=== PATIENT | female | born 1940 | race Caucasian/White ===

== ENCOUNTER 2016-12-15 09:53 | Inpatient (IN) ==
--- NOTE | 2016-12-15 11:06 | EKG Report ---
Test Performed on : 12/15/2016 11:02:55 AM Test Reason : AMS Blood Pressure : / mmHG Vent. Rate : 089 BPM Atrial Rate : 089 BPM P-R Int : 136 ms QRS Dur : 086 ms QT Int : 386 ms P-R-T Axes : 048 048 091 degrees QTc Int : 469 ms Sinus rhythm. with occasional premature ventricular complexes. Possible Left atrial enlargement Possible Inferior infarct (cited on or before 03-MAR-2016) Abnormal ECG When compared with ECG of 03-MAR-2016 09:25, premature ventricular complexes. are now present Unconfirmed Result
--- NOTE | 2016-12-15 11:08 | Diag Imaging Result Doc PS360 ---
EXAM: CT HEAD W/O CONTRAST TECHNIQUE: Dose reduction protocol was used. INDICATION: stroke symptoms. Speech difficulty, weakness, sudden onset COMPARISON: 03/03/2016 FINDINGS: There is no definite acute infarct given the limited sensitivity of CT versus MRI. There is no discrete intracranial mass, mass effect, or intracranial hemorrhage. The surrounding soft tissues and bony structures are essentially unremarkable. IMPRESSION: No evidence of acute intracranial pathology by CT. Electronically signed by Jose Daniel Modi 12/15/2016 11:06 AM
--- NOTE | 2016-12-15 11:18 | ED EKG INTERP ---
This chart was entered by Amarilis Nam Scribe, acting as scribe for Reymundo Rangel MD. EKG Interpretation - EKG Time of EKG reading by physician:: 11:02 EKG Read and Signed by:: Reymundo Rangel EKG Interpretation (*Must complete 3 of following elements*): Abnormal ( possible left atrial enlargement; possible inferior infarct, age undetermined) Rate: 89 Rhythm: sinus rhythm with occasional premature ventricular complexes Attestation - Physician/ MATTHEW Attestation Patient care was provided by Advanced Practice Provider:: Yes Advanced Practice Provider documentation review:: The Mid-level provider documentation, treatment plan and medical decision making was reviewed by the physician who agrees with all treatment and medical decision making by the MLP. The physician spent face to face time with patient:: Yes Advanced Practice Provider documentation review:: Supervising physician onsite and consulted in the evaluation and care of this patient. The physician did have a face to face encounter with the patient. This chart was documented by the indicated scribe, (Amarilis Nam Scribe) and accurately reflects the services I performed and decisions made by me, Reymundo Rangel MD, as attested by the provider's signature.
--- NOTE | 2016-12-15 11:25 | PROVIDER DOCUMENTATION ---
This chart was entered by Amarilis Nam Scribe, acting as scribe for Papa Gabriel PA. HPI-Neurological Disorder - General Chief Complaint: Stroke-Like Symptoms Stated Complaint: UNABLE TO GET WORDS OUT OF MOUTH Time Seen by Provider: 12/15/16 10:12 Source: patient Allergies/Adverse Reactions: Patient Allergies Allergy/AdvReac Type Severity Reaction Status Date / Time aspirin Allergy Unknown Unknown Verified 12/15/16 09:58 duloxetine HCl * Allergy Unknown Unknown Verified 12/15/16 09:58 [From Cymbalta] Iodinated Contrast- Oral and Allergy Unknown Unknown Verified 12/15/16 09:58 IV Dye levofloxacin [From Levaquin] Allergy Unknown Unknown Verified 12/15/16 09:58 NSAIDS (Non-Steroidal Allergy Unknown Unknown Verified 12/15/16 09:58 Anti-Inflamma tramadol HCl * [From Ultram] Allergy Unknown Unknown Verified 12/15/16 09:58 venlafaxine HCl * Allergy Unknown Unknown Verified 12/15/16 09:58 [From Effexor] ondansetron HCl * Allergy ITCHING Verified 12/15/16 09:58 [From Zofran] Penicillins Allergy ANAPHYLAXIS Verified 12/15/16 09:58 Home Medications: Home Medication List Medication Instructions Recorded Confirmed Last Taken Type Apixaban [Eliquis] 5 mg PO BID #60 tablet 07/17/15 03/03/16 03/03/16 Rx Diltiazem C.d. [Cardizem Cd] 120 mg PO DAILY #30 capsule 07/17/15 03/03/1603/03 Rx Furosemide 40 mg PO QAM 03/03/16 03/03/16 03/03/16 History Hydrocodone/Acetaminophen 1 each PO BID 03/03/16 03/03/16 03/03/16 History [Hydrocodon-Acetaminophn 10-325] Metoprolol Tartrate 50 mg PO BID 03/03/16 03/03/16 03/03/16 History Hydralazine [Apresoline] 25 mg PO Q8H #0 tablet 03/04/16 Unknown Rx PRAVAstatin [Pravachol] 20 mg PO QHS #0 tablet 03/04/16 Unknown Rx - History of Present Illness-Neuro Nature of Presenting Problem: Pt is 76 year old female presents to the ED with slurred speech and upper extremity weakness. Pt states symptoms started last night around 2330. Pt states was eating a sandwich and dropped it from her left hand. Pt denies hx of CVA. Pt states she is on a blood thinner. Headache Location: denies: frontal, temporal, occipital, parietal, global Severity: reports: moderate Onset/Duration: reports: last night Timing: reports: still present Context: reports: impaired speech (slurred), other (bilateral upper ext. weakness) Character of Altered Mental Status: reports: N/A Any recent trauma/injury?: reports: none Character of Deficits: reports: new weakness (bilateral upper extr.), impaired speech (slurred) New weakness or altered sensation location:: reports: REYNALDOEJORGE LUIS Cognitive Baseline: alert, oriented x3 Gait Baseline: walks without assistance Associated Symptoms: reports: slurred speech, weakness (upper extr.). denies: short of breath, headache, decreased ability to walk or stand, fainting, dizziness, confusion, chest pain, neck/back pain, fatigue, fever/chills, insomnia, loss of consciousness, muscle spasms, nausea, numbness in legs/feet, paresthesia, diaphoretic, ringing in ears, seizures, sleepy, tingling in legs/ feet, trouble walking, vomiting, vision changes Similar Symptoms Previously?: Yes (presents since last night ) Recently seen or treated by another doctor?: No Review of Systems - Adult - REVIEW OF SYSTEMS - ADULT Constitutional: denies: chills, fever Eyes: denies: decreased vision, blurred vision, double vision Ears, Nose, Mouth & Throat: denies: ear pain, nose pain, throat pain Cardiovascular: denies: chest pain, heart murmur, irregular heart rate Respiratory: denies: cough, shortness of breath, wheezing Gastrointestinal: denies: abdominal pain, diarrhea, nausea, vomiting Genitourinary: denies: dysuria, flank pain, hematuria Musculoskeletal: reports: muscle weakness (bilateral upper extr.). denies: bone pain, joint pain, neck pain Integumentary: denies: hives, itching, rash Neurological: reports: slurred speech, tremors (left upper extr.). denies: dizziness/vertigo, headache/migraines, numbness, seizure, syncope Psychiatric: denies: anxiety, depression, suicidal thoughts Endocrine: reports: no symptoms reported Hematologic/Lymphatic: reports: no symptoms reported Allergic/Immunologic: reports: no symptoms reported All Other Systems: Reviewed and Negative Past History - Adult - PAST MEDICAL HISTORY-ADULT Review of Records: reports: Nursing Assessment Review, Medications Reviewed, Social history reviewed & non-contributory. Major Childhood Illnesses: reports: denies history Cardiovascular: reports: HTN Respiratory: reports: COPD Gastrointestinal: reports: denies history Obstetrical/Gynecological: reports: denies history Genitourinary: reports: denies history Musculoskeletal: reports: denies history Neurological: reports: denies history Endocrine/Immune: reports: lupus, thyroid disorder Other Conditions: reports: denies history - PRIOR SURGERIES/PROCEDURES Surgical/Procedure History: reports: hysterectomy - PRIOR HOSPITALIZATIONS Prior Hospitalizations: reports: none - IMMUNIZATION STATUS Childhood Immunizations: See Nurse Assessment Flu Vaccine: See Nurse Assessment - FAMILY HISTORY Family History: reviewed, not pertinent - SOCIAL HISTORY Smoking: denies Substance Use: denies Living Situation: family Physical Exam- Neurological - Physical Exam-Neuro Initial Vital Signs Reviewed: Yes General Appearance: alert, mild distress. negative: lethargic, slow to respond Eye Exam: bilateral eye: normal inspection, PERRL, EOMI HENMT: normocephalic/atraumatic, moist mucous membranes, normal ENT inspection. negative: angioedema, hearing deficit Head Injury: no evidence of injury. negative: active bleeding, Majano's Sign, contusions, ecchymosis, flap Neck: non-tender, supple, carotid bruit (bilateral). negative: lymphadenopathy , tender lateral Respiratory: chest non-tender, lungs clear, normal breath sounds. negative: crackles, rales, rhonchi, stridor, wheezing Cardiovascular: normal peripheral pulses, regular rate, rhythm, systolic murmur . negative: tachycardia Abdominal Exam: normal bowel sounds, non tender, soft. negative: distended, guarding, hernia Lymphatic: no adenopathy. negative: enlargement, streaking Peripheral Pulses: radial (R): 2+, radial (L): 2+, dorsalis-pedis (R): 2+, dorsalis-pedis (L): 2+ Extremity: other (bilateral upper extr. weakness, jerking of the left arm. Able to raise the right leg off the bed but not the left). negative: normal inspection, deformity, erythema, swelling communications administrator Exam: normal hearing, abnormal speech (slurred), facial weakness (bilateral) . negative: normal speech, abnormal eye position, abnormal pupil position, facial asymmetry, facial droop, hearing deficit (R), hearing deficit (L) Motor/Sensory: no sensory deficit, no pronator drift, weak motor strength RUE, weak motor strength LUE. negative: pronator drift (R), pronator drift (L) Neurologic: communications administrator II-XII nml as tested, aphasia, motor weakness (bilateral upper ext). negative: facial droop Integumentary: normal color, normal turgor, warm/dry. negative: ecchymosis, erythema, swelling, tenderness Psych/Mental Status: oriented x 3. negative: anxious, paranoid, tearful - Glascow Coma Scale Best Eye Response: (4) open spontaneously Best Verbal Response: (5) oriented Best Motor Response: (6) obeys commands Progress - PLAN OF CARE/RESULTS Progress/Plan/Lab Results: Vital Signs - 8 hr 12/15/16 09:55 Temperature 97.9 F Pulse Rate 118 H Respiratory Rate 20 Blood Pressure 177/092 O2 Sat by Pulse Oximetry 97 Orders Category Date Time Status Cardiac Monitoring DIRECTED Care 12/15/16 10:19 Active Finger Stick Blood Sugar (ED) DIRECTED Care 12/15/16 10:19 Active Oxygen Therapy- ED Nursing DIRECTED Care 12/15/16 10:19 Active Saline Loc NOW Care 12/15/16 10:19 Active CHEST-1 VIEW [RAD] Stat Exams 12/15/16 10:[address] HEAD W/O CONTRAST [CT] Stat Exams 12/15/16 10:19 Completed CBC WITH ELECTRONIC DIFF [HEME] Stat Lab 12/15/16 10:19 Ordered CK PROFILE [SP CHEM] Stat Lab 12/15/16 10:19 Ordered COMPREHENSIVE METABOLIC PANEL [CHEM] Stat Lab 12/15/16 10:[address]IME WITH INR [address] [COAG] Stat Lab 12/15/16 10:[address] [COAG] Stat Lab 12/15/16 10:19 Ordered TROPONIN T Stat Lab 12/15/16 10:[address] W/POSS RFLX CULT [URINALYSIS] Stat Lab 12/15/16 10:19 Uncollected URINE DRUG SCREEN PL Stat Lab 12/15/16 10:19 Uncollected Pulse Oximetry Stat Oth 12/15/16 10:19 Active EKG [EKG] Stat Ther 12/15/16 10:19 Draft - REASSESSMENT Reassessment #1 Time Reassessed: 11:16 (Dr. Rangel assessed pt, noted carotid bruits bilateral, pt has known systolic murmur. Able to raise right leg, but not left. Pt has decreased strength, difficulty with speech. recommends admission for carotid US and further workup. ) - CT/MRI 1 CT Study: Head Impression: Normal CT Results: no evidence of acute intracranial pathology by CT (Modi) - CONSULTS/PCP/HOSPITALIST Notification #1 *Consult/PCP/Hospitalist*: Dr. Miller, Hospitalist Time Discussed: 11:20 (Waiting labs at this time, suspect pt had stroke. Symptoms started last night but woke up this morning with difficulty speaking. ) Consult Disposition: Admit Departure - Departure Date of Disposition Decision: 12/15/16 Time of Disposition Decision: 11:22 DIAGNOSIS: Difficulty with speech A-fib Qualifiers: Atrial fibrillation type: chronic Qualified Code(s): I48.2 - Chronic atrial fibrillation Stroke Qualifiers: CVA mechanism: unspecified Qualified Code(s): I63.9 - Cerebral infarction, unspecified Disposition: ADMITTED INPATIENT 09 Certified Medical Emergency: Emergent Condition: Stable Referrals and Follow-Ups: Shahab Riojas MD [Primary Care Provider] - - Critical Care Note This patient required my direct & personal management of CC.: No Attestation - Physician/ MATTHEW Attestation Patient care was provided by Advanced Practice Provider:: Yes Advanced Practice Provider:: Papa Gabriel Advanced Practice Provider documentation review:: The Mid-level provider documentation, treatment plan and medical decision making was reviewed by the physician who agrees with all treatment and medical decision making by the [facility]. The physician spent face to face time with patient:: Yes Advanced Practice Provider documentation review:: Supervising physician onsite and consulted in the evaluation and care of this patient. The physician did have a face to face encounter with the patient. - NIH Stroke Scale NIH Type: Initial Evaluation Level of Consciousness: 0-Alert LOC Questions (ask month and age): 0-Answers Both Correctly LOC Commands (ask to open & close eyes;make a fist, let go): 1-Obeys One Correctly Best Gaze (horizontal eye movement): 0-Normal Visual (use finger movement, counting or visual threat): 0-No Visual Loss Facial Palsy (show teeth or raise eyebrows & close eyes tght: 0-Symmetrical Movement Motor Function-left arm: 2-Some Effort Against [place] Motor Function-right arm: 0-Normal Motor Function-left le-No Movement Motor Function-right le-Normal Sensory(pin prick to face,arms,trunk,legs-compare side/side): 0-No Ataxia Best Language(name item/read sentence.Ex-Down to Earth): 1-Mild to Moderate Aphasia Dysarthria(Pt read words or say words Ex.Mama,Tip-Top,Thanks: 0-Normal Articulation Extinction and Inattention: 0-Normal This chart was documented by the indicated scribe, (Amarilis Nam, Tez) and accurately reflects the services I performed and decisions made by me, Paap Gabriel PA, as attested by the provider's signature.
[2016-12-15 11:27] LABS: MANUAL DIFF NEEDED? NO
[2016-12-15 11:32] LABS: BASO% 0.5 % (0.0-0.8); EOS# 0.06 X1000 (0.0-0.7); EOS% 0.7 % (0.0-10.0); HEMATOCRIT 38.1 % (37.0-47.0); HEMOGLOBIN 12.5 g/dL (12.0-16.0); IMM GRAN# 0.01 X1000 (0.0-0.04); IMM GRAN% 0.1 % (0.0-0.5); LYMPH# 1.36 X1000 (1.2-3.4); LYMPH% 15.7 % (20.5-51.1); MCH 30.4 PG (27-31); MCHC 32.8 g/dL (33-37); MCV 92.7 FL (81-99); MONO# 0.42 X1000 (0.11-0.59); MONO% 4.9 % (1.7-9.3); MPV 9.5 FL (7.4-10.4); NEUT% 78.1 % (42.2-75.2); PLT 215 X1000 (130-400); RBC 4.11 XMIL (4.2-5.4)
[2016-12-15 11:36] LABS: INR 1.28 (0.86-1.15)
[2016-12-15 11:37] LABS: PTT PL 36.7 Seconds (22.6-43.9)
[2016-12-15 11:41] LABS: ALBUMIN 4.6 g/dL (3.5-5.0); CALCIUM 9.4 mg/dL (8.8-10.2); POTASSIUM 3.3 mmol/L (3.5-5.1); TOTAL BILIRUBIN 0.4 mg/dL (0.20-1.00); TOTAL PROTEIN 7.9 g/dL (6.3-8.3)
[2016-12-15 12:02] LABS: CK INDEX 2.6 (0.0-2.5); CK-MB 8.51 ng/mL (0.0-5.0)
[2016-12-15 12:16] LABS: URINE CULTURE PL NEEDED? NO
[2016-12-15 12:25] LABS: UR AMPHETAMINES QUAL NONE DETECTED (NONE DETECT); UR BARBITUATES QUAL NONE DETECTED (NONE DETECT); UR BENZODIAZEPIN QUAL NONE DETECTED (NONE DETECT); UR CANNABINOIDS QUAL NONE DETECTED (NONE DETECT); UR COCAINE QUAL NONE DETECTED (NONE DETECT); UR MDMA QUAL NONE DETECTED (NONE DETECT); UR METHADONE QUAL NONE DETECTED (NONE DETECT); UR METHAMPHETAMINE QUAL NONE DETECTED (NONE DETECT); UR OPIATES QUAL NONE DETECTED (NONE DETECT); UR OXYCODONE QUAL NONE DETECTED (NONE DETECT); UR PCP QUAL NONE DETECTED (NONE DETECT); UR TCA QUAL NONE DETECTED (NONE DETECT)
[2016-12-15 12:27] LABS: BILIRUBIN URINE NEGATIVE (NEGATIVE); BLOOD URINE 1+ (NEGATIVE); CLARITY CLEAR (CLEAR); COLOR YELLOW; GLUCOSE URINE NEGATIVE (NEGATIVE); LEUKOCYTES URINE NEGATIVE (NEGATIVE); NITRITE URINE NEGATIVE (NEGATIVE); PROTEIN URINE NEGATIVE (NEGATIVE); SP GRAVITY URINE 1.005; UROBILINOGEN URINE NORMAL
[2016-12-15 12:40] LABS: URINE EPITHELIAL CELLS <10 /HPF (<10); URINE RBC <10 /HPF (<10); URINE SOURCE CLEAN CATCH; URINE WBC <10 /HPF (<10)
--- NOTE | 2016-12-15 13:18 | Diag Imaging Result Doc PS360 ---
EXAM: CHEST-1 VIEW INDICATION: speech difficulty, weakness, sudden onset TECHNIQUE: One view COMPARISON: 03/03/2016 FINDINGS: There is evidence of prior granulomatous disease with a few calcified upper mediastinal lymph nodes on the right, stable. There is a rounded nodule at the left lower lung zone not clearly identified previously. However, it does appear to be likely calcified suggesting a granuloma. It also may be something on the skin surface. Consider a follow-up chest radiograph. The lungs are grossly clear, otherwise. There is no discrete pleural fluid collection or pneumothorax. The cardiomediastinal silhouette and central vasculature are grossly unremarkable. IMPRESSION: Nodular density at the left lower lung zone not seen on the previous study. Nonetheless, it is still probably a calcified nodule. Please see above discussion. Electronically signed by Jose Daniel Modi 12/15/2016 1:15 PM
[2016-12-15] MEDS ORDERED: POTASSIUM CHLORIDE 20 MEQ/SWI 20 MEQ/100 ML IVPB IV ONE (14:33)
--- NOTE | 2016-12-15 14:56 | HISTORY AND PHYSICAL ---
PRIMARY CARE PHYSICIAN: Dr. Riojas. CHIEF COMPLAIN: Slurred speech and left-sided weakness that began last night around 11:30 p.m. HISTORY OF PRESENTING ILLNESS: This is a 76-year-old female who presents to [facility] ER with complaints of slurred speech and left- sided weakness that began around 11:30 p.m. last night. She is noted to have difficulty finding her words slow with some mild slurring of her words, no left-sided hand grasp and unable to lift left leg. CT of the head showed no evidence of an acute intracranial pathology by CT. Her potassium was mildly low at 3.3, creatine kinase of 325 with a CK-MB of 8.5 but a negative troponin of less than 0.010. Blood pressure on arrival was 177/92 with a heart rate of 118 so she is being admitted for further evaluation and treatment. PAST MEDICAL HISTORY: Of hypertension, coronary artery disease, lupus, atrial fibrillation, CHF, aortic stenosis, previous CVA and CHF. PAST SURGICAL HISTORY: PCI placement and hysterectomy. FAMILY HISTORY: Noncontributory. SOCIAL HISTORY: She currently resides at an assisted living facility at [facility] and denied any tobacco, alcohol or illicit drug use. ALLERGIES: Aspirin, Cymbalta, iodinated contrast, Levaquin, NSAIDs, tramadol , Effexor, Zofran and penicillin. HOME MEDICATIONS: Will be verified and we will restart those as appropriate. LABORATORY DATA: Showed a white blood cell count of 8.64, hemoglobin 12.5, hematocrit 38.1, platelets 215,000. PT and INR of 17.0 and 1.28. Sodium of 142, potassium 3.3 , chloride 103, CO2 25, BUN of 11, creatinine 1.2, glucose 106, creatine kinase 325, CK-MB 8.51 with a troponin of less than 0.010. Urinalysis was negative. Urine drug screen was negative. Chest x-ray showed nodular density at the left lung zone not seen on a previous study nonetheless it is still probably a calcified nodule. EKG sinus rhythm with occasional PVC at 89. REVIEW OF SYSTEMS: She denied any fever, chills, blurred vision, dizziness, chest pain, coughing, shortness of breath, she denied any constipation, diarrhea, burning or hurting with urination. She is positive for slurred speech and left-sided weakness. PHYSICAL: Vital signs: On arrival she had a temperature of 97.9 degrees, pulse 118, respirations 20, blood pressure 177/92, saturating 97% on room air. General: This is 76- year-old female who is lying in the bed, answers questions appropriately, has some mild slurring of her speech and slow to respond but does answer questions. HEENT: Normocephalic and atraumatic. Pupils appear equal, round, reactive to light. 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 Extraocular movements are intact. Oropharynx and nares are clear. Neck: Supple. Lungs: Clear to auscultation bilaterally. Equal lung expansion and chest wall movement. Heart : With regular rate and rhythm. No murmurs, rubs, or gallops. Abdomen: Soft, nontender, nondistended. Bowel sounds are present x4 quadrants. Extremities: No clubbing, cyanosis, or edema. Neurologic: Patient is noted to have left-sided weakness with no hand grasp on the left side and unable to lift and move left lower leg. ASSESSMENT: 1. Acute cerebrovascular accident. 2. Hypokalemia. 3. Hypertension. 4. Atrial fibrillation history of. PLAN: She has been admitted to the medical unit at [facility], placed on telemetry , we will check an MRI of the brain, check an echocardiogram and carotid ultrasound. Restart medications after they are verified as appropriate. Will hold NPO for bedside swallowing study, will consult physical therapy, speech therapy and will check another set of cardiac enzymes. Dictated by STACIE Álvarez for Cornel Miller MD Patient seen and examined. Discussed with GLOVE OPERATOR current care. Patient noted to have slurred speech but is understandable when she slows down and is not anxious. 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 CT negative cc: STACIE Álvarez MD Dr. Thomas MTDD
[2016-12-15 16:27] LABS: CK INDEX 2.3 (0.0-2.5); CK-MB 9.6 ng/mL (0.0-5.0)
[2016-12-15] MEDS: TORADOL IV PRN (18:16)
[2016-12-15] MEDS ORDERED: NS 500 ML IV SCH (18:25)
[2016-12-15] MEDS ORDERED: NS 500 ML IV ONE (18:31)
[2016-12-15] MEDS ORDERED: DILAUDID IV ONE (19:42)
[2016-12-15] MEDS: ELIQUIS PO SCH (20:17)
[2016-12-15] MEDS: DESYREL PO SCH (20:18)
[2016-12-15] MEDS: XANAX PO SCH (20:18)
[2016-12-15] MEDS: NORCO-10 PO SCH (20:18)
[2016-12-15] MEDS: LOPRESSOR PO SCH (20:18)
--- NOTE | 2016-12-15 21:29 | Extremity Venous Study ---
EXAM: Carotid Ultrasound INDICATION: cva TECHNIQUE: COMPARISON: None. FINDINGS: Right: There are a few small calcified atherosclerotic plaques in the right ICA. The peak systolic velocity measures 119, 78, 61, 92, 97, 72, and 92 cm/s at the right subclavian artery, CCA, bifurcation, proximal ICA, mid ICA, distal ICA, and ECA, respectively. There is antegrade flow in the vertebral artery. The carotid ratio is 1.24. Left: There is trace atherosclerotic plaque at the left carotid bulb. Peak systolic velocity measures 114, 86, 92, 24, 43, 45, and 107 cm/s at the left subclavian artery, CCA, bifurcation, proximal ICA, mid ICA, distal ICA, and ECA, respectively. There is antegrade flow in the vertebral artery. The carotid ratio is 0.86. IMPRESSION: Bilateral mild atherosclerotic plaques in the ICAs but no evidence of hemodynamically significant stenosis. Electronically signed by Jose Daniel Modi 12/15/2016 9:27 PM
[2016-12-15] MEDS ORDERED: SODIUM CHLORIDE 0.9% INJ PRN (23:00)
[2016-12-15] MEDS ORDERED: PHENERGAN IV PRN (23:00)
[2016-12-16 06:04] LABS: MANUAL DIFF NEEDED? NO
[2016-12-16 06:11] LABS: BASO% 0.4 % (0.0-0.8); EOS# 0.14 X1000 (0.0-0.7); EOS% 1.9 % (0.0-10.0); HEMATOCRIT 38.1 % (37.0-47.0); HEMOGLOBIN 12.1 g/dL (12.0-16.0); IMM GRAN# 0.01 X1000 (0.0-0.04); IMM GRAN% 0.1 % (0.0-0.5); LYMPH% 19.2 % (20.5-51.1); MCH 29.9 PG (27-31); MCHC 31.8 g/dL (33-37); MCV 94.1 FL (81-99); MONO# 0.54 X1000 (0.11-0.59); MONO% 7.4 % (1.7-9.3); MPV 9.7 FL (7.4-10.4); PLT 213 X1000 (130-400); RBC 4.05 XMIL (4.2-5.4)
[2016-12-16 06:35] LABS: CALCIUM 9.1 mg/dL (8.8-10.2)
[2016-12-16] MEDS: TORADOL IV PRN ×2 (10:25→16:40)
[2016-12-16] MEDS: NORCO-10 PO SCH ×2 (10:30→20:25)
[2016-12-16] MEDS: XANAX PO SCH ×2 (10:30→20:27)
[2016-12-16] MEDS: LOPRESSOR PO SCH ×2 (10:30→20:24)
[2016-12-16] MEDS: ELIQUIS PO SCH ×2 (10:31→20:24)
[2016-12-16] MEDS ORDERED: SODIUM CHLORIDE 0.9% INJ SCH (12:00)
--- NOTE | 2016-12-16 14:14 | PROGRESS NOTE ---
DATE: 12/16/2016 SUBJECTIVE: The patient without any new complaints. Notes her speech has really not improved. She is still having some slurred speech. Denies any current headaches. States that is better. OBJECTIVE: Vital Signs: Reviewed. Temperature 97 degrees, pulse 62, respiratory 16, BP 144/58, saturation 100% on 2 L. General: Patient is awake, alert. She is currently in no real respiratory distress. Neck: Supple. Cardiovascular: Regular rhythm and rate. Chest: Clear. Abdomen: Soft. 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 She has no purposeful movement of the left lower extremity. Neurologic: Speech has seemingly improved a little bit, does have lisped slurring. Can understand what she is attempting to say if she slows down and does not get anxious. DIAGNOSTIC DATA: CBC and CMP essentially normal. CPK 425, troponin is negative. ASSESSMENT: 1. Acute cerebrovascular accident with dysarthria and weakness on the left. 2. Dysphagia. The patient did not do well with her swallowing on the evaluation yesterday, although she is starting to swallow better today. We will repeat this in the a.m. 3. Hypokalemia, improved. 4. Hypertension, stable. 5. Atrial fibrillation, continue Eliquis. PLAN: We will continue physical therapy, speech evaluation. We will check an MRI of her brain. We will keep her n.p.o. today. Further orders as needed. cc: Cornel Miller MD
--- NOTE | 2016-12-16 15:58 | ECHO REPORT ---
ORDER DATE: 12/16/2016 INDICATION: Cerebrovascular accident. FINDINGS: 1. Right atrium appears normal in size. 2. Mild tricuspid regurgitation. RV systolic pressure 27. 3. Normal RV size and systolic function. 4. Mild pulmonic insufficiency. 5. Mild left atrial enlargement at 4.5 cm. 6. No mitral prolapse. Mild mitral regurgitation. 7. Normal LV size, end-diastolic dimension of 5.3. Normal wall thicknesses, with a posterior and interventricular septal wall thickness 1 cm each. Normal LV systolic function. Estimated EF 60%, with normal wall motion. 8. Aortic valve appears to have some restriction in motion. The valve is calcified. The peak gradient across valve is 30, with a mean of 20. Notably, the patient did not cooperate with full extents of the test. Aortic valve area was not assessed. I believe this is most likely consistent with mild aortic stenosis. Mild aortic insufficiency noted. 9. Aorta appears normal in visualized segments. 10. No pericardial effusion identified. 11. Apparently, roughly 1 year ago, the patient had an echocardiogram with a peak and mean gradient across the valve of 39 and 25, respectively, with a valve area by the continuity equation of 1 cm2. cc: MD Amy Swain CRNP
[2016-12-16] MEDS: NS 1,000 ML IV SCH ×3 (16:38→22:52)
[2016-12-16] MEDS: PROTONIX IV SCH (16:38)
[2016-12-16] MEDS: DESYREL PO SCH (20:23)
[2016-12-17] MEDS: TORADOL IV PRN ×3 (02:31→21:32)
[2016-12-17] MEDS: ELIQUIS PO SCH ×2 (09:37→21:32)
[2016-12-17] MEDS: LOPRESSOR PO SCH ×2 (09:37→21:31)
[2016-12-17] MEDS: NORCO-10 PO SCH ×2 (09:38→21:32)
[2016-12-17] MEDS: XANAX PO SCH ×2 (09:38→21:31)
--- NOTE | 2016-12-17 11:00 | Diag Imaging Result Doc PS360 ---
EXAM: MRI BRAIN W/O CONTRAST - 12/17/2016 HISTORY: cva TECHNIQUE: Without contrast per request the referring provider. COMPARISON: CT head of 12/15/2016 FINDINGS: There are scattered small white matter signal abnormalities which are compatible with chronic microvascular ischemic changes. The diffusion weighted images show no areas of restricted diffusion (no evidence of acute infarct). There is no evidence of hemorrhage, mass effect, midline shift, or hydrocephalus. There is slight mucosal thickening noted at the sphenoid sinus and posterior ethmoid air cells. IMPRESSION: Mild chronic microvascular ischemic changes. No visible acute intracranial abnormality. Electronically signed by Lei Allen 12/17/2016 10:58 AM
[2016-12-17] MEDS: NS 1,000 ML IV SCH ×2 (12:42→21:32)
--- NOTE | 2016-12-17 14:31 | PROGRESS NOTE ---
DATE: 12/17/2016 SUBJECTIVE: The complains of being hungry. She is awaiting a swallow study. Speech continues to be slurred. She has had no further headaches. OBJECTIVE: Vital Signs: Blood pressure is 130/52 with a heart rate of 75. Respirations are 18, temperature is 97.5 degrees oral, with O2 saturations of 98-100% on 2 L. General: She the patient is awake and alert. She is up walking with PT. Neck: Supple with trachea midline. Cardiovascular: Regular rate and rhythm. S1 and S2 appreciated. Pulmonary: Breath sounds are clear with no increased work of breathing noted. Gastrointestinal: Abdomen is soft, nontender, nondistended with bowel sounds in all 4 quadrants. Extremities: No clubbing, cyanosis, or edema. Pulses are palpable x4. Neurologic: She is awake and alert. She does follow commands. Speech is slurred. Pupils are equal, round, react to light. EOMs are intact. She has equal shoulder shrug with right upper and lower extremity 5/5 strength, with quahogger 5/5. Left hand she does have 3/5 movement of her gross movement of her arm with 1/5 of quahogger. She is walking with physical therapy. Speech continues to be slurred. She does get frustrated with her inability to find words. Once she slows down, speech is more clear. MRI of the brain revealed mild chronic microvascular ischemic changes with no visible acute intracranial abnormality. Echocardiogram revealed an ejection fraction of 60% with normal wall motion. ASSESSMENT: 1. Acute cerebrovascular accident with dysarthria and weakness on the left. 2. Dysphagia. They are inconsistencies on the bedside swallowing exam according to the chart; therefore, speech therapy has been consulted for swallowing evaluation once. We will continue with diet and p.o. intake according to their recommendations. 3. Hypokalemia, improved. 4. Hypertension, stable. 5. Atrial fibrillation. Continue Eliquis. Dictated by STACIE Acosta for Cornel Miller MD cc: STACIE Acosta MD
[2016-12-17] MEDS: PROTONIX IV SCH (16:09)
[2016-12-17] MEDS: DESYREL PO SCH (21:32)
[2016-12-18] MEDS: NS 1,000 ML IV SCH (00:36)
--- NOTE | 2016-12-18 03:53 | PROGRESS NOTE ---
DATE: 12/17/2016 ADDENDUM REPORT The patient is seen and examined. Discussed with nurse practitioner current plan. We will have a swallowing evaluation today as she did have some aspiration the other day on admission. She is actually having some use of her left lower extremity. She is able to move it today, whereas the other day it was completely flaccid. She has a little bit of a hand infection control preventionist on her left compared to no infection control preventionist on admission. Continue to encourage patient. We will get physical therapy. Certainly will need rehab on discharge. cc: Cornel Miller MD
[2016-12-18] MEDS: XANAX PO SCH (09:58)
[2016-12-18] MEDS: ELIQUIS PO SCH (09:58)
[2016-12-18] MEDS: LOPRESSOR PO SCH (09:58)
[2016-12-18] MEDS: NORCO-10 PO SCH (09:58)
[2016-12-18 15:39] VITALS: BP 128/70
[2016-12-18] MEDS: PROTONIX IV SCH (16:45)
--- NOTE | 2016-12-21 17:14 | DISCHARGE SUMMARY ---
ADMISSION DATE: 12/15/2016 DISCHARGE DATE: 12/18/2016 DIAGNOSES: 1. Acute cerebrovascular accident with dysarthria and weakness on the left. 2. Dysphagia. 3. Hypokalemia. Improved. 4. Hypertension. Stable. 5. Atrial fibrillation. DIAGNOSTICS: 1. 12/15/2016 CT of the head revealed no evidence of acute intracranial pathology, no definite acute infarct. There is no discrete intracranial mass, mass effect, or intracranial hemorrhage. 2. 12/15/2016 carotid Doppler revealed bilateral mild atherosclerotic plaques and ICAs but no evidence of hemodynamically significant stenosis. 3. 12/16/2016 echocardiogram revealed mild aortic stenosis, normal LV systolic function, estimated EF of 60% with normal wall motion. No pericardial effusion. No mitral prolapse. Mild mitral regurgitation. 4. 12/17/2016 MRI of the brain. Mild chronic microvascular ischemic changes. No visible acute intracranial abnormality. HOSPITAL COURSE: Ms. Espinoza presented to the emergency room with slurred speech and left-sided weakness. This did improve somewhat through the hospitalization. She continued with some dysarthria. She was evaluated by Speech Therapy, found to have no difficulty swallowing, recommended a regular diet. She was also was evaluated by Physical Therapy who actually recommended inpatient rehab with OT and speech, although the patient refused to go to rehab. She does have home health and she will agree to home health, home OT, and home physical therapy. Through the hospitalization she continued with 5/5 right upper and lower extremity strength, 1/5 to her left hand, and some gross movement to her left lower extremity. She did tolerate a regular diet with no difficulty. She did swallow pills and tolerate a regular diet with no difficulty. DISCHARGE PHYSICAL EXAMINATION: Cardiovascular: Regular rate and rhythm. S1 and S2 appreciated. Pulmonary: Breath sounds are clear. No increased work of breathing noted. Gastrointestinal: Abdomen is soft, nontender, nondistended. Bowel sounds in all 4 quadrants. Extremities: No clubbing, cyanosis, or edema. Pulses palpable x4. Her calves were nontender. Neurologic: She is awake, alert, oriented, with slurred speech and some difficulty saying words with which she became frustrated. DISCHARGE MEDICATIONS: Trazodone 50 mg at bedtime, alprazolam 0.5 p.o. b.i.d., [place] 10/325 b.i.d., Eliquis 5 b.i.d., metoprolol tartrate 50 b.i.d. DISCHARGE ACTIVITY: As tolerated. DISCHARGE DIET: Regular. FOLLOWUP: She is to follow up with her primary care physician, Dr. Shahab Riojas , in 1-2 weeks, sooner if needed. DISPOSITION: She will be discharged home. Continue with [facility], physical therapy, and OT, speech therapy. She is being discharged home in stable condition with family members. TIME SPENT: This is a greater than 30 minute discharge. Dictated by STACIE Acosta for Cornel Miller MD cc: STACIE Acosta MD MTDD
== END 2016-12-18 16:32 | disposition home health service (06) ==
LOC: P.ED 09:53 → P.MEDSURG 13:12
PROVIDERS: ATTEND Family Medicine

== ENCOUNTER 2018-05-04 13:46 | Inpatient (IN) ==
--- NOTE | 2018-05-04 14:26 | Diag Imaging Result Doc PS360 ---
EXAM: CHEST-PORTABLE 05/04/2018 HISTORY: stroke like symptoms TECHNIQUE: AP portable at 1416 COMMENT: There is some ill-defined opacity in the retrocardiac region of the left lower lobe which was not present on 02/18/2018. IMPRESSION: Minimal atelectasis versus pneumonia left lower lobe. Electronically signed by Alfredo Paris 05/04/2018 2:23 PM
--- NOTE | 2018-05-04 14:49 | Diag Imaging Result Doc PS360 ---
EXAM: CT HEAD W/O CONTRAST 05/04/2018 HISTORY: stroke like symptoms TECHNIQUE: This exam was performed using automated exposure control, adjustment of mA or kV according to patient size, and/or use of iterative reconstruction technique. COMMENT: The current examination is compared with the previous study of 02/18/2018. There are calcifications in the internal carotid arteries bilaterally. There is calcification the right middle cerebral artery. There is no evidence of mass effect, bleed, abnormal extra-axial fluid collection, or hydrocephalus. Compared to the previous study there has been no significant change. IMPRESSION: No evidence of acute intracranial disease. Electronically signed by Alfredo Paris 05/04/2018 2:46 PM
[2018-05-04 16:40] LABS: URINE SOURCE CATH
[2018-05-04 16:51] LABS: BILIRUBIN URINE NEGATIVE (NEGATIVE); BLOOD URINE NEGATIVE (NEGATIVE); COLOR STRAW; GLUCOSE URINE NEGATIVE (NEGATIVE); KETONE URINE NEGATIVE (NEGATIVE); LEUKOCYTES URINE NEGATIVE (NEGATIVE); NITRITE URINE NEGATIVE (NEGATIVE); PROTEIN URINE NEGATIVE (NEGATIVE); TURBIDITY URINE CLEAR (CLEAR); UROBILINOGEN URINE NORMAL (NORMAL)
[2018-05-04 16:52] LABS: UR EPITHELIAL CELLS <10 /HPF (<10); URINE BACTERIA NEGATIVE /HPF; URINE RBC <10 /HPF (<10); URINE WBC <10 /HPF (<10)
[2018-05-04 19:08] LABS: BASO# 0.03 X1000 (0.0-0.2); BASO% 0.4 % (0.0-0.8); EOS# 0.05 X1000 (0.0-0.7); EOS% 0.6 % (0.0-10.0); HEMATOCRIT 35.7 % (37.0-47.0); HEMOGLOBIN 11.1 g/dL (12.0-16.0); LYMPH# 1.05 X1000 (1.2-3.4); MCH 30.7 PG (27-31); MCHC 31.1 g/dL (33-37); MCV 98.6 FL (81-99); MONO# 0.36 X1000 (0.11-0.59); MONO% 4.5 % (1.7-9.3); MPV 10.1 FL (7.4-10.4); NEUT# 6.59 X1000 (1.4-6.5); NEUT% 81.5 % (42.2-75.2); PLT 169 X1000 (130-400); RBC 3.62 XMIL (4.2-5.4); RDW 12.6 % (11.5-14.5); WBC 8.08 X1000 (4.8-10.8)
[2018-05-04 19:11] LABS: INR 1.03; PROTIME 14.3 Seconds (11.0-16.0)
[2018-05-04 19:12] LABS: PTT 29.7 Seconds (22.3-41.8)
[2018-05-04 19:20] LABS: AGAP 12; ALB/GLOB RATIO 1.6; ALKALINE PHOSPHATASE 81 U/L (32-104); BUN 18 mg/dL (8-22); CALCIUM 8.7 mg/dL (8.8-10.2); CHLORIDE 103 mmol/L (98-107); COSMO 288; CREATININE 0.8 mg/dL (0.5-0.9); ESTIMATED GFR > 60; GLUCOSE 110 mg/dL (70-104); GOT 20 U/L (10-30); GPT 10 U/L (10-36); POTASSIUM 4.2 mmol/L (3.5-5.1); SODIUM 143 mmol/L (136-145); TCO2 28 mmol/L (25-35); TOTAL BILIRUBIN 0.43 mg/dL (0.20-1.00); TOTAL PROTEIN 6.5 g/dL (6.3-8.3)
--- NOTE | 2018-05-04 19:30 | ED EKG INTERP ---
This chart was entered by Iwona Gonsales Scribe, acting as scribe for Ramon Kapoor MD. EKG Interpretation - EKG Time of EKG reading by physician:: 14:57 EKG Read and Signed by:: Ramon Kapoor (addie) EKG Interpretation (*Must complete 3 of following elements*): Abnormal Rate: 76 Rhythm: sinus rhythm with short NJ with occ atrial-paced complexes NJ Interval: shortened ST Wave: non-specific ST changes Comments: possible left atrial enlargement, possible inferior infarct Attestation - Physician/ MATTHEW Attestation Patient care was provided by Advanced Practice Provider:: No The physician spent face to face time with patient:: Yes Advanced Practice Provider documentation review:: Supervising physician onsite and consulted in the evaluation and care of this patient. The physician did have a face to face encounter with the patient. This chart was documented by the indicated scribe, (Iwona Gonsales Scribe) and accurately reflects the services I performed and decisions made by me, Ramon Kapoor MD, as attested by the provider's signature.
--- NOTE | 2018-05-04 19:31 | PROVIDER DOCUMENTATION ---
This chart was entered by Esther Carson Scribe, acting as scribe for Ramon Kapoor MD. HPI-General Adult - General Chief Complaint: Stroke-Like Symptoms Stated Complaint: POSSIBLE CVA Time Seen by Provider: 05/04/18 17:28 Source: patient Allergies/Adverse Reactions: Patient Allergies Allergy/AdvReac Type Severity Reaction Status Date / Time aspirin Allergy Unknown RASH Verified 02/18/18 15:29 duloxetine HCl * Allergy Unknown Unknown Verified 02/18/18 15:29 [From Cymbalta] Iodinated Contrast- Oral and Allergy Unknown Unknown Verified 02/18/18 15:29 IV Dye levofloxacin [From Levaquin] Allergy Unknown Unknown Verified 02/18/18 15:29 NSAIDS (Non-Steroidal Allergy Unknown Unknown Verified 02/18/18 15:29 Anti-Inflamma tramadol HCl * [From Ultram] Allergy Unknown Unknown Verified 02/18/18 15:29 venlafaxine HCl * Allergy Unknown Unknown Verified 02/18/18 15:29 [From Effexor] ondansetron HCl * Allergy ITCHING Verified 02/18/18 15:29 [From Zofran] Penicillins Allergy ANAPHYLAXIS Verified 02/18/18 15:29 Home Medications: Home Medication List Medication Instructions Recorded Confirmed Last Taken Type Apixaban [Eliquis] 5 mg PO BID #60 tablet 07/17/15 02/18/18 04/28/17 08:00 Rx Nitroglycerin 0.4 mg SL PRN PRN 11/05/17 02/18/18 Unknown History Rosuvastatin Calcium 20 mg PO DAILY 11/05/17 02/18/18 Unknown History Albuterol Sulfate 2.5 mg IH Q6H PRN PRN 02/18/18 02/18/18 Unknown History Iron,Carbonyl/Vit C/Vit B12/FA 1 each PO DAILY 02/18/18 02/18/18 Unknown History [Iron 100 Plus Tablet] - History of Present Illness -Gen Adult Nature of Presenting Problems: Pt is 78/F presenting to ED via EMS. She is here because of altered mental status, unsure as to who made the call to EMS. Pt has HX of a stroke 3 yrs prior and has some lasting effects from that. Pt has disjointed slurred speech and is not able to give a lengthy hx. She also has some jerking w/ movement. Pt has recently gone from 5mg of norco per dose to 10mg. Location of Pain/Injury: reports: none. denies: head, abdomen Pain Radiation: reports: no radiation Quality of Pain: reports: none. denies: aching, burning Severity: reports: mild Onset/Duration: reports: unsure Timing: reports: still present Context/Activities at Onset: reports: none Modifying Factors: improves with: nothing Associated Symptoms: reports: denies symptoms. denies: anxiety, chest pain, diarrhea, nausea, vomiting Similar Symptoms Previously?: Yes (pt was evaluated around 1100 today) Recently seen or treated by another doctor?: Yes Review of Systems - Adult - REVIEW OF SYSTEMS - ADULT ROS:: limited per condition (pt has limite speech abilities) Constitutional: reports: no symptoms reported. denies: fever Eyes: reports: no symptoms reported Ears, Nose, Mouth & Throat: reports: no symptoms reported Cardiovascular: reports: no symptoms reported. denies: chest pain, edema Respiratory: reports: no symptoms reported. denies: cough Gastrointestinal: reports: no symptoms reported. denies: diarrhea, vomiting Genitourinary: reports: no symptoms reported Musculoskeletal: reports: no symptoms reported Integumentary: reports: no symptoms reported Neurological: reports: other (jerky hand movements and slurred speech). denies : dizziness/vertigo, headache/migraines Psychiatric: reports: no symptoms reported Endocrine: reports: no symptoms reported Hematologic/Lymphatic: reports: no symptoms reported Allergic/Immunologic: reports: no symptoms reported All Other Systems: Reviewed and Negative Past History - Adult - PAST MEDICAL HISTORY-ADULT Review of Records: reports: Old Records Reviewed, Nursing Assessment Review, Medications Reviewed, Social history reviewed & non-contributory. Major Childhood Illnesses: reports: denies history Cardiovascular: reports: CAD, CHF, HTN, hyperlipidemia Respiratory: reports: COPD Gastrointestinal: reports: denies history Obstetrical/Gynecological: reports: denies history Genitourinary: reports: denies history Musculoskeletal: reports: arthritis (osteo) Neurological: reports: CVA Endocrine/Immune: reports: lupus, thyroid disorder (hypo) Other Conditions: reports: denies history - PRIOR SURGERIES/PROCEDURES Surgical/Procedure History: reports: hysterectomy - PRIOR HOSPITALIZATIONS Prior Hospitalizations: reports: none - IMMUNIZATION STATUS Childhood Immunizations: See Nurse Assessment Flu Vaccine: See Nurse Assessment - FAMILY HISTORY Family History: reviewed, not pertinent - SOCIAL HISTORY Smoking: denies, non-smoker Substance Use: none/never Alcohol Use Frequency: never Living Situation: alone Physical Exam-General - PHYSICAL EXAM-ADULT Initial Vital Signs Reviewed: Yes - CONSTITUTIONAL General Appearance: appears well, alert, no apparent distress (pt has slurred speech and can only communicate w/ 1-3 word responses), slow to respond - EYES Eyes: PERRL/EOMI - HEAD, EARS, NOSE, MOUTH & THROAT HENMT: normocephalic/atraumatic, moist mucous membranes, normal ENT inspection, TMs normal, pharynx normal - NECK Neck: non-tender, full range of motion, supple, normal inspection - RESPIRATORY Respiratory: chest non-tender, lungs clear, normal breath sounds, no pleuratic chest pain, no respiratory distress, no accessory muscle use - CARDIOVASCULAR Cardiovascular: normal peripheral pulses, regular rate, rhythm, no edema, no gallop, no JVD, no murmur - GASTROINTESTINAL (ABDOMEN) Abdominal Exam: normal bowel sounds, non tender, soft, no organomegaly, no pulsatile mass - LYMPHATIC Lymphatic: no adenopathy - MUSCULOSKELETAL Back Exam: normal inspection, no CVA tenderness, no vertebral tenderness Extremity: normal range of motion, non-tender, normal gait - SKIN Integumentary: normal color, normal turgor, warm/dry - NEUROLOGIC Neurologic: pool servicer II-XII nml as tested, grossly normal. negative: no motor/ sensory deficits (pt has jerky hand movements upon exam) - PSYCHIATRIC Psych/Mental Status: normal mood/affect, normal thought content, normal thought process, oriented x 3 Progress - PLAN OF CARE/RESULTS Progress/Plan/Lab Results: Vital Signs - 8 hr 05/04/18 14:30 05/04/18 14:40 05/04/18 14:50 Temperature 98.6 F Pulse Rate 83 83 Respiratory Rate 18 29 H Blood Pressure 186/66 197/69 O2 Sat by Pulse Oximetry 98 99 05/04/18 15:13 05/04/18 15:32 05/04/18 16:02 Temperature Pulse Rate 72 87 82 Respiratory Rate 23 14 17 Blood Pressure 186/66 185/78 161/88 O2 Sat by Pulse Oximetry 99 98 98 05/04/18 16:32 05/04/18 17:02 05/04/18 17:33 Temperature Pulse Rate 82 81 85 Respiratory Rate 25 H 20 19 Blood Pressure 150/58 186/93 183/70 O2 Sat by Pulse Oximetry 99 96 98 05/04/18 18:02 Temperature Pulse Rate 88 Respiratory Rate 16 Blood Pressure 156/57 O2 Sat by Pulse Oximetry 96 Laboratory Results - last 24 hr 05/04/18 15:35 Urine Source CATH Urine Color STRAW Urine Turbidity CLEAR Urine pH 8.0 Ur Specific [place] 1.000 Urine Protein NEGATIVE Ur Glucose (Stick) NEGATIVE Ur Ketones (Stick) NEGATIVE Urine Blood NEGATIVE Urine Nitrite NEGATIVE Urine Bilirubin NEGATIVE Urobilinogen Dipstick NORMAL Urine Leukocytes NEGATIVE Urine WBC (Auto) <10 Urine RBC (Auto) <10 U Epithel Cells (Auto) <10 Urine Bacteria (Auto) NEGATIVE Orders Category Date Time Status Cardiac Monitoring DIRECTED Care 05/04/18 14:06 Active Finger Stick Blood Sugar (ED) DIRECTED Care 05/04/18 14:06 Active Misc. NRSG Communication Order DIRECTED Care 05/04/18 14:06 Active Oxygen Therapy- ED Nursing DIRECTED Care 05/04/18 14:06 Active Saline Loc NOW Care 05/04/18 14:06 Active CHEST-PORTABLE [RAD] Stat Exams 05/04/18 14:[address] HEAD W/O CONTRAST [CT] Stat Exams 05/04/18 14:06 Completed CBC WITH ELECTRONIC DIFF [HEME] Stat Lab 05/04/18 17:29 Ordered COMPREHENSIVE METABOLIC PANEL [CHEM] Stat Lab 05/04/18 17:29 Ordered PROTIME WITH INR [COAG] Stat Lab 05/04/18 17:29 Ordered PTT [COAG] Stat Lab 05/04/18 17:29 Ordered TROPONIN T Stat Lab 05/04/18 17:29 Ordered URINALYSIS W/POSS RFLX CULT [URINALYSIS] Stat Lab 05/04/18 15:35 Completed EKG [EKG] Stat Ther 05/04/18 14:06 Ordered Result Diagrams: 05/04/18 18:52 05/04/18 18:52 - XRAY 1 XRAY: Bilateral XRAY Study: Chest (COMMENT: There is some ill-defined opacity in the retrocardiac region of the left lower lobe which was not present on 02/18/2018. IMPRESSION: Minimal atelectasis versus pneumonia left lower lobe. Electronically signed by Alfredo Paris 05/04/2018 2:23 PM 05/04/18 1423) - CT/MRI 1 CT Study: Head (IMPRESSION: No evidence of acute intracranial disease. Electronically signed by Alfredo Paris 05/04/2018 2:46 PM 05/04/18 1446 Interpreting Physician: Alfredo Paris MD Dictated Date/Time: 1444) Impression: Normal Departure - Departure Date of Disposition Decision: 05/04/18 Time of Disposition Decision: 19:32 DIAGNOSIS: TIA (transient ischemic attack) Disposition: HOME 01 Certified Medical Emergency: Emergent Condition: Fair Additional Freetext Instructions: Decrease norco from 10 to 5 mg daily, follow up with Dr Riojas Referrals and Follow-Ups: Shahab Riojas MD [Primary Care Provider] - - Critical Care Note This patient required my direct & personal management of CC.: No Attestation - Physician/ MATTHEW Attestation Patient care was provided by Advanced Practice Provider:: No The physician spent face to face time with patient:: Yes Advanced Practice Provider documentation review:: Supervising physician onsite and consulted in the evaluation and care of this patient. The physician did have a face to face encounter with the patient. This chart was documented by the indicated scribe, (Esther Carson, Ciaraibalberto) and accurately reflects the services I performed and decisions made by me, Ramon Kapoor MD, as attested by the provider's signature.
[2018-05-04] MEDS ORDERED: NS 1,000 ML IV ONE (22:22)
[2018-05-05] MEDS ORDERED: ZOFRAN IV PRN (00:56)
[2018-05-05] MEDS ORDERED: TYLENOL PO PRN (00:56)
[2018-05-05] MEDS: LOVENOX SUBQ SCH (01:47)
[2018-05-05] MEDS: NS 1,000 ML IV SCH ×3 (02:57→18:46)
--- NOTE | 2018-05-05 05:29 | HISTORY AND PHYSICAL ---
PRIMARY CARE PHYSICIAN: Dr. Shahab Riojas REASON FOR ADMISSION: Confusion for the last 24 hours. The patient was brought in by the family because they noticed she was not very responsive and earlier today had slurred speech and some jerking movements. They had recently increased her pain medications from 5 mg hydrocodone to 10 mg a week ago. Unfortunately, there is no family at bedside and most of this history is obtained from the nursing staff. HISTORY OF PRESENT ILLNESS: The patient was evaluated by the ER physician and a CT scan of the head was done which was negative for any acute intracranial process. I reviewed her old records and she was admitted twice in the last 6 months with similar presentations which were due to overdose of benzodiazepines and opioids. On both occasions the patient was kept and observed and after 2 days the patient was A and O x3. I could not get any history from the patient because she was obtunded. She could not even follow any of my commands. REVIEW OF SYSTEMS: Could not be done for obvious reasons. ALLERGIES: She is allergic to aspirin, oral and IV dye, quinolones, NSAIDs, tramadol, Effexor, Zofran and penicillin. HOME MEDICATIONS: Not reconciled, unfortunately, but her old records show that she was on albuterol, iron, nitroglycerin, Crestor, apixaban. PAST MEDICAL HISTORY: Notable for coronary artery disease, systemic lupus erythematosus, paroxysmal atrial fibrillation, congestive heart failure type unknown and possible aortic stenosis. FAMILY HISTORY: Could not be obtained at this time, but old records suggest that there was no cardiac history. PAST SURGICAL HISTORY: Per her records, hysterectomy, cholecystectomy. LAB WORK: White count is 8000, hemoglobin and hematocrit 11 and 35, platelets 169,000, 81% neutrophils. BUN 18, creatinine 0.8. Troponin is negative. Glucose 110. PT/PTT is normal. Urinalysis is clean. Chest x-ray films show minimal atelectasis versus left lower lobe pneumonia. SOCIAL HISTORY: It is documented that the patient does not smoke, drink or use illicit drugs per old records. Per her old records she lives at [facility]. PHYSICAL EXAMINATION: VITAL SIGNS: Blood pressure 166/67, heart rate 88, respirations 16, temperature 98.1, 96% on room air. GENERAL: Elderly woman who very drowsy, lethargic with occasional hiccups. Mild clonic jerking. Affect appear to be somewhat flat. HEENT: Head is normocephalic. Pupils are dilated and slowly reactive. No nystagmus noted. She is anicteric and not pale. ENT and oropharynx exam could not be thoroughly examined due to the patient's level of sensorium. Patient was not able to follow commands. The lips appear to be dry. No central cyanosis. NECK: Short and thick. No JVD or carotid bruit. CHEST: Clear to auscultation. Appears to be decreased entry in the bases. CARDIOVASCULAR: First and second heart sounds are heard. No gallops heard. There is a loud ejection systolic murmur grade 3/6 in the left lateral sternal border. There is apparent radiation to the neck. Rhythm is regular. ABDOMEN: Slightly protuberant, soft. Patient is not grimacing to palpation. No masses or organomegaly appreciated. Bowel sounds are diminished. RECTAL: Exam deferred. EXTREMITIES: The patient's pulse volume is 2+ distally in all extremities, symmetrical. Rhythm is regular. No edema, clubbing or peripheral cyanosis. NEUROLOGICAL: Exam could not be fully assessed, but when a sternal rub was applied the patient did move all upper extremities and when noxious stimulus was applied to her feet she did withdraw her extremities. There were no gross focal motor deficits appreciated. SKIN: Intact with no breakdown, lesions, or erythema. Good skin turgor. MUSCULAR: Exam is grossly normal. ASSESSMENT: At this time: 1. Probable toxic encephalopathy from medications. 2. Mild dehydration. 3. Atrial fibrillation. 4. Hypertension. 5. Coronary artery disease. 6. Chronic diastolic heart failure. PLAN: Will just be essentially supportive care. Based on the patient's prior history of inordinate consumption of sedating medications, it is very probable that this may have recurred, especially since it was documented in her history that she had recently increased her opioid dose. Will support the patient with IV fluids to hopefully excrete excessive opioids and other medications in her system. Avoid any potentially neurotoxic medications. Will do neuro checks for the next 24 hours. Will also await the patient's official medication reconciliation list and for now will hold all medications. This patient under no circumstances should resume her prior medications since this is her third admission in 6 months for toxic encephalopathy from home medications. Alternative medications for her problems need to be administered. Her chest film also shows that she may have a left lower lobe pneumonia with atelectasis. Due to the fact that the patient has anaphylactic reactions to several antibiotics and there is no conclusive proof that she has a pneumonia, I will hold off on any prophylactic treatment of pneumonia. cc: MD Carl Edge MD
--- NOTE | 2018-05-05 07:11 | EKG Report ---
Test Performed on : 05/04/2018 2:53:51 PM Test Reason : Stroke like symptoms Blood Pressure : / mmHG Vent. Rate : 076 BPM Atrial Rate : 076 BPM P-R Int : 110 ms QRS Dur : 106 ms QT Int : 426 ms P-R-T Axes : 043 059 024 degrees QTc Int : 479 ms Sinus rhythm. with short GA with occasional atrial-paced complexes Possible Left atrial enlargement Possible Inferior infarct (cited on or before 03-MAR-2016) ST & T wave abnormality, consider lateral ischemia Abnormal ECG When compared with ECG of 20-FEB-2018 06:53, Electronic atrial pacemaker has replaced Sinus rhythm. T wave inversion now evident in Lateral leads Unconfirmed Result
[2018-05-05 07:27] LABS: BASO# 0.02 X1000 (0.0-0.2); BASO% 0.2 % (0.0-0.8); EOS# 0.02 X1000 (0.0-0.7); EOS% 0.2 % (0.0-10.0); HEMATOCRIT 37.1 % (37.0-47.0); HEMOGLOBIN 11.4 g/dL (12.0-16.0); LYMPH# 0.51 X1000 (1.2-3.4); LYMPH% 5.5 % (20.5-51.1); MCH 30.6 PG (27-31); MCHC 30.7 g/dL (33-37); MCV 99.5 FL (81-99); MONO# 0.44 X1000 (0.11-0.59); MONO% 4.8 % (1.7-9.3); MPV 10.1 FL (7.4-10.4); NEUT# 8.22 X1000 (1.4-6.5); NEUT% 89.3 % (42.2-75.2); PLT 148 X1000 (130-400); RBC 3.73 XMIL (4.2-5.4); RDW 12.7 % (11.5-14.5); WBC 9.21 X1000 (4.8-10.8)
[2018-05-05 07:40] LABS: AGAP 12; BUN 15 mg/dL (8-22); CALCIUM 8.7 mg/dL (8.8-10.2); CHLORIDE 106 mmol/L (98-107); COSMO 289; CREATININE 0.8 mg/dL (0.5-0.9); ESTIMATED GFR > 60; GLUCOSE 119 mg/dL (70-104); MAGNESIUM 1.9 mg/dL (1.5-2.7); SODIUM 144 mmol/L (136-145); TCO2 26 mmol/L (25-35)
[2018-05-05 07:46] LABS: BANDS 4 % (0-1); BASO 2 % (0-1); LYMPHS 4 % (21-51); MONO 6 % (1-9); SEGS 84 % (42-75)
[2018-05-05] MEDS ORDERED: NARCAN IV ONE (13:36)
--- NOTE | 2018-05-05 15:13 | Diag Imaging Result Doc PS360 ---
MRI BRAIN W/WO CONTRAST - 05/05/2018 INDICATION: stroke suspected COMPARISON: 05/04/2018 FINDINGS: There is some minimal periventricular white matter hyperintensity compatible with chronic microvascular disease. There is no area of restricted diffusion. The ventricles and sulci are normal in size and contour. No intracranial mass or hemorrhage. No area of abnormal contrast enhancement. Midline structures including the optic chiasm and pituitary are normal. IMPRESSION: Minimal microvascular disease. No acute disease. Electronically signed by Earl Buckley 05/05/2018 3:11 PM
[2018-05-06] MEDS: NS 1,000 ML IV SCH ×4 (01:54→22:28)
[2018-05-06] MEDS: LOVENOX SUBQ SCH (09:31)
--- NOTE | 2018-05-06 10:57 | PROGRESS NOTE ---
DATE: 05/06/2018 SUBJECTIVE: The patient is more awake today. She does not remember what exactly happened. As per previous records, we have noticed that this patient is a third time during a 12 month period that she came to the hospital. Admitted for confusion. It finally was found to be secondary to drugs; in this case, benzodiazepines and opiates. OBJECTIVE: Vital Signs: Temperature 98.9 degrees, heart rate 86, respiratory rate 17, blood pressure 134/52, O2 saturation 100% on 2 L nasal cannula. General Examination: This is a chronically ill-looking, 78-year-old, female lying in bed, in no acute distress. HEENT: Head is normocephalic and atraumatic. Mucous membranes are dry. Neck: No JVD noted. No carotid bruits. No lymphadenopathy. No thyromegaly. Cardiovascular Examination: S1 and S2 heard. No murmurs, gallops, or rubs. Regular rate and rhythm. Respiratory Examination: Clear bilaterally to auscultation. No work of breathing or using accessory muscles. Abdomen: Soft, nontender to palpation. Bowel sounds present. No organomegaly. Extremities: No clubbing, cyanosis, or edema. Peripheral pulses present in both legs. Neurological Examination: The patient is awake and oriented to person. Moves 4 extremities spontaneously. Laboratory Data: Labs from today have not been ordered. From yesterday, labs were unremarkable. An MRI of the brain did not show any stroke. ASSESSMENT AND PLAN: 1. Toxic encephalopathy secondary to benzodiazepines and opiates. Unfortunately, this is the third time that this patient is coming to the hospital for the same problem. At this point, I think we need to replace those opiates for different category of pain medication. We will need to monitor closely the consumption of benzodiazepines because considering her advanced dementia and taking this medication, she is at high risk of an accidental overdose considering that this happened again for the third time. At this point, we will continue with the same management. 2. Atrial fibrillation, rate controlled. We will continue with the same medication. Sinus rhythm is present. 3. Coronary artery disease, stable. We will continue to monitor this patient closely. 4. Chronic diastolic heart failure. Patient is not in any exacerbation. 5. Disposition. I think, at this point, we will send this patient to a regular floor. Consult physical therapy and if the patient continues to improve, I am going to discharge her tomorrow morning. cc: Nathan Patel MD
[2018-05-06] MEDS ORDERED: BLISTEX MEDICATED BERRY LIP BALM TOP PRN (21:13)
[2018-05-07] MEDS: NS 1,000 ML IV SCH (05:17)
[2018-05-07 06:04] LABS: BASO# 0.01 X1000 (0.0-0.2); BASO% 0.2 % (0.0-0.8); EOS# 0.04 X1000 (0.0-0.7); EOS% 0.6 % (0.0-10.0); HEMATOCRIT 29.2 % (37.0-47.0); HEMOGLOBIN 8.8 g/dL (12.0-16.0); LYMPH% 13.5 % (20.5-51.1); MCH 30.1 PG (27-31); MCHC 30.1 g/dL (33-37); MONO# 0.38 X1000 (0.11-0.59); MONO% 5.7 % (1.7-9.3); MPV 10.6 FL (7.4-10.4); NEUT# 5.33 X1000 (1.4-6.5); PLT 118 X1000 (130-400); RBC 2.92 XMIL (4.2-5.4); RDW 12.7 % (11.5-14.5); WBC 6.66 X1000 (4.8-10.8)
[2018-05-07] MEDS ORDERED: NITROGLYCERIN SL PRN (06:59)
[2018-05-07] MEDS ORDERED: CYANOCOBALAMIN IM SCH (07:00)
[2018-05-07 07:10] LABS: AGAP 11; BUN 10 mg/dL (8-22); CALCIUM 8.2 mg/dL (8.8-10.2); CHLORIDE 112 mmol/L (98-107); COSMO 289; CREATININE 0.6 mg/dL (0.5-0.9); ESTIMATED GFR > 60; GLUCOSE 92 mg/dL (70-104); POTASSIUM 3.2 mmol/L (3.5-5.1); SODIUM 146 mmol/L (136-145); TCO2 23 mmol/L (25-35)
--- NOTE | 2018-05-07 07:47 | DISCHARGE SUMMARY ---
ADMISSION DATE: 05/05/2018 DISCHARGE DATE: 05/07/2018 DISCHARGE DIAGNOSES: 1. Toxic encephalopathy secondary to benzodiazepine and opiates. 2. Atrial fibrillation, rate controlled. 3. Hypertension. 4. Stroke, ruled out. 5. Coronary artery disease. 6. Chronic diastolic heart failure. PROCEDURES: 1. Chest x-ray done on admission showed minimal atelectases versus pneumonia in the left lower lobe. 2. Head CT showed no evidence of acute intracranial disease. 3. MRI of the brain showed minimal microvascular disease, but no acute disease. HOSPITAL COURSE: This is a 78-year-old female, who was recently admitted to our hospital in January, and she is being admitted to the hospital for confusion over that last 24 hours. She was brought by her family because they noticed that she was not very responsive, and she had somewhat slurred speech. Recently, she has been increased the doses of [place] from 5 to 10. So I think it is toxic encephalopathy because of medications and possible stroke. We went ahead and order an MRI of the brain with and without contrast, which did rule out an stroke. After 24 hours, she started waking up. At the time of my examination, on the date of discharge, she is completely awake and alert. She reports not knowing what exactly happened. I explained to her that because this is the second time that she is in the hospital for the same reasons for an accidental drug overdose, I recommend to her to stop using benzodiazepines and also [place] 10, will switch to a different medications. It is not safe for this patient to let her take her home medications for anxiety and pain. She needs more supervision. At the time of discharge, she is stable with coherent speech, and she is going to be discharged in stable condition. DISCHARGE PHYSICAL EXAMINATION: Vitals: Temperature 99.0, heart rate 89, respiratory rate 16, blood pressure 146/50, O2 saturation 99% 2 L nasal cannula. General: This is a 78-year-old female lying in bed, in no acute distress. HEENT: Head is normocephalic, atraumatic. Mucous membranes dry. Neck: No JVD noted. No carotid bruits. No lymphadenopathy. No thyromegaly. Cardiovascular: S1, S2 heard, with loud ejection murmur at 3/6 in the aortic area radiating to the neck. Abdomen: Soft, nontender to palpation. Bowel sounds present. No organomegaly. Extremities: No clubbing, cyanosis, or edema. Peripheral pulses present in both legs. Neurological: Patient is alert and oriented x3, moves 4 extremities. DISCHARGE DISPOSITION: 1. Home to self-care. 2. Follow up with his primary care physician, Dr. Shahab Riojas, in a week. LIST OF MEDICATIONS: 1. Buspirone 7.5 mg one tablet p.o. b.i.d. 2. Tylenol 650 mg p.o. every 6 hours as needed. 3. Demerol 50 mg p.o. every 6 hours as needed. 4. Eliquis 5 mg 1 tablet p.o. b.i.d. 5. Crestor 20 mg p.o. at bedtime. 6. Nitroglycerin 0.4 mg sublingual as needed. 7. Iron 100+ tablet 1 tablet p.o. daily. 8. Albuterol 2.5 mg p.o. every 6 hours as needed. 9. Amlodipine 5 mg 1 tablet p.o. daily. 10. Cyanocobalamin 1000 mg intramuscular as directed. TIME DISCHARGING THIS PATIENT: 25 minutes. cc: Nathan Patel MD MTDD
[2018-05-07] MEDS ORDERED: KLOR-CON PO ONE (07:57)
[2018-05-07] MEDS ORDERED: NORVASC PO SCH (09:00)
[2018-05-07] MEDS ORDERED: BUSPAR PO SCH (09:00)
[2018-05-07] MEDS ORDERED: ICAR-C PLUS PO SCH (09:00)
[2018-05-07] MEDS: LOVENOX SUBQ SCH ×2 (09:35→12:28)
[2018-05-07 10:07] LABS: HEMATOCRIT 31.6 % (37.0-47.0); HEMOGLOBIN 9.7 g/dL (12.0-16.0)
[2018-05-07 16:14] VITALS: BP 165/48
[2018-05-07] MEDS ORDERED: CRESTOR PO SCH (21:00)
== END 2018-05-07 19:30 | disposition home health service (06) | DRG 917 ==
LOC: SUPCPDRO → ED 13:46 → SUATTDRO 05-05 01:26 → EDIPHOLD 05-05 01:26 → 3S 05-05 19:55
PROVIDERS: ATTEND Internal Medicine
CPT/HCPCS: 51702; 70450; 70553; 71010; 71045; 80048; 80053; 81001; 82948; 83735; 84484; 85014; 85018; 85025; 85610; 85730; 93005; 96361; 96372; 96374; 99285; A9270; A9579; J1650; J2310; J7030; XXXXX

== ENCOUNTER 2018-09-08 15:11 | Inpatient (IN) ==
--- NOTE | 2018-09-08 15:43 | Diag Imaging Result Doc PS360 ---
EXAM: CHEST-2 VIEWS HISTORY: edema TECHNIQUE: Chest two views COMPARISON: 05/04/2018 FINDINGS: Increased AP diameter to the chest. There is a moderate-sized right-sided pleural effusion and a small left pleural effusion. There are bilateral infiltrates and basilar atelectasis. Prominent atherosclerosis. IMPRESSION: Emphysema with bilateral pneumonia and basilar atelectasis Electronically signed by Benji Levin 09/08/2018 3:41 PM
[2018-09-08] MEDS ORDERED: ROCEPHIN 1 GM in NS 50 ML IV ONE (16:12)
[2018-09-08] MEDS ORDERED: ZITHROMAX 500 MG/NS 500 MG/250 ML IVPB IV ONE (16:12)
[2018-09-08 16:56] LABS: BASO# 0.07 X1000 (0.0-0.2); BASO% 0.8 % (0.0-0.8); EOS# 0.21 X1000 (0.0-0.7); EOS% 2.3 % (0.0-10.0); HEMATOCRIT 36.7 % (37.0-47.0); HEMOGLOBIN 11.5 g/dL (12.0-16.0); LYMPH# 1.23 X1000 (1.2-3.4); LYMPH% 13.6 % (20.5-51.1); MCH 28.8 PG (27-31); MCHC 31.3 g/dL (33-37); MONO# 0.58 X1000 (0.11-0.59); MONO% 6.4 % (1.7-9.3); MPV 11.5 FL (7.4-10.4); NEUT# 6.97 X1000 (1.4-6.5); NEUT% 76.9 % (42.2-75.2); PLT 240 X1000 (130-400); RBC 3.99 XMIL (4.2-5.4); RDW 14.3 % (11.5-14.5); WBC 9.06 X1000 (4.8-10.8)
[2018-09-08 17:03] LABS: INR 1.59; PROTIME 20.2 Seconds (11.0-16.0)
[2018-09-08 17:04] LABS: PTT 26.2 Seconds (22.3-41.8)
[2018-09-08 17:14] LABS: ALB/GLOB RATIO 1.4; CALCIUM 8.9 mg/dL (8.8-10.2); CREATININE 1.1 mg/dL (0.5-0.9); POTASSIUM 4.1 mmol/L (3.5-5.1); TOTAL BILIRUBIN 0.41 mg/dL (0.20-1.00); TOTAL PROTEIN 6.8 g/dL (6.3-8.3)
[2018-09-08] MEDS ORDERED: LASIX IV ONE (17:37)
--- NOTE | 2018-09-08 17:39 | PROVIDER DOCUMENTATION ---
This chart was entered by Dominga Mccarty Scribe, acting as scribe for Kathrine Rios MD. HPI-General Adult - General Chief Complaint: Edema Stated Complaint: fluid in both legs Time Seen by Provider: 09/08/18 15:31 Source: patient Allergies/Adverse Reactions: Patient Allergies Allergy/AdvReac Type Severity Reaction Status Date / Time aspirin Allergy Unknown RASH Verified 02/18/18 15:29 duloxetine HCl * Allergy Unknown Unknown Verified 02/18/18 15:29 [From Cymbalta] Iodinated Contrast- Oral and Allergy Unknown Unknown Verified 02/18/18 15:29 IV Dye levofloxacin [From Levaquin] Allergy Unknown Unknown Verified 02/18/18 15:29 NSAIDS (Non-Steroidal Allergy Unknown Unknown Verified 02/18/18 15:29 Anti-Inflamma tramadol HCl * [From Ultram] Allergy Unknown Unknown Verified 02/18/18 15:29 venlafaxine HCl * Allergy Unknown Unknown Verified 02/18/18 15:29 [From Effexor] ondansetron HCl * Allergy ITCHING Verified 02/18/18 15:29 [From Zofran] Penicillins Allergy ANAPHYLAXIS Verified 02/18/18 15:29 Home Medications: Home Medication List Medication Instructions Recorded Confirmed Last Taken Type Apixaban [Eliquis] 5 mg PO BID #60 tablet 07/17/15 05/06/18 04/28/17 08:00 Rx Nitroglycerin 0.4 mg SL PRN PRN 11/05/17 05/06/18 Unknown History Rosuvastatin Calcium 20 mg PO QHS 11/05/17 05/07/18 Unknown History Albuterol Sulfate 2.5 mg IH Q6H PRN PRN 02/18/18 05/06/18 Unknown History Iron,Carbonyl/Vit C/Vit B12/FA 1 each PO DAILY 02/18/18 05/06/18 Unknown History [Iron 100 Plus Tablet] Amlodipine [Norvasc] 5 mg PO DAILY 05/06/18 05/06/18 Unknown History Cyanocobalamin (Vitamin B-12) 1,000 mcg IM DIRECTED 05/06/18 05/06/18 04/23/18 History [Cyanocobalamin Injection] Acetaminophen [Tylenol] 650 mg PO Q6H PRN PRN tablet 05/07/18 Unknown Rx Buspirone [Buspar] 7.5 mg PO BID #60 tab 05/07/18 Unknown Rx Meperidine [Demerol] 50 mg PO Q6H PRN PRN #30 tab 05/07/18 Unknown Rx - History of Present Illness -Gen Adult Nature of Presenting Problems: 78 y/o female presents to ED with bilateral lower extremity edema, orthopnea, PND, SOB, and dyspnea on exertion onset 1 week ago. Pt reports hx [place], CVA, and stents. Pt is alert and oriented. Location of Pain/Injury: reports: lower extremity Pain Radiation: reports: no radiation Quality of Pain: reports: fullness Severity: reports: moderate Onset/Duration: reports: 1 week ago Timing: reports: still present Context/Activities at Onset: reports: none Modifying Factors: improves with: nothing Associated Symptoms: reports: shortness of breath, other (bilateral lower extremity edema; orthopnea; PND; dyspnea on exertion) Similar Symptoms Previously?: No Recently seen or treated by another doctor?: No Review of Systems - Adult - REVIEW OF SYSTEMS - ADULT Constitutional: denies: chills, fever Eyes: reports: no symptoms reported Ears, Nose, Mouth & Throat: reports: no symptoms reported Cardiovascular: reports: orthopnea. denies: chest pain, palpitations Respiratory: reports: dyspnea on exertion, shortness of breath, other (PND). denies: cough Gastrointestinal: denies: abdominal pain, diarrhea, nausea, vomiting Genitourinary: reports: no symptoms reported Musculoskeletal: reports: other (bilateral lower extremity edema). denies: back pain, joint pain Integumentary: reports: no symptoms reported Neurological: denies: dizziness/vertigo, seizure Psychiatric: reports: no symptoms reported Endocrine: reports: no symptoms reported Hematologic/Lymphatic: reports: no symptoms reported Allergic/Immunologic: reports: no symptoms reported All Other Systems: Reviewed and Negative Past History - Adult - PAST MEDICAL HISTORY-ADULT Review of Records: reports: Old Records Reviewed, Nursing Assessment Review, Medications Reviewed Major Childhood Illnesses: reports: denies history Cardiovascular: reports: CAD, CHF, HTN, hyperlipidemia, FL Respiratory: reports: COPD Gastrointestinal: reports: denies history Obstetrical/Gynecological: reports: denies history Genitourinary: reports: denies history Musculoskeletal: reports: arthritis (osteo) Neurological: reports: CVA, dementia Endocrine/Immune: reports: lupus, thyroid disorder (hypo) Other Conditions: reports: denies history - PRIOR SURGERIES/PROCEDURES Surgical/Procedure History: reports: hysterectomy - PRIOR HOSPITALIZATIONS Prior Hospitalizations: reports: none - IMMUNIZATION STATUS Childhood Immunizations: See Nurse Assessment Flu Vaccine: See Nurse Assessment - FAMILY HISTORY Family History: reviewed, not pertinent - SOCIAL HISTORY Smoking: greater than 1 pack/day Provider spent 3-5 mins advising pt. on dangers of tobacco.: Discussed manners to quit use, and f/u contacts for add'l counseling. Substance Use: none/never Alcohol Use Frequency: never Living Situation: family Physical Exam-General - PHYSICAL EXAM-ADULT Initial Vital Signs Reviewed: Yes - CONSTITUTIONAL General Appearance: appears well, alert, mild distress - EYES Eyes: PERRL/EOMI, pink conjunctivae - HEAD, EARS, NOSE, MOUTH & THROAT HENMT: normocephalic/atraumatic, moist mucous membranes, normal ENT inspection - NECK Neck: non-tender, full range of motion - RESPIRATORY Respiratory: chest non-tender, respiratory distress (mild), crackles - CARDIOVASCULAR Cardiovascular: tachycardia, systolic murmur, irregularly irregular - GASTROINTESTINAL (ABDOMEN) Abdominal Exam: normal bowel sounds, non tender, soft - MUSCULOSKELETAL Back Exam: normal inspection, no CVA tenderness Extremity: normal range of motion, non-tender, normal gait, swelling (4+ pitting edema of bilateral lower extremities), other (blueish discoloration to medial aspect of R calf) - SKIN Integumentary: normal color, warm/dry, other (blueish discoloration to medial aspect of R calf) - NEUROLOGIC Neurologic: grossly normal - PSYCHIATRIC Psych/Mental Status: normal mood/affect, normal thought content, normal thought process Progress - PLAN OF CARE/RESULTS Progress/Plan/Lab Results: Vital Signs - 8 hr 09/08/18 15:19 Temperature 97.5 F L Pulse Rate 113 H Respiratory Rate 16 Blood Pressure 108/66 O2 Sat by Pulse Oximetry 95 Orders Category Date Time Status Cardiac Monitoring DIRECTED Care 09/08/18 15:23 Active Oxygen Therapy- ED Nursing DIRECTED Care 09/08/18 15:23 Active Saline Loc NOW Care 09/08/18 15:23 Active CHEST-2 VIEWS [RAD] Stat Exams 09/08/18 15:23 Completed CBC WITH ELECTRONIC DIFF [HEME] Stat Lab 09/08/18 15:23 Uncollected CK PROFILE [SP CHEM] Stat Lab 09/08/18 15:23 Uncollected COMPREHENSIVE METABOLIC PANEL [CHEM] Stat Lab 09/08/18 15:23 Uncollected PRO B-NATRIURETIC PEPTIDE Stat Lab 09/08/18 15:23 Uncollected PROTIME WITH INR [COAG] Stat Lab 09/08/18 15:23 Uncollected PTT [COAG] Stat Lab 09/08/18 15:23 Uncollected TROPONIN T Stat Lab 09/08/18 15:23 Uncollected CP/SOB/Palp >45 yrs of Age Stat Oth 09/08/18 15:23 Ordered EKG [EKG] Stat Ther 09/08/18 15:23 Ordered Result Diagrams: 09/08/18 16:20 09/08/18 16:20 - XRAY 1 XRAY Study: Chest Impression: Abnormal (FINDINGS: Increased AP diameter to the chest. There is a moderate-sized right-sided pleural effusion and a small left pleural effusion. There are bilateral infiltrates and basilar atelectasis. Prominent atherosclerosis. IMPRESSION: Emphysema with bilateral pneumonia and basilar atelectasis Electronically signed by Benji Levin 09/08/2018 3:41 PM) - CONSULTS/PCP/HOSPITALIST Notification #1 *Consult/PCP/Hospitalist*: CARTER Ko admitting for Dr. Dan Time Discussed: 17:36 Consult Disposition: Admit (Hx, PE and patient care discussed, admitted.) Departure - Departure Date of Disposition Decision: 09/08/18 Time of Disposition Decision: 17:37 DIAGNOSIS: CHF exacerbation Qualifiers: Heart failure type: unspecified Qualified Code(s): I50.9 - Heart failure, unspe cified Pneumonia Qualifiers: Laterality: bilateral Lung location: unspecified part of lung Disposition: ADMITTED INPATIENT 09 Certified Medical Emergency: Emergent Condition: Stable Referrals and Follow-Ups: None,PCP [NON-STAFF PROVIDER] - Discharge Education: Steps to Quit Smoking, [id number] - Critical Care Note This patient required my direct & personal management of CC.: No Attestation - Physician/ MATTHEW Attestation Patient care was provided by Advanced Practice Provider:: No The physician spent face to face time with patient:: Yes Advanced Practice Provider documentation review:: Supervising physician onsite and consulted in the evaluation and care of this patient. The physician did have a face to face encounter with the patient. This chart was documented by the indicated scribe, (Dominga Mccarty, Tez) and accurately reflects the services I performed and decisions made by me, Kathrine Hayes MD, as attested by the provider's signature.
[2018-09-08] MEDS ORDERED: ZOFRAN ONE (18:04)
[2018-09-08] MEDS ORDERED: XOPENEX NEB INH PRN (18:31)
[2018-09-08] MEDS ORDERED: ZYVOX 600 MG/D5W 600 MG/300 ML IVPB IV SCH ×2 (18:45→20:00)
[2018-09-08 18:47] LABS: ACETONE SERUM NEGATIVE (NEGATIVE)
[2018-09-08 18:54] LABS: ACETAMINOPHEN 7.2 ug/mL (10-30)
[2018-09-08 19:05] LABS: ALLEN TEST YES; BE -2.3 mmoll (-3.0-3.0); BLOOD TYPE ARTERIAL; HCO3-(ACT) 22.9 mmoll (20.0-26.0); METHB 0.7 % (0.0-1.5); O2(CT) 13.3 mL/dL (15.0-23.0); PCO2(98.6) 38 mmHg (35-45); PO2(98.6) 56 mmHg (60-100); SAMPLE BLOOD; SAO2 89.9 % (95.0-100.0); THB 10.8 g/dL (11.5-17.4); pH(98.6) 7.38 (7.35-7.45)
[2018-09-08 19:06] LABS: MODALITY ROOM AIR; O2HB 87.7 % (95.0-99.0)
[2018-09-08] MEDS: XOPENEX NEB INH SCH ×2 (19:29→23:30)
--- NOTE | 2018-09-08 19:45 | Diag Imaging Result Doc PS360 ---
EXAM: CT THORAX/ABD/PELVIS W/O CON HISTORY: new effusion, n/v, abd pain TECHNIQUE: 1. CT chest without contrast 2. CT abdomen and pelvis without contrast COMPARISON: Abdomen pelvis compared to 11/05/2017 FINDINGS: Chest: There are small bilateral pleural effusions. The one on the right measures 2.5 cm posteriorly and inferiorly in the midline where is the one on the left measures 1.8 cm. The heart is mildly enlarged. Severe atherosclerosis. Calcified mediastinal nodes with scattered granuloma. Dense left upper lobe infiltrates with air bronchograms. There are smaller infiltrates in the mid and lower lungs with lower lobe atelectasis. Abdomen and pelvis: The gallbladder has been removed. No focal hepatic normality identified on this noncontrasted exam. Spleen is not enlarged. Normal pancreas and adrenal glands. Severe atherosclerosis. No aortic aneurysm. No renal stones. There is a small left renal cyst. No hydronephrosis. No bowel obstruction. The urinary bladder is only mildly distended. There are multiple pelvic phleboliths. The uterus has been removed. No pelvic mass. IMPRESSION: Chest: Bilateral pneumonia with atelectasis and small pleural effusions Abdomen and pelvis: Severe atherosclerosis This exam was performed using automated exposure control, adjustment of mA or kV according to patient size, and/or use of iterative reconstruction technique. Electronically signed by Benji Levin 09/08/2018 7:42 PM
[2018-09-08] MEDS: MAXIPIME 1 GM in NS 50 ML IV SCH (20:10)
[2018-09-08] MEDS: PROTONIX IV SCH (20:11)
[2018-09-08] MEDS: SOLU-MEDROL IV SCH (20:11)
[2018-09-08 20:14] LABS: URINE SOURCE CLEAN CATCH
[2018-09-08 20:26] LABS: BILIRUBIN URINE NEGATIVE (NEGATIVE); BLOOD URINE NEGATIVE (NEGATIVE); COLOR YELLOW; GLUCOSE URINE NEGATIVE (NEGATIVE); KETONE URINE NEGATIVE (NEGATIVE); LEUKOCYTES URINE MODERATE (NEGATIVE); NITRITE URINE NEGATIVE (NEGATIVE); PH URINE 5.5; PROTEIN URINE TRACE mg/dL (NEGATIVE); TURBIDITY URINE CLEAR (CLEAR); UROBILINOGEN URINE NORMAL (NORMAL)
[2018-09-08 20:31] LABS: UR EPITHELIAL CELLS <10 /HPF (<10); URINE BACTERIA NEGATIVE /HPF; URINE RBC <10 /HPF (<10)
[2018-09-08 20:49] LABS: UR AMPHETAMINES QUAL NONE DETECTED (NONE DETECT); UR BARBITUATES QUAL NONE DETECTED (NONE DETECT); UR BENZODIAZEPIN QUAL PRESUMPTIVE POSITIVE (NONE DETECT); UR CANNABINOIDS QUAL NONE DETECTED (NONE DETECT); UR COCAINE QUAL NONE DETECTED (NONE DETECT); UR METHADONE QUAL NONE DETECTED (NONE DETECT); UR OPIATES QUAL NONE DETECTED (NONE DETECT); UR OXYCODONE QUAL NONE DETECTED (NONE DETECT); UR PCP QUAL NONE DETECTED (NONE DETECT)
[2018-09-08] MEDS ORDERED: CYANOCOBALAMIN IM SCH (21:21)
[2018-09-08] MEDS ORDERED: CARDIZEM IV ONE (21:21)
[2018-09-08] MEDS: FLAGYL 500 MG/NS 500 MG/100 ML IVPB IV SCH (21:58)
[2018-09-08] MEDS: TYLENOL PO PRN (21:59)
[2018-09-08] MEDS: ELIQUIS PO SCH (21:59)
[2018-09-09] MEDS: SOLU-MEDROL IV SCH ×3 (02:26→17:45)
[2018-09-09] MEDS: XOPENEX NEB INH SCH ×6 (03:40→23:30)
--- NOTE | 2018-09-09 04:54 | HISTORY AND PHYSICAL ---
PRIMARY CARE PHYSICIAN: Dr. Shahab Riojas. CHIEF COMPLAINT: Lower extremity edema. HISTORY OF PRESENT ILLNESS: Mrs. Espinoza is a 80-year-old female with a history of paroxysmal atrial fibrillation, on anticoagulation, diastolic heart failure, aortic stenosis, COPD, CAD, who presents from Dr. Shahab Riojas' office with lower extremity edema, pain, and redness for the past week. The patient is a poor historian and cannot give much information in the way of history. Family at the bedside states she resides at a local assisted living facility and has had increasing lower extremity edema, shortness of breath, and orthopnea. Family decided to go to Dr. Riojas' office today for evaluation. Per family's report, Dr. Riojas noted that her legs were edematous and red and that the patient was somewhat dyspneic and decided to send the patient to the ER for evaluation. There has not been any fever but the daughter reports that there has been some nausea, vomiting, diarrhea, and slight increase in lethargy. The patient herself is nauseous currently, actively trying to throw up at bedside. She also has visible chills. In the ER, she has been hypoxic and slightly hypotensive and tachycardic. Her chest xray shows bilateral infiltrates and moderate right sided pleural effusion. Labs show mild acidosis with minimal BRITTNEY, but no leukocytosis. Given her overall picture of probable PNA, sepsis and borderline hemodynamic instability, we will admit her to the ICU. PAST MEDICAL HISTORY: 1. Paroxysmal atrial fibrillation on Eliquis. 2. Diastolic heart failure. Last EF 55% on 02/18/2018. 3. Mild pulmonary hypertension. 4. History of CAD, status post stents. 5. COPD. 6. Hyperlipidemia. 7. Chronic pain. 8. History of lupus. 9. History of CVA in the past. PAST SURGICAL HISTORY: 1. Coronary stent. 2. Hysterectomy. 3. Closed reduction of the left wrist. SOCIAL HISTORY: She quit smoking some time ago. No alcohol or drug use. Her daughter and son-in- law are at the bedside. She lives in a local assisted living. FAMILY HISTORY: Noncontributory. ALLERGIES: Aspirin, duloxetine, IV and oral dye, Levaquin, NSAIDs, tramadol, Effexor, Zofran, penicillin. HOME MEDICATIONS: Have not yet been compiled by the nursing staff. Will restart necessary medications once compiled by the nursing staff. PHYSICAL EXAMINATION: VITAL SIGNS: Blood pressure is 108/66, heart rate is 113, O2 saturation mid 80s on room air. Temperature is 97.5. GENERAL: Chronically ill, disheveled appearing, 78-year-old female lying in the hospital bed in mild to moderate distress. NEUROLOGICAL: She is awake, somewhat lethargic. Answers orientation questions partially correct, unable to state the President's name. She does follow commands without focal deficits. HEENT: Head is atraumatic and normocephalic. Pupils are equal and sluggish to light response bilaterally. Her conjunctivae are somewhat pale. Oral mucosa is slightly moist. NECK: Trachea is midline. CHEST: Decreased significantly over the right lung base. CARDIOVASCULAR: Tachycardic and irregular. S1, S2 noted. 2 to 3/6 systolic ejection murmur noted heard over the left sternal border. GASTROINTESTINAL: Diffusely tender with hypoactive bowel sounds. EXTREMITIES: 3+ edema with area of ecchymosis noted over the left calf. Pulses are diminished at 1+ bilaterally. DIAGNOSTIC DATA: Chest x-ray shows moderate sized right-sided pleural effusion and small left- sided pleural effusion; basilar infiltrate; basilar atelectasis; and increased AP diameter to the chest. EKG is pending. WBC 9.06, hemoglobin 11.5, hematocrit 36.7, platelet count 240. INR 1.59. Sodium 145, potassium 4.1, chloride 108, CO2 is 20, anion gap 17, BUN 15, creatinine 1.1, glucose 97. LFTs normal. Troponin negative x1 set. proBNP 12,062. Albumin 4. Lactic acid 1.8. ASSESSMENT AND PLAN: 1. Hypoxemic respiratory failure: Presumably multifactorial to include moderate sized right-sided pleural effusion, pneumonia, congestive heart failure. Will get a STAT arterial blood gas. Add oxygen. Order a sputum culture and pulmonary consult. We have also ordered a thorax CT. 2. Early sepsis: She does not have a white count or lactate elevation, but she is tachy with borderline hypotension. We have given her a little bit of lasix to assist with volume excess and diastolic failure however, will need to be cautious given the pna picture. Will observe her closely and make adjustments as necessary. 3. Pneumonia with possible parapneumonic effusion: A review of her history shows she has been admitted for altered mentation in the past due to toxic encephalopathy secondary to sedative medications. Family also reports she coughs quite a bit when she eats, so aspiration PNA is highly probable for her. Blood cultures and abx have been ordered, she is allergic to PCN so we added cefepime and flagyl for anerobic coverage. Pulmonary has been consulted. CT thorax, breathing treatments, and cultures have been ordered as well. 4. Atrial fibrillation with rapid ventricular response: Her heart rate is in the 120s and irregular. EKG has not yet been completed, but ordered. Will give her a small dose of Cardizem and monitor response, being cautious with her blood pressure. Perry-Synephrine has been ordered if necessary. We will consult Cardiology if needed. 5. Aortic stenosis with diastolic heart failure: proBNP 12,000. Lasix has been ordered as has an echocardiogram for the morning. Will trend cardiac enzymes and go from there. She is allergic to aspirin. 6. The patient is on deep venous thrombosis prophylaxis with home Eliquis. Further recommendations to follow. Critical care time spent with the patient is one hour. Dictated by STACIE Monique for Teodoro Vazquez MD cc: MD Wilfred Edge CRNP Clement Okinedo, MD [facility]
[2018-09-09] MEDS: FLAGYL 500 MG/NS 500 MG/100 ML IVPB IV SCH ×4 (05:53→22:29)
[2018-09-09] MEDS: MAXIPIME 1 GM in NS 50 ML IV SCH ×2 (05:53→17:44)
[2018-09-09] MEDS: LASIX IV SCH ×2 (05:53→17:44)
--- NOTE | 2018-09-09 07:18 | EKG Report ---
Test Performed on : 09/08/2018 6:32:34 PM Test Reason : edema/afib Blood Pressure : / mmHG Vent. Rate : 125 BPM Atrial Rate : 441 BPM P-R Int : 000 ms QRS Dur : 092 ms QT Int : 414 ms P-R-T Axes : 000 097 025 degrees QTc Int : 597 ms Atrial fibrillation. with rapid ventricular response. with premature ventricular or aberrantly conduc yary complexes. Rightward axis Nonspecific ST and T wave abnormality Abnormal ECG When compared with ECG of 04-MAY-2018 14:53, Atrial fibrillation. has replaced Electronic atrial pacemaker Vent. rate has increased BY 49 BPM Borderline criteria for Inferior infarct are no longer present Nonspecific T wave abnormality has replaced inverted T waves in Lateral leads Unconfirmed Result
--- NOTE | 2018-09-09 07:53 | HISTORY AND PHYSICAL ---
HISTORY OF PRESENT ILLNESS: Ms. Nayana Espinoza is a 78-year-old female who has a history of multiple medical conditions including coronary artery disease, CHF, hypertension, hyperlipidemia, COPD, dementia, previous history of CVA, thyroid disease and lupus who presents to the hospital because of bilateral lower extremity swelling associated with PND, orthopnea. The patient was seen and evaluated in the ER. PHYSICAL EXAMINATION: Temperature 97.5 degrees, pulse 113, respiratory rate 16, blood pressure 108/66, and oxygen saturation 95%. Physical exam is notable for bilateral lower extremity edema. LABORATORY DATA: Shows a proBNP level of 12,062. X-ray of her chest shows evidence of emphysema with bilateral pneumonia and also basilar atelectasis. EKG shows atrial fibrillation with rapid ventricular rate. ASSESSMENT: 1. Acute congestive heart failure. 2. Atrial fibrillation with rapid ventricular rate. 3. Community-acquired pneumonia. 4. Chronic obstructive pulmonary disease exacerbation. PLAN: The patient will be admitted to the intensive care unit. For her congestive heart failure, she will be maintained on diuretics, and we will need to monitor input and output as well as her daily weights and obtain 2D echo of the heart. With regard to her pneumonia, we will obtain sputum cultures, blood cultures and start her on empiric antibiotics. For her COPD, we will maintain her on nebulized bronchodilators as well as steroids. With regard to her atrial fibrillation, we will maintain her on rate-controlling agent. Consider obtaining pulmonology and Cardiology consults cc: Teodoro Vazquez MD MTDD
[2018-09-09 08:06] LABS: HEMATOCRIT 31.3 % (37.0-47.0); HEMOGLOBIN 9.5 g/dL (12.0-16.0); LYMPH# 0.37 X1000 (1.2-3.4); LYMPH% 9.3 % (20.5-51.1); MCH 28.3 PG (27-31); MCHC 30.4 g/dL (33-37); MCV 93.2 FL (81-99); MONO# 0.04 X1000 (0.11-0.59); NEUT# 3.56 X1000 (1.4-6.5); NEUT% 89.7 % (42.2-75.2); PLT 187 X1000 (130-400); RBC 3.36 XMIL (4.2-5.4); RDW 14.2 % (11.5-14.5); WBC 3.97 X1000 (4.8-10.8)
[2018-09-09 08:09] LABS: ALB/GLOB RATIO 1.2; ALBUMIN 3.1 g/dL (3.5-5.0); CALCIUM 8.4 mg/dL (8.8-10.2); CREATININE 1.1 mg/dL (0.5-0.9); LYMPHS 14 % (21-51); MAGNESIUM 1.9 mg/dL (1.5-2.7); POTASSIUM 3.9 mmol/L (3.5-5.1); SEGS 86 % (42-75); TOTAL BILIRUBIN 0.28 mg/dL (0.20-1.00); TOTAL PROTEIN 5.6 g/dL (6.3-8.3)
[2018-09-09] MEDS: ELIQUIS PO SCH ×2 (08:59→20:00)
[2018-09-09] MEDS: ICAR-C PLUS PO SCH (08:59)
[2018-09-09] MEDS ORDERED: ULTRACET 37.5MG/325MG PO PRN (09:35)
[2018-09-09] MEDS: TYLENOL PO PRN ×2 (13:41→19:30)
[2018-09-09] MEDS ORDERED: CORDARONE PO ONE (15:02)
[2018-09-09] MEDS: XANAX PO PRN (15:19)
--- NOTE | 2018-09-09 15:28 | PROGRESS NOTE ---
DATE: 09/09/2018 SUBJECTIVE: This morning, Ms. Espinoza refers to be feeling a lot better. Her breathing has significantly improved. She says for the past couple weeks, she has realized that her breathing has progressively gotten shorter, difficulty breathing with exertion which has gotten so bad that she had to come in yesterday. OBJECTIVE: Vital Signs: This morning, her blood pressure is 106/42, pulse is 114, respirations are 22, temperature is 99.1. General Examination: Ms. Espinoza is a 78-year-old, female. She is in bed. She does not seem to be in distress. HEENT: Mucosa is pink and moist. Anicteric. Acyanotic. Neck: Supple. There is positive JVD. Chest: Air entry is bilaterally reduced. There are diffuse bilateral crepitations. Cardiovascular: Irregularly irregular. There is a 3/6 murmur radiating to the neck. There is also about a 3/6 TR murmur. Abdomen: Soft. Distended but nontender. There is positive hepatojugular reflux. Extremities: About 3+ pedal edema. MONUMENT LETTERER: Patient is awake, alert, and oriented. Laboratory Data: WBC is 3.97, hemoglobin is 9.5, platelet count of 187,000. There are 86% of segmented neutrophils and 14% of lymphocytes. Chemistry is also reviewed and is completely unremarkable. Creatinine is 1.1. So far, blood cultures are still pending. Urine culture is negative. The patient is on ceftriaxone with metronidazole. Imaging Studies: Shows a CTA of the chest, abdomen, and pelvis that showed bilateral pneumonia with atelectasis and small pleural effusions. There is severe atherosclerosis in the abdomen. I have reviewed her previous echocardiogram from 2018 which did show moderate aortic stenosis. There was also some mild tricuspid regurgitation with PA pressure of 40 to 45. Ejection fraction was about 55. No regional wall abnormality. ASSESSMENT: 1. Acute hypoxemic respiratory failure. We think this is a combination of multifocal pneumonia as well as pulmonary edema. The patient is getting intravenous antibiotics and getting diuretic therapy as well. This morning, she refers to be doing a whole lot better. 2. Multifocal pneumonia, etiology is unclear. We are still awaiting blood cultures. Sputum cultures have also been ordered. The patient does not have fever and her white cell count on presentation was fairly normal. I am unsure if this is of bacterial origin or it is atelectasis with pleural effusions (noninfectious). We will do a procalcitonin level. The patient will continue on antibiotics until we have the culture report. The connective tissue cascade profile has been sent. We will wait on that. There are some elevated inflammatory markers on the blood studies. 3. Anasarca, likely due to congestive heart failure. We will continue with the diuretic therapy and address the underlying pathologies. 4. Atrial fibrillation. The patient is not 100% controlled. We are going to start her back on her amiodarone. We will also start her back on a lower dose of her metoprolol and go from there. PLAN: In general, I think Ms. Espinoza seems to be doing a lot better. She got admitted primarily because of shortness of breath and congestive symptoms. Her imaging studies seem to suggest pneumonia despite the normal white cell count and no fever. She is still on IV antibiotics. She seems to be getting better. We will continue with the diuretic therapy. We will start her back on her home medications. Observe her here in the ICU. We are pending pulmonary consult today and go from there. cc: Fer Joy MD MTDD
--- NOTE | 2018-09-09 15:36 | ECHO REPORT ---
ORDER DATE: 09/09/2018 INDICATION FOR STUDY: Shortness of breath, coronary disease. History of stents. FINDINGS: 1. Right atrium appears normal in size. 2. Moderate tricuspid regurgitation. RV systolic pressure of 71 suggesting pulmonary hypertension. 3. Normal RV size and systolic function. 4. Mild pulmonic insufficiency. 5. Suggestion of severe left atrial enlargement with a dimension of 5.6 cm. 6. No mitral valve prolapse. Mild mitral regurgitation. 7. Normal LV size, end-diastolic dimension of 4.6. Mild to moderate left ventricular hypertrophy with a posterior and interventricular septal wall thickness 1.4 cm each. Likely normal LV systolic function. The estimated EF is approximately 55% with normal wall motion. 8. Aortic valve is calcified with restriction in motion consistent with moderate aortic stenosis. Peak gradient across the valve is 45, with a mean of 28. Mild aortic insufficiency. 9. Aorta appears normal in visualized segments. 10. There is a suggestion of a pleural effusion as well as a small predominantly posterior pericardial effusion with no evidence of tamponade-type physiology. 11. Injection of agitated saline contrast did not reveal any evidence of [id number] shunting. cc: MD Wilfred Swain CRNP
[2018-09-09] MEDS: SODIUM CHLORIDE 0.9% INJ SCH (17:44)
[2018-09-09] MEDS: PROTONIX IV SCH (17:44)
[2018-09-09] MEDS: DESYREL PO SCH (20:00)
[2018-09-10 00:17] LABS: ALLEN TEST YES; BE -2.1 mmoll (-3.0-3.0); BLOOD TYPE ARTERIAL; HCO3-(ACT) 23.2 mmoll (20.0-26.0); METHB 1.3 % (0.0-1.5); O2(CT) 11.7 mL/dL (15.0-23.0); PCO2(98.6) 35 mmHg (35-45); PO2(98.6) 57 mmHg (60-100); SAMPLE BLOOD; SAO2 91.6 % (95.0-100.0); THB 9.3 g/dL (11.5-17.4); pH(98.6) 7.41 (7.35-7.45)
[2018-09-10 00:20] LABS: MODALITY HIGH FLOW NASAL CAN
--- NOTE | 2018-09-10 00:59 | PULMONOLOGY CONSULTATION ---
DATE: 09/09/2018 REQUESTING PHYSICIAN: Dr. Smart. REASON FOR CONSULTATION: Respiratory failure, pneumonia, pleural effusion. HISTORY OF PRESENT ILLNESS: Ms Espinoza is a 78-year-old white female, never smoker, who is a very poor historian. The patient denies history of lung disease, but does report she has been on oxygen for a few years. This has not been verified. The patient has a history of lupus, which can be found back in the chart for the last 5 to 6 years, but how this diagnosis was secured and what were the affects of lupus cannot be located in the chart and patient cannot further elaborate on this process. The patient has had several admissions to the hospital with altered mental status and stroke or stroke-like symptoms. She has a history of paroxysmal atrial fibrillation, diastolic heart failure, aortic stenosis, who has had increasing lower extremity edema and shortness of breath over the last 7 days. The patient's primary care physician referred the patient to the hospital for evaluation and management. No fevers, chills, or signs of acute infectious process can be identified. The patient is inconsistent on answering questions, but did have nausea with retching at the time of admission. A CT scan of the chest, thorax and abdomen was performed, which revealed bilateral pulmonary infiltrates, small effusions, right slightly greater than left, and bilateral infiltrates which were not present in April of this year. PAST MEDICAL HISTORY: 1. Moderate aortic stenosis. 2. Mild mitral regurgitation. 3. Moderate pulmonary hypertension. 4. History of lupus with unknown consequences, as outlined above. 5. History of stroke with left-sided weakness. 6. History of possible ischemic event to the eye. 7. Coronary artery disease status post stent placement. 8. Chronic pain syndrome. 9. Status post hysterectomy. 10. Status post fall with left arm fracture requiring closed reduction. SOCIAL HISTORY: Unknown tobacco history. Some intake sheets indicate she has been a never smoker. One intake sheet says she is a continued smoker. One indicates she smokes half pack a day for several years, but stopped smoking greater than 15 years ago. REVIEW OF SYSTEMS: Limited as noted in HPI. PHYSICAL EXAMINATION: General: Reveals an elderly white female who is awake, alert, and conversant. She is in no distress. Vital Signs: BP 106/42, heart rate 115, respiratory rate 22, oxygen saturation 90% on nasal cannula. HEENT: Pupils are equal and reactive. Oropharynx is clear. Neck: Supple. Chest: Reveals coarse rhonchi bilaterally. Cardiac: S1, S2. Abdomen: Soft. Extremities: Reveal +1 edema. LABORATORIES: Sodium 139, potassium 3.9, chloride 107, bicarbonate 20, BUN 18, creatinine 1.1. White blood count 3.97, hemoglobin 9.5, platelet count 187,000. IMPRESSION: Complicated 78-year-old white female with history of tobacco use, history of lupus, as outlined in the HPI, who presents with small pleural effusions, atrial fibrillation with rapid ventricular response, bilateral pneumonia, acute hypoxemic respiratory failure. The patient had nausea with retching on admission. With her history, this most likely represents an aspiration pneumonia with component of heart failure associated with uncontrolled atrial fibrillation with rapid ventricular response. Other possibilities include underlying lupus, as mentioned above, given her relative nontoxic state. RECOMMENDATIONS: 1. Continue antibiotics for aspiration pneumonia. 2. Continue rate control of atrial fibrillation with rapid ventricular response. 3. Consider attempts at diuresis when cardiac rate has been controlled. 4. Agree with speech therapy evaluation. 5. Send connective tissue cascade along with a C-reactive protein. 6. Agree with current steroid dosing. 7. Additional recommendations pending hospital course. cc: Ronald Osuna MD
[2018-09-10] MEDS: TYLENOL PO PRN ×2 (01:35→11:17)
[2018-09-10] MEDS: SOLU-MEDROL IV SCH ×3 (02:52→18:28)
[2018-09-10] MEDS: XOPENEX NEB INH SCH ×6 (03:28→23:34)
[2018-09-10] MEDS: FLAGYL 500 MG/NS 500 MG/100 ML IVPB IV SCH ×4 (03:52→22:39)
[2018-09-10 04:19] LABS: BLOOD TYPE ARTERIAL; SAMPLE BLOOD
[2018-09-10 04:20] LABS: ALLEN TEST YES; BE -2.6 mmoll (-3.0-3.0); HCO3-(ACT) 22.9 mmoll (20.0-26.0); METHB 0.2 % (0.0-1.5); O2(CT) 13.5 mL/dL (15.0-23.0); PCO2(98.6) 34 mmHg (35-45); PO2(98.6) 67 mmHg (60-100); SAO2 97.6 % (95.0-100.0); THB 10.1 g/dL (11.5-17.4); pH(98.6) 7.41 (7.35-7.45)
[2018-09-10 04:39] LABS: MODALITY BI PAP
[2018-09-10 04:56] LABS: HEMATOCRIT 29.6 % (37.0-47.0); HEMOGLOBIN 9.1 g/dL (12.0-16.0); LYMPH# 0.25 X1000 (1.2-3.4); LYMPH% 2.5 % (20.5-51.1); MCH 28.3 PG (27-31); MCHC 30.7 g/dL (33-37); MCV 92.2 FL (81-99); MONO# 0.22 X1000 (0.11-0.59); MONO% 2.2 % (1.7-9.3); MPV 11.4 FL (7.4-10.4); NEUT# 9.53 X1000 (1.4-6.5); NEUT% 95.3 % (42.2-75.2); PLT 210 X1000 (130-400); RBC 3.21 XMIL (4.2-5.4); RDW 14.6 % (11.5-14.5)
[2018-09-10 05:41] LABS: ALB/GLOB RATIO 1.3; ALBUMIN 3.2 g/dL (3.5-5.0); CALCIUM 8.6 mg/dL (8.8-10.2); CREATININE 1.7 mg/dL (0.5-0.9); MAGNESIUM 1.9 mg/dL (1.5-2.7); POTASSIUM 3.6 mmol/L (3.5-5.1); TOTAL BILIRUBIN 0.2 mg/dL (0.20-1.00); TOTAL PROTEIN 5.7 g/dL (6.3-8.3)
[2018-09-10] MEDS: LASIX IV SCH (06:01)
[2018-09-10 06:16] LABS: SEGS 98 % (42-75)
[2018-09-10] MEDS: MAXIPIME 1 GM in NS 50 ML IV SCH ×2 (07:08→18:28)
[2018-09-10] MEDS: SYNTHROID PO SCH (07:11)
[2018-09-10] MEDS: CARDIZEM PO SCH ×3 (07:11→18:29)
[2018-09-10] MEDS: CRESTOR PO SCH (08:11)
[2018-09-10] MEDS: LOPRESSOR PO SCH (08:12)
[2018-09-10] MEDS: ICAR-C PLUS PO SCH (08:13)
[2018-09-10] MEDS: ELIQUIS PO SCH ×2 (08:14→20:34)
--- NOTE | 2018-09-10 08:19 | Diag Imaging Result Doc PS360 ---
EXAM: CHEST-PORTABLE 09/10/2018 HISTORY: respiratory failure TECHNIQUE: AP portable at 0502 COMMENT: There is alveolar opacity in both perihilar regions particularly in the left upper lobe. There is atelectasis versus pneumonia in both lung bases and bilateral pleural effusions are present. The parahilar opacity has worsened particularly on the right side compared to 09/08/2018. IMPRESSION: Pulmonary edema which has worsened since 09/08/2018. There may be superimposed pneumonia in the left upper lobe and pneumonia versus atelectasis in both lower lobes. Bilateral pleural effusions. Electronically signed by Alfredo Paris 09/10/2018 8:17 AM
[2018-09-10] MEDS ORDERED: CORDARONE PO SCH (09:00)
--- NOTE | 2018-09-10 11:58 | CARDIOLOGY CONSULTATION ---
DATE: 09/10/2018 CHIEF COMPLAINT ON PRESENTATION: Apparently, shortness of breath. HISTORY OF PRESENT ILLNESS: Ms. Espinoza is a 78-year-old, white female who is a very poor historian. She is on home oxygen at home but is really unaware who provided this. It does not sound like she has had pulmonary evaluations in the past. She has a history of atrial fibrillation but has never [facility] by [facility] and she is not aware who her nailer machine is. She is a very difficult historian. Thinks that her symptoms began a week ago and she presented to the hospital a week ago. However, she was only admitted to the hospital on the . It sounds like she had some smothering type episodes with issues with cough but denies any overt fevers. She lives in an assisted living facility. PAST MEDICAL HISTORY: Significant for: 1. Moderate aortic stenosis with most recent echocardiogram yesterday showing a mean gradient of 28. Ejection fraction on that study was 55%. 2. Pulmonary hypertension with an RV systolic pressure of 71 on the echocardiogram from yesterday. 3. Mitral stenosis. 4. History of lupus. 5. History of CVA. 6. History of coronary artery disease. I do not have a detailed history of this. It does not, again, appear that she has been seen by cardiology as an outpatient. SOCIAL HISTORY: She currently denies any tobacco use. She currently lives in an assisted living facility. FAMILY HISTORY: Really does not seem reliable, given the patient's issues providing history. REVIEW OF SYSTEMS: Really does not seem reliable, given the patient's issues providing history. PHYSICAL EXAMINATION: She is afebrile. Her heart rate is 94 and appears to be in atrial fibrillation per telemetry. Blood pressure is 104/59 and seems to be running systolics mainly in the 90s to low 100s, occasionally with systolics in the 80s. General: She is in no acute distress. HEENT: Oropharynx is moist. Poor dentition. Eye examination shows pink conjunctivae and white sclerae. Neck: Examination shows no obvious thyromegaly or thyroid tenderness. Cardiovascular: She sounds to be in an irregularly irregular rhythm. She has a 2/6 systolic murmur, best heard at the right upper sternal border, that is crescendo-decrescendo. She has no carotid bruits. She has 1+ bilateral lower extremity edema, and warm and well-perfused extremities. Her chest exam seems to have mild reduction in breath sounds in the bases with poor inspiratory effort. Abdomen: Soft, nontender, nondistended. She has no obvious organomegaly. Skin Examination: Warm and dry throughout. Is notable for a large ecchymosis in her right lower calf area that she said is secondary to a car door inadvertently closing on her lower leg within the last week or so. Neurological: She seems to be moving all extremities and following commands but is a limited historian. Psychiatric: She attempts to answer questions but gives a very halting history with frequent gaps, it seems. PERTINENT DATA: She had a CTA of her chest, abdomen, and pelvis demonstrating severe atherosclerosis identified in the abdominal vasculature. Bilateral pneumonia noted with atelectasis, small pleural effusions. Her EKG demonstrated atrial fibrillation on presentation with a rate of 125 beats per minute. Her white count on presentation was 9, subsequently dropped to 3.9, and currently is 10, with a hematocrit of 29, a platelet count of 210,000. Her hematocrit dropped from 36.7 on presentation to 29. She has a sedimentation rate of 13. She was on BiPAP with 100% support with an AA gradient of 604. PH 7.41, pCO2 of 34, PO2 of 67. Her sodium is 144, potassium is 3.6, her BUN is 29, with a creatinine of 1.7 that jumped from 1.1 on presentation. Her proBNP on presentation was 12,000. Albumin is 3.2. Her CRP is 40. Her cardiac enzymes were negative times multiple sets. Her TSH was 0.95. ASSESSMENT: Ms. Espinoza is a 78-year-old female who has moderate aortic stenosis, probable moderate mitral stenosis, chronic atrial fibrillation, maintained on Eliquis and amiodarone as an outpatient, it seems. She presents with pneumonia. PLAN: I would be hesitant to continue her diuretics considering her jump in creatinine. In addition, she is somewhat hypotensive and has a history of pulmonary hypertension, and may be drying out to some extent. We will stop those medications. I will continue her on the amiodarone for the time-being. She appears to have been in sinus rhythm the last time she came in to the hospital. May need to consider nondenominational of sinus rhythm in the future. She is on correct dosing of apixaban given her age, weight, and renal function. We will continue on the current dose of apixaban for the time-being. cc: Russ Sanders MD
--- NOTE | 2018-09-10 12:32 | PROGRESS NOTE ---
DATE: 09/10/2018 SUBJECTIVE: This morning, Ms. Espinoza refers to be hurting everywhere. She said her breathing, however, is getting better. She is on a high-flow. OBJECTIVE: Current Vital Signs: Blood pressure is 104/59, pulse 94, respirations are 19, temperature is 98.3 degrees. Patient was 93% on high-flow oxygen. General Examination: Ms. Espinoza is a 78-year-old, female. She is in bed. No distress. HEENT: Mucosa is pink and moist. Anicteric. Acyanotic. Neck: Supple. There is positive JVD. Chest: Air entry is bilaterally reduced. There are still some crackles in the posterior lung bean bilaterally. Cardiovascular: Irregularly irregular. There is a 3/6 murmur radiating to the carotids. There is also a 3/6 TR murmur. Abdomen: Soft. Bowel sounds present. There is positive hepatojugular reflux. Extremities: About 2+ pedal edema bilaterally. 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 Laboratory Data: WBC is 100.0, hemoglobin is 9.1, platelet count of 210,000. Chemistry is also reviewed. Creatinine has gone up to 1.7. TSH is normal. Current Medications: Have all been also reviewed. Diagnostic Studies: Echocardiogram did show ejection fraction of 55% with normal wall motion. However, there is mild left ventricular hypertrophy. There is also calcified moderate aortic stenosis and moderate tricuspid regurgitation with right ventricular systolic pressure of 71, suggestive of pulmonary hypertension. ASSESSMENT: 1. Acute hypoxemic respiratory failure. Patient continues to be needing high-flow oxygen. Pulmonary medicine is on board. 2. Multifocal pneumonia. The patient is currently on intravenous antibiotics. There is also a concern that this could be noninfectious pneumonitis probably from lupus or it could just be from fluid overload as a result of congestive heart failure. 3. Anasarca secondary to congestive heart failure with preserved ejection fraction. The patient is currently on diuretic therapy. 4. History of atrial fibrillation. The patient continues to be in atrial fibrillation but the rate is a lot better now. Cardiology has been consulted. 5. Moderate tricuspid regurgitation with aortic stenosis. Cardiology has been consulted. 6. History of lupus. Sedimentation rate is normal. However, the CRP is slightly elevated. It does not appear that this is a lupus flare. However, we have sent an MYESHA to have serological evidence of this rheumatological disease which has been reflected multiple times in the patient's chart. 7. Generalized pain due to chronic pain syndrome, noted. 8. Hypotension. The patient is borderline hypotensive. Unsure if it is because of poor cardiac output or it is something else. The patient is currently on intravenous antibiotics. Urine culture is negative. We are still waiting on the blood culture. We will use phenylephrine as a pressor if needed. 9. Acute renal failure. We are going to put in a Knapp catheter to have better strict intakes and outputs, and follow up with the renal function. If there is an upward trend, we will involve nephrology and also do the renal studies. cc: Fer Joy MD
[2018-09-10 14:27] LABS: URINE SOURCE CATH
[2018-09-10 14:33] LABS: BILIRUBIN URINE NEGATIVE (NEGATIVE); BLOOD URINE MODERATE (NEGATIVE); COLOR YELLOW; GLUCOSE URINE NEGATIVE (NEGATIVE); KETONE URINE TRACE mg/dL (NEGATIVE); LEUKOCYTES URINE SMALL (NEGATIVE); NITRITE URINE NEGATIVE (NEGATIVE); PH URINE 5.5; PROTEIN URINE 100 mg/dL (NEGATIVE); SP GRAVITY URINE 1.018; TURBIDITY URINE HAZY (CLEAR); UROBILINOGEN URINE NORMAL (NORMAL)
[2018-09-10 14:45] LABS: UR EPITHELIAL CELLS >10 /HPF (<10); URINE BACTERIA NEGATIVE /HPF; URINE RBC 20-40 /HPF (<10); URINE WBC <10 /HPF (<10)
[2018-09-10 14:50] LABS: URINE CASTS NONE SEEN; URINE CRYSTALS NONE SEEN; URINE YEAST NONE SEEN
[2018-09-10 14:51] LABS: URINE SMALL ROUND CELLS RENAL PRESENT
[2018-09-10] MEDS: PROTONIX IV SCH (18:28)
[2018-09-10] MEDS: DESYREL PO SCH (20:34)
[2018-09-10] MEDS: ATIVAN IV PRN (20:34)
--- NOTE | 2018-09-11 01:43 | PULMONOLOGY PROGRESS NOTE ---
DATE: 09/10/2018 SUBJECTIVE: The patient is awake, alert, and conversant. She is not oriented. She is without specific complaints. OBJECTIVE: Vital Signs: The patient has been afebrile for the last 24 hours. Blood pressure 96/53, heart rate 100, respiratory rate 25, oxygen saturation 91% on non-rebreather. HEENT: Pupils are equal and reactive. Oropharynx appears clear. Neck: Supple. Chest: Reveals coarse rhonchi bilaterally with decreased breath sounds in both lung bases. Cardiac: S1, S2 with a regular rhythm. Abdomen: Soft. Extremities: Reveal trace edema. LABORATORIES: White blood count 10.0, hemoglobin 9.1, platelet count 210,000. Arterial blood gas reveals a pH 7.41, pCO2 of 34, PO2 of 67. Chemistry: Sodium 144, potassium 3.6, chloride 109, bicarbonate 20, BUN 29, creatinine 1.7. Chest x-ray reveals bilateral infiltrates, bilateral effusions with increased infiltrate on the right. IMPRESSION: A 78-year-old with 1. Lupus, systemic lupus erythematosus. 2. Bilateral pleural effusions. 3. Atrial fibrillation. 4. Bilateral pneumonia. 5. Atrial fibrillation with rapid ventricular response. 6. Acute hypoxemic respiratory failure. RECOMMENDATIONS: 1. Continue antibiotics for aspiration pneumonia. 2. Rate control as outlined per Cardiology. 3. Hold attempts at diuresis given worsening kidney function. 4. Continue oxygen for hypoxemic respiratory failure. 5. Await connective tissue cascade results. 6. Continue steroids. 7. Continue ICU monitoring. She remains critically ill and remains at risk for intubation. cc: Ronald Osuna MD
[2018-09-11] MEDS: CARDIZEM PO SCH ×4 (01:44→17:16)
[2018-09-11] MEDS: SOLU-MEDROL IV SCH ×3 (01:44→17:45)
[2018-09-11] MEDS: XOPENEX NEB INH SCH ×6 (03:14→23:59)
[2018-09-11] MEDS: FLAGYL 500 MG/NS 500 MG/100 ML IVPB IV SCH (03:49)
[2018-09-11 04:36] LABS: ALLEN TEST YES; BE -4.7 mmoll (-3.0-3.0); BLOOD TYPE ARTERIAL; HCO3-(ACT) 21.2 mmoll (20.0-26.0); METHB 0.9 % (0.0-1.5); MODALITY BI PAP; O2(CT) 14.8 mL/dL (15.0-23.0); PCO2(98.6) 37 mmHg (35-45); PO2(98.6) 83 mmHg (60-100); SAMPLE BLOOD; SAO2 98.9 % (95.0-100.0); THB 10.9 g/dL (11.5-17.4); pH(98.6) 7.35 (7.35-7.45)
[2018-09-11 04:39] LABS: HEMATOCRIT 32.2 % (37.0-47.0); HEMOGLOBIN 9.9 g/dL (12.0-16.0); IMM GRAN# 0.02 X1000 (0.0-0.04); IMM GRAN% 0.2 % (0.0-0.5); LYMPH# 0.28 X1000 (1.2-3.4); LYMPH% 2.6 % (20.5-51.1); MCH 28.3 PG (27-31); MCHC 30.7 g/dL (33-37); MONO% 1.9 % (1.7-9.3); MPV 11.2 FL (7.4-10.4); NEUT# 10.25 X1000 (1.4-6.5); NEUT% 95.3 % (42.2-75.2); PLT 208 X1000 (130-400); RDW 14.7 % (11.5-14.5); WBC 10.75 X1000 (4.8-10.8)
[2018-09-11 04:52] LABS: ALB/GLOB RATIO 1.2; ALBUMIN 3.1 g/dL (3.5-5.0); CALCIUM 8.1 mg/dL (8.8-10.2); CREATININE 1.9 mg/dL (0.5-0.9); MAGNESIUM 2.1 mg/dL (1.5-2.7); POTASSIUM 3.7 mmol/L (3.5-5.1); TOTAL BILIRUBIN 0.18 mg/dL (0.20-1.00); TOTAL PROTEIN 5.7 g/dL (6.3-8.3)
[2018-09-11] MEDS: MAXIPIME 1 GM in NS 50 ML IV SCH (05:51)
[2018-09-11] MEDS: SYNTHROID PO SCH (06:10)
--- NOTE | 2018-09-11 07:30 | Diag Imaging Result Doc PS360 ---
EXAM: CHEST-PORTABLE INDICATION: respiratory failure TECHNIQUE: One view COMPARISON: 09/10/2018 FINDINGS: Given slight differences in positioning, the bilateral infiltrates are approximately stable. Bilateral pleural effusions are stable. No new consolidation is identified. Cardiac silhouette is stable. IMPRESSION: Essentially stable chest. Electronically signed by Jose Daniel Modi 09/11/2018 7:28 AM
[2018-09-11 07:36] LABS: UR CREAT RANDOM 132.9 mg/dL (11-20)
[2018-09-11] MEDS: ICAR-C PLUS PO SCH (08:27)
[2018-09-11] MEDS: LOPRESSOR PO SCH (08:28)
[2018-09-11] MEDS: ELIQUIS PO SCH ×2 (08:28→20:47)
[2018-09-11] MEDS: CRESTOR PO SCH (08:28)
[2018-09-11] MEDS: CORDARONE PO SCH (08:28)
[2018-09-11] MEDS: ZYVOX PO SCH ×2 (08:48→20:47)
[2018-09-11] MEDS ORDERED: LEVAQUIN PO SCH (09:30)
[2018-09-11] MEDS: ALBUMIN 25% IV SCH (10:21)
[2018-09-11] MEDS: ZITHROMAX PO SCH (10:21)
--- NOTE | 2018-09-11 10:28 | PROGRESS NOTE ---
DATE: 09/11/2018 SUBJECTIVE: This morning Ms. Espinoza refers to be feeling a little bit better. She had to go back on the BiPAP last night. This morning she is seen with a Venturi mask. She was requesting to see when she will be able to be discharged. OBJECTIVE: Vital signs: Blood pressure is 120/59, pulses 82, respirations 23, and temperature is 97.5 degrees. General: Ms. Espinoza is a 78-year-old elderly female. She is in bed. She does not look in distress. Mucosa is pink and moist. Anicteric. Acyanotic. Neck: Supple. Respiratory: Air entry is bilaterally reduced. There are still crackles in the posterior lung bean. Cardiovascular: Irregularly irregular but rate controlled. There is a 3/6 murmur radiating to the carotid. There is also a 3/6 TR murmur. Abdomen: Soft and distended, but nontender. Bowel sounds present. Extremities: About 1+ pedal edema. LITIGATION PARTNER: Patient is awake, and follows basic commands. LABORATORY DATA: WBC is 10.75, hemoglobin is 9.9, and platelet count of 208,000. ABG is reviewed and is unremarkable on the BiPAP. The chemistry is also significant for bicarb of 19. Creatinine has gone up to 1.9. Albumin is down to 3.1. On urinalysis, she did not see any eosinophils. The urine sodium is 20. The calculation of FENA shows at 0.20, and the fraction excretion of nitrogen is 24.4. Both parameters are consistent with intravascular depletion. A chest x-ray this morning shows stable bilateral infiltrates, and also bilateral pleural effusions. CURRENT MEDICATIONS: Reviewed. Antimicrobials was cefepime. Zyvox has been added to it today and azithromycin has been added by Infectious Disease. ASSESSMENT: 1. Acute hypoxemic respiratory failure. Patient continues to cycle between Venturi mask and BiPAP. Pulmonary Medicine and Respiratory Therapy on board. 2. Multifocal pneumonia. There is a suspicion of aspiration. Procalcitonin is 0.41, which represents a high likelihood of infectious etiology. We have added Zyvox to the antimicrobial package, and we have consulted Infectious Disease. 3. Anasarca secondary to congestive heart failure with preserved ejection fraction. The patient has been evaluated by Cardiology. We will continue to address the possible etiologies including an atrial fibrillation, and also valvulopathy. 4. History of atrial fibrillation. Currently, the rate is controlled. Patient is on amiodarone, beta nelson and calcium channel nelson. 5. Moderate tricuspid regurgitation with aortic stenosis. Cardiology is on board. 6. History of lupus. According to the patient, this diagnosis was made a couple of years ago, but then the disease just went away without any treatment. 7. Acute renal injury. The patient's urine sodium is 20. The fractional excretion of sodium is 0.2 The fraction excretion of nitrogen is 24.4%. Both parameters are consistent with intravascular depletion. The diuretics have been withheld. We will give albumin to help pull fluid into the intravascular space, and to help to perfuse the kidneys. The patient could also potentially have a cardiorenal syndrome. Nephrology has been consulted today. Will be waiting on them for evaluation. Renal ultrasound has also been ordered. 8. Hypotension improved. The patient did not need any pressor. In general, Ms. Espinoza is stable and continues to be remarkably sick. She continues cycling between Venturi mask and BiPAP meet her oxygen demands. She is still hypoxemic. The chest x-ray this morning did not show any major changes. Antibiotics have been optimized, and ID has been consulted. Nephrology has also been consulted because of worsening renal function. The patient is currently being seen by Pulmonary Medicine as well, and we do appreciate the input of the subspecialties. cc: Fer Joy MD MTDBecky
--- NOTE | 2018-09-11 13:03 | CARDIOLOGY PROGRESS NOTE ---
DATE: 09/11/2018 SUBJECTIVE: Ms. Espinoza reports she feels little bit better. OBJECTIVE: Vital signs: She is afebrile. Heart rate is 82, blood pressure 120/59. Generally: She is in no acute distress. Cardiovascular: She is in an irregularly irregular rate and rhythm. She has no obvious murmurs. Extremities: She has trace left lower extremity edema. 1+ right lower extremity edema. The asymmetric is likely due to the significant bruise she has on her posterior right calf. She has warm and well-perfused lower extremities. Chest: Sounds relatively clear. She has a poor inspiratory effort. Abdomen: Soft, nontender. PERTINENT DATA: White count 10.7, hematocrit is 32, platelet count is 208,000. Her sodium is 142, potassium 3.7, BUN 41, creatinine is 1.9 which is up from 29 and 1.7 yesterday. Her albumin today is 3.1. ASSESSMENT: Ms. Espinoza is a 78-year-old female who presented with what appears to be a pneumonia. She has a history of paroxysmal atrial fibrillation. PLAN: We held her diuretics yesterday considering her bump in her creatinine. She has had a slight increase in her BUN and creatinine since yesterday. We will likely just encouraged oral fluids. I will continue her on the amiodarone and apixaban for the time being. I would be hesitant to try to restore sinus rhythm given her ongoing pulmonary infectious process. cc: Russ Sanders MD
--- NOTE | 2018-09-11 14:21 | INFECTIOUS DISEASE CONSULT REP ---
DATE: 09/11/2018 CONCLUSION: The patient is admitted to the hospital with pneumonia. It has been worsening on chest x-ray. The patient, on her right leg, appears to have a bad bruise or hematoma. RECOMMENDATIONS: I have discontinued Flagyl and I have added to the cefepime and Zosyn she already is receiving, azithromycin. Also, I have ordered immunoglobulin levels, urinary antigens for Legionella and pneumococcus. DISCUSSION: The patient was unable provide a history. According to the data in the computer, she was admitted to the hospital. PRESENT ILLNESS: The patient is unable provide a history. No family member is present. According to the data in the computer, the patient initially was seen with lower extremity edema, pain, and erythema. She also had nausea, vomiting, and diarrhea. She also was lethargic. In the emergency room, she was found to be hypoxic and hypotensive, and to have a tachycardia. X-ray showed bilateral infiltrates with pleural effusions. Most recent studies show a CBC with a white count of 10,750, hemoglobin 9.9, platelet count 208,000. Blood gases show a pH of 7.35, a PO2 of 83, and a pCO2 of 37. Creatinine is 1.9. GFR is 26. Urinalysis showed no white cells or bacteria. Blood and urine cultures are negative. The most recent chest x-ray shows stable bilateral pulmonary infiltrates and effusions. CT scan of the chest, abdomen, and pelvis showed bilateral pulmonary infiltrates/atelectasis/pleural effusions and extensive atherosclerosis as seen in the CT scan of the abdomen. REVIEW OF SYSTEMS: Unable to be obtained. PAST MEDICAL HISTORY: 1. Atrial fibrillation. 2. Diastolic heart failure. 3. Pulmonary hypertension. 4. Coronary artery disease. 5. COPD. 6. Hyperlipidemia. 7. Chronic pain. 8. Systemic lupus. 9. Stroke. 10. Hypothyroidism. PAST SURGICAL HISTORY: Positive for: 1. Placement of a coronary artery stent. 2. Hysterectomy. 3. Surgery on the left wrist. SOCIAL HISTORY: The patient stopped smoking but I am uncertain as to how long she has quit smoking. She does not have a history of alcohol intake or drug abuse. The patient lives in a local assisted living place. FAMILY HISTORY: Said to be noncontributory. ALLERGIES: To aspirin, duloxetine, oral and IV contrast, Levaquin, nonsteroidal anti-inflammatory drugs, tramadol, Effexor, Zofran, and penicillin. HOME MEDICATIONS: The home medications include the following: Albuterol inhaler, Xanax, amiodarone, Norvasc, Eliquis, vitamin B12, Lasix, Synthroid, lisinopril metoprolol, rosuvastatin, and Desyrel. PHYSICAL EXAMINATION: Vital Signs: Temperature is 98 degrees, pulse 82, respirations 23, blood pressure 120/59, patient weighs 148 pounds. General: This is an ill-appearing, elderly female. She currently is in no acute distress. She does have restraints on both arms. Head, Eyes, Ears, Nose, and Throat: She can hear my spoken words and see near objects. She does not have any white coating of the tongue. Neck: There is no meningismus. Lungs: I heard rales in the left lung and the right lung was clear. Cardiovascular: Heart rate is irregular. Abdomen: Soft and nontender. Extremities: The right leg posteriorly had a bruised area and there may be an element of hematoma as well. The area was tender. Neurologic: The patient was awake. She did follow requests to move her extremities. She was unable to answer my questions about her medical history. Thank you for the consult. cc: Mahendra Coffman MD
--- NOTE | 2018-09-11 14:26 | NEPHROLOGY CONSULTATION ---
DATE: 09/11/2018 REASON FOR ADMISSION: Increased work of breathing. REASON FOR CONSULTATION: Acute kidney injury. CONSULTING PHYSICIAN: Dr. Joy. HISTORY OF PRESENT ILLNESS: Ms. Espinoza is a 78-year-old white female, who is currently in the ICU. She is slightly confused. She is on 100% BiPAP. She is unaware of her current surroundings. She is unable to verbalize any response to questions asked. The patient has a history on the chart of atrial fibrillation. She is currently on amiodarone and Cardizem with Eliquis. She had a chest x-ray completed on her admission yesterday that shows pulmonary edema, which is worsening between 09/08/2018 and 09/11/2018 with superimposed questionable aspiration pneumonia to the left upper lobe, pneumonia versus atelectasis in both lower lobes, and bilateral pleural effusions followed by Dr. Osuna. Cardiology is seeing her while she is here indicating that with her worsening creatinine of 1.9 from her baseline of 0.6, they had stopped her diuretic therapy. She has had urine electrolytes obtained indicating a fractionated urea score of 24.48%, indicating patient is prerenal and dry. Agree with holding her Lasix. The patient is unable to give any verbal response in regards with her condition. She does appear to have bilateral wrist restraints in place. Nurses report confusion during the night. PAST MEDICAL HISTORY: She has aortic stenosis. A previous echocardiogram performed on 09/09/2018 indicates an ejection fraction of 55% with pulmonary hypertension, mitral stenosis. The patient has a history of lupus, history of CVA, history of coronary artery disease, history of COPD, previous stroke with left-sided weakness, possible ischemic event to the left eye which is smaller, non focusing, and chronic pain syndrome. She has hyperlipidemia and a history of diastolic heart failure. The patient is hypothyroid. PAST SURGICAL HISTORY: Coronary artery stents, hysterectomy, closed reduction of her left wrist. SOCIAL HISTORY: She has family who are attentive to her care. Previous tobacco use. She lives in an assisted living. No current alcohol or illicit drug use is listed. FAMILY HISTORY: Noncontributory. Patient is unable to give review. ALLERGIES: On the chart are listed as aspirin, duloxetine, IV and oral dye, Levaquin, nonsteroidals, tramadol, Effexor, Zofran and penicillins. HOME MEDICATIONS: Eliquis, Icar C, albuterol sulfate, amlodipine, vitamin B 12, Tylenol, amiodarone, Lasix lisinopril, rosuvastatin, calcium, Desyrel, metoprolol tartrate, Xanax, and Synthroid. REVIEW OF SYSTEMS: Unable to obtain per patient. Most information obtained per chart with pertinent positives listed above in the HPI. OBJECTIVE: Most recent vital signs: Temperature 97.5 degrees, blood pressure 118/62, heart rate 97, respirations 24, she is on 100% BiPAP. She has had 860 mL; she has had 220 mL out with decrease in her urine output in the last 24 hours. LABORATORY DATA: Sodium 142, potassium 3.7, chloride 111, CO2 19. BUN 41, creatinine 1.9, glucose 137. Her anion gap is 12, her calcium 8.1, albumin is 3.1. White count 10.75, hemoglobin 9.9, hematocrit is 32.2, platelet count 208. She does have a sedimentation rate of 13. TSH is 0.95. ABGs: A pH 7.35, CO2 37, PO2 83, bicarbonate 21.2; this is on 100% BiPAP. DIAGNOSTIC DATA: Chest x-ray this a.m. indicates essentially stable chest. Continues with bilateral pleural effusions. No consolidation identified. Bilateral infiltrates are stable. PHYSICAL EXAMINATION: General: This is a 78-year-old elderly female, who appears older than her stated age. She is currently on BiPAP with bilateral wrist restraints. HEENT: Normocephalic, atraumatic. Conjunctiva is pale pink. Unable to see orally secondary to her BiPAP in place. Neck: Supple. Trachea midline. Unable to determine JVD secondary to BiPAP mask in place. Cardiovascular: She is irregularly irregular. She has a soft systolic murmur. Lungs: Diminished breath sounds with poor inspiratory effort. Clear to auscultation anterior only. Remains on 100% BiPAP. Abdomen: Soft, nontender. Positive bowel sounds. Genitourinary: Not inspected. Knapp catheter is in place. Extremities: Has 1+ lower extremity edema. No clubbing or cyanosis. Integumentary: Skin is warm and dry. She has a large ecchymosis to her right lower calf area secondary to possible car door as mentioned in one of her H and Ps. Neurological: Patient is moving all extremities. Bilateral wrist restraints to the upper extremities. Unable to answer appropriately. Remains on 100% BiPAP. ASSESSMENT AND PLAN: 1. Acute kidney injury. The patient has had a CT of the abdomen performed on the indicating no hydronephrosis bilateral. Renal ultrasound again is currently pending at this time. Normal baseline creatinine is 0.6. Fractionated urea score from urine electrolytes indicate the patient is volume depleted. Her Lasix has been appropriately held. If patient does not have an improvement in her urinary output in the next 24 hours, may possibly consider a small intravenous fluid bolus secondary to patient's history of pulmonary edema and atrial fibrillation. 2. Electrolytes and acid-base balance. These are acceptable. 3. Anemia. This is low, but stable. 4. Respiratory failure. The patient is currently on 100% BiPAP followed by Dr. Osuna. 5. Bilateral pneumonia. The patient is on antibiotics. We will dose her cefepime renally dosed. She remains on Zyvox and Levaquin. Followed by Dr. Coffman. I would like to thank you for allowing us to follow with this patient. Dictated by STACIE Daley for Rolf Jewell MD cc: STACIE Daley MD
--- NOTE | 2018-09-11 17:38 | Diag Imaging Result Doc PS360 ---
EXAM: US RENAL 2 (RETROPER) COMPLETE HISTORY: nena/arf TECHNIQUE: Renal ultrasound COMPARISON: None. FINDINGS: The right kidney measures 10.7 x 3.5 x 3.9 cm. Normal renal echotexture and cortical thickness. No renal stone or hydronephrosis. No renal mass. The left kidney measures 10.2 x 5.5 x 5.0 cm. Normal renal echotexture and cortical thickness. There is a 2.5 cm cyst in the upper pole. No stone or hydronephrosis. The urinary bladder is poorly distended. IMPRESSION: Left renal cyst. Electronically signed by Benji Levin 09/11/2018 5:36 PM
[2018-09-11] MEDS: SODIUM CHLORIDE 0.9% INJ SCH (17:44)
[2018-09-11] MEDS: PROTONIX IV SCH (17:45)
[2018-09-11] MEDS: DESYREL PO SCH (20:47)
[2018-09-11] MEDS: ATIVAN IV PRN (21:11)
--- NOTE | 2018-09-11 22:21 | PULMONOLOGY PROGRESS NOTE ---
DATE: 09/11/2018 SUBJECTIVE: The patient does not appear to be completely oriented. She reports she is going home [place], but does not know what today is. OBJECTIVE: Vital Signs: The patient has been afebrile for the last 24 hours. Blood pressure 108/69, heart rate 66, respiratory rate 23, oxygen saturation 93%. HEENT: Pupils are equal and reactive. Oropharynx appears clear. Neck: Supple. Chest: Reveals diminished breath sounds both lung bases. Cardiac exam: S1, S2. Abdomen: Soft. Extremities: Without edema. LABORATORIES: White blood count 10.75, hemoglobin 9.9, platelet count 208,000. Arterial blood gas on BiPAP: pH 7.35, pCO2 of 37, pO2 of 83. Chemistries: Sodium 142, potassium 3.7, chloride 111, bicarbonate 19, BUN 41, creatinine 1.9. Chest x-ray reveals bilateral infiltrates and effusions without change. Immunoglobulin levels are slightly reduced at 614 for an IgG. IgA is slightly reduced at 64. IgM is slightly reduced at 32. Connective tissue screen has a weakly positive antinuclear antibody at 1.3. The cyclic citrullinated peptide is negative. IMPRESSION: A 78-year-old with: 1. History of systemic lupus erythematosus. 2. Bilateral effusions. 3. Bilateral pneumonia. 4. Atrial fibrillation with rapid ventricular response. 5. Acute hypoxemic respiratory failure. DISCUSSION: A 78-year-old with problems outlined above. Etiology for her pulmonary infiltrates and effusions is not completely clear. She does have a slightly elevated C-reactive protein. RECOMMENDATIONS: 1. Continue antibiotics for pneumonia, which is likely an aspiration pneumonia. 2. Check CRP level tomorrow. 3. Hold diuretics pending improvement in kidney function. 4. Continue oxygen. 5. Continue steroids. 6. Consider a small fluid bolus. cc: Ronald Osuna MD
[2018-09-12] MEDS: CARDIZEM PO SCH ×4 (00:27→17:35)
[2018-09-12] MEDS: SOLU-MEDROL IV SCH ×3 (01:48→17:39)
[2018-09-12] MEDS: ATIVAN IV PRN (03:07)
[2018-09-12] MEDS: XOPENEX NEB INH SCH ×6 (03:25→23:50)
[2018-09-12 04:42] LABS: ALLEN TEST YES; BE -5.6 mmoll (-3.0-3.0); BLOOD TYPE ARTERIAL; HCO3-(ACT) 20.6 mmoll (20.0-26.0); O2(CT) 13.4 mL/dL (15.0-23.0); O2HB 97.3 % (95.0-99.0); PCO2(98.6) 39 mmHg (35-45); PO2(98.6) 120 mmHg (60-100); SAMPLE BLOOD; SAO2 99.5 % (95.0-100.0); THB 9.6 g/dL (11.5-17.4); pH(98.6) 7.32 (7.35-7.45)
[2018-09-12 04:43] LABS: MODALITY BI PAP
[2018-09-12 04:49] LABS: ALBUMIN 3.4 g/dL (3.5-5.0); CALCIUM 8.4 mg/dL (8.8-10.2); CREATININE 2.2 mg/dL (0.5-0.9); PHOSPHORUS 5.3 mg/dL (2.7-4.5)
[2018-09-12] MEDS: SYNTHROID PO SCH (06:03)
--- NOTE | 2018-09-12 07:21 | Diag Imaging Result Doc PS360 ---
EXAM: CHEST-PORTABLE INDICATION: respiratory failure TECHNIQUE: One view COMPARISON: 09/11/2018 FINDINGS: Bilateral infiltrates and bilateral pleural effusions are approximately stable likely representing pulmonary edema +/- pneumonia. No new consolidation is identified. Cardiac silhouette is stable. IMPRESSION: Stable chest. Electronically signed by Jose Daniel Modi 09/12/2018 7:19 AM
[2018-09-12] MEDS: ALBUMIN 25% IV SCH (08:28)
[2018-09-12] MEDS: MAXIPIME 0.5 GM in NS 50 ML IV SCH ×2 (08:30→13:02)
[2018-09-12] MEDS ORDERED: GEODON IM PRN (09:00)
[2018-09-12] MEDS ORDERED: STERILE WATER INJ. INJ PRN (09:00)
[2018-09-12] MEDS ORDERED: MAXIPIME IV ONE (09:03)
[2018-09-12] MEDS ORDERED: NS IV ONE (09:03)
[2018-09-12] MEDS ORDERED: NS 50 ML ONE (09:51)
[2018-09-12] MEDS: XANAX PO PRN (09:53)
[2018-09-12] MEDS: ZYVOX PO SCH ×2 (09:53→20:23)
[2018-09-12] MEDS: ELIQUIS PO SCH ×2 (09:53→20:23)
[2018-09-12] MEDS: CRESTOR PO SCH (09:53)
[2018-09-12] MEDS: LOPRESSOR PO SCH (09:53)
[2018-09-12] MEDS: ICAR-C PLUS PO SCH (09:53)
[2018-09-12] MEDS: CORDARONE PO SCH (09:54)
[2018-09-12] MEDS: NS 1,000 ML IV SCH (10:03)
[2018-09-12] MEDS: ZITHROMAX PO SCH (10:03)
--- NOTE | 2018-09-12 10:27 | PROGRESS NOTE ---
DATE: 09/12/2018 SUBJECTIVE: This morning. Ms. bowman refers to be feeling fairly okay. She was slightly drowsy from the nurses from the nursing reporting. Ms. bowman was extremely boisterous and agitated overnight and had to be given 1 time dose of Ativan last night. OBJECTIVE: Vital signs: Blood pressure is 86/62, pulse of 92, respiration is 16, temperature 97.7 degrees. Patient is saturating 93% on non-rebreather, she is currently on high-flow. General: Ms. Bowman is a 78-year-old female. She is in bed. She is slightly drowsy. HEENT: Mucosa is pink, is slightly dry. Anicteric. Acyanotic. Neck: Supple. Chest: Air entry is bilaterally reduced. There are still some crackles in the posterior lung bean. Cardiovascular: Irregularly irregular but there and there is both aortic stenosis murmur and a TR murmur noted. Abdomen: Soft, slightly distended in the lower abdomen. Extremities: About 1+ pedal edema. Central nervous system: Patient is slightly lethargic but will open eyes and an answer some few questions. LABORATORY DATA: Chemistry is reviewed. Creatinine is up to 2.5. DIAGNOSTIC STUDIES: A chest x-ray this morning continues to show bilateral infiltrates and bilateral pleural effusions. ASSESSMENT: 1. Acute hypoxemic respiratory failure. Patient is currently on high-flow oxygen. Pulmonary Medicine and Respiratory therapy on board. 2. Multifocal pneumonia suspicious of aspiration pneumonia. The patient is on IV triple antibiotics including azithromycin, cefepime and Zyvox, and ID is on board. 3. Mild fluid overload secondary to congestive heart failure with preserved ejection fraction. 4. Atrial fibrillation, currently rate controlled. 5. Moderate tricuspid regurgitation with moderate aortic stenosis noted. 6. Acute kidney injury with low fractional excretion of sodium and the low fractional excretion of nitrogen. We think the patient is intravascularly depleted despite the fact that she still has fluid overload. She has being getting albumin, but this morning we are going to start her on a very slow gentle 50 mL of normal saline for 1 day and re-evaluate her hydration status as well as her chemistries in the morning. 7. Hypotension, improved. The patient did not need any pressor. 8. Episode of delirium likely associated with critical care illness and ICU stay. We will use very low antipsychotic if needed and avoid benzodiazepines. 9. History of lupus in the past. We have done the patient's MYESHA and it is completely negative. Her collagen screening is also unremarkable. According to the patient, the lupus went away. I am actually not sure if that was a confirmed diagnosis. PLAN: In general, Ms. Bowman continues to be remarkably sick and critical. Creatinine has been going up. Medications have all been renally dosed. We think she is intravascularly depleted despite fluid overload. Her fractional excretion of sodium as well as fractional excretion of nitrogen are all consistent with prerenal etiologies, so we will start the patient on a very low does normal saline at 50 mL/hour for 1 day and re-evaluate her in the morning. We will also be pending further evaluations from the other subspecialties involved with her care. cc: Fer Joy MD
--- NOTE | 2018-09-12 15:46 | INFECTIOUS DISEASE PROGRESS NO ---
DATE: 09/12/2018 HISTORY OF PRESENT ILLNESS: The patient has a bilateral pneumonia. Also, on the posterior part of her lower right leg, there is a fluctuant area that may be a hematoma, but also I think it could be an abscess. MEDICATIONS: The patient is receiving azithromycin, Zyvox and cefepime, and all these antibiotics are day 1. The patient also is on steroids. PHYSICAL EXAMINATION: Vital Signs: Temperature is 97.7 degrees, pulse 92, respirations 16, blood pressure 86/62. General: This is an ill-appearing elderly female. She seems to be delirious. Head, Eyes, Ears, Nose and Throat: There is no drainage from the nose or ears. There is no drainage from the nose or ears. I was unable to get a good look of her oral cavity. Neck: No meningismus. Lungs: Clear to auscultation. Cardiovascular: Heart rate is irregular. Abdomen: Soft and nontender. Extremities: The right leg has a fluctuant area posteriorly on the lower part of the leg. I cleaned the leg at this area with alcohol swabs and then with an 18-gauge mean needle. I very lightly put the needle in. Sanguinous fluid came out which is being sent to the microbiology lab for culture and susceptibility testing. Neurologic: The patient is delirious. She did not follow request to move her extremities. There is no tremor. LABS AND X-RAY: The CBC today shows a white count of 10,750, hemoglobin 9.9, and platelet count 208,000. Blood gases show a pH of 7.32, a PO2 of 120, and a pCO2 of 39. Creatinine is 2.2. GFR is 22. Procalcitonin is 0.45. Chest x-ray shows stable bilateral infiltrates and effusions. ASSESSMENT AND PLAN: The patient has a bilateral pneumonia. She also has a fluctuant area in the right leg which is probably a hematoma. My plan is to continue the current antibiotics, namely azithromycin, cefepime and Zyvox, and as mentioned above, I have obtained a specimen from the patient's right leg and this is being sent to the microbiology lab for culture. COMORBIDITIES: She has chronic obstructive pulmonary disease, systemic lupus, and congestive heart failure. cc: Mahendra Coffman MD
[2018-09-12] MEDS: PROTONIX IV SCH (18:00)
--- NOTE | 2018-09-12 20:02 | CARDIOLOGY PROGRESS NOTE ---
DATE: 09/12/2018 SUBJECTIVE: Ms. Espinoza is less responsive today. She is moaning largely unintelligible noises. OBJECTIVE: She is afebrile. Heart rates are in the predominantly 80s to 90s. Appears to be in atrial fibrillation based on her telemetry. Her blood pressure is 127/64. Generally she is in no acute distress. Cardiovascularly, she sounds to be in an irregularly irregular rhythm. She has a 2/6 systolic murmur at the right upper sternal border. She has mild bilateral lower extremity edema. Her chest exam shows bilateral infiltrates and bilateral pleural effusions that are relatively stable. Abdomen is soft, nontender. DIAGNOSTIC DATA: Chest x-ray as detailed above. LABORATORY DATA: Sodium is 141, potassium 4, BUN 50, creatinine is 2.2. Her albumin is 3.4. ASSESSMENT: Ms. Espinoza is a 78-year-old female with who presents with pneumonia. PLAN: She has a slow fluid drip going along with albumin, based on her rising BUN and creatinine. She continues to be in atrial fibrillation, which is reasonably controlled at this time. Her ejection fraction was normal based on the study on 09/08 with moderate aortic stenosis. I do not have any acute recommendations. cc: Russ Sanders MD
[2018-09-12] MEDS: MELATONIN PO SCH (20:23)
[2018-09-12] MEDS: DESYREL PO SCH (20:23)
--- NOTE | 2018-09-12 21:19 | PULMONOLOGY PROGRESS NOTE ---
DATE: 09/12/2018 SUBJECTIVE: The patient is arousable. She reports she wants to go home. She reports she is feeling bad "all over." OBJECTIVE: Blood pressure 124/64, heart rate 64, respiratory rate 18, oxygen saturation 96% on high-flow O2. She has been afebrile for the last 24 hours. HEENT: Pupils are equal and reactive. Oropharynx is clear. Neck is supple. Chest reveals bilateral rhonchi with decreased breath sounds in both lung bases. Cardiac exam: S1, S2. Abdomen is soft and without hepatosplenomegaly. Extremities reveal 1+ peripheral edema. LABORATORY DATA: Sodium 141, potassium 4.0, chloride 108, bicarbonate 19, BUN 50, creatinine 2.2. Arterial blood gas pH 7.32, pCO2 is 39, pO2 of 120. C-reactive protein has decreased to 14.13. IMPRESSION: A 78-year-old with: 1. History of lupus. 2. Elevated C-reactive protein, with improvement following steroids. 3. Bilateral pneumonia. 4. Bilateral effusions. 5. Atrial fibrillation with rapid ventricular response. 6. Acute hypoxemic respiratory failure. DISCUSSION: A 78-year-old with problems outlined above. 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 RECOMMENDATIONS: 1. Continue current antibiotics. 2. Continue current steroid therapy. 3. Continue to hold diuretics pending improvement in renal function. 4. Continue oxygen/high-flow/BiPAP as needed. cc: Ronald Osuna MD
[2018-09-13] MEDS: SOLU-MEDROL IV SCH ×3 (00:21→17:31)
[2018-09-13] MEDS: CARDIZEM PO SCH ×4 (00:24→17:30)
[2018-09-13] MEDS: XOPENEX NEB INH SCH ×6 (03:50→23:55)
[2018-09-13 04:43] LABS: ALLEN TEST YES; BE -4.8 mmoll (-3.0-3.0); BLOOD TYPE ARTERIAL; HCO3-(ACT) 21.1 mmoll (20.0-26.0); METHB 0.1 % (0.0-1.5); O2(CT) 12.3 mL/dL (15.0-23.0); O2HB 92.2 % (95.0-99.0); PCO2(98.6) 30 mmHg (35-45); PO2(98.6) 55 mmHg (60-100); SAMPLE BLOOD; THB 9.5 g/dL (11.5-17.4); pH(98.6) 7.41 (7.35-7.45)
[2018-09-13 04:44] LABS: MODALITY HIGH FLOW NASAL CAN
[2018-09-13] MEDS: TYLENOL PO PRN ×2 (04:45→17:30)
[2018-09-13] MEDS: XANAX PO PRN (04:48)
[2018-09-13 05:10] LABS: HEMOGLOBIN 9.6 g/dL (12.0-16.0); IMM GRAN# 0.02 X1000 (0.0-0.04); IMM GRAN% 0.2 % (0.0-0.5); LYMPH# 0.33 X1000 (1.2-3.4); LYMPH% 3.6 % (20.5-51.1); MCH 28.2 PG (27-31); MCV 91.2 FL (81-99); MONO% 2.2 % (1.7-9.3); MPV 11.9 FL (7.4-10.4); NEUT# 8.73 X1000 (1.4-6.5); PLT 224 X1000 (130-400); RDW 14.9 % (11.5-14.5); WBC 9.28 X1000 (4.8-10.8)
[2018-09-13] MEDS: NS 1,000 ML IV SCH (05:32)
[2018-09-13] MEDS: SYNTHROID PO SCH (06:01)
--- NOTE | 2018-09-13 07:07 | Diag Imaging Result Doc PS360 ---
EXAM: CHEST-PORTABLE 09/13/2018 HISTORY: respiratory failure TECHNIQUE: AP portable at 0543 COMMENT: There are bilateral pleural effusions. There is diffuse pulmonary edema plus minus pneumonia. The heart size is enlarged. Compared to 09/12/2018 there has been no appreciable change. IMPRESSION: Pulmonary edema and pleural effusions with cardiomegaly. Electronically signed by Alfredo Paris 09/13/2018 7:04 AM
[2018-09-13] MEDS: ALBUMIN 25% IV SCH (08:07)
[2018-09-13] MEDS: ELIQUIS PO SCH ×2 (08:07→20:22)
[2018-09-13] MEDS: CORDARONE PO SCH (08:07)
[2018-09-13] MEDS: CRESTOR PO SCH (08:07)
[2018-09-13] MEDS: LOPRESSOR PO SCH (08:07)
[2018-09-13] MEDS: ZYVOX PO SCH ×2 (08:07→20:22)
[2018-09-13] MEDS: ICAR-C PLUS PO SCH (08:07)
[2018-09-13] MEDS: MAXIPIME 2 GM in NS 100 ML IV SCH (08:23)
[2018-09-13] MEDS: ZITHROMAX PO SCH (08:23)
[2018-09-13 09:01] LABS: ALBUMIN 3.8 g/dL (3.5-5.0); CALCIUM 8.7 mg/dL (8.8-10.2); CREATININE 2.3 mg/dL (0.5-0.9); PHOSPHORUS 4.4 mg/dL (2.7-4.5); POTASSIUM 3.9 mmol/L (3.5-5.1)
[2018-09-13] MEDS ORDERED: ATIVAN IV ONE (11:21)
[2018-09-13 12:08] LABS: ALLEN TEST YES; BE -7.6 mmoll (-3.0-3.0); BLOOD TYPE ARTERIAL; HCO3-(ACT) 18.9 mmoll (20.0-26.0); METHB 0.4 % (0.0-1.5); O2HB 91.5 % (95.0-99.0); PCO2(98.6) 31 mmHg (35-45); PO2(98.6) 59 mmHg (60-100); SAMPLE BLOOD; SRATE 14 BPM; THB 9.3 g/dL (11.5-17.4); pH(98.6) 7.35 (7.35-7.45)
[2018-09-13 12:10] LABS: MODALITY BI PAP
--- NOTE | 2018-09-13 12:21 | Diag Imaging Result Doc PS360 ---
EXAM: CHEST-PORTABLE 09/13/2018 HISTORY: eval TECHNIQUE: AP portable semiupright at 1206 COMMENT: There are bilateral pleural effusions. There is alveolar and interstitial opacity bilaterally which has diminished considerably since the previous study of 09/13/2018 at 0543. IMPRESSION: Improved pulmonary edema. Bilateral pleural effusions. Cardiomegaly. Electronically signed by Alfredo Paris 09/13/2018 12:19 PM
--- NOTE | 2018-09-13 12:22 | Diag Imaging Result Doc PS360 ---
EXAM: KUB ABDOMEN 09/13/2018 HISTORY: distention and tenderness TECHNIQUE: KUB COMMENT: There are surgical clips in the right upper quadrant. The bowel gas pattern is unremarkable. There is no evidence for organomegaly or mass. There are phleboliths in the pelvis. IMPRESSION: No evidence of bowel obstruction. Electronically signed by Alfredo Paris 09/13/2018 12:19 PM
--- NOTE | 2018-09-13 16:32 | PROGRESS NOTE ---
DATE: 09/13/2018 SUBJECTIVE: Today Ms. Bowman refers to be doing fairly the same. She was asking if she could be discharged. She repeated multiple times that she wants to go home. However, when I asked who is home with her, she does not seem to be able to answer. She thought she was at a friend's house. OBJECTIVE: Vital signs: This morning, blood pressure is 109/73, pulse of 106, respirations 17, temperature 98.4 degrees. Patient is saturating 92% on high-flow. General: Ms. Bowman is a 78-year-old, very frail elderly lady. She is in bed. She is still on the high-flow. HEENT: mucosa is pink, it is still slightly dry. Anicteric. Acyanotic. Neck: Supple. Chest: Air entry is bilaterally reduced. There are still crackles in the posterior lung bean. Cardiovascular: Regular rate and rhythm. There is occasional extrasystolic beat. There is a 3/6 aortic systolic murmur and also a 3/6 TR murmur. Gastrointestinal: Abdomen is soft, distended. Bowel sounds present. Extremities: 1+ pedal edema. Central nervous system: Patient was sleeping but easily arousable. Seems to be slightly confused, disoriented to place and to time. LABORATORY DATA: WBC is 9.28, hemoglobin is 9.6, platelet count of 224,000. Chemistry is still pending. The patient's intake and output, urine output picked up slightly, is 245. The patient is currently positive balance of 3545. IMAGING: A chest x-ray this morning continues to show pulmonary edema and pleural effusions with cardiomegaly. CURRENT MEDICATIONS: Have all been reviewed. She is still on cefepime, azithromycin and Zyvox. ASSESSMENT: 1. Acute hypoxemic respiratory failure. Patient continues to be on high-flow. Pulmonary Medicine and Respiratory Therapy on board. 2. Multifocal pneumonia suspicious of aspiration pneumonia. Patient is on triple antimicrobial. Speech and swallow evaluation will be done when she is more stable. 3. Congestive heart failure with preserved ejection fraction, predominantly right heart failure. 4. Atrial fibrillation, currently rate controlled. 5. Valvulopathy (moderate tricuspid regurgitation and aortic stenosis noted on echo). Cardiology is on board. 6. Acute kidney injury. Patient is on very gentle IV fluids. We are still pending on the renal function this morning. At least patient's urine output seems to be picking up some. 7. Hypotension, improved. 8. Delirium, likely associated to critical care illness and ICU stay. PLAN: In general, I think Ms. bowman continues to be remarkably sick but stable. We will continue with the current management plan. We are pending the renal blood test this morning to see what is the trend of her creatinine. The patient is being seen by Pulmonary Medicine, Cardiology, ID and Nephrology, and we appreciate their valuable input. cc: Fer Joy MD
[2018-09-13] MEDS: SODIUM CHLORIDE 0.9% INJ SCH (17:31)
[2018-09-13] MEDS ORDERED: ATIVAN IV PRN (17:34)
[2018-09-13] MEDS: PROTONIX IV SCH (17:51)
[2018-09-13] MEDS: MELATONIN PO SCH (20:22)
[2018-09-13] MEDS: DESYREL PO SCH (20:22)
[2018-09-14] MEDS: SOLU-MEDROL IV SCH ×4 (00:06→17:59)
[2018-09-14] MEDS: CARDIZEM PO SCH ×5 (00:08→23:42)
[2018-09-14] MEDS: XOPENEX NEB INH SCH ×6 (03:35→23:50)
[2018-09-14 04:45] LABS: ALLEN TEST YES; BE -6.5 mmoll (-3.0-3.0); BLOOD TYPE ARTERIAL; HCO3-(ACT) 19.9 mmoll (20.0-26.0); METHB 1.2 % (0.0-1.5); O2(CT) 14.5 mL/dL (15.0-23.0); PCO2(98.6) 31 mmHg (35-45); PO2(98.6) 113 mmHg (60-100); SAMPLE BLOOD; SAO2 99.4 % (95.0-100.0); THB 10.5 g/dL (11.5-17.4); pH(98.6) 7.37 (7.35-7.45)
[2018-09-14 04:50] LABS: MODALITY BI PAP
[2018-09-14] MEDS: SYNTHROID PO SCH (06:02)
[2018-09-14 06:09] LABS: POTASSIUM 4.2 mmol/L (3.5-5.1)
[2018-09-14 06:10] LABS: ALBUMIN 3.9 g/dL (3.5-5.0); CALCIUM 9.2 mg/dL (8.8-10.2); CREATININE 2.5 mg/dL (0.5-0.9); PHOSPHORUS 4.1 mg/dL (2.7-4.5)
--- NOTE | 2018-09-14 07:04 | Diag Imaging Result Doc PS360 ---
EXAM: CHEST-PORTABLE 09/14/2018 HISTORY: respiratory failure TECHNIQUE: AP portable at 0553 COMMENT: There are bilateral pleural effusions. There is diffuse pulmonary opacity consistent with pulmonary edema and/or ARDS. This appears worse on the right side. There are likely bilateral pleural effusions particularly on the right. The heart size is enlarged. IMPRESSION: Worsened pulmonary edema and/or ARDS. Electronically signed by Alfredo Paris 09/14/2018 7:02 AM
--- NOTE | 2018-09-14 07:49 | NEPHROLOGY PROGRESS NOTE ---
DATE: 09/13/2018 SUBJECTIVE: The patient is resting in bed. She continues with a CPAP on. Really does not give any information. OBJECTIVE: Vital Signs: Temperature 98.4 degrees, pulse 106, respiratory rate 17, blood pressure 109/73. Intake 1.5 L, output 245 mL. General: This is an elderly female, resting in bed. Currently has a CPAP in place. Neck: Supple with trace JVD. Cardiovascular: Irregularly irregular rhythm with a murmur. Pulmonary: She has decreased breath sounds. Remains on CPAP. Abdomen: Soft with positive bowel sounds. Slightly distended. : Knapp catheter. Scant urine. Extremities: There is 1+ to 2+ lower extremity edema. Integumentary: Skin is pale, warm, and dry. LABORATORY DATA: WBC of 9.2, hemoglobin 9.6. Sodium 141, potassium 4.0, CO2 of 19, BUN 50 (41), creatinine 2.2 (1.9). IMAGING: Pulmonary edema on her x-ray. ASSESSMENT AND PLAN: 1. Acute kidney injury. The patient's renal function really has not improved. She has had mild decline. She does not have an absolute indication for intervention at this time in the form of dialysis. Again, if the patient's respiratory status can tolerate some gentle hydration, we would be advocate for that. However, she does have pulmonary edema on x-ray. We will continue with her albumin to assist with fluid mobility. 2. Pneumonia. Continue current therapy. Dictated by STACIE Ross for Rolf Jewell MD cc: Rolf Jewell MD
--- NOTE | 2018-09-14 08:31 | PULMONOLOGY PROGRESS NOTE ---
DATE: 09/13/2018 SUBJECTIVE: The patient reports some mild abdominal tenderness today. She does have periods of anxiety, requiring anxiolytics. OBJECTIVE: Vital Signs: The patient has been afebrile for the last 24 hours. Blood pressure 109/64, heart rate 87, respiratory rate 16, oxygen saturation 94% after being placed on BiPAP. HEENT: Pupils are equal and reactive. Oropharynx is clear. Neck is supple. Chest reveals mild increased tympany without focal tenderness. Cardiac Examination: S1, S2 with a 2/6 systolic ejection murmur at the right upper sternal border. Extremities: Reveal trace to 1+ edema. Laboratories: KUB reveals nonspecific bowel gas pattern. Two chest x-rays have been performed. The first chest x-ray at 6 o'clock this morning revealed pulmonary edema with pleural effusions and cardiomegaly. The second chest x-ray while on BiPAP reveals decreasing pulmonary edema. Arterial blood gas number one, pH of 7.41, pCO2 of 30, PO2 of 55. Arterial blood gas number two, pH of 7.35, pCO2 of 31, PO2 of 59. IMPRESSION: A 78-year-old with: 1. Bilateral pneumonia. 2. Bilateral effusions. 3. Elevated C-reactive protein, which improved on steroids. 4. History of lupus. 5. Atrial fibrillation. 6. Acute hypoxemic respiratory failure. 7. Anxiety. 8. 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 DISCUSSION: A 78-year-old with problems outlined above. She has not improved and, if anything, she looks worse today than she did yesterday. If she does not improve, she may require intubation and mechanical ventilation. Family is not at the bedside to discuss end of life wishes. RECOMMENDATIONS: 1. Continue BiPAP as tolerated. 2. Continue current antibiotic and steroid dosing. 3. Continue to hold any attempts at diuresis given acute renal failure. 4. Prognosis is guarded and she is at high risk for intubation. cc: Ronald Osuna MD
[2018-09-14] MEDS: MAXIPIME 2 GM in NS 100 ML IV SCH (09:01)
[2018-09-14] MEDS ORDERED: DIPRIVAN 1% 1,000 MG/100 ML BOTTLE ONE (09:52)
[2018-09-14 10:22] LABS: UR CREAT RANDOM 125.7 mg/dL (11-20)
[2018-09-14] MEDS: CORDARONE PO SCH (10:43)
[2018-09-14] MEDS: ELIQUIS PO SCH ×2 (10:44→20:45)
[2018-09-14] MEDS: ICAR-C PLUS PO SCH (10:44)
[2018-09-14] MEDS: CRESTOR PO SCH (10:44)
[2018-09-14] MEDS: LOPRESSOR PO SCH (10:45)
[2018-09-14] MEDS: ZITHROMAX PO SCH (10:46)
[2018-09-14] MEDS: ZYVOX PO SCH ×2 (10:46→22:38)
--- NOTE | 2018-09-14 10:48 | Diag Imaging Result Doc PS360 ---
EXAM: CHEST-PORTABLE 09/14/2018 HISTORY: ett placement TECHNIQUE: AP portable at 1032 COMMENT: There is an NG tube with its tip in the distal stomach. There is interstitial and alveolar opacity in the lungs which has not changed appreciably since 552. IMPRESSION: NG tube in the stomach. Pulmonary edema and/or pneumonia. Electronically signed by Alfredo Paris 09/14/2018 10:46 AM
[2018-09-14] MEDS: DIPRIVAN 1% 1,000 MG/100 ML BOTTLE IV SCH ×4 (11:36→22:38)
[2018-09-14 11:46] LABS: ALLEN TEST NO; BE -7.1 mmoll (-3.0-3.0); BLOOD TYPE ARTERIAL; HCO3-(ACT) 19.3 mmoll (20.0-26.0); METHB 1.5 % (0.0-1.5); O2(CT) 12.4 mL/dL (15.0-23.0); O2HB 91.8 % (95.0-99.0); PCO2(98.6) 32 mmHg (35-45); PO2(98.6) 61 mmHg (60-100); SAMPLE BLOOD; SAO2 94.4 % (95.0-100.0); SRATE 14 BPM; THB 9.6 g/dL (11.5-17.4); TVOL 600 mL; pH(98.6) 7.35 (7.35-7.45)
[2018-09-14 11:47] LABS: MODALITY VENTILATOR
--- NOTE | 2018-09-14 12:36 | PROGRESS NOTE ---
DATE: 09/14/2018 SUBJECTIVE: This morning, Ms. Espinoza is intubated. The patient was evaluated early on by pulmonary medicine. She continues having low O2 saturation on the BiPAP and x- ray looks worsening, pulmonary edema with ARDS picture. A decision was made to intubate her. OBJECTIVE: Current Vital Signs: Blood pressure is 120/73, pulse of 77, respirations are 17, temperature is 97.4 degrees. General Examination: Ms. Espinoza is a 78-year-old, female. She is in bed, currently intubated and sedated on propofol. Mucosa is pink and moist. Anicteric. Acyanotic. Neck: Supple. Chest: Air entry is bilaterally reduced. There are still some crackles in the posterior lung bean. Cardiovascular: Regular rate and rhythm. There is a 3/6 murmur and a 3/6 TR murmur heard. GI: Abdomen is soft. Distended but bowel sounds are present. Extremities: About 2+ pedal edema in the lower extremities as well as upper extremities. DIRECTOR PRINT: The patient is currently intubated and sedated but she would withdrawal her feet to painful stimulation. Is and Os: Urine output was just 262. The patient is currently positive balance of 4643. Laboratory Data: Has also been reviewed. PH is 7.37, pCO2 is 31. Chemistry is reviewed. Creatinine is up to 2.5 with bicarb of 18. Diagnostic Studies: A chest x-ray this morning continues to show worsening pulmonary edema and/or ARDS. ASSESSMENT: 1. Acute hypoxemic respiratory failure with worsening findings on the x-rays consistent with acute respiratory distress syndrome. The patient is currently intubated. Pulmonary medicine is on board. 2. Multifocal pneumonia, suspicious of aspiration pneumonia. Patient is on triple antimicrobial therapy. Infectious disease is on board. 3. Fluid overload secondary to congestive heart failure with preserved ejection fraction. The patient is seen by cardiology as well. 4. Atrial fibrillation, currently rate controlled. 5. Valvulopathy (moderate tricuspid regurgitation and moderate aortic stenosis noted on echocardiogram). 6. Acute kidney injury. The patient initially presented with fluid overload, was given Lasix, and the kidney function seems to have gotten slightly worse. Urine studies were consistent with prerenal etiology. Intravenous fluid was given at some time. However, the patient continues to be remarkably oliguric and kidney function is getting worse. She is being seen currently by nephrology. I think at some point, renal replacement therapy would be needed. 7. Hypotension on presentation (shock on presentation), presumably a combination of sepsis and cardiogenic. 8. Altered mental status during the hospital course secondary to delirium. 9. Non-gap metabolic acidosis, likely due to the degree of the renal failure. PLAN: In general, I think Ms. Espinoza continues to be remarkably sick. Respiratory status has gotten worse as well as her renal status. She is currently intubated and we will continue follow up with further recommendations from the subspecialties involved in the care. We really appreciate their valuable input. cc: Fer Joy MD MTDBecky
[2018-09-14] MEDS ORDERED: GAMUNEX-C 10% IV ONE (15:00)
--- NOTE | 2018-09-14 15:31 | PULMONOLOGY PROGRESS NOTE ---
DATE: 09/14/2018 SUBJECTIVE: The patient continues to do poorly. Her oxygenation is marginal. She cannot be liberated from the BiPAP. She cannot have an NG tube placed for feeding. She continues to moan but has no focal complaints that can be identified. OBJECTIVE: Vital Signs: The patient has been afebrile for the last 24 hours. Blood pressure 115/64, heart rate 79, respiratory rate 16, oxygen saturation 94% on BiPAP and drops if the BiPAP is temporarily removed. HEENT: Pupils are equal. Oropharynx is dry. Neck: Supple. Chest: Reveals coarse crackles bilaterally. Cardiac Examination: S1-S2. Abdomen: Mildly distended with positive bowel sounds. Extremities: Grossly edematous. Laboratories: White blood count 9.28, hemoglobin 9.6, platelet count 224,000. Chemistries: Sodium 142, potassium 4.2, chloride 109, bicarbonate 18, anion gap 15, BUN 63, creatinine 2.5, glucose 127. Arterial blood gas reveals a pH of 7.37, pCO2 of 31, PO2 of 113 on 100% BiPAP. Chest x-ray reveals increasing infiltrates and effusions bilaterally, right greater than left, with generous cardiac silhouette. IMPRESSION: A 78-year-old with: 1. Bilateral pneumonia/acute respiratory distress syndrome. 2. Bilateral pleural effusions. 3. Atrial fibrillation, on amiodarone therapy. 4. History of lupus which has been poorly defined. 5. Acute hypoxemic respiratory failure. 6. Mitral valve disease with a normal ejection fraction. DISCUSSION: A 78-year-old with problems outlined above. Despite current treatment regimen, she is not improving. At this juncture, she will require intubation and initiation of mechanical ventilation to prevent respiratory arrest. 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 Her amiodarone will be discontinued. RECOMMENDATIONS: 1. Intubation and initiation of mechanical ventilation (this was performed by respiratory therapy while I was at the bedside). 2. Augment steroids. 3. Discontinue amiodarone. 4. NG tube placement (this task was performed by this practitioner and verified on x-ray as good placement). 5. Initiate tube feeds. 6. Overall prognosis is guarded. Family is aware of plans on proceeding with intubation and mechanical ventilation. Time Spent Critical Care: 45 minutes cc: Ronald Osuna MD [facility]
--- NOTE | 2018-09-14 16:17 | CARDIOLOGY PROGRESS NOTE ---
DATE: 09/14/2018 SUBJECTIVE: Ms. Espinoza has been intubated overnight. PHYSICAL EXAMINATION: Vital signs: She is afebrile, heart rate 83, blood pressure 114/59. General: She is sedated. Cardiovascular: She is in an irregularly irregular rhythm consistent with a rate-controlled atrial fibrillation per her telemetry. She has no lower extremity edema. Chest exam: Has coarse breath sounds somewhat diffusely. PERTINENT DATA: Sodium is 142, potassium 4.2, BUN 63, creatinine 2.5. Her chest x-ray today shows pulmonary edema and/or pneumonia identified. This was identified on her chest x-ray earlier at 5:53. ASSESSMENT: Nayana Espinoza is a 78-year-old female with a history of atrial fibrillation and presents with pneumonia. PLAN: She continues to have an elevated BUN and creatinine. She is in rate-controlled atrial fibrillation. I have no further recommendations at this time. cc: Russ Sanders MD
--- NOTE | 2018-09-14 17:02 | NEPHROLOGY PROGRESS NOTE ---
DATE: 09/14/2018 SUBJECTIVE: The patient's respiratory status has worsened overnight. She has been transitioned to BiPAP and now the decision has been made to intubate her. OBJECTIVE: Vital Signs: Temperature 97.4 degrees, pulse 76, respiratory rate 17, blood pressure 120/73. Intake 1.3 L. Output 262 mL. General: Acutely ill-appearing, elderly female, resting in bed. She is currently with a BiPAP on. HEENT: Normocephalic, atraumatic. Oral mucosa is dry. Neck: Supple. Unable to determine JVD. Cardiovascular: Regular rate and rhythm with a systolic murmur. Pulmonary: Coarse. She has rhonchi and crackles bilaterally. Extremely diminished breath sounds. Abdomen: Soft, with positive bowel sounds. : Not inspected. She has a Knapp catheter with small amount urine. Extremities: There is 2+ edema. Integument: Pale, warm, and dry. LAB DATA: Sodium 142, potassium 4.2, CO2 18, BUN 63, creatinine 2.5. Her chest x-ray with worsening pulmonary edema and ARDS. ASSESSMENT AND PLAN: 1. Acute kidney injury, likely now with acute tubular necrosis secondary to acute respiratory distress syndrome and decreased perfusion. The patient does not have an absolute indication from a chemistry standpoint that she would need emergent dialysis. However, her fluid volumes and respiratory status have worsened. The decision has been made to go ahead and intubate her prior to becoming an emergency situation. We will evaluate her in the morning, but we will likely have to plan for dialysis and likely SLED for fluid volume management. Check labs in the morning. Further decisions to follow. 2. Hypoxic respiratory failure with multifocal pneumonia and fluid overload. See above. Dictated by STACIE Ross for Rolf Jewell MD cc: Rolf Jewell MD
--- NOTE | 2018-09-14 17:32 | INFECTIOUS DISEASE PROGRESS NO ---
DATE: 09/14/2018 PRESENT ILLNESS: The patient has bilateral pulmonary infiltrates that could be due to pneumonia and/or pulmonary venous congestion. She deteriorated and now has been intubated. The patient also has a fluctuant area on her right leg. The aspirate from the leg showed no growth. Therefore, I think it was just a hematoma and not an infection. Also the fluid that I did get was basically just blood. MEDICATIONS: The patient has been on cefepime, azithromycin and Zyvox now for 3 days. The patient also received steroids. PHYSICAL EXAMINATION: Vital Signs: Temperature is 98 degrees, pulse 71, respirations 19, blood pressure 108/51. The patient is intubated and sedated. Head, eyes, ears, nose, and throat: The patient has an orotracheal tube in place. No drainage noted from the nose or ears. Neck: No stiffness. Lungs: Clear to auscultation. Cardiovascular: Heart rate is irregular. Abdomen: Soft and nontender. Extremities: The patient's right leg is not as fluctuant as it was earlier. It still has a bruised appearance. Neurologic: The patient is sedated. She did not respond to verbal requests. LABORATORY AND X-RAY: Patient's immunoglobulin level showed an IgG of 614 and an IgA of 64. Patient's Legionella and pneumococcal urinary antigens were negative. Blood and urine cultures and the patient's right leg culture are negative. Sputum culture is pending. Chest x-ray shows bilateral pulmonary edema and/or pneumonia. ASSESSMENT AND PLAN: I plan to continue the patient's current antibiotics. There could be pneumonia and/or pulmonary venous congestion. I am going to go ahead and order a procalcitonin level. The patient's immunoglobulin levels were decreased and I am going to go ahead and give the patient 1 dose of immunoglobulin. COMORBIDITIES: Include chronic obstructive pulmonary disease, systemic lupus, and congestive heart failure. cc: Mahendra Coffman MD
[2018-09-14] MEDS: PROTONIX IV SCH (17:57)
[2018-09-14] MEDS: SODIUM CHLORIDE 0.9% INJ SCH (17:58)
[2018-09-14] MEDS: DESYREL PO SCH (20:45)
[2018-09-14] MEDS: MELATONIN PO SCH (20:45)
[2018-09-15] MEDS: DIPRIVAN 1% 1,000 MG/100 ML BOTTLE IV SCH ×6 (02:05→22:25)
[2018-09-15] MEDS: SOLU-MEDROL IV SCH ×3 (03:30→18:00)
[2018-09-15] MEDS: XOPENEX NEB INH SCH ×6 (03:40→23:55)
[2018-09-15 04:28] LABS: ALLEN TEST YES; BE -6.5 mmoll (-3.0-3.0); BLOOD TYPE ARTERIAL; HCO3-(ACT) 19.9 mmoll (20.0-26.0); METHB 0.8 % (0.0-1.5); O2(CT) 13.6 mL/dL (15.0-23.0); O2HB 97.4 % (95.0-99.0); PCO2(98.6) 27 mmHg (35-45); PO2(98.6) 101 mmHg (60-100); SAMPLE BLOOD; SAO2 99.6 % (95.0-100.0); SRATE 14 BPM; THB 9.8 g/dL (11.5-17.4); TVOL 600 mL; pH(98.6) 7.41 (7.35-7.45)
[2018-09-15 04:30] LABS: MODALITY VENTILATOR
[2018-09-15] MEDS: CARDIZEM PO SCH ×4 (05:59→23:56)
[2018-09-15] MEDS: SYNTHROID IV SCH (05:59)
[2018-09-15] MEDS ORDERED: LASIX IV ONE (06:30)
[2018-09-15 06:38] LABS: ALB/GLOB RATIO 1.5; ALBUMIN 3.7 g/dL (3.5-5.0); CALCIUM 8.9 mg/dL (8.8-10.2); CREATININE 2.5 mg/dL (0.5-0.9); MAGNESIUM 2.5 mg/dL (1.5-2.7); PHOSPHORUS 3.9 mg/dL (2.7-4.5); POTASSIUM 3.5 mmol/L (3.5-5.1); TOTAL BILIRUBIN 0.2 mg/dL (0.20-1.00); TOTAL PROTEIN 6.2 g/dL (6.3-8.3)
--- NOTE | 2018-09-15 06:53 | Diag Imaging Result Doc PS360 ---
EXAM: CHEST-PORTABLE HISTORY: respiratory failure TECHNIQUE: Portable chest single view COMPARISON: 09/14/2018 FINDINGS: Endotracheal and nasogastric tubes in good position. There are bilateral infiltrates. Heart is mildly enlarged. There are small pleural effusions with basilar atelectasis. IMPRESSION: Slight interval improvement. Electronically signed by Benji Levin 09/15/2018 6:50 AM
[2018-09-15] MEDS ORDERED: LASIX 200 MG in NS 25 ML IV ONE (07:00)
[2018-09-15] MEDS: MAXIPIME 2 GM in NS 100 ML IV SCH (08:29)
[2018-09-15] MEDS: ELIQUIS PO SCH ×3 (08:29→20:55)
[2018-09-15] MEDS: ZYVOX PO SCH ×2 (08:29→20:55)
[2018-09-15] MEDS: ZITHROMAX PO SCH (08:29)
[2018-09-15] MEDS: LOPRESSOR PO SCH (08:31)
--- NOTE | 2018-09-15 09:51 | PROGRESS NOTE ---
DATE: 09/15/2018 SUBJECTIVE: This morning, Ms. Espinoza is seen still in the ICU. She is still intubated and on the mechanical ventilation. Per the nursing staff, there were no acute changes overnight. There was no family member at the bedside at the time of this encounter. OBJECTIVE: Vital signs: Blood pressure is 100/52, pulse is 94, respirations 14, temperature is 97.1 degrees. The patient was saturating 100% on mechanical ventilator. General: Ms. Espinoza is a 78-year-old elderly female. She is currently in bed, intubated. Seems to be synchronizing well with the ventilator. HEENT: Mucosa is pink and moist. Anicteric. Acyanotic. Neck: Supple. Chest: Air entry is bilaterally reduced. There are still crackles in both lung bean. Cardiovascular: Regular rate and rhythm. There is a 3/6 murmur radiating to the neck and there is a 3/6 TR murmur. GI: Abdomen is soft, distended, but there are good bowel sounds. Extremities: About 2+ pedal edema. There is also edema in both upper extremities and the lateral aspect of the abdominal preciado. 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 Pupils are equal and reactive. LABORATORY DATA: Chemistry is reviewed today. The patient creatinine is still 2.5; however, BUN is still going up. Bicarb is 17. DIAGNOSTIC STUDIES: Chest x-ray this morning shows bilateral infiltrates. Heart is mildly enlarged. There are small pleural effusions with bibasilar atelectasis. Impression was a slight interval improvement. CURRENT MEDICATIONS: 1. Eliquis 2.5 b.i.d. 2. Azithromycin 500 daily. 3. Cefepime 2 g daily. 4. Diltiazem. 5. Zyvox 600 p.o. daily. 6. Methylprednisolone 60 mg IV q.6. 7. Metoprolol. 8. Cyanocobalamin. ABGs have been reviewed. The patient is currently on spontaneous rate of 14, FiO2 is 500, tidal volume of 600 and PEEP of 8. MICROBIOLOGY DATA: All cultures have been negative, including the sputum culture from yesterday. INPUT AND OUTPUT: Urine output is 280. The patient is still positive balance of 5871. ASSESSMENT: 1. Acute hypoxemic respiratory failure with x-ray features consistent with ARDS. The patient is currently intubated. Pulmonary Medicine is on board. 2. Multifocal pneumonia suspicious of aspiration pneumonia. Patient is on triple antimicrobial therapy. Infectious Disease is on board. Chest x-ray this morning seems to suggest some improvement. 3. Fluid overload presumably due to congestive heart failure with preserved ejection fraction and renal failure. The patient has been given 200 mg of IV Lasix today. We are going to follow up on the kidney response. 4. Atrial fibrillation currently rate controlled. The patient was on amiodarone. This has been discontinued because of concern of possible amiodarone lung injury. She is currently on Cardizem and metoprolol. 5. Valvulopathy (moderate tricuspid regurgitation and moderate aortic stenosis noted on echocardiogram). Cardiology is on board. 6. Acute kidney injury associated with fluid overload. The patient is being given a higher dose of Lasix today. We will continue to monitor her urine output as well as her renal functions. Nephrology is on board. 7. Hypotension on presentation (presumably combination of sepsis and cardiogenic). Blood pressure has normalized. 8. Altered mental status during hospital course secondary to global encephalopathy. 9. Non-gap metabolic acidosis secondary to the degree of renal failure. 10. Nutritional support. Patient is currently on Nepro at 30 mL/hour via NG tube. I understand she had a residual of 160 overnight. We will put the patient on metoclopramide to help enhance gastric motility. So in general, Ms. Espinoza has been in the hospital for the past 7 days. Initially presented on the 09/08, mainly because of lower extremity edema. She was initially thought to have congestive heart failure and pneumonia. She was started on IV antibiotics and also Lasix; however, 2 days into admission, her creatinine started getting worse. Urine studies initially did suggest intravascular pathology, so she was given IV fluids. She did not respond. Nephrology was consulted. She had to intubated due to respiratory failure and this morning a decision has been made to give her a big dose of Lasix and monitor. The patient is currently being seen by Pulmonary Medicine, Infectious Disease, Cardiology and Nephrology. We do appreciate the input of all these subspecialties. DISPOSITION: Disposition is going to depend on the rest of the hospital course. Please of note, Ms. Espinoza was initially on high-flow and BiPAP. Unfortunately, yesterday she continues to be remarkably hypoxemic, so she got intubated and she has been under the ventilator. Today is day 2. cc: MD OTILIA Bolivar
--- NOTE | 2018-09-15 11:49 | INFECTIOUS DISEASE PROGRESS NO ---
DATE: 09/15/2018 SUBJECTIVE: Patient has bilateral pulmonary infiltrates. I think it is possible that she has pneumonia. There may be in addition pulmonary venous congestion. MEDICATIONS: This is the 4th day of treatment with a combination of Cefepime, azithromycin and Zyvox. OBJECTIVE: Vital Signs: Temperature is 97.1 degrees, pulse 94, respirations 14, blood pressure 100/52. Generally: In general, this patient is an elderly female who looks chronically ill. Head, eyes, ears, nose, and throat: The patient has an orotracheal tube down as well as a nasogastric tube down. There is no drainage from the nose or ears. Neck: No meningismus. Lungs: Clear to auscultation. Cardiovascular: Heart rate is regular. Abdomen: Soft and nontender. Extremities: The patient's right leg where she has a hematoma is not fluctuant now and there is no drainage coming from it. It may well have been a bruise. Neurologic: The patient is intubated and sedated. There is no tremor. LABORATORY AND X-RAY: Blood gases show a pH of 7.41, a PO2 of 101, and a PCO2 of 27. There is no CBC for today. The creatinine is 2.5. GFR is 19. Liver function studies are normal. IgG is 614. Legionella and pneumococcal antigens are negative. Sputum culture is negative. The aspirate from the patient's right leg is negative. It shows no growth. Sputum culture shows no growth. Blood and urine cultures are negative. Chest x-ray shows improvement of the bilateral infiltrates. Procalcitonin level has been drawn, but is pending. ASSESSMENT AND PLAN: 1. The patient I think has bilateral pneumonia. There may also be a component of pulmonary venous congestion. I am going to continue with her current antibiotics, namely azithromycin, cefepime and Zyvox. The patient already received 20 g of IVIG because of her low IgG level. 2. Comorbidities: Chronic obstructive pulmonary disease, systemic lupus, and congestive heart failure. cc: Mahendra Coffman MD
--- NOTE | 2018-09-15 16:28 | CARDIOLOGY PROGRESS NOTE ---
DATE: 09/15/2018 SUBJECTIVE: Ms. Espinoza is sedated and intubated. PHYSICAL EXAMINATION: Vital signs: She is afebrile. Her heart rate is 91, blood pressure 102/51. General: She is in no acute distress. Cardiovascular: She sounds to be in an irregularly irregular rhythm consistent with a rate controlled atrial fibrillation per her telemetry. She has trace bilateral lower extremity edema. Chest: Sounds clear with mechanical breath sounds throughout. She has no increased work of breathing. Abdomen: Soft, nontender. PERTINENT DATA: Her ABG shows a pH 7.4, pCO2 of 27, PO2 of 101. Her AA gradient is 222 which is improved. She is on an FiO2 of 50% which has dropped from 100% on the 18th. Her BUN and creatinine are 73 and 2.5 which is roughly stable from yesterday. ASSESSMENT: Ms. Espinoza is a 78-year-old female with pneumonia, acute renal failure, and atrial fibrillation. PLAN: She has had an escalated dose of diuretic administered today. She was given a 1 time dose of furosemide at 200 mg. They are tentative plans for possible SLED. Her atrial fibrillation seems to be reasonably rate controlled. cc: Russ Sanders MD
--- NOTE | 2018-09-15 17:05 | NEPHROLOGY PROGRESS NOTE ---
DATE: 09/15/2018 SUBJECTIVE: She is sedated on the ventilator, unresponsive. OBJECTIVE: Vital Signs: Blood pressure 92/48, heart rate 88, respirations 14, intake 800 mL. Output 400 mL. General: On physical exam, no acute distress. Skin: Warm and dry. Eyes: Conjunctivae are pink. Neck: Neck veins are distended with hepatojugular reflux. Heart: Regular with a murmur. Lungs: Have equal breath sounds. No crackles. Abdomen: Soft, nontender. Bowel sounds present. Extremities: With 2+ edema. No clubbing or cyanosis. IMPRESSION: Acute kidney injury. Her labs have been roughly stable over the last 48 hours, though her BUN has risen. Urine output is acceptable. She does not have any acute indications for dialysis. I will try a 200 mg IV challenge with furosemide. Otherwise, continue care as ordered. I discussed the case with her daughter. cc: Rolf Jewell MD
[2018-09-15] MEDS: SODIUM CHLORIDE 0.9% INJ SCH (18:00)
[2018-09-15] MEDS: PROTONIX IV SCH (18:00)
[2018-09-15] MEDS: DESYREL PO SCH (20:09)
[2018-09-15] MEDS: MELATONIN PO SCH (20:10)
--- NOTE | 2018-09-15 20:36 | PULMONOLOGY PROGRESS NOTE ---
DATE: 09/15/2018 SUBJECTIVE: The patient is sedated. Her blood pressure is marginal, but does not require vasopressors. She has been afebrile for the last 24 hours. Oxygen saturation 100% on mechanical ventilation.HEENT: Pupils are equal and reactive. Oropharynx appears clear. Neck: Supple. Chest: Reveals coarse rhonchi bilaterally. Cardiac exam: S1, S2. Abdomen: Soft with positive bowel sounds. Extremities: Reveal 2+ peripheral edema. LABORATORIES: Chest x-ray reveals marginal decrease in bilateral infiltrates. Sodium 138, potassium 3.5, chloride 105, bicarbonate 17, BUN 73, creatinine 2.5. Sputum culture reveals no growth. IMPRESSION: A 78-year-old with 1. Bilateral pneumonia with acute respiratory distress syndrome. 2. Bilateral effusions. 3. Atrial fibrillation. The patient was on amiodarone and this has been discontinued. 4. History of lupus with marginal serology. 5. Acute hypoxemic respiratory failure. 6. Mitral valve disease. PLAN: 1. Continue intubation and mechanical ventilation. We will wean as tolerated. 2. Continue steroids. 3. Continue tube feeds. 4. Overall prognosis is guarded. TIME SPENT: On critical care management 30+ minutes. cc: Ronald Osuna MD
[2018-09-16] MEDS: SOLU-MEDROL IV SCH ×4 (01:48→18:04)
[2018-09-16] MEDS: DIPRIVAN 1% 1,000 MG/100 ML BOTTLE IV SCH ×6 (01:48→20:48)
[2018-09-16] MEDS: XOPENEX NEB INH SCH ×6 (03:40→23:55)
[2018-09-16 04:51] LABS: ALLEN TEST YES; BE -8.6 mmoll (-3.0-3.0); BLOOD TYPE ARTERIAL; HCO3-(ACT) 18.2 mmoll (20.0-26.0); METHB 1.2 % (0.0-1.5); O2(CT) 13.5 mL/dL (15.0-23.0); O2HB 97.5 % (95.0-99.0); PCO2(98.6) 30 mmHg (35-45); PO2(98.6) 141 mmHg (60-100); SAMPLE BLOOD; SAO2 100.4 % (95.0-100.0); SRATE 14 BPM; THB 9.6 g/dL (11.5-17.4); TVOL 600 mL; pH(98.6) 7.34 (7.35-7.45)
[2018-09-16 04:52] LABS: MODALITY VENTILATOR
[2018-09-16] MEDS: CARDIZEM PO SCH ×4 (06:01→23:23)
[2018-09-16] MEDS: SYNTHROID IV SCH (06:01)
[2018-09-16 06:17] LABS: HEMATOCRIT 28.7 % (37.0-47.0); HEMOGLOBIN 9.1 g/dL (12.0-16.0); IMM GRAN# 0.03 X1000 (0.0-0.04); IMM GRAN% 0.3 % (0.0-0.5); LYMPH% 2.6 % (20.5-51.1); MCHC 31.7 g/dL (33-37); MCV 88.3 FL (81-99); MONO# 0.32 X1000 (0.11-0.59); MONO% 2.8 % (1.7-9.3); MPV 11.6 FL (7.4-10.4); NEUT% 94.3 % (42.2-75.2); PLT 191 X1000 (130-400); RBC 3.25 XMIL (4.2-5.4); RDW 14.5 % (11.5-14.5); WBC 11.55 X1000 (4.8-10.8)
[2018-09-16 06:56] LABS: ALB/GLOB RATIO 1.4; ALBUMIN 3.3 g/dL (3.5-5.0); CALCIUM 8.2 mg/dL (8.8-10.2); CREATININE 2.6 mg/dL (0.5-0.9); POTASSIUM 2.9 mmol/L (3.5-5.1); TOTAL BILIRUBIN 0.19 mg/dL (0.20-1.00); TOTAL PROTEIN 5.7 g/dL (6.3-8.3)
--- NOTE | 2018-09-16 06:56 | Diag Imaging Result Doc PS360 ---
CHEST-PORTABLE - 09/16/2018 INDICATION: respiratory failure COMPARISON: 09/15/2018 FINDINGS: Stable endotracheal tube and nasogastric tube in good position. Stable moderate right and small left pleural effusions. There is continued improvement in the bilateral infiltrates. Heart size remains top normal. IMPRESSION: Improvement in the bilateral infiltrates. Small to moderate pleural effusions. Electronically signed by Earl Buckley 09/16/2018 6:53 AM
[2018-09-16] MEDS: ZYVOX PO SCH ×2 (08:07→20:48)
[2018-09-16] MEDS: ZITHROMAX PO SCH (08:07)
[2018-09-16] MEDS: MAXIPIME 2 GM in NS 100 ML IV SCH (08:07)
[2018-09-16] MEDS: ELIQUIS PO SCH ×2 (08:07→20:47)
[2018-09-16] MEDS ORDERED: POTASSIUM CHLORIDE 20% LIQUID NG ONE (08:26)
[2018-09-16] MEDS: LOPRESSOR PO SCH (08:35)
--- NOTE | 2018-09-16 09:36 | PROGRESS NOTE ---
DATE: 09/16/2018 SUBJECTIVE: The patient was admitted on 09/08/2018 and presented with lower leg extremity edema followed by Dr. Shahab Riojas primary care. A 80-year-old with history of paroxysmal atrial fibrillation on anticoagulation, diastolic heart failure, aortic stenosis, COPD, and coronary artery disease, who presents to Dr. Shahab Riojas's office with lower extremity edema, pain, and redness in the legs for the past week. Family states that she lives at assisted living, and they have noticed increased pedal edema and shortness of breath. She went to Dr. Shahab Riojas's office and noticed that her legs were edematous and red. She had pronounced dyspnea. Apparently, no history of fever. She has had nausea, vomiting and diarrhea though for the last week. She also had some visible chills and slightly hypotensive and tachycardiac. PAST MEDICAL HISTORY: 1. Paroxysmal atrial fibrillation on Eliquis. 2. Diastolic heart failure with ejection fraction 55% as measured on 02/18/2018. 3. Mild pulmonary hypertension. 4. History of coronary artery disease status post stents. 5. Chronic obstructive pulmonary disease. 6. Hyperlipidemia. 7. Chronic pain. 8. History of lupus. 9. History of CVA in the past. PAST SURGICAL HISTORY: 1. Coronary stents. 2. Hysterectomy. 3. Closed reduction left wrist in the past. COURSE: She was admitted with hypoxemic respiratory failure, presumably multifactorial. She had a moderate right-sided pleural effusion pneumonia, congestive heart failure and suspected possibly sepsis or early sepsis treating for pneumonia, possible parapneumonic effusion. History of atrial fibrillation which is chronic. Her ventricular response is rapid on presentation. Aortic stenosis with diastolic heart failure. ProBNP was 49205. OBJECTIVE: On exam today, she appears to be breathing comfortably. She is sedated. She remains afebrile. Pulse 80, respirations 14, and blood pressure 96/52. Blood pressures have ranged from 92 to 106/52 to 59. Pupils are equal and round. Lungs are clear in all lung bean. Cardiovascular exam with regular rhythm and rate without murmur or S3. Abdomen is soft. Skin is warm and dry. LABORATORY: Urine output is 2200 mL. ASSESSMENT AND PLAN: 1. Acute kidney injury. The patient has had a CT of the abdomen performed on the indicating no hydronephrosis. Renal ultrasound again currently I think is pending. She has had a normal baseline creatinine at 0.6. Lasix has been held, and does have improvement in urinary output. 2. Electrolyte and acid-base balance acceptable. 3. Anemia. 4. Respiratory failure. The patient has a history of systemic lupus erythematosus, bilateral pleural effusions, atrial fibrillation, bilateral pneumonia, atrial fibrillation with rapid ventricular response, and acute hypoxemic respiratory failure. The rate seems to be controlled. Continue present antibiotics. 5. Review of Orders: On melatonin 3 mg at bedtime, Desyrel 50 mg at bedtime, linezolid 600 mg p.o. q.12 hours, Eliquis 2.5 mg b.i.d., Zithromax 500 mg daily, cefepime 2 g IV daily, methylprednisone 60 mg IV q.8 hours, Lopressor 25 mg daily, Protonix 40 mg IV q.24 hours. She was on a Lasix drip which has been stopped. cc: Bib Zimmer MD
[2018-09-16] MEDS: LASIX IV SCH ×2 (09:59→17:04)
--- NOTE | 2018-09-16 13:55 | INFECTIOUS DISEASE PROGRESS NO ---
DATE: 09/16/2018 PRESENT ILLNESS: The patient has bilateral pulmonary infiltrates which I think are due to pneumonia. There may be a component of pulmonary venous congestion, as well. The patient also has a decrease in her IgG level. MEDICATIONS: This is the 5th day of treatment with the combination of cefepime, azithromycin, and Zyvox. PHYSICAL EXAMINATION: Vital Signs: Temperature is 98, pulse of 82, respirations 14, blood pressure 111/60. General: This is an elderly patient who looks chronically ill. She is intubated and sedated. Head, Eyes, Ears, Nose, and Throat: She has an orotracheal and nasogastric tube in place. Neck: No meningismus. Lungs: Clear to auscultation. Cardiovascular: Heart rate is regular. Abdomen: Soft and nontender. Extremities: The right leg does have posteriorly and distally hematoma and some bruising as well. Neurologic: The patient is sedated. She did not make any movements while I was examining her. LAB AND RADIOLOGY: CBC-WBC 11.55, hgb 9.1, platelets 191K. Blood gases-pH 7.34, pO2 141, pCO2 30. Creatinine-2.6. GFR-18. Chest [id number] infiltrates clearing. ASSESSMENT AND PLAN: The patient has bilateral pneumonia with possible pulmonary venous congestion. I plan on continuing her current antibiotics. The patient had a decrease in her IgG level, and for this she already has received 20 g of IVIG. PATIENT'S COMORBIDITIES: 1. Chronic obstructive pulmonary disease. 2. Systemic lupus. 3. Congestive heart failure. cc: Mahendra Coffman MD MTDD
--- NOTE | 2018-09-16 14:38 | NEPHROLOGY PROGRESS NOTE ---
DATE: 09/16/2018 SUBJECTIVE: Remains obtunded or sedated on the ventilator. OBJECTIVE: Vital Signs: Blood pressure 96/52, heart rate 80, respirations 14, afebrile. General: No acute distress. Skin: Warm and dry. Eyes: Conjunctivae are pink. Neck: Neck veins are distended. Heart: Regular. Lungs: Equal with a few scattered crackles. Abdomen: Soft, nontender. Bowel sounds present. Extremities: With 1+ to 2+ edema. No clubbing or cyanosis. IMPRESSION: Acute kidney injury. BUN continues to rise. Creatinine 2.6 today. Very little change in the last 48 hours. She is volume overloaded. Still in positive fluid balance. Chest x- ray from this morning relates some improvement. I will continue furosemide during the day today. She may require hemodialysis in the near future. Continue to observe. cc: Rolf Jewell MD
[2018-09-16] MEDS: CALMOSEPTINE OINTMENT TOP PRN (15:30)
[2018-09-16] MEDS: PREVACID SOLUTAB FT SCH (17:04)
[2018-09-16] MEDS: DESYREL PO SCH (20:51)
[2018-09-16] MEDS: MELATONIN PO SCH (20:52)
--- NOTE | 2018-09-17 01:33 | PULMONOLOGY PROGRESS NOTE ---
DATE: 09/16/2018 SUBJECTIVE: The patient is sedated on mechanical ventilation. OBJECTIVE: Vital signs: She has been afebrile for the last 24 hours. Blood pressure 109/61, heart rate 96, respiratory rate 14, oxygen saturation 100%. HEENT: Pupils are equal and reactive. Oropharynx appears dry. Neck: Supple. Chest: Reveals decreased breath sounds both lung bases. Cardiac: S1, S2. Abdomen: Soft with positive bowel sounds. Extremities: Revealed decreasing edema. LABORATORIES: Sodium 137, potassium 2.9, chloride 103, bicarbonate 15, BUN 89, creatinine 2.6. White blood count 11.55, hemoglobin 9.1, platelet count 191,000. Arterial blood gas reveals a pH of 7.34, pCO2 of 30, PO2 of 141. Chest x-ray reveals bilateral effusions with decreasing infiltrates. IMPRESSION: A 78-year-old with 1. Bilateral pneumonia and adult respiratory distress syndrome. 2. Bilateral effusions. 3. Atrial fibrillation. Amiodarone has been discontinued due to possible amiodarone-induced lung injury. 4. History of lupus of unknown consequences. 5. Acute hypoxemic respiratory failure. 6. Mitral valve disease. DISCUSSION: This is a 78-year-old with problems outlined above. She does appear to be mobilizing fluid and has decreasing peripheral edema. Chest x-ray is marginally improved. She appears to be getting adequate nutrition with Nepro and Diprivan. RECOMMENDATIONS: 1. Continue mechanical ventilation and wean as tolerated. 2. Continue steroids. 3. Continue tube feeds. 4. Fluid management per Nephrology but radiographically, she appears to be improving. Time Spent Critical Care: 30+ minutes cc: MD OTILIA Veliz
[2018-09-17] MEDS: DIPRIVAN 1% 1,000 MG/100 ML BOTTLE IV SCH ×4 (02:01→19:05)
[2018-09-17] MEDS: LASIX IV SCH ×3 (02:40→17:02)
[2018-09-17] MEDS: SOLU-MEDROL IV SCH ×3 (02:50→18:08)
[2018-09-17] MEDS: XOPENEX NEB INH SCH ×6 (03:35→23:25)
[2018-09-17 04:57] LABS: ALLEN TEST YES; BE -10.6 mmoll (-3.0-3.0); BLOOD TYPE ARTERIAL; HCO3-(ACT) 16.7 mmoll (20.0-26.0); O2(CT) 11.5 mL/dL (15.0-23.0); O2HB 95.6 % (95.0-99.0); PCO2(98.6) 30 mmHg (35-45); PO2(98.6) 92 mmHg (60-100); SAMPLE BLOOD; SAO2 98.8 % (95.0-100.0); SRATE 14 BPM; THB 8.4 g/dL (11.5-17.4); TVOL 600 mL
[2018-09-17 04:58] LABS: MODALITY VENTILATOR
[2018-09-17 05:25] LABS: HEMATOCRIT 29.3 % (37.0-47.0); HEMOGLOBIN 9.3 g/dL (12.0-16.0); MCH 27.9 PG (27-31); MCHC 31.7 g/dL (33-37); MPV 11.4 FL (7.4-10.4); RBC 3.33 XMIL (4.2-5.4); RDW 14.5 % (11.5-14.5); WBC 12.89 X1000 (4.8-10.8)
[2018-09-17 05:51] LABS: ALB/GLOB RATIO 1.4; ALBUMIN 3.1 g/dL (3.5-5.0); CREATININE 3.3 mg/dL (0.5-0.9); POTASSIUM 3.1 mmol/L (3.5-5.1); TOTAL BILIRUBIN 0.15 mg/dL (0.20-1.00); TOTAL PROTEIN 5.3 g/dL (6.3-8.3)
[2018-09-17] MEDS: CARDIZEM PO SCH ×4 (06:27→23:09)
[2018-09-17] MEDS: SYNTHROID IV SCH (06:36)
--- NOTE | 2018-09-17 07:27 | Diag Imaging Result Doc PS360 ---
EXAM: CHEST-PORTABLE INDICATION: respiratory failure TECHNIQUE: One view COMPARISON: 09/16/2018 FINDINGS: Support tubes and lines are in stable positions. Both the right and left pleural effusions have improved with the left effusion grossly resolving. No new consolidation is identified. Cardiac silhouette is stable. IMPRESSION: Interval improvement of effusions. Electronically signed by Jose Daniel Modi 09/17/2018 7:24 AM
[2018-09-17] MEDS: LOPRESSOR PO SCH (08:06)
[2018-09-17] MEDS: ZYVOX PO SCH ×2 (08:19→21:28)
[2018-09-17] MEDS: ZITHROMAX PO SCH (08:19)
[2018-09-17] MEDS: ELIQUIS PO SCH ×2 (08:19→21:28)
[2018-09-17] MEDS: MAXIPIME 2 GM in NS 100 ML IV SCH (09:17)
--- NOTE | 2018-09-17 09:18 | PROGRESS NOTE ---
DATE: 09/17/2018 SUBJECTIVE: Ms. Espinoza is on the ventilator, sedated, appears comfortable. OBJECTIVE: She has remained afebrile, temperature 98.3 degrees, pulse 101, respirations 35, blood pressure 95/54. Blood pressures have ranged between 90-105/47-55. Pupils are equal and round. Lungs are clear in all lung bean. Cardiovascular Examination: Regular rhythm and rate without murmur or S3. Abdomen is soft. Skin is warm and dry. Urine output 2700 mL. Chest x-ray, interval improvement of effusions. She has continuous IV access so we are going to try to get a PICC line on her. ASSESSMENT AND PLAN: 1. Bilateral pneumonia, adult respiratory distress syndrome, bilateral effusions. Continue present antibiotics, ventilator management, wean as able. Pulmonary is following. 2. Atrial fibrillation. Amiodarone discontinued due to possible amiodarone-induced lung injury. 3. History of lupus, unknown consequences. 4. Acute hypoxemic respiratory failure, on the ventilator. 5. Mitral valve disease. 6. It appears she is mobilizing fluid. It may be decreasing her peripheral edema. X-ray marginally improved and so continue to wean as tolerated. Could continue to treat multifocal pneumonia suspicious for aspiration pneumonia, combination of some fluid overload and also acute adult respiratory distress syndrome. With the atrial fibrillation, the rate is controlled. As far as valvulopathy, has moderate tricuspid regurgitation and moderate aortic stenosis noted on echocardiogram. Acute kidney injury seems to be improving. Hypotension is improved. She had a non-anion gap acidosis, suspect mainly from renal dysfunction. Creatinine is 3.3 so that has gone up a little bit. Actually when she presented, creatinine was 1.7, so it has gone up quite a bit so Dr. Jewell is following. She is volume overloaded, still in positive fluid balance. Continue her furosemide. cc: Bib Zimmer MD
[2018-09-17 09:47] LABS: INR 1.2; PROTIME 16.1 Seconds (11.0-16.0)
[2018-09-17] MEDS ORDERED: NS 250 ML ONE (10:10)
--- NOTE | 2018-09-17 12:15 | NEPHROLOGY PROGRESS NOTE ---
DATE: 09/17/2018 SUBJECTIVE: Remains sedated on the ventilator. OBJECTIVE: Vital Signs: Blood pressure 95/54, heart rate 101, respirations 35, afebrile. Intake 2 L, output 1.6 L. General: Sedated. No distress. Skin: Warm and dry. Conjunctivae are pink. Neck: Neck veins are not distended. Heart: Irregular. Rate controlled. Lungs: Equal, coarse. Abdomen: Soft, nontender. Bowel sounds present. Extremities: There is 2+ edema. No clubbing or cyanosis. IMPRESSION: Acute kidney injury. BUN now over 100. Moderate metabolic acidosis. She is reaching criteria, but has no urgent need today. Will discuss with the family, and plan for tomorrow if her labs are not improving. Urine output is certainly improved in the last 48 hours with diuretics. cc: Rolf Jewell MD
--- NOTE | 2018-09-17 12:23 | Diag Imaging Result Doc PS360 ---
EXAM: CHEST-PORTABLE INDICATION: PICC placement TECHNIQUE: One view COMPARISON: 09/17/2018 FINDINGS: There is a newly placed right PICC line. The tip projects over the lower SVC near the level of the atriocaval junction in the expected position. Otherwise, the chest is stable as compared to the recent prior study. IMPRESSION: Interval placement of right PICC line in the expected position as described. Electronically signed by Jose Daniel Modi 09/17/2018 12:21 PM
--- NOTE | 2018-09-17 12:28 | INFECTIOUS DISEASE PROGRESS NO ---
DATE: 09/17/2018 PRESENT ILLNESS: The patient has bilateral pneumonia with pleural effusions. She also has a decrease in her IgG level. MEDICATIONS: This is the sixth day of treatment with the combination of cefepime, azithromycin, and Zyvox. PHYSICAL EXAMINATION: Vital Signs: Temperature is 98.3 degrees, pulse 89, respirations 14, blood pressure 90/47. General: This is an elderly female who looks chronically ill. She is intubated and sedated. HEENT: The patient has an orotracheal and nasogastric tube in place. There is no drainage from her nose or ears. Neck: No meningismus. Lungs: Clear to auscultation. Cardiovascular: Heart rate is regular. Abdomen: Soft and not tender. Neurologic: The patient does not respond to verbal stimuli. There is no tremor. Integument: No rash noted. IMAGING AND LABORATORY DATA: Chest x-ray shows that the bilateral pleural effusions are getting better. The sputum grew out normal della. The CBC shows a white count of 12,890, hemoglobin 9.3, and platelet count 209,000. Creatinine is 3.3. GFR is 14. Blood gases show a pH of 7.3, a PO2 of 92, and a pCO2 of 30. Procalcitonin was 0.25. ASSESSMENT AND PLAN: The patient has bilateral pneumonia with small effusions. The patient appears to be improving. She does have a decrease in her IgG level to approximately 614. Whether this is clinically important and also a chronic condition is difficult to say at this time. I will plan on, in 6 weeks or so, to get another IgG level, and if it is lower, then possibly the patient may be a candidate for monthly administrations of intravenous immunoglobulin. COMORBIDITIES: 1. Chronic obstructive pulmonary disease. 2. Systemic lupus. 3. Congestive heart failure. cc: Mahendra Coffman MD
[2018-09-17] MEDS: PREVACID SOLUTAB FT SCH (17:08)
[2018-09-17] MEDS: DESYREL PO SCH (21:28)
[2018-09-17] MEDS: MELATONIN PO SCH (21:28)
[2018-09-17] MEDS ORDERED: NS 1,000 ML IV SCH (22:30)
[2018-09-18 01:26] LABS: CALCIUM 7.6 mg/dL (8.8-10.2); CREATININE 3.7 mg/dL (0.5-0.9); MAGNESIUM 2.4 mg/dL (1.5-2.7); POTASSIUM 2.8 mmol/L (3.5-5.1)
[2018-09-18] MEDS ORDERED: POTASSIUM CHLORIDE 20% LIQUID PO ONE (01:58)
[2018-09-18] MEDS ORDERED: POTASSIUM CHLORIDE 40 MEQ/SWI 40 MEQ/100 ML IVPB IV ONE (01:58)
[2018-09-18] MEDS: LASIX IV SCH ×3 (02:02→17:51)
[2018-09-18] MEDS: DIPRIVAN 1% 1,000 MG/100 ML BOTTLE IV SCH ×3 (02:05→19:29)
--- NOTE | 2018-09-18 02:13 | PULMONOLOGY PROGRESS NOTE ---
DATE: 09/17/2018 SUBJECTIVE: The patient remains sedated. She appears to be comfortable. She is requiring no vasopressors. OBJECTIVE: Vital Signs: Blood pressure 90/51, heart rate 108, respiratory rate 19, oxygen saturation 100%. HEENT: Pupils are equal and reactive. Oropharynx appears clear, but evaluation is limited. Neck: Supple. Chest: Reveals decreased breath sounds right base with improved breath sounds on the left. Cardiac: S1, S2. Abdomen: Soft. Extremities: Reveal slight decrease in edema. LABORATORIES: Chest x-ray reveals decreasing effusions with near-complete resolution of the left effusion with decreasing infiltrates. White blood count 12.89, hemoglobin 9.3, platelet count 209,000. IMPRESSION: A 78-year-old with 1. Bilateral pneumonia with adult respiratory distress syndrome. 2. Bilateral effusions. 3. Pulmonary infiltrates with history of lupus and amiodarone use. 4. Acute hypoxemic respiratory failure. 5. Mitral valve disease. 6. Acute renal failure. RECOMMENDATIONS: 1. Continue mechanical ventilation and wean as tolerated. 2. Fluid bolus today, although her in's and out's suggest she is positive, she has had multiple liquid bowel movements. 3. Continue tube feeds. 4. Continue steroids. 5. Possible dialysis, as outlined by Nephrology. Critical Care Time Spent: 30+ minutes cc: Ronald Osuna MD MTDBecky
[2018-09-18] MEDS: SOLU-MEDROL IV SCH ×3 (03:06→18:01)
[2018-09-18] MEDS: XOPENEX NEB INH SCH ×6 (03:35→23:40)
[2018-09-18 05:01] LABS: ALLEN TEST YES; BE -13.1 mmoll (-3.0-3.0); BLOOD TYPE ARTERIAL; HCO3-(ACT) 14.7 mmoll (20.0-26.0); METHB 1.2 % (0.0-1.5); O2(CT) 14.8 mL/dL (15.0-23.0); PCO2(98.6) 26 mmHg (35-45); PO2(98.6) 124 mmHg (60-100); SAMPLE BLOOD; SAO2 99.4 % (95.0-100.0); SRATE 14 BPM; THB 10.7 g/dL (11.5-17.4); TVOL 600 mL; pH(98.6) 7.28 (7.35-7.45)
[2018-09-18 05:02] LABS: MODALITY VENTILATOR
[2018-09-18] MEDS: CARDIZEM PO SCH ×4 (06:01→23:51)
[2018-09-18] MEDS: SYNTHROID IV SCH (06:11)
[2018-09-18 06:12] LABS: HEMATOCRIT 26.1 % (37.0-47.0); HEMOGLOBIN 8.4 g/dL (12.0-16.0); MCH 28.3 PG (27-31); MCHC 32.2 g/dL (33-37); MCV 87.9 FL (81-99); MPV 10.9 FL (7.4-10.4); RBC 2.97 XMIL (4.2-5.4); RDW 14.4 % (11.5-14.5); WBC 17.48 X1000 (4.8-10.8)
[2018-09-18] MEDS: SODIUM CHLORIDE 0.9% INJ PRN (06:12)
--- NOTE | 2018-09-18 06:47 | Diag Imaging Result Doc PS360 ---
CHEST-PORTABLE - 09/18/2018 INDICATION: respiratory failure COMPARISON: 09/17/2018 FINDINGS: Support lines and tubes are stable. Stable extensive opacification of the right lung base that is most likely a pleural effusion. Stable left lower lobe collapse and/or effusion. Heart size remains normal. No new infiltrates. IMPRESSION: No change from prior. Electronically signed by Earl Buckley 09/18/2018 6:45 AM
[2018-09-18] MEDS ORDERED: CYANOCOBALAMIN IM SCH (09:15)
--- NOTE | 2018-09-18 09:56 | PROGRESS NOTE ---
DATE: 09/18/2018 SUBJECTIVE: She appears about the same. She is not responding. We are trying to reduce her sedation. Did talk to family. Feels like the acidosis is a little worse. OBJECTIVE: Vital Signs: Temperature 97.8 degrees, pulse 115, respirations 13, blood pressure 136/73. Neck: No distended neck veins. Lungs: Her lungs are clear anterolateral. Cardiovascular exam: Regular rhythm and rate without murmur or S3. Abdomen: Soft. Skin: Warm and dry. Neurologic: She has generalized edema. She is on the ventilator. : Urine output was 1400 mL. X-RAY: Chest x-ray: No change. Support lines and tubes are stable. Stable extensive opacification of the right lung base, most likely a pleural effusion. Stable left lower lobe collapse or effusion. Heart size normal. No new infiltrates. ASSESSMENT AND PLAN: 1. Bilateral pneumonia, adult respiratory distress syndrome, bilateral effusions. 2. Pulmonary infiltrates. History of lupus and amiodarone use. We will stop the amiodarone. 3. Acute hypoxemic respiratory failure. 4. Mitral valve disease. 5. Acute renal failure. Continue to try to wean from the vent. Have discussed possibility of dialysis. Continue her steroids. MEDICATIONS AT HOME: She at the present time is on Desyrel 50 mg at bedtime, Zyvox 600 mg q. 12 hours, Eliquis 2.5 mg b.i.d., azithromycin 500 mg a day, Cardizem 30 mg q. 6 hours, Lasix 100 mg IV q. 8 hours, cefepime 2 g IV daily. She gets Ativan 0.5 mg IV q. 6 hours for sedation, metoprolol 25 mg p.o. daily. She is on a propofol drip. We are holding that at the present time to see how we do with diminished sedation supplemented, like her potassium. LABORATORY DATA: This morning, white count 17,480, hematocrit is 26, platelet count 213,000. Sodium was 138, potassium 2.8, chloride 102. BUN 128 and creatinine 3.7, which has gone up. She has been given some supplement of potassium this morning. cc: Bib Zimmer MD
[2018-09-18] MEDS: ZYVOX PO SCH ×2 (09:58→20:28)
[2018-09-18] MEDS: ELIQUIS PO SCH ×2 (09:58→20:28)
[2018-09-18] MEDS: ZITHROMAX PO SCH (09:58)
[2018-09-18] MEDS: LOPRESSOR PO SCH (09:59)
[2018-09-18] MEDS: MAXIPIME 2 GM in NS 100 ML IV SCH (09:59)
[2018-09-18 10:24] LABS: ALB/GLOB RATIO 1.3; CALCIUM 7.8 mg/dL (8.8-10.2); CREATININE 3.9 mg/dL (0.5-0.9); TOTAL BILIRUBIN 0.19 mg/dL (0.20-1.00); TOTAL PROTEIN 5.3 g/dL (6.3-8.3)
[2018-09-18] MEDS ORDERED: NS 2,000 ML MISC PRN (13:55)
[2018-09-18] MEDS ORDERED: TIGHT: 0.2 ML/HR FOR DIALYSIS MISC PRN (13:55)
[2018-09-18] MEDS ORDERED: HEPARIN IV PRN (13:55)
[2018-09-18 16:51] LABS: CALCIUM 7.8 mg/dL (8.8-10.2); CREATININE 3.9 mg/dL (0.5-0.9); POTASSIUM 3.8 mmol/L (3.5-5.1)
--- NOTE | 2018-09-18 17:49 | INFECTIOUS DISEASE PROGRESS NO ---
DATE: 09/18/2018 PRESENT ILLNESS: The patient has a bilateral pneumonia with pleural effusions. She does have a decrease in her IgG level to 614. However, I do not think this clinically is an adverse lab value. I do not think it is low enough to cause an immune deficiency, and I do not think it requires giving the patient IVIG. MEDICATIONS: The patient has been on a combination of cefepime, azithromycin and Zyvox for 7 days. Patient also is on high dose of steroids. PHYSICAL EXAMINATION: Vital Signs: Temperature earlier was 100, now it is 98, pulse 112, respirations 19, blood pressure 122/65. General: This is a chronically ill-appearing, elderly female. She is intubated and sedated. HEENT: The patient has an orotracheal and nasogastric tube in place. Neck: There was no stiffness. Lungs: Clear to auscultation. Cardiovascular: Heart rate is regular. Abdomen: Soft and nontender. Neurologic: The patient is sedated. She does not have a tremor. Extremities: The patient has leg edema but no erythema. LAB AND RADIOLOGY: Chest x-ray shows extensive right basilar opacification and left lower lobe collapse with effusion. Clostridium difficile toxin was negative. The Clostridium difficile antigen has not been collected. The liver function studies are normal. CBC shows a white count of 17,480, hemoglobin 8.4, and platelet count 213,000. Blood gases show a pH of 7.28, a PO2 of 124 and a pCO2 of 26, creatinine is 3.7, GFR is 12. ASSESSMENT AND PLAN: The patient has bilateral pneumonia with effusions. She does have an elevated white count, but I think this could be due to the steroid she is on. The patient has an IgG level of 614, but I do not think it is low enough to merit IVIG replacement therapy. I am going to continue with the current antibiotics and also I have ordered a Clostridium difficile antigen. The Clostridium difficile toxin already has been ordered and it was negative. COMORBIDITIES: Include chronic obstructive pulmonary disease, systemic lupus, congestive heart failure. cc: Mahendar Coffman MD
[2018-09-18] MEDS: PREVACID SOLUTAB FT SCH (17:51)
--- NOTE | 2018-09-18 20:57 | NEPHROLOGY PROGRESS NOTE ---
DATE: 09/18/2018 SUBJECTIVE: Remains obtunded, somnolent. On sedation. OBJECTIVE: Vital Signs: Blood pressure 138/72, heart rate 114, respirations 14. Afebrile. Intake 3 L. Output 2.4 L. General: On physical exam in no acute distress. Skin: Warm and dry. Neck: Neck veins are not appreciated. Heart: Irregular, but rate controlled. Lungs: Equal, few scattered crackles. Abdomen: Soft, nontender. Normal bowel sounds. Extremities: Have 1+ edema. No clubbing or cyanosis. IMPRESSION: Nonoliguric acute kidney injury. BUN now 147. I discussed the case with Dr. Osuna and with the patient's daughter. We will ask surgery to place an access and we will begin hemodialysis today for 3.5 hours using a 3 K bath. Goal of 1 to 2 L ultrafiltration. SLED tomorrow. cc: Rolf Jewell MD
--- NOTE | 2018-09-18 21:41 | OPERATIVE NOTE ---
PROCEDURE DATE: 09/18/2018 PREOPERATIVE DIAGNOSIS: Need for venous access for hemodialysis. POSTOPERATIVE DIAGNOSIS: Need for venous access for hemodialysis. PROCEDURE: Ultrasound-guided right common femoral Vas-Cath placement. SURGEON: Dennis Murphy MD. BARK PRESS OPERATOR: None. COMPLICATIONS: None at time of this dictation. ANESTHESIA: Local administered by the surgeon. FINDINGS: Ultrasound showed good caliber right common femoral vein. BRIEF HISTORY: A 78-year-old female who has been admitted for bilateral pneumonia, pulmonary infiltrates, acute hypoxic respiratory failure, mitral valve disease, and acute renal failure. She ended up needing access for therapy. The risks, benefits, and alternatives for the placement of the catheter were discussed the family. All questions answered. DESCRIPTION OF PROCEDURE: After informed consent was obtained, the patient remained in her ICU bed on the ventilator and the right groin was prepped and draped in a sterile fashion. A formal time-out was then performed, confirming patient, date, and procedure. All were in agreement. At that time, attention was turned to the right groin. We used ultrasound to identify the common femoral vein. Under local anesthetic, I was able to cannulate the right common femoral vein with ultrasound guidance and passed a wire into this vein. We then serially dilated up the tract in the typical Seldinger technique to place the catheter in the common femoral vein. All ports aspirated and flushed easily. We placed a sterile dressing after securing it in place. The patient tolerated the procedure well. Remained critical in the ICU. cc: Dennis Murphy MD
[2018-09-18] MEDS: DESYREL PO SCH (23:51)
[2018-09-18] MEDS: MELATONIN PO SCH (23:52)
[2018-09-19 01:01] LABS: CALCIUM 7.5 mg/dL (8.8-10.2); CREATININE 2.7 mg/dL (0.5-0.9)
[2018-09-19] MEDS ORDERED: POTASSIUM CHLORIDE 20% LIQUID NG ONE (01:20)
[2018-09-19] MEDS: LASIX IV SCH ×3 (01:43→17:50)
[2018-09-19] MEDS: XOPENEX NEB INH SCH ×6 (03:45→23:39)
[2018-09-19] MEDS: SOLU-MEDROL IV SCH ×3 (04:14→18:00)
[2018-09-19] MEDS: DIPRIVAN 1% 1,000 MG/100 ML BOTTLE IV SCH (04:39)
[2018-09-19 04:52] LABS: BE -7.8 mmoll (-3.0-3.0); BLOOD TYPE ARTERIAL; HCO3-(ACT) 18.9 mmoll (20.0-26.0); PCO2(98.6) 26 mmHg (35-45); PO2(98.6) 118 mmHg (60-100); SAMPLE BLOOD
[2018-09-19 04:53] LABS: ALLEN TEST YES; METHB 1.1 % (0.0-1.5); MODALITY VENTILATOR; O2(CT) 10.1 mL/dL (15.0-23.0); O2HB 97.2 % (95.0-99.0); SAO2 99.8 % (95.0-100.0); SRATE 14 BPM; THB 7.2 g/dL (11.5-17.4); TVOL 600 mL
--- NOTE | 2018-09-19 05:04 | PULMONOLOGY PROGRESS NOTE ---
DATE: 09/18/2018 SUBJECTIVE: The patient is poorly responsive, even while on sedation vacation. OBJECTIVE: Vital Signs: Maximum temperature in the last 24 hours 99.8 degrees. Blood pressure 136/73, heart rate 113, respiratory rate 13, oxygen saturation 100%. HEENT: Pupils are equal and reactive. Oropharynx is clear. Neck: Supple. Chest: Reveals diminished breath sounds throughout the right base with atelectasis at the left lung base. Cardiac: S1, S2. Abdomen: Soft with positive bowel sounds. Extremities: Reveal 1+ peripheral edema. LABORATORIES: White blood count 17.5, hemoglobin 8.4, platelet count 213,000. Sodium 140, potassium 3.8, chloride 106, bicarbonate 13, anion gap 21, BUN 152, creatinine 3.9. IMPRESSION: A 78-year-old with 1. Bilateral pneumonia with improvement on the left. 2. Bilateral effusions with improvement on the left. 3. Amiodarone use and history of lupus, possibly contributing to the pulmonary infiltrates. 4. Acute hypoxemic respiratory failure. 5. Mitral valve disease. 6. Altered mental status. 7. Acute renal failure. DISCUSSION: A 78-year-old with problems outlined above. The patient failed breathing trial, but she has improved and, hopefully, can be extubated with improvement in her mental status. RECOMMENDATIONS: 1. Agree with initiation of dialysis, as per discussion with Dr. Jewell earlier today. 2. Continue mechanical ventilation with weaning trials to begin tomorrow. 3. Continue tube feeds. 4. Continue steroids. TIME SPENT: Critical care management 30+ minutes. cc: Ronald Osuna MD
[2018-09-19] MEDS: CARDIZEM PO SCH ×3 (05:18→17:50)
[2018-09-19 05:41] LABS: HEMATOCRIT 21.3 % (37.0-47.0); HEMOGLOBIN 6.8 g/dL (12.0-16.0); MCH 27.6 PG (27-31); MCHC 31.9 g/dL (33-37); MCV 86.6 FL (81-99); MPV 11.3 FL (7.4-10.4); RBC 2.46 XMIL (4.2-5.4); RDW 14.5 % (11.5-14.5); WBC 17.57 X1000 (4.8-10.8)
[2018-09-19] MEDS: SYNTHROID IV SCH (06:02)
[2018-09-19] MEDS: SODIUM CHLORIDE 0.9% INJ PRN (06:02)
[2018-09-19] MEDS ORDERED: NS 2,000 ML MISC PRN (06:08)
[2018-09-19 06:36] LABS: ALB/GLOB RATIO 1.5; ALBUMIN 2.9 g/dL (3.5-5.0); CALCIUM 8.1 mg/dL (8.8-10.2); CREATININE 2.9 mg/dL (0.5-0.9); POTASSIUM 3.6 mmol/L (3.5-5.1); TOTAL BILIRUBIN 0.16 mg/dL (0.20-1.00); TOTAL PROTEIN 4.8 g/dL (6.3-8.3)
--- NOTE | 2018-09-19 06:47 | Diag Imaging Result Doc PS360 ---
CHEST-PORTABLE - 09/19/2018 INDICATION: respiratory failure COMPARISON: 09/18/2018 FINDINGS: Support lines and tubes are stable. There has been some improvement in the layering opacity on the right side most consistent with a pleural effusion. Stable opacification or collapse of the left lower lobe. Heart size remains top normal. No new infiltrates. IMPRESSION: Improvement in the right sided airspace opacities/pleural effusion. Electronically signed by Earl Buckley 09/19/2018 6:45 AM
[2018-09-19] MEDS: NEO-SYNEPHRINE 50 MG in NS 250 ML IV SCH (09:06)
[2018-09-19] MEDS ORDERED: NEXIUM IV SCH (09:15)
[2018-09-19] MEDS ORDERED: SODIUM CHLORIDE 0.9% INJ SCH (09:15)
--- NOTE | 2018-09-19 09:33 | PROGRESS NOTE ---
DATE: 09/19/2018 SUBJECTIVE: Ms. Ardon stools are darker. Blood pressure is still tenuous. She is getting dialysis. We have been able to dialyze off some of the fluid. Remains afebrile. OBJECTIVE: Vital Signs: Temperature 97.7 degrees, pulse 100, respirations 19, blood pressure 117/56. Eyes: Pupils are equal and round. Lungs: Lungs are clear in all lung bean. Cardiovascular exam: Regular rhythm and rate without murmur or S3. : Urine output 4.6 L; that was with dialysis yesterday. DATA: Chest x-ray from this morning improved in the right-sided airspace opacities, pleural effusion. ASSESSMENT AND PLAN: 1. Bilateral pneumonia, pleural effusions. She does have a decrease in her IgG level at to 614. I do not think this is low enough to cause an immune deficiency. She is on cefepime, azithromycin and Zyvox. This will be the eighth day. 2. Bilateral pleural effusions, improving on the left. 3. 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 4. Acute hypoxemic respiratory failure. Still on the ventilator. Slow to wean. 5. Mitral valve disease. 6. Altered mental status. 7. Acute renal failure. Suspect acute tubular necrosis. 8. Dark stools. We will check Hemoccult. Ask Gastroenterology to follow. Blood pressure is still tenuous. Possibility of gastrointestinal bleeding. I am going at the present time to need to have her on a proton pump inhibitor. cc: Bib Zimmer MD
[2018-09-19] MEDS: ZYVOX PO SCH ×2 (09:49→20:18)
[2018-09-19] MEDS: LOPRESSOR PO SCH (09:49)
[2018-09-19] MEDS: ZITHROMAX PO SCH (09:49)
[2018-09-19] MEDS: CALMOSEPTINE OINTMENT TOP PRN (09:50)
[2018-09-19] MEDS: SODIUM CHLORIDE 0.9% INJ SCH (10:12)
[2018-09-19] MEDS: PROTONIX IV SCH ×2 (10:12→22:26)
--- NOTE | 2018-09-19 12:52 | INFECTIOUS DISEASE PROGRESS NO ---
DATE: 09/19/2018 PRESENT ILLNESS: The patient has bilateral pneumonia and effusions. The patient also has a decrease in her IgG to 614, but I do not think this is clinically important, and I do not think it merits giving the patient IVIG. MEDICATIONS: The patient is on a combination of cefepime, azithromycin and Zyvox now for 8 days. The patient also is receiving steroids. PHYSICAL EXAMINATION: Vital Signs: Temperature is 98 degrees, pulse 105, respirations 19, blood pressure 117/56. General: This is a chronically ill-appearing elderly female. She is intubated and sedated. Head/eyes/ears/nose/throat: The patient has an orotracheal and nasogastric tube in place. Neck: She does not have any stiffness to when I tried to move her neck. Lungs: Clear to auscultation. Cardiovascular: The heart rate is regular. Abdomen: Soft and nontender. In the right groin there is a Vas-Catheter for dialysis. Extremities: In the right arm there is a PICC. The PICC site is not erythematous or purulent. The patient on her right leg still has a bruise and hematoma in the distal part of the leg. Neurologic: The patient does not respond to verbal stimuli. There is no tremor. LABORATORIES AND X-RAY: The patient's chest x-ray shows improvement in the right chest opacity and stable in the left chest opacity. Creatinine is 2.7. GFR is 17. Liver function studies are normal. CBC shows a white count of 17,570, hemoglobin 6.8, and platelet count is 159,000. Blood gases have a pH of 7.4, PO2 of 118, a pCO2 of 26. Clostridium difficile toxin and antigen are negative. ASSESSMENT AND PLAN: The patient has bilateral pneumonia with effusions. For now I am going to continue with her antibiotics. The patient does have leukocytosis, which I think could be at least partially due to the steroid she is on. The plan now is to continue with the current antibiotics. As mentioned earlier the patient's low IgG level of 614 does not merit treatment with intravenous immunoglobulin. COMORBIDITIES: Chronic obstructive pulmonary disease, systemic lupus, and congestive heart failure. cc: Mahendra Coffman MD
[2018-09-19 13:38] LABS: HEPATITIS PROFILE ACUTE SEE COMMENTS
--- NOTE | 2018-09-19 16:43 | NEPHROLOGY PROGRESS NOTE ---
DATE: 09/19/2018 SUBJECTIVE: Patient remains sedated and mechanically ventilated. OBJECTIVE: Vital Signs: Temperature 98.3 degrees, pulse 130, respiratory rate 20, blood pressure 110/79. Intake 1.7 L, output 3.7 L. General: Acutely ill-appearing elderly female, currently on mechanical ventilation. SLED has been initiated. HEENT: Normocephalic, atraumatic. Orally intubated. Neck: Supple. No JVD. Cardiovascular: Irregularly irregular rhythm. Rate marginal. Pulmonary: Crackles bilaterally. Abdomen: Hypoactive bowel sounds. Genitourinary: Knapp catheter. Extremities: 1+ to 2+ edema. Integumentary: Skin pale, warm and dry. LABORATORY DATA: WBC of 17.5, hemoglobin 6.8 (8.4), platelets 159,000. Sodium 140, potassium 3.6, CO2 16, creatinine 2.9, calcium 8.1, albumin 2.9. ASSESSMENT AND PLAN: 1. Nonoliguric acute kidney injury. We initiated SLED yesterday. We will plan to dialyze her again today as well as tomorrow. She is on a 3 K bath, normal bicarb bath. 2. Anemia. She has had a rapid drop in her hemoglobin. She has had dark stools. They are checking Hemoccult. She has a Gastroenterology consult already ordered by the primary. I will transfuse 1 unit of packed red blood cells during her SLED today as her heart rate has increased somewhat. This may just be secondary to the anemia. Dictated by STACIE Ross for Rolf Jewell MD Face to face encounter, data reviewed, discussed with Piedad Delgado on 09/19/18. I agree with the above assessment and plan of care. cc: Rolf Jewell MD [facility]
--- NOTE | 2018-09-19 17:11 | Diag Imaging Result Doc PS360 ---
EXAM: KUB ABDOMEN HISTORY: R/O obstruction TECHNIQUE: Abdomen single view COMPARISON: 09/13/2018 FINDINGS: A nasogastric tube overlies the mid abdomen. The gallbladder has been removed. The bowel loops are not dilated. No organomegaly. Mild scoliosis. Severe atherosclerosis. There is a catheter overlying the right inguinal region. Orthopedic screws are found in the left femoral neck. IMPRESSION: No bowel obstruction. Electronically signed by Benji Levin 09/19/2018 5:09 PM
[2018-09-19] MEDS: MAXIPIME 2 GM in NS 100 ML IV SCH (20:17)
[2018-09-19] MEDS: DESYREL PO SCH (20:18)
[2018-09-19] MEDS: MELATONIN PO SCH (20:20)
--- NOTE | 2018-09-19 22:16 | GASTROENTEROLOGY CONSULTATION ---
DATE: 09/19/2018 REASON FOR CONSULTATION: Anemia, black stools, concern for GI bleed. HISTORY OF PRESENT ILLNESS: Nayana Espinoza is a 78-year-old woman with past medical history of atrial fibrillation, on Eliquis; diastolic heart failure; pulmonary hypertension; CAD, status post stent; COPD; chronic pain; lupus; prior stroke in the past. She presented on 09/08 with diagnosis of hypoxic respiratory failure, thought to be related to CHF and pneumonia, as well as atrial fibrillation with RVR. She has been treated with antibiotics and diuretics. Her course has been complicated by worsening renal failure and shock, requiring intubation and initiation of pressors. She is currently on stress-dose steroids and Levophed. Her hemoglobin and hematocrit have been downtrending during this hospitalization. Her last hemoglobin was 6.8, from 8.4. She has been having some liquid black stools with greenish tinge, without any solid components, and NG tube light brownish fluid suctioned from her stomach. No overt bright red blood per rectum or hematemesis. Her abdomen has been soft and nondistended. At the time of interview with the nurse, the patient was preparing to be started on renal replacement therapy. PAST MEDICAL HISTORY: As per HPI. Limited given the patient is intubated and sedated. PAST SURGICAL HISTORY: Hysterectomy; closed reduction of the left wrist. SOCIAL HISTORY: Prior smoker. No drug use or alcohol. FAMILY HISTORY: Unable to obtain. ALLERGIES: Aspirin, duloxetine, IV and oral dye, Levaquin, NSAIDs, tramadol, Effexor, Zofran, penicillin. MEDICATIONS: Home medications include Eliquis, iron, albuterol inhalers, amlodipine, vitamin B12, Tylenol, amiodarone, Lasix, lisinopril, Crestor, trazodone, metoprolol, Xanax and levothyroxine. REVIEW OF SYSTEMS: Unable to be obtained, given intubation and sedation. PHYSICAL EXAMINATION: Temperature 97.9 degrees, heart rate of 109, blood pressure 198/76, respiratory rate 19, O2 saturation 100% on 35% FIO2. Generally the patient is sedated, intubated. HEENT: Sclerae are anicteric. ET tube in place. NG tube in place. Neck is supple. No JVD.Lungs: Coarse breath sounds, stunted. No wheezing. Heart: No murmurs. Tachycardic. Abdomen is soft, nondistended. Bowel sounds present. Nontender to palpation. Extremities: Pedal edema 1+. LABORATORY DATA: White count of 17.57, hemoglobin 6.8, platelets of 159,000. ABG: PH is 7.4, pCO2 of 26, PO2 is 118. Sodium 142, potassium 3.0, chloride 104, bicarbonate 17, anion gap 21, BUN of 100, creatinine of 2.7, glucose 138. LFTs are unremarkable. Albumin of 2.9. DIAGNOSTIC DATA: CT of the chest, abdomen and pelvis on admission showed bilateral pneumonia with atelectasis and small effusions; severe atherosclerosis in the heart. Chest x-ray from this morning shows improvement of the right-sided air-space opacities and pleural effusion. ASSESSMENT AND PLAN: Ms. Nayana Espinoza is a 78-year-old woman with past medical history of atrial fibrillation, on Eliquis; congestive heart failure; chronic obstructive pulmonary disease; coronary artery disease, status post stents. She was admitted for bilateral suspected aspiration pneumonia and hypoxic respiratory failure, complicated by acute kidney injury and shock. The etiology of her hypotension is concerning for possible septic shock and/or hypovolemic shock in the setting of possible gastrointestinal bleeding. She is currently on pressors and on broad- spectrum antibiotics per Infectious Disease as well as intravenous Protonix 40 mg once a day, stress-dose steroids. We are holding her anticoagulation at this time, trending her hemoglobin and hematocrit. She has been transfused 1 unit packed red blood cells today. Recommend rechecking posttransfusion hemoglobin and hematocrit. Goal hemoglobin between 7 and 8. We will keep her NPO for now. Resuscitation per primary team. We will consider diagnostic esophagogastroduodenoscopy once the patient stabilizes. Differential includes stress ulcer, esophagitis, duodenitis. Most likely varices, unlikely lower gastrointestinal bleed. Thank you for this consult. We will follow with you. Please call with any questions or concerns.
[2018-09-20] MEDS: ATIVAN IV PRN ×2 (00:07→16:15)
[2018-09-20] MEDS: CARDIZEM PO SCH ×5 (00:07→23:44)
[2018-09-20] MEDS: LASIX IV SCH ×2 (00:45→10:16)
[2018-09-20] MEDS: SOLU-MEDROL IV SCH ×3 (03:15→18:04)
[2018-09-20] MEDS: XOPENEX NEB INH SCH ×6 (03:44→23:30)
[2018-09-20 05:35] LABS: ALLEN TEST YES; BE -2.2 mmoll (-3.0-3.0); BLOOD TYPE ARTERIAL; HCO3-(ACT) 23.2 mmoll (20.0-26.0); METHB 1.7 % (0.0-1.5); O2(CT) 9.8 mL/dL (15.0-23.0); O2HB 96.4 % (95.0-99.0); PCO2(98.6) 24 mmHg (35-45); PO2(98.6) 162 mmHg (60-100); SAMPLE BLOOD; SRATE 14 BPM; THB 6.9 g/dL (11.5-17.4); TVOL 600 mL; pH(98.6) 7.53 (7.35-7.45)
[2018-09-20 05:37] LABS: MODALITY VENTILATOR
[2018-09-20 06:05] LABS: HEMATOCRIT 20.9 % (37.0-47.0); HEMOGLOBIN 6.8 g/dL (12.0-16.0); MCH 27.2 PG (27-31); MCHC 32.5 g/dL (33-37); MCV 83.6 FL (81-99); MPV 11.6 FL (7.4-10.4); RBC 2.5 XMIL (4.2-5.4); WBC 15.84 X1000 (4.8-10.8)
[2018-09-20] MEDS: SYNTHROID IV SCH (06:19)
--- NOTE | 2018-09-20 07:05 | Diag Imaging Result Doc PS360 ---
EXAM: CHEST-PORTABLE HISTORY: respiratory failure TECHNIQUE: Portable chest single view COMPARISON: 09/19/2018 FINDINGS: No change in the endotracheal tube, nasogastric tube, and right-sided PICC line. There are basilar infiltrates and atelectasis with small pleural effusions. The overall appearance of the chest is similar to the prior exam. IMPRESSION: Stable chest. Electronically signed by Benji Levin 09/20/2018 7:02 AM
[2018-09-20] MEDS ORDERED: NS 2,000 ML MISC PRN (07:26)
[2018-09-20 08:05] LABS: ALB/GLOB RATIO 1.9; CALCIUM 8.1 mg/dL (8.8-10.2); POTASSIUM 3.5 mmol/L (3.5-5.1); TOTAL BILIRUBIN 0.34 mg/dL (0.20-1.00); TOTAL PROTEIN 4.6 g/dL (6.3-8.3)
--- NOTE | 2018-09-20 08:26 | PROGRESS NOTE ---
DATE: 09/20/2018 SUBJECTIVE: Ms. Espinoza is still sedated. She is still on the ventilator. Remains afebrile. OBJECTIVE: Vital signs: Temperature 97.5 degrees, pulse 97, respirations 14, blood pressure 98/57. HEENT: Pupils are equal and round. Lungs: Clear in all lung bean. Cardiovascular: Regular rhythm and rate without murmur or S3. Genitourinary: Output was 4 L. That was with dialysis. LABORATORY DATA: Today white count 25925, hematocrit is 20, hemoglobin 6.8, platelet count 66,000 which has dropped. Chemistries: Sodium 140, potassium 3.6, chloride 103, BUN 109, creatinine 2. IMAGING: Chest x-ray. Stable chest. No change in endotracheal tube, nasogastric tube, right- sided PICC line. There are basilar infiltrates and atelectasis with small pleural effusion. Overall appearance of the chest seems to be the same. ASSESSMENT AND PLAN: 1. Hemoglobin and hematocrit dropping. Stool positive for blood. We currently have her on proton pump inhibitor. Holding her anticoagulation. Was given 1 unit of packed red blood cells yesterday and will follow. Goal is to keep hemoglobin between 7 and 8 and consider diagnostic and esophageal and colonoscopies once patient stabilizes. Differential diagnosis stress ulcer, esophagitis, duodenitis, most likely some varices. Unlikely to have lower GI bleed. Appreciate Dr. Salas's help. 2. Nonoliguric acute kidney injury. Continue SLED therapy, try to get some volume off. 3. Bilateral pneumonia, pleural effusions. IgG level was 614. So continue cefepime, azithromycin, and Zyvox. Note platelet counts have dropped. 4. Bilateral pleural effusion and volume overload. Continue SLED therapy. 5. Amiodarone was given. She has a history of lupus, so amiodarone was stopped. There is a question whether she has some pulmonary infiltrates or amiodarone-induced fibrosis. 6. Mitral valve disease. Aware. 7. Acute hypoxemic respiratory failure on the ventilator. Still attempts to wean. We did send off stool for Clostridium difficile and the antigen was negative, toxin was negative as well. REVIEW OF ORDERS: Continue present measures. The patient on melatonin 3 mg at bedtime, Desyrel 50 mg at bedtime, Zyvox 600 mg q.12 hours, Zithromax 500 mg a day, cefepime 2 g IV q.24 hours. She gets Cardizem 30 mg p.o. q.6 hours, Lasix 100 mg IV q.8, Protonix 40 mg IV q.12. I am going to stop her melatonin. cc: Bib Zimmer MD
[2018-09-20] MEDS: LOPRESSOR PO SCH (08:57)
[2018-09-20] MEDS: ZYVOX PO SCH ×2 (08:57→20:39)
[2018-09-20] MEDS: SODIUM CHLORIDE 0.9% INJ SCH (09:00)
[2018-09-20] MEDS: PROTONIX IV SCH ×2 (09:00→22:04)
[2018-09-20] MEDS: ZITHROMAX PO SCH (09:00)
[2018-09-20] MEDS: NEO-SYNEPHRINE 50 MG in NS 250 ML IV SCH (11:57)
[2018-09-20] MEDS: DESYREL PO SCH (20:39)
[2018-09-20] MEDS: MAXIPIME 2 GM in NS 100 ML IV SCH (20:39)
--- NOTE | 2018-09-20 22:30 | NEPHROLOGY PROGRESS NOTE ---
DATE: 09/20/2018 SUBJECTIVE: The patient undergoing SLED. Sedated, mechanically ventilated. OBJECTIVE: Vital Signs: Temperature 97.5 degrees, pulse 97, respiratory rate 14, blood pressure 98/58. Intake 980 mL. Output 3.5 L on dialysis. General: Chronically acutely ill-appearing female resting in bed. Sedated, mechanically ventilated. HEENT: Normocephalic, atraumatic. Orally intubated. Neck: Supple. Cardiovascular: Regular rate and rhythm. Tachycardic at times. Pulmonary: Coarse rhonchi. Mechanically ventilated. Abdomen: Soft. Hypoactive bowel sounds. Genitourinary: Knapp catheter. Scant urine. Extremities: 1+ edema. Integumentary: Skin is pale, warm, and dry. LAB DATA: WBC of 15.8, hemoglobin 6.8. Sodium 139, potassium 3.5, CO2 of 20, creatinine 2. Calcium 8.1, albumin 3. ASSESSMENT/PLAN: 1. Nonoliguric acute kidney injury. Her urine output has actually dropped tremendously and she is close to oliguria at this time. We now have her on sustained low-efficiency dialysis (SLED) and we removed 3 L of fluid yesterday. We will attempt another 3 L today, if her blood pressure tolerates. 2. Anemia. The patient had a noted rapid drop in hemoglobin yesterday with concurrent tachycardia. We gave a unit of blood while she was on dialysis yesterday. She did undergo a Gastroenterology consult, who feels that she needs an esophagogastroduodenoscopy, if she stabilizes. This morning, her hemoglobin remains at 6.8. We will give her 2 units of blood today on dialysis. Dictated by STACIE Ross for Rolf Jewell MD cc: Rolf Jewell MD
[2018-09-21] MEDS: SOLU-MEDROL IV SCH ×3 (03:17→16:59)
[2018-09-21] MEDS: ATIVAN IV PRN ×3 (03:18→22:33)
[2018-09-21] MEDS: XOPENEX NEB INH SCH ×6 (03:18→23:40)
[2018-09-21 04:40] LABS: ALLEN TEST YES; BE -5.5 mmoll (-3.0-3.0); BLOOD TYPE ARTERIAL; HCO3-(ACT) 20.6 mmoll (20.0-26.0); METHB 1.6 % (0.0-1.5); O2(CT) 12.6 mL/dL (15.0-23.0); O2HB 96.4 % (95.0-99.0); PCO2(98.6) 26 mmHg (35-45); PO2(98.6) 125 mmHg (60-100); SAMPLE BLOOD; SAO2 99.5 % (95.0-100.0); SRATE 14 BPM; THB 9.1 g/dL (11.5-17.4); TVOL 600 mL; pH(98.6) 7.44 (7.35-7.45)
[2018-09-21 04:41] LABS: MODALITY VENTILATOR
[2018-09-21] MEDS: CARDIZEM PO SCH ×4 (05:53→23:35)
[2018-09-21] MEDS: SYNTHROID IV SCH (05:59)
[2018-09-21 06:04] LABS: ALB/GLOB RATIO 1.6; ALBUMIN 3.1 g/dL (3.5-5.0); CALCIUM 8.5 mg/dL (8.8-10.2); CREATININE 1.5 mg/dL (0.5-0.9); POTASSIUM 3.5 mmol/L (3.5-5.1); TOTAL BILIRUBIN 0.87 mg/dL (0.20-1.00)
[2018-09-21 06:05] LABS: HEMATOCRIT 25.7 % (37.0-47.0); HEMOGLOBIN 8.8 g/dL (12.0-16.0); MCH 28.6 PG (27-31); MCHC 34.2 g/dL (33-37); MCV 83.4 FL (81-99); MPV 11.5 FL (7.4-10.4); RBC 3.08 XMIL (4.2-5.4); RDW 14.7 % (11.5-14.5); WBC 18.66 X1000 (4.8-10.8)
--- NOTE | 2018-09-21 07:17 | Diag Imaging Result Doc PS360 ---
EXAM: CHEST-PORTABLE HISTORY: respiratory failure TECHNIQUE: Portable chest single view COMPARISON: 09/20/2018 FINDINGS: No change in the right-sided PICC line, the endotracheal tube, or in the nasogastric tube. There are small pleural effusions with basilar atelectasis. There may be an underlying infiltrate in the left base. Findings are less prominent in the right base than they were on the prior study. Mild cardiomegaly. IMPRESSION: Mild interval improvement. Electronically signed by Benji Levin 09/21/2018 7:15 AM
[2018-09-21] MEDS: ZYVOX PO SCH (08:14)
[2018-09-21] MEDS: ZITHROMAX PO SCH (08:14)
[2018-09-21] MEDS: LOPRESSOR PO SCH (08:14)
--- NOTE | 2018-09-21 08:30 | PROGRESS NOTE ---
DATE: 09/21/2018 SUBJECTIVE: Ms. Espinoza is about the same on the ventilator, sedated, not waking up. She has diminished fluid in her arms and legs so making progress on volume status. OBJECTIVE: Vital Signs: Temperature 97.6 degrees, pulse is 77, respirations 14, blood pressure 102/55. Urine output from dialysis yesterday a little over 3 L. HEENT: Pupils are equal and round. Lungs: Clear in all lung bean. Cardiovascular: Regular rhythm and rate without murmurs or S3. IMAGING STUDIES: Chest x-ray with mild interval improvement. No change in right-sided PICC line, endotracheal tube or nasogastric tube. Small pleural effusions and bibasilar atelectasis, may be an underlying infiltrate in the left base, less prominent right base than prior study. ASSESSMENT AND PLAN: 1. Hemoglobin and hematocrit continue to follow. Concerned that she is probably having a gastrointestinal bleed. Hematocrit 25, hemoglobin 8.8. We had given her some blood yesterday. 2. Nonoliguric acute kidney injury. Continues therapy per Dr. Jewell. Volume status is improved. Continue to follow electrolytes. 3. Bilateral pneumonia, pleural effusion. IgG level was 614. Continue present antibiotics of cefepime and azithromycin and Zyvox. 4. Bilateral pleural effusions, which seems to be improving with dialysis. 5. Amiodarone was given. She has a history of lupus. There was concern whether she could have had amiodarone induced fibrosis. 6. Mitral valve disease. 7. Acute hypoxemic respiratory failure on the ventilator. I do not see any change in current orders. The patient is getting Desyrel 50 mg at bedtime, Zyvox 600 mg q.12 h., Zithromax 500 mg daily, Maxipime 2 g IV q.24 h., Cardizem 30 mg p.o. q.6 h., Synthroid 25 mcg IV daily, methylprednisone 60 mg IV q.6 h., Lopressor 25 mg a day, phenylephrine drip, Protonix 40 mg IV q.12 h. Given her current sedation, I am going to stop her Desyrel and see how we do. cc: Bib Zimmer MD
[2018-09-21] MEDS: PROTONIX IV SCH ×3 (10:49→22:53)
[2018-09-21 12:31] LABS: ALLEN TEST YES; BLOOD TYPE ARTERIAL; HCO3-(ACT) 20.2 mmoll (20.0-26.0); METHB 1.6 % (0.0-1.5); O2(CT) 12.1 mL/dL (15.0-23.0); O2HB 94.7 % (95.0-99.0); PCO2(98.6) 27 mmHg (35-45); PO2(98.6) 72 mmHg (60-100); SAMPLE BLOOD; SAO2 97.9 % (95.0-100.0); pH(98.6) 7.42 (7.35-7.45)
[2018-09-21 12:32] LABS: MODALITY VENTILATOR
--- NOTE | 2018-09-21 15:21 | NEPHROLOGY PROGRESS NOTE ---
DATE: 09/21/2018 SUBJECTIVE: Patient with no change. Remains mechanically ventilated. OBJECTIVE: Vital Signs: Temperature 97.6, pulse 88, respiratory rate 14, blood pressure 107/59. Intake 1.1 L. Output 3.1 L. 35 mL was urine output. The remainder was UF removal on dialysis. PHYSICAL EXAMINATION: General: This is an elderly female mechanically ventilated, sedated. HEENT: Normocephalic, atraumatic. Orally intubated. Neck: Supple. There is no JVD noted. Cardiovascular: Regular rate and rhythm. Pulmonary: She continues with some rhonchi bilaterally. Remains mechanically ventilated. There was no wheeze noted. Abdomen: Hypoactive bowel sounds. Genitourinary: Knapp catheter with just a few drops of urine. Extremities: She has 1+ edema upper and lower extremities. It is noted that her extremities are somewhat wrinkled today and her lower extremity edema is very soft. Integumentary: She has got ecchymoses noted bilateral upper and lower extremities. Skin is quite pale. LABORATORY DATA: WBC of 18.6, hemoglobin 8.8, sodium 139, potassium 3.5, CO2 17, BUN 45, creatinine 1.5 she had a positive occult blood and her chest x-ray indicated interval improvement today. ASSESSMENT AND PLAN: 1. Acute kidney injury. We have dialyzed her on SLED over the last several days. We are giving her a rest from dialysis today. We will plan to restart dialysis tomorrow and anticipate that we will continue with SLED. 2. Anemia. She did have a positive occult blood. She is being followed by GI. We will continue to transfuse blood during dialysis as warranted. Hemoglobin today again 8.8. Dictated by STACIE Ross for Rolf Jewell MD cc: Rolf Jewell MD
--- NOTE | 2018-09-21 17:28 | INFECTIOUS DISEASE PROGRESS NO ---
DATE: 09/21/2018 PRESENT ILLNESS: The patient has bilateral pneumonia and effusions. She does have an IgG level of 614, but I do not think this clinically is significant and does not require IVIG. MEDICATIONS: The patient is in her 10th day of treatment with cefepime, azithromycin and Zyvox. PHYSICAL EXAMINATION: Vital Signs: Temperature is 98 degrees, pulse 87, respirations 22, blood pressure 100/62. General: This is a chronically ill-appearing elderly female. She is intubated and sedated. Head, Eyes, Ears, Nose and Throat: She has an orotracheal tube and a nasogastric tube in place. She does not have any drainage coming from her nose or ears. Neck: The patient did not have any stiffness when I moved her neck. Lungs: Clear to auscultation. Cardiovascular: Patient's heart rate is irregular. Abdomen: Soft and not tender. Extremities: The patient has a PICC in the right arm and a Trialysis in the right upper groin area. Both sites are not erythematous or purulent. LABORATORY AND X-RAY: The patient's CBC today shows a white count of 18,660, hemoglobin 8.8, and platelet count 52,000. The blood gases show a pH of 7.42, a PO2 of 72, and a pCO2 of 27. Creatinine is 1.5. GFR is 34. Hepatitis panel is nonreactive. Sputum is growing a gram-negative stefano. Blood culture is pending. Chest x-ray shows bibasilar infiltrates with small effusions. ASSESSMENT AND PLAN: Patient has bibasilar pneumonia with effusions. Her platelet count is falling and her sputum is growing a gram-negative stefano. Because of those findings, I am going to discontinue Zyvox and azithromycin, but continue with cefepime as a single agent. COMORBIDITIES: Chronic obstructive pulmonary disease, systemic lupus and congestive heart failure. As mentioned earlier, the patient's IgG level is only marginally low and does not require IVIG. cc: Mahendra Coffman MD MTDBecky
[2018-09-21] MEDS: MAXIPIME 2 GM in NS 100 ML IV SCH (19:44)
[2018-09-22] MEDS: SOLU-MEDROL IV SCH ×3 (03:01→17:03)
[2018-09-22] MEDS: XOPENEX NEB INH SCH ×6 (03:41→22:42)
[2018-09-22 04:47] LABS: ALLEN TEST YES; BE -7.2 mmoll (-3.0-3.0); BLOOD TYPE ARTERIAL; HCO3-(ACT) 19.3 mmoll (20.0-26.0); METHB 1.2 % (0.0-1.5); O2(CT) 13.3 mL/dL (15.0-23.0); O2HB 96.9 % (95.0-99.0); PCO2(98.6) 23 mmHg (35-45); PO2(98.6) 107 mmHg (60-100); SAMPLE BLOOD; SAO2 99.2 % (95.0-100.0); SRATE 14 BPM; THB 9.6 g/dL (11.5-17.4); TVOL 600 mL; pH(98.6) 7.44 (7.35-7.45)
[2018-09-22 04:48] LABS: MODALITY VENTILATOR
[2018-09-22 05:14] LABS: HEMATOCRIT 22.6 % (37.0-47.0); HEMOGLOBIN 7.7 g/dL (12.0-16.0); MCH 29.2 PG (27-31); MCHC 34.1 g/dL (33-37); MCV 85.6 FL (81-99); MPV 11.1 FL (7.4-10.4); RBC 2.64 XMIL (4.2-5.4); RDW 14.9 % (11.5-14.5); WBC 17.21 X1000 (4.8-10.8)
[2018-09-22 05:47] LABS: ALB/GLOB RATIO 1.5; CALCIUM 8.6 mg/dL (8.8-10.2); CREATININE 2.5 mg/dL (0.5-0.9); POTASSIUM 3.7 mmol/L (3.5-5.1); TOTAL BILIRUBIN 0.6 mg/dL (0.20-1.00)
[2018-09-22] MEDS: SYNTHROID IV SCH (06:22)
[2018-09-22] MEDS: CARDIZEM PO SCH ×4 (06:22→23:48)
[2018-09-22] MEDS ORDERED: NS 2,000 ML MISC PRN (07:33)
[2018-09-22] MEDS: ATIVAN IV PRN ×3 (07:45→23:48)
--- NOTE | 2018-09-22 07:51 | Diag Imaging Result Doc PS360 ---
EXAM: CHEST-PORTABLE HISTORY: respiratory failure TECHNIQUE: Portable chest single view COMPARISON: 09/21/2018 FINDINGS: No change in the endotracheal tube, nasogastric tube, or right-sided PICC line. There are infiltrates in the left lung base with a small left pleural effusion. The overall appearance of the chest is similar to the prior exam. Mildly prominent heart. IMPRESSION: Stable chest. Electronically signed by Benji Levin 09/22/2018 7:49 AM
[2018-09-22] MEDS: NEO-SYNEPHRINE 50 MG in NS 250 ML IV SCH (08:38)
--- NOTE | 2018-09-22 09:16 | PROGRESS NOTE ---
DATE: 09/22/2018 SUBJECTIVE: Ms. Espinoza is getting SLED therapy at present. She is sedated, unresponsive. The nurse reports that she has moved her arm spontaneously but I have not seen her open her eyes or seem to be awake. OBJECTIVE: Temperature is 97.4 degrees, pulse 100, respirations 14, blood pressure 120/67. Pupils are equal and round. Lungs are clear in all lung bean. Cardiovascular Examination: Regular rhythm and rate without murmur or S3. Abdomen is soft. Skin is warm and dry. Urine output is about 500 mL. Chest x-ray, stable chest. No change in endotracheal tube, nasogastric tube, right-sided PICC line. There are infiltrates in the left lung base and small left pleural effusion. Overall appearance about the same. ASSESSMENT AND PLAN: 1. Bilateral pneumonia and effusions. IgG level was 614. Dr. Coffman does not think this is clinically significant or will require IVIG, so we will continue the cefepime, azithromycin, and Zyvox. 2. Acute kidney injury. Continue sustained low-efficiency dialysis therapy. We have removed volume. From that standpoint, doing better. 3. Anemia. Continue to follow her blood count, hematocrit and hemoglobin. Hematocrit is 22, hemoglobin is 7.7. We have given some blood. I think we gave blood 2 days ago. We will continue to follow. 4. Review of orders. I do not see any change. cc: Bib Zimmer MD
--- NOTE | 2018-09-22 15:19 | NEPHROLOGY PROGRESS NOTE ---
DATE: 09/22/2018 SUBJECTIVE: Patient remains unresponsive, mechanically ventilated. OBJECTIVE: Vital Signs: Temperature 97, pulse 105, respiratory rate 15, blood pressure 96/64. Intake 880 mL. Output 335. General: Elderly female, acutely, critically ill-appearing, resting. Currently on the vent. HEENT: Normocephalic, atraumatic. SHERWIN. Sluggish. Reactivity. Orally intubated. Neck: Supple. Cardiovascular: Tachycardic. Pulmonary: Rhonchi bilaterally. Mechanically ventilated. Abdomen: Hypoactive. Does have tube feeding. Genitourinary: Knapp catheter. Extremities: 1+ edema. Integumentary: Skin is thin, pale with ecchymosis. LAB DATA: WBC of 17.2, hemoglobin 7.7. Sodium 138, potassium 3.7, CO2 18, creatinine 2.5. ASSESSMENT AND PLAN: 1. Acute kidney injury. We will dialyze her on SLED today. We will attempt 2 to 3 L fluid removal. Unclear if her blood pressure will tolerate this today. 2. Anemia. Hemoglobin is trending down. GIB. Her platelets are significantly low at 28. She has oozing around the vas cath. Transfuse as warranted. 3. Bilateral pneumonia and effusion. Followed by Dr. Coffman, on appropriately dosed antibiotics. No changes. Dictated by STACIE Ross for Rolf Jewell MD Face to face encounter, data reviewed, discussed with Piedad Delgado on 09/22/18. I agree with the above assessment and plan of care. cc: Rolf Jewell MD [facility]
[2018-09-22] MEDS: PROTONIX IV SCH ×2 (15:50→22:31)
[2018-09-22] MEDS: LOPRESSOR PO SCH (16:06)
[2018-09-22] MEDS: AZACTAM 1 GM in NS 50 ML IV SCH (17:30)
--- NOTE | 2018-09-22 17:32 | INFECTIOUS DISEASE PROGRESS NO ---
DATE: 09/22/2018 PRESENT ILLNESS: The patient has a left lower lobe pneumonia with pleural effusion. MEDICATIONS: This is the 11th day of treatment with cefepime. Yesterday, I stopped azithromycin and Zyvox. PHYSICAL EXAMINATION: Vital Signs: Temperature is 98 degrees, pulse 112, respirations 17, blood pressure 106/64. General: This is a chronically ill-appearing, elderly female. She is intubated and sedated. Head/eyes/ears/nose/throat: She has an orotracheal and nasogastric tube in place. There is no drainage from her nose or ears. Neck: No meningismus. Lungs: Clear to auscultation. Cardiovascular: Heart rate is irregular. Abdomen: Soft and nontender. Extremities: The patient has a PICC in her right arm and in the right groin she has a Trialysis catheter. Both sites are not erythematous or purulent. Neurologic: Patient is sedated. There is no tremor. LAB AND X-RAY: CBC today shows a white count of 17,210, hemoglobin 7.7, platelet count 28,000. Blood gas show a pH of 7.44, PO2 of 107, pCO2 of 23. Creatinine is 2.5. GFR is 19. Sputum is growing a gram-negative stefano, which as of yet has not been identified. Chest x-ray shows a stable left lower lobe infiltrate with a pleural effusion. ASSESSMENT AND PLAN: The patient has left lower lobe pneumonia with an effusion. Since the patient's platelet count has dropped so much and she is also anemic, I am going to discontinue cefepime and start the patient on aztreonam 1 g IV every 12 hours. As regarding the patient's leukocytosis, the patient is receiving steroids and I think the majority of the patient's leukocytosis is due to steroids. COMORBIDITIES: The patient has chronic obstructive pulmonary disease, systemic lupus, congestive heart failure. The patient does have a decrease in IgG but I do not think it merits treatment with IVIG. cc: Mahendra Coffman MD
[2018-09-22] MEDS: MORPHINE IV PRN (20:12)
[2018-09-22] MEDS: SODIUM CHLORIDE 0.9% INJ SCH (22:31)
[2018-09-23] MEDS: NEO-SYNEPHRINE 50 MG in NS 250 ML IV SCH ×2 (02:12→19:58)
[2018-09-23] MEDS: MORPHINE IV PRN ×3 (02:49→19:57)
[2018-09-23] MEDS: SOLU-MEDROL IV SCH ×3 (02:49→17:12)
[2018-09-23] MEDS: XOPENEX NEB INH SCH ×6 (03:44→23:04)
[2018-09-23 04:46] LABS: ALLEN TEST YES; BE -4.1 mmoll (-3.0-3.0); BLOOD TYPE ARTERIAL; HCO3-(ACT) 21.8 mmoll (20.0-26.0); METHB 1.4 % (0.0-1.5); O2(CT) 12.4 mL/dL (15.0-23.0); O2HB 97.1 % (95.0-99.0); PCO2(98.6) 24 mmHg (35-45); PO2(98.6) 118 mmHg (60-100); SAMPLE BLOOD; SAO2 99.9 % (95.0-100.0); SRATE 14 BPM; THB 8.9 g/dL (11.5-17.4); TVOL 600 mL; pH(98.6) 7.49 (7.35-7.45)
[2018-09-23 04:49] LABS: MODALITY VENTILATOR
[2018-09-23 05:15] LABS: HEMOGLOBIN 7.2 g/dL (12.0-16.0); MCHC 32.7 g/dL (33-37); MCV 85.6 FL (81-99); MPV 10.6 FL (7.4-10.4); RBC 2.57 XMIL (4.2-5.4); RDW 14.9 % (11.5-14.5); WBC 27.85 X1000 (4.8-10.8)
[2018-09-23 05:21] LABS: INR 1.19
[2018-09-23 05:22] LABS: PTT 24.3 Seconds (22.3-41.8)
[2018-09-23 05:44] LABS: ALB/GLOB RATIO 1.6; ALBUMIN 3.2 g/dL (3.5-5.0); CREATININE 1.3 mg/dL (0.5-0.9); POTASSIUM 4.1 mmol/L (3.5-5.1); TOTAL BILIRUBIN 0.73 mg/dL (0.20-1.00); TOTAL PROTEIN 5.2 g/dL (6.3-8.3)
[2018-09-23] MEDS: AZACTAM 1 GM in NS 50 ML IV SCH ×2 (05:54→17:12)
[2018-09-23] MEDS: ATIVAN IV PRN (05:54)
[2018-09-23] MEDS: SYNTHROID IV SCH (06:00)
[2018-09-23] MEDS: CARDIZEM PO SCH ×3 (06:00→17:12)
[2018-09-23] MEDS: SODIUM CHLORIDE 0.9% INJ PRN (06:01)
--- NOTE | 2018-09-23 07:21 | Diag Imaging Result Doc PS360 ---
EXAM: CHEST-PORTABLE 09/23/2018 HISTORY: respiratory failure TECHNIQUE: AP portable at 0538 COMMENT: There is an endotracheal tube with its tip at the thoracic inlet. There is an NG tube with its tip below the diaphragm. There is a PICC line on the right with its tip just above the right atrium. There is opacification and volume loss in the left lower lobe. Hazy opacity is seen in the perihilar portion of the left upper lobe. The inspiration is generally less optimal than on 09/22/2018. IMPRESSION: Left lower lobe atelectasis. Left-sided pneumonia. Pleural effusion. Electronically signed by Alfredo Paris 09/23/2018 7:19 AM
[2018-09-23] MEDS: LOPRESSOR PO SCH (08:35)
[2018-09-23] MEDS: PROTONIX IV SCH ×2 (08:59→23:14)
[2018-09-23] MEDS: SODIUM CHLORIDE 0.9% INJ SCH (09:00)
--- NOTE | 2018-09-23 09:40 | INFECTIOUS DISEASE PROGRESS NO ---
DATE: 09/23/2018 PRESENT ILLNESS: The patient has left lower lung atelectasis and left-sided pneumonia as seen on the patient's x-ray for today. The patient does have leukocytosis, but I think all or most of it could be due to the fact that the patient gets high doses of steroids. MEDICATIONS: The patient was on cefepime, and yesterday I stopped it because the patient's platelets were falling, and I substituted the cefepime with Aztreonam. PHYSICAL EXAMINATION: Vital Signs: Temperature is 98 degrees, pulse 87, respirations 16, blood pressure 108/61. General: This is a chronically ill-appearing, elderly female. She is intubated and sedated. HEENT: She has an orotracheal and nasogastric tube in place. There is no drainage from the nose or ears. Neck: There was no stiffness in the neck when I moved her head. Lungs: Clear to auscultation. Cardiovascular: Heart rate is irregular. Abdomen: Soft and nontender. Extremities: The patient has a PICC in her right arm. The site is not erythematous or swollen. In the patient's right leg, she has a hematoma. In her right groin, she has a Trialysis catheter. That site is not erythematous or purulent either. Neurologic: The patient is sedated. There is no tremor. IMAGING AND LABORATORY DATA: X-ray shows left lower lobe atelectasis and left- sided pneumonia. The patient's blood gases show a pH of 7.49, a PO2 of 118, and a pCO2 of 24. The creatinine is 1.3. GFR is 40. CBC shows a white count of 27,850, hemoglobin 7.2, and platelet count is up to 79,000. Liver function studies are normal, except for an ALT of 41. Sputum is growing a gram- negative stefano, which has not yet been identified. ASSESSMENT AND PLAN: The patient has left lower lobe pneumonia. My plan is to continue with aztreonam, pending the identification and susceptibility testing of the gram- negative stefano in the patient's sputum. As mentioned above, I think the leukocytosis is due to the fact that the patient is receiving high doses of steroids. COMORBIDITIES: Chronic obstructive pulmonary disease, systemic lupus, congestive heart failure. The patient's IgG is only marginally decreased and it does not merit having treatment with intravenous immunoglobulin. cc: Mahendra Coffman MD MTDD
--- NOTE | 2018-09-23 09:41 | NEPHROLOGY PROGRESS NOTE ---
DATE: 09/23/2018 TIME SEEN: 0635. SUBJECTIVE: Ms. Espinoza is resting quietly in bed. She remains on ventilatory support. OBJECTIVE: Her most recent vital signs show temperature 99.1 degrees, blood pressure 111/61, heart rate 93, respirations 16. The patient is currently on 35% FiO2. Her last recorded saturation is 100%. She has had 253 in and she has had 1685 out with 1.6 L on dialysis. LABS: Sodium 138, potassium 4.1, chloride 104, CO2 17, BUN 27, creatinine 1.3, glucose is 113. Her anion gap is 17, calcium 8, albumin 3.2. White count 27.85, hemoglobin 7.2, hematocrit 22, platelet count 79,000. ABGs with pH 7.49, CO2 24, O2 is 118, with a bicarb 21.8, lactate of 1 on 35% FiO2. The patient does exhibit gram-negative rods in her sputum. PHYSICAL EXAMINATION: General: This is a 78-year-old white female resting quietly in bed. She appears in no acute distress. She remains ventilator dependent and unresponsive. HEENT: Normocephalic, atraumatic. Conjunctiva is pale. She has SHERWIN, though pupils are sluggish. She remains orally intubated. Neck: Supple. Trachea midline. No evidence of JVD. Cardiovascular: Irregularly irregular rate and rhythm. Tachycardic on the monitor. She has a murmur present. Lungs: Remains on ventilatory support. Diminished breath sounds bilateral. : Vas-Cath remains to the right groin. Knapp catheter has minimal urine out. Extremities: Continues with 1+ lower extremity edema. Neurological: As above. ASSESSMENT AND PLAN: 1. Acute kidney injury. The patient had dialysis yesterday. She had approximately 1.6 L removed. No indications for intervention today. 2. Electrolytes and acid-base balance. Patient remains acidotic with plan for correction on dialysis in the a.m. 3. Anemia. Patient's hemoglobin is 7.2. We will defer transfusion to the primary care. Otherwise, we will order transfusion on dialysis in the a.m. 4. Bilateral pneumonia and pleural effusions. This is followed by Dr. Coffman and the primary care team. Patient remains on renal dosed antibiotics. I would like to thank you for allowing us to follow with this patient. Dictated by STACIE Daley for Rolf Jewell MD Face to face encounter, data reviewed, discussed with John Jones on 09/23/18. I agree with the above assessment and plan of care. cc: STACIE Daley MD [facility]
--- NOTE | 2018-09-23 09:55 | PROGRESS NOTE ---
DATE: 09/23/2018 SUBJECTIVE: Ms. Espinoza is intubated. Still about the same. We have not been able to extubate. She has been getting SLED therapy and we have been able to make some progress drawing fluid off. OBJECTIVE: Her chest x-ray from this morning, left lower lobe atelectasis, left-sided pneumonia, pleural effusion. ASSESSMENT AND PLAN: 1. Left lower lobe pneumonia with pleural effusion. Continue treatment with cefepime. Dr. Coffman has stopped the azithromycin, stopped the Zyvox. 2. Acute kidney injury. Continue to use low-efficiency dialysis therapy to dialyze, attempting to get 2 to 3 L of fluid off a day. The blood pressures have been borderline but has tolerated this so far. 3. Hemoglobin trending down. Suspect gastrointestinal bleed. We will transfuse as needed. 4. Bilateral pneumonia and effusions. Continue present treatment. 5. The creatinine is down to 1.3. Electrolytes: Sodium 138, potassium 4.1, chloride 104, BUN 27, creatinine 1.3. Have made improvement in renal function. cc: Bib Zimmer MD
--- NOTE | 2018-09-23 17:12 | PROVIDER PROGRESS NOTE ---
Progress Note SUBJECTIVE: No acute overnight events. She remains on pressors. Rectal tube shows black liquid stool. She remains NPO. OBJECTIVE: Last Vital Signs Temp 99.2 F 09/23/18 16:00 Pulse 90 09/23/18 16:33 Resp 14 09/23/18 16:33 BP 116/57 09/23/18 16:33 Pulse Ox 100 09/23/18 16:33 Height 5 ft 5 in Weight 132 lb GEN: intubated, sedated HEENT: anicteric, ET tube in place, NGT tube in place NECK: supple, no LAD CV: RRR, no murmurs PULM: vented breath sounds ABD: soft ND, BS present EXT: no cc NEURO: sedated LABS: 09/23/18 09/23/18 09/23/18 04:10 04:10 04:38 WBC 27.85 H Hgb 7.2 L Plt Count 79 L D pH 7.49 H pCO2 24 L pO2 118 H Sodium 138 Potassium 4.1 Chloride 104 Carbon Dioxide 17 L BUN 27 H D Creatinine 1.3 H Glucose 113 H A/P: Ms. Nayana Espinoza is a 78-year-old woman with h/o atrial fibrillation, on Eliquis; CHF, COPD, CAD s/p stents admitted with hypoxic respiratory failure 2/2 aspiration pneumonia. Course complicated acute kidney injury requiring HD and shock on pressors. She also has notable worsening thrombocytopenia and leukocytosis. She remains NPO on PPI IV BID #Anemia: suspected; melena on exam; holding blood thinners, continue PPI BID: plan for diagnostic EGD tomorrow #Shock: septic +/- hypovolemic shock: on pressors per primary; trending H/H, transfuse as needed to maintain hgb 7-8 #BRITTNEY: on HD per renal #Pneumonia: on abx per ID #Hypoxic respiratory failure: from PNA; pulmonary following #COPD: noted #Thrombocytopenia: trending platelets; transfuse as needed to maintain platelets >50K in setting of active bleeding Will follow with you. Please call with questions.
[2018-09-23] MEDS: LOPRESSOR IV PRN (17:55)
--- NOTE | 2018-09-23 18:31 | HEMO/ONC CONSULTATION ---
DATE: 09/15/2018 REQUESTING PHYSICIAN: Catarino Boyd MD. REASON FOR CONSULTATION: Thrombocytopenia. HISTORY OF PRESENT ILLNESS: Ms. Espinoza is a 78-year-old female who actually initially presented to Dr. Shahab Riojas' office with lower extremity edema, pain and redness. The patient resides in a local assisted living facility. Dr. Riojas saw the patient's leg site and advised her to go to the ER for further evaluation. In the ER, the patient was found to be hypoxic and slightly hypotensive as well as well as tachycardic. She appeared to have probable pneumonia with sepsis and was borderline started hemodynamically unstable at the time. She was subsequently admitted to the hospital and placed in the ICU. On admission, the patient had a normal platelet count of 240, and on 09/19/2018 she still had a normal platelet count of 159. Starting over the weekend, her platelet count started to fall and actually fall all the way down to 28. We have been consulted due to the decline in her platelet count. A DIC panel has been completed and does show her to have a low fibrinogen of 158. Looks like she got platelets yesterday, so her platelet count is up to 79 today. The patient is intubated, and there is no one at bedside. The remainder of the H and P is taken from her chart. PAST MEDICAL HISTORY: 1. Paroxysmal atrial fibrillation. On Eliquis. 2. Diastolic heart failure. 3. Pulmonary hypertension. 4. History of CAD status post stent placements. 5. Hyperlipidemia. 6. Chronic pain. 7. History of lupus. 8. History of CVA. PAST SURGICAL HISTORY: 1. Coronary stent placements. 2. Hysterectomy. 3. Closed reduction of the left wrist. SOCIAL HISTORY: Patient was a previous smoker but quit some time ago. She denies any alcohol or illicit drug use. She lives in a local assisted living facility. FAMILY HISTORY: Negative for any blood disorders. REVIEW OF SYSTEMS: Cannot be completed, as the patient is intubated and unable to communicate. There is no one at bedside. PHYSICAL EXAMINATION: Vital Signs: Temperature 97.6 degrees, heart rate 84, respirations 22, blood pressure 103/52, O2 saturation 100% on mechanical vent. General: This is a female who is intubated, lying in the hospital bed in the ICU. She is peaceful. Does not seem to be in any distress. HEENT: Head: Normocephalic, atraumatic. Eyes: The patient does not open her eyes to voice. Ears, nose, throat, neck, and mouth: The patient is intubated. Cardiovascular: S1, S2 heard at this time. Respiratory: Mechanical vent sounds noted. Gastrointestinal: Abdomen appears to be soft, nondistended. Musculoskeletal: No obvious bony abnormalities noted. Extremities: The patient does have significant bruising of her right lower extremity but no other abnormalities noted at this time. She does have edema x4. Neurologic: The patient is intubated and unable to communicate. LABS AND STUDIES: White blood cells today are 27.85, hemoglobin 7.2, platelet count is 79. Fibrinogen is 158. PT/INR 16 and 1.19 respectively, PTT 24.3. Sodium 138, potassium 4.1, chloride 104. CO2 is 17, BUN 27, creatinine 1.3, glucose 113. ASSESSMENT/PLAN: 1. Pneumonia. She will continue with IV antibiotics per Dr. Coffman, Infectious Disease. She will continue on mechanical vent, managed by pulmonology. She will continue with close monitoring in ICU. 2. Thrombocytopenia. Again, she has a low fibrinogen. Will proceed with 1 pack of cyroprecipitate today. She will need to be monitored closely for bleeding. Would recommend transfusing for a platelet count less than 15,000 or if she has active bleeding or if she has high fever. 3. Anemia, worsening today. Patient's hemoglobin is 7.2. We are also going to go ahead and order a unit of packed red blood cells. Continue to transfuse as needed. The patient has a suspected GI bleed, and gastroenterology is on board. 4. Acute kidney injury. Seems to be improved. She is on low-efficiency dialysis therapy per Dr. Jewell. Continue per their recommendations. We want to thank you for consulting us on Ms. Espinoza. Will continue to follow along and adjust our treatment plan per her hospital course. Dictated by PRIYANKA Carey for Jami Rinaldi MD cc: Jami Rinaldi MD I have seen and examined the patient and the above note reflects my history, physical examination and assessment and plan. Jami Rinaldi MD [facility]
[2018-09-23] MEDS ORDERED: NS 250 ML ONE (19:42)
--- NOTE | 2018-09-23 21:37 | PULMONOLOGY PROGRESS NOTE ---
DATE: 09/23/2018 SUBJECTIVE: The patient responds to painful stimuli. She received 2 mg of Ativan earlier this morning. OBJECTIVE: Vital Signs: The patient has been afebrile over the last 24 hours. Blood pressure 109/60, heart rate 98, respiratory rate 20, oxygen saturation 98%. HEENT: Pupils are equal and reactive. Oropharynx appears clear. Neck: Supple. Chest: Reveals occasional rhonchi bilaterally. Cardiac exam: S1, S2. Abdomen: Soft. Extremities: Reveal decreased edema compared with prior evaluation by this practitioner. LABORATORIES: Chest x-ray reveals significant improvement on the right over the last several days with continued infiltrate at the left base. Arterial blood gas reveals a pH of 7.49, pCO2 of 24, pO2 of 118. White blood count has significantly increased over the last 24 hours at 27.8, hemoglobin 7.2, platelet count 79,000. Sodium 138, potassium 4.1, chloride 104, bicarbonate 17, anion gap 17, BUN 27, creatinine 1.3. Sputum culture 09/21/2018 reveals a gram- negative stefano. IMPRESSION: A 78-year-old with: 1. Bilateral pneumonia. She has had some clearing on the right with some new progressive infiltrate on the left. 2. History of amiodarone use and lupus. 3. Acute hypoxemic respiratory failure. 4. Mitral valve disease. 5. Altered mental status. 6. Acute renal failure. DISCUSSION: A 78-year-old with problems outlined above. She has had some radiographic improvement over the last 4 to 5 days and will be initiated on a breathing trial. She appears to be weak. RECOMMENDATIONS: 1. Spontaneous breathing trial today to evaluate possible extubation. 2. Decrease sedation. 3. Antibiotic changes per Dr. Coffman for gram-negative pneumonia and thrombocytopenia. 4. Hemodialysis per Dr. Jewell. 5. Nutrition. The patient is currently not being fed. NG tubes or TPN should be initiated pending recommendations from the GI service. Time Spent Critical Care: 30+ minutes cc: Ronald Osuna MD [facility]
[2018-09-24] MEDS: LOPRESSOR IV PRN ×4 (00:19→18:25)
[2018-09-24] MEDS: MORPHINE IV PRN ×4 (00:19→22:02)
[2018-09-24] MEDS: CARDIZEM PO SCH ×4 (01:11→17:38)
[2018-09-24] MEDS: XOPENEX NEB INH SCH ×6 (03:10→23:38)
[2018-09-24] MEDS: SOLU-MEDROL IV SCH ×3 (04:23→17:38)
[2018-09-24] MEDS: ATIVAN IV PRN ×3 (04:24→16:02)
[2018-09-24 04:41] LABS: ALLEN TEST YES; BE -6.3 mmoll (-3.0-3.0); BLOOD TYPE ARTERIAL; HCO3-(ACT) 20.1 mmoll (20.0-26.0); METHB 0.8 % (0.0-1.5); O2(CT) 9.7 mL/dL (15.0-23.0); O2HB 97.6 % (95.0-99.0); PCO2(98.6) 26 mmHg (35-45); PO2(98.6) 118 mmHg (60-100); SAMPLE BLOOD; SAO2 99.6 % (95.0-100.0); SRATE 6 BPM; THB 6.9 g/dL (11.5-17.4); TVOL 600 mL; pH(98.6) 7.43 (7.35-7.45)
[2018-09-24 04:43] LABS: MODALITY VENTILATOR
[2018-09-24 06:01] LABS: ALB/GLOB RATIO 1.8; ALBUMIN 3.5 g/dL (3.5-5.0); CALCIUM 8.5 mg/dL (8.8-10.2); CREATININE 2.4 mg/dL (0.5-0.9); TOTAL BILIRUBIN 0.62 mg/dL (0.20-1.00); TOTAL PROTEIN 5.4 g/dL (6.3-8.3)
[2018-09-24] MEDS: SYNTHROID IV SCH (06:11)
[2018-09-24] MEDS: SODIUM CHLORIDE 0.9% INJ SCH ×2 (06:11→22:04)
[2018-09-24] MEDS: AZACTAM 1 GM in NS 50 ML IV SCH (06:17)
[2018-09-24 06:25] LABS: HEMATOCRIT 26.3 % (37.0-47.0); HEMOGLOBIN 8.6 g/dL (12.0-16.0); MCH 29.1 PG (27-31); MCHC 32.7 g/dL (33-37); MCV 88.9 FL (81-99); MPV 10.8 FL (7.4-10.4); RBC 2.96 XMIL (4.2-5.4); RDW 15.1 % (11.5-14.5); WBC 31.93 X1000 (4.8-10.8)
[2018-09-24] MEDS ORDERED: NS 2,000 ML MISC PRN (06:25)
--- NOTE | 2018-09-24 06:49 | Diag Imaging Result Doc PS360 ---
EXAM: CHEST-PORTABLE HISTORY: respiratory failure TECHNIQUE: Portable chest single view COMPARISON: 09/22/2018 FINDINGS: No change in the endotracheal tube, nasogastric tube, right-sided PICC line. Heart is mildly prominent. There is a small right pleural effusion. Mild vascular distention. There is lower lung atelectasis. Infiltrates in the left lung are less pronounced. IMPRESSION: Mild interval improvement. Electronically signed by Benji Levin 09/24/2018 6:47 AM
[2018-09-24] MEDS: NEO-SYNEPHRINE 50 MG in NS 250 ML IV SCH (09:10)
[2018-09-24] MEDS: LOPRESSOR PO SCH (09:10)
--- NOTE | 2018-09-24 09:28 | PROGRESS NOTE ---
DATE: 09/24/2018 SUBJECTIVE: Ms. Espinoza is still intubated, unresponsive. She was moving her arm some spontaneously and seemed to respond to touch. OBJECTIVE: Temperature 97.4 degrees, pulse 97, respirations 25, blood pressure 119/77. Pupils are equal and round. Lungs are clear in all lung bean. Cardiovascular Examination: Regular rhythm and rate without murmur or S3. Abdomen is soft. Skin is warm and dry. Urine output is 1400 mL. Chest x-ray, mild interval improvement. No change in endotracheal tube, nasogastric tube, right-sided PICC line. Heart mildly prominent, small right pleural effusion, mild vascular distention. There is lower lung atelectasis. Infiltrate in the left lung is less pronounced. ASSESSMENT AND PLAN: 1. Left lower lobe pneumonia, pleural effusion. Continue antibiotics. Hoping to wean off the ventilator. 2. Acute kidney injury and volume, increased extracellular fluid. Continue sustained low- efficiency dialysis therapy per Dr. Jewell. Seems like we are making progress. 3. Watch hemoglobin and hematocrit. Suspect gastrointestinal bleed. We would like to do an esophagogastroduodenoscopy. Dr. Salas on board. 4. Planning on decreased sedation and continued ventilator management per Dr. Osuna. Does have a history of amiodarone use and history of lupus, so there is a question on whether there is any amiodarone-induced pneumonitis. cc: Bib Zimmer MD
--- NOTE | 2018-09-24 10:19 | NEPHROLOGY PROGRESS NOTE ---
DATE: 09/24/2018 TIME SEEN: 0645 hours. SUBJECTIVE: Ms. Espinoza is resting quietly in bed. She remains mildly responsive to tactile stimuli. Otherwise, she remains ventilator dependent. No acute distress. OBJECTIVE: Vital Signs: Temperature 98.5 degrees, blood pressure 123/77, heart rate 86, respirations 16. She is on 35% FiO2. Her last recorded saturation 96%. She has had 848 in; she has had 120 mL out to Knapp catheter. LABORATORY DATA: Sodium 137, potassium 5, chloride 103, CO2 16. BUN 48, creatinine 2.4, glucose 137. Her anion gap is 18, calcium 8.5, albumin 3.5. Previous hemoglobin 7.2. The patient had 2 units of packed red blood cells infused yesterday with a hemoglobin this morning of an 8.6. Her PTT is 22.5. ABGs: A pH 7.43, CO2 of 26, PO2 118, bicarbonate 20.1. The patient has a lactate of 1.1 on 35%. PHYSICAL EXAM: General: This is a 78-year-old white female, who is resting quietly in bed. She appears in no acute distress. Skin: Warm and dry. HEENT: Normocephalic, atraumatic. Conjunctiva is pale pink. She has SHERWIN, though sluggish. Mucous membranes are dry. Orally intubated. Neck: Supple. Trachea midline. Trace evidence of JVD. Cardiovascular: She is irregularly irregular rate and rhythm. She is rate controlled in the 80s. Abdomen: Soft, nontender. Positive bowel sounds. NG tube continues with tube feedings. Lungs: Clear to auscultation bilaterally. Equal excursion with O2 support per ventilator. Genitourinary: Not inspected. Minimal urine out with dialysis assist. Extremities: Have 2+ lower extremity edema. No clubbing or cyanosis. Neurological: As above. ASSESSMENT AND PLAN: 1. Acute kidney injury. Patient is to have dialysis today. We will place her on slow, low efficiency dialysis. She is to be on a 3 potassium 8 hours 27 bicarbonate. We will attempt to pull 3 to 4 liters of ultrafiltration. 2. Electrolytes and acid-base balance with correction on dialysis. 3. Anemia. Patient was transfused yesterday evening with now hemoglobin of 8.6. 4. Bilateral pneumonia with pleural effusions. This is followed by Dr. Coffman' primary care team. She is on renal-dosed antibiotics. I would like to thank you for allowing us to follow with this patient. Dictated by STACIE Daley for Rolf Jewell MD Face to face encounter, data reviewed, discussed with John Jones on 09/24/18. I agree with the above assessment and plan of care. cc: STACIE Daley MD [facility]
[2018-09-24] MEDS: PROTONIX IV SCH ×2 (10:31→22:17)
[2018-09-24 11:34] LABS: INR 1.15; PROTIME 15.6 Seconds (11.0-16.0)
[2018-09-24] MEDS: LEVAQUIN 250 MG/D5W 250 MG/50 ML IVPB IV SCH (16:02)
--- NOTE | 2018-09-24 18:43 | INFECTIOUS DISEASE PROGRESS NO ---
DATE: 09/24/2018 PRESENT ILLNESS: The patient has a left lower lobe atelectasis and left-sided pneumonia. The patient also has leukocytosis. The patient had a sputum culture which yesterday was growing gram- negative rods, and today the culture is growing Pseudomonas fluorescens. MEDICATIONS: The patient is receiving aztreonam. PHYSICAL EXAMINATION: Vital Signs: Temperature is 98.8 degrees, pulse 106, respirations 17, blood pressure 102/65. General: This is a chronically ill-appearing, elderly female. She is intubated and sedated. Head/Eyes/Ears/Nose/Throat: She has orotracheal and nasogastric tubes in place. There is no drainage from the nose or ears. Neck: No stiffness when I manually moved her head. Lungs: Clear to auscultation. Cardiovascular: Heart rate is irregular. Abdomen: Soft and nontender. Extremities: The patient has a PICC in her right arm. The site is not erythematous or purulent. The patient has a right groin Trialysis catheter in place. That site is not erythematous or purulent either. Neurologic: The patient is sedated. She does not respond to verbal stimuli. LAB AND X-RAY: There is a chest x-ray from today which shows improvement of the infiltrate in the left lung. ASSESSMENT AND PLAN: I have switched the patient from Aztreonam to Levaquin to cover the Pseudomonas fluorescens that just grew from the sputum culture. Also, I have discontinued Geodon because it can interact with Levaquin. I also put a nurse communication saying that there should be no Geodon given while the patient is on Levaquin. The patient's leukocytosis could be due to the steroids and/or the infection and/or both. COMORBIDITIES: Include chronic obstructive pulmonary disease, systemic lupus, congestive heart failure. The patient's IgG level is only marginally decreased and does not deserve having an IVIG infusion. cc: Mahendra Coffman MD
--- NOTE | 2018-09-24 22:20 | PULMONOLOGY PROGRESS NOTE ---
DATE: 09/24/2018 SUBJECTIVE: The patient is more arousable today. She will not follow commands. OBJECTIVE: Vital Signs: The patient has been afebrile for the last 24 hours. Blood pressure 110/68, heart rate 107, respiratory rate 15, oxygen saturation 96%. HEENT: Pupils are equal. Oropharynx appears dry. Neck: Supple. Chest: Reveals crackles bilaterally. Cardiac: Irregular rhythm. Abdomen: Soft with positive bowel sounds. Extremities: Reveal decreasing peripheral edema. LABORATORIES: Sputum cultures reveal Pseudomonas fluorescens. White blood count 31.9 thousand, hemoglobin 8.6, platelet count 49,000. Sodium 137, potassium 5, chloride 103, bicarbonate 16, BUN 48, creatinine 2.4. Arterial blood gas reveals a pH 7.43, pCO2 of 26, PO2 of 118 on mechanical ventilation. Chest x-ray reveals decreased infiltrates in the left lung, mildly prominent heart size with right- sided pleural effusion. IMPRESSION: A 78-year-old with: 1. Bilateral effusion with slow improvement. 2. History of lupus and amiodarone use. 3. Acute hypoxemic respiratory failure. 4. Gastrointestinal bleeding with melenic stools. 5. Mitral valve disease. 6. Altered mental status. 7. Acute renal failure. 8. Protein-calorie malnutrition. RECOMMENDATIONS: 1. Continue attempts at weaning every day. She is improving but does decompensate during the trial. 2. Reinitiate tube feeds for nutrition support. If she needs an EGD, this can be held after midnight. 3. Continue antibiotics for Pseudomonas fluorescens as outlined per Dr. Coffman. 4. Continue hemodialysis per Dr. Jewell. 5. Overall prognosis is guarded. Time spent in critical care management: 30+ minutes cc: Ronald Osuna MD [facility]
--- NOTE | 2018-09-24 23:51 | PROVIDER PROGRESS NOTE ---
Progress Note SUBJECTIVE: No acute overnight events. Unable to perform EGD today as patient required CVVHD. She continues to have melenic stools in rectal tube. No hematemesis. Remains on pressors OBJECTIVE: Last Vital Signs Temp 98.2 F 09/24/18 16:00 Pulse 111 H 09/24/18 18:03 Resp 21 09/24/18 18:03 BP 114/68 09/24/18 18:03 Pulse Ox 97 09/24/18 18:03 Height 5 ft 5 in Weight 134 lb 8 oz GEN: intubated, sedated HEENT: anicteric, ET tube in place, NGT tube in place NECK: supple, no LAD CV: RRR, no murmurs PULM: vented breath sounds ABD: soft ND, BS present EXT: no cc NEURO: sedated LABS: 09/24/18 09/24/18 09/24/18 04:55 06:07 07:05 WBC 31.93 H Hgb 8.6 L D Plt Count 49 L D INR 1.15 Sodium 137 Potassium 5.0 D Chloride 103 Carbon Dioxide 16 L BUN 48 H D Creatinine 2.4 H A/P: Ms. Nayana Espinoza is a 78-year-old woman with h/o atrial fibrillation, on Eliquis; CHF, COPD, CAD s/p stents admitted with hypoxic respiratory failure 2/2 aspiration pneumonia. Course complicated acute kidney injury requiring HD and shock on pressors. She also has notable worsening thrombocytopenia and leukocytosis. #Anemia: suspected; melena on exam; holding blood thinners, plan for diagnostic EGD tomorrow #Shock: septic +/- hypovolemic shock: on pressors per primary; trending H/H, transfuse as needed to maintain hgb 7-8 #BRITTNEY: on HD per renal #Pneumonia: on abx per ID #Hypoxic respiratory failure: from PNA; pulmonary following #COPD: noted #Thrombocytopenia: trending platelets; transfuse as needed to maintain platelets >50K in setting of active bleeding Will follow with you. Please call with questions.
[2018-09-25] MEDS: CARDIZEM PO SCH ×5 (00:20→23:02)
[2018-09-25] MEDS: ATIVAN IV PRN ×3 (00:20→18:58)
[2018-09-25] MEDS: XOPENEX NEB INH SCH ×6 (03:37→23:45)
[2018-09-25] MEDS: MORPHINE IV PRN ×3 (04:40→21:00)
[2018-09-25] MEDS: SOLU-MEDROL IV SCH ×3 (04:40→17:55)
[2018-09-25 05:03] LABS: ALLEN TEST YES; BE 0.7 mmoll (-3.0-3.0); BLOOD TYPE ARTERIAL; HCO3-(ACT) 25.5 mmoll (20.0-26.0); O2(CT) 20.1 mL/dL (15.0-23.0); O2HB 97.1 % (95.0-99.0); PCO2(98.6) 35 mmHg (35-45); PO2(98.6) 132 mmHg (60-100); SAMPLE BLOOD; SAO2 99.8 % (95.0-100.0); SRATE 6 BPM; THB 14.6 g/dL (11.5-17.4); pH(98.6) 7.45 (7.35-7.45)
[2018-09-25 05:05] LABS: MODALITY VENTILATOR
[2018-09-25 05:44] LABS: INR 1.23; PROTIME 16.5 Seconds (11.0-16.0); PTT 20.9 Seconds (22.3-41.8)
[2018-09-25 05:52] LABS: HEMATOCRIT 22.9 % (37.0-47.0); HEMOGLOBIN 7.5 g/dL (12.0-16.0); MCH 29.9 PG (27-31); MCHC 32.8 g/dL (33-37); MCV 91.2 FL (81-99); RBC 2.51 XMIL (4.2-5.4); RDW 14.8 % (11.5-14.5); WBC 30.34 X1000 (4.8-10.8)
[2018-09-25 06:18] LABS: ALBUMIN 3.4 g/dL (3.5-5.0); CALCIUM 8.1 mg/dL (8.8-10.2); CREATININE 1.1 mg/dL (0.5-0.9); POTASSIUM 3.7 mmol/L (3.5-5.1); TOTAL BILIRUBIN 0.54 mg/dL (0.20-1.00); TOTAL PROTEIN 5.1 g/dL (6.3-8.3)
[2018-09-25] MEDS: LOPRESSOR IV PRN ×4 (06:18→23:19)
[2018-09-25] MEDS: SODIUM CHLORIDE 0.9% INJ PRN (06:18)
[2018-09-25] MEDS: SYNTHROID IV SCH (06:18)
--- NOTE | 2018-09-25 07:45 | Diag Imaging Result Doc PS360 ---
CHEST-PORTABLE - 09/25/2018 INDICATION: respiratory failure COMPARISON: 09/24/2018 FINDINGS: Support lines and tubes are stable and in good position. There is worsening airspace opacification at the right lower lobe with loss of the right hemidiaphragm. This is consistent with any mixture of infiltrate, atelectasis, or pleural effusion. Stable cardiomegaly and pulmonary vascular congestion. Stable smaller left basilar infiltrate. IMPRESSION: Significant worsening aeration of the right lower lobe. Persistent cardiomegaly and pulmonary vascular congestion. Electronically signed by Earl Buckley 09/25/2018 7:43 AM
[2018-09-25] MEDS: NEO-SYNEPHRINE 50 MG in NS 250 ML IV SCH (07:55)
[2018-09-25] MEDS: LOPRESSOR PO SCH (08:00)
--- NOTE | 2018-09-25 08:33 | PROGRESS NOTE ---
DATE: 09/25/2018 SUBJECTIVE: This patient is still on mechanical ventilation and sedated. She seems to be a little bit arousable today, but she is not following commands. She moves all 4 extremities. She has a rectal tube with melenic stools. The plan is to do an EGD today. Hemoglobin dropped to 7.5 from 8.6. For now, we will monitor. This patient is still on pressors. OBJECTIVE: Vital Signs: Temperature 99.1 degrees, pulse 118, respiratory rate 14, blood pressure 94/64, oxygen saturation 98 on mechanical ventilation. HEENT: Head normocephalic. No trauma. PERRLA. Neck: Supple. No JVD. Central trachea. Chest: Coarse breath sounds at the bases mostly. Cardiovascular: Irregularly irregular rate and rhythm. Systolic murmur. Abdomen: Soft, nondistended. Positive bowel sounds. Extremities: Trace lower extremity edema. No clubbing. No cyanosis. She does have a hematoma on the left hand, dorsal area. Neurological: This patient is on mechanical ventilation and sedated, but she is able to open her eyes a little bit with pain stimulation, and move a little bit her extremities, but she is not following commands. LABORATORY DATA: WBC 30.3, hemoglobin 7.5, hematocrit 22.9, platelets 64,000. Sodium 137, potassium 3.7, chloride 101, bicarbonate 25, BUN 21, creatinine 1.1, glucose 147, calcium 8.1. AST 36, ALT 69, alkaline phosphatase 74, albumin 3.4. ASSESSMENT AND PLAN: 1. Acute hypoxemic respiratory failure, likely secondary to left-sided pneumonia, bilateral effusion, possible pneumonitis. This patient is still on mechanical ventilation, sedated. Will continue with antibiotics. Microbiology showed Pseudomonas fluorescens. Infectious Disease Department on board. Pulmonary Department on board as well. 2. Left-sided pneumonia, as above. Continue with antibiotics. 3. Gastrointestinal bleed. She does have some melenic stools. She has a rectal tube. The plan is to go ahead and do an esophagogastroduodenoscopy today. We will continue with proton pump inhibitors twice a day as well. 4. Septic shock, likely secondary to pneumonia. She is still on pressors. We will continue with the same management for now. Continue with antibiotics as well. 5. Acute kidney injury requiring hemodialysis. Her last dialysis was yesterday. We will follow Nephrology Department recommendations. 6. Mitral valve disease. Aware. 7. History of lupus and amiodarone use. Aware. Questionable pneumonitis. 8. Protein calorie malnutrition, moderate. Aware. Will continue with nutrition after esophagogastroduodenoscopy. She has been nothing by mouth since midnight. 9. Anemia. We will monitor this patient closely. We will transfuse as needed. 10. Paroxysmal atrial fibrillation. This patient has been on Eliquis, which has been on hold due to her gastrointestinal bleed. 11. History of cerebrovascular accident. I do not have any family members at the bedside to corroborate this diagnosis. We will monitor for now. 12. Thrombocytopenia. Will monitor. She had low fibrinogen a few days ago. She received cryoprecipitate. So far, she received also 2 units of platelets as well. CRITICAL CARE TIME: 40 minutes. cc: Vinod Flor MD
[2018-09-25] MEDS ORDERED: NS 500 ML ONE (09:32)
[2018-09-25] MEDS ORDERED: VERSED ONE ×2 (09:33→09:34)
[2018-09-25] MEDS ORDERED: SODIUM CHLORIDE 0.9% 10 ML ONE (09:34)
[2018-09-25] MEDS ORDERED: NORCURON ONE (09:34)
[2018-09-25] MEDS ORDERED: EPINEPHRINE SYRINGE ONE (09:46)
[2018-09-25] MEDS ORDERED: NS 500 ML IV SCH (10:30)
--- NOTE | 2018-09-25 10:52 | Diag Imaging Result Doc PS360 ---
CHEST-PORTABLE - 09/25/2018 10:44 AM INDICATION: NG tube placement COMPARISON: 5:19 AM FINDINGS: There is a nasogastric tube in good position in the distal stomach. IMPRESSION: Nasogastric tube in the stomach. Electronically signed by Earl Buckley 09/25/2018 10:50 AM
[2018-09-25] MEDS: PROTONIX IV SCH ×2 (10:59→23:01)
--- NOTE | 2018-09-25 13:13 | NEPHROLOGY PROGRESS NOTE ---
DATE: 09/25/2018 DATE AND TIME OF EXAM: 09/25/2018 at 0610 hours. SUBJECTIVE: Ms. Espinoza is resting quietly in bed. She is more awake, opens her eyes to verbal stimuli. Remains ventilator dependent. OBJECTIVE: Vital Signs: Temperature 99, blood pressure 94/64, heart rate 148, respirations 18. Highest temperature was 100 degrees last night. She has had 978 in, 2335 mL out. The patient is in a -300 mL fluid balance at this time. General: On physical examination, this is a 78-year-old white female resting quietly in bed. She is not sedated. She is ventilator dependent. HEENT: Normocephalic, atraumatic. Conjunctiva is pale pink. She has SHERWIN. Mucous membranes are dry. Neck: Supple. Trachea midline. No evidence of JVD. Cardiovascular: She has irregularly irregular rate and rhythm. She is tachycardic this a.m. up into the 140s to 150 range. Noted that she has been greater than 100 during the night. Lungs: Have coarse rhonchi. She remains ventilatory support. Abdomen: Soft, nontender. Positive bowel sounds. Hypoactive. Genitourinary: Not inspected. Knapp catheter is in place. Minimal urine out with dialysis assist. Extremities: Remain with 1+ to 2+ lower extremity edema. No clubbing or cyanosis. I Integumentary: No rashes or lesions. Skin is warm and dry. LABORATORY DATA: Sodium 137, potassium 3.7, chloride 101, CO2 25. BUN 21, creatinine 1.1, glucose 147. Her anion gap is 11. Calcium 8.1, albumin 3.4. Previous hemoglobin 7.5. ABGs reveal pH 7.45, CO2 35 PO2 132, bicarbonate 25.5 on 30% FiO2. Last recorded saturation is 96%. ASSESSMENT AND PLAN: 1. Acute kidney injury. The patient continues to require hemodialysis. She tolerated dialysis well yesterday. No indications for intervention today. 2. Electrolytes and acid-base balance with correction on dialysis. 3. Anemia. The patient was transfused several days ago. She continues to have dropped her hemoglobin 7.5 today. 4. Bilateral pneumonia with pleural effusions. This is followed by ID, Pulmonology. The patient is on renal-dosed antibiotics. I would like to thank you for allowing us to follow with this patient. Dictated by STACIE Daley for Rolf Jewell MD Face to face encounter, data reviewed, discussed with John Jones on 09/25/18. I agree with the above assessment and plan of care. cc: STACIE Daley MD [facility]
--- NOTE | 2018-09-25 13:51 | OPERATIVE NOTE ---
PROCEDURE DATE: 09/24/2018 PROCEDURE PERFORMED: Esophagogastroduodenoscopy. PREOPERATIVE DIAGNOSIS: Melena and anemia. The patient has received 4 units of blood transient during hospital course. The last transfusion was 2 units yesterday. POSTOPERATIVE DIAGNOSES: 1. Z-line was at 44 cm. 2. Hemorrhagic gastritis in the body and antrum likely because of stress gastritis. 3. Normal fundus, cardia, and incisura. 4. Evidence of NG tube which was removed during the procedure. 5. Normal duodenal bulb and second portion. 6. A few areas of oozing were noted in the stomach secondary to hemorrhagic gastritis. ESTIMATED BLOOD LOSS: Minimal. COMPLICATIONS: None. ANESTHESIA: Monitored anesthesia care per the anesthesiologist. The patient was already intubated in the ICU. She was given paralytics and benzodiazepines per the anesthesiology team. SPECIMENS: None. DESCRIPTION OF PROCEDURE: After informed consent, the patient was prepared for EGD. The patient was kept supine. We put a bite block in the mouth. After adequate anesthesia, the EGD scope was introduced through the oral orifice and traversed all the way to the second portion of the duodenum. The esophagus normal in its entire length. The Z-line was visualized at 44 cm. NG tube in place. We removed the NG tube which improved our visualization. The stomach showed evidence of severe inflammation in the body and antrum in the form of erythema, friability, erosions, and scattered oozing. This was consistent with hemorrhagic gastritis. Retroflexion revealed normal fundus, cardia, and incisura. There was evidence of gastritis in the fundus and cardia as well. There was no evidence of any ulceration noted. There was evidence of some oozing spots in the stomach likely secondary to hemorrhagic gastritis. The scope was able to traverse into the duodenum which showed evidence of normal duodenal bulb and normal 2nd portion of the duodenum. The air was suctioned and the scope was withdrawn. The patient was monitored in the ICU in stable condition. RECOMMENDATIONS: 1. The patient will continue Protonix twice daily. We will start on Carafate through NG tube q.6 hours. We will reinsert the NG tube and confirm position. She will continue on tube feeds. 2. We will continue to watch hemoglobin and hematocrit and transfuse as needed. 3. Need to avoid anticoagulation for now. 4. Further recommendations are pending the hospital course. I discussed plan of care with the patient's family by phone. I spoke to the patient's daughter Shayy Ledesma, and all questions answered. Please call us with any further questions. I also spoke to the patient's nursing staff at bedside. All questions were answered. Please call us with any questions. cc: MD Shahab De Leon MD Dr. Sosa MTDD
[2018-09-25] MEDS: CARAFATE LIQUID NG SCH ×2 (13:57→20:03)
--- NOTE | 2018-09-25 14:23 | INFECTIOUS DISEASE PROGRESS NO ---
DATE: 09/25/2018 PRESENT ILLNESS: The patient has a Pseudomonas fluorescence pneumonia. MEDICATIONS: The patient yesterday was started on Levaquin. This will be day 1 of treatment. PHYSICAL EXAMINATION: Vital Signs: Temperature earlier was 100.4, now it is 98.8, pulse 109, respirations 18, blood pressure 102/64. General: This is a chronically ill-appearing, elderly female. She is intubated and sedated. She has just had a gastroscopy performed. HEENT: There is no drainage from the nose or ears. The patient has an orotracheal tube in place. She did not respond to verbal stimuli. Neck: No meningismus. Lungs: Clear to auscultation. Cardiovascular: Heart rate is irregular. Abdomen: Soft and nontender. Neurologic: The patient is sedated. She did not respond to verbal stimuli. Integument: No rash. The patient has a PICC in the right arm. The site is not erythema or purulent. The patient also has an IV catheter in the right groin area. That site too is not erythematous or purulent. IMAGING AND LABORATORY DATA: The patient today, had a white count of 30,340, hemoglobin 7.5, and platelet count 64,000. Blood gases show a pH of 7.45, a PO2 of 132, and a pCO2 of 35. Creatinine is 1.1. GFR is 48,000. ALT is 69. Chest x-ray shows worsening in the right lower lobe opacifications. There is stable pulmonary vascular congestion bilaterally. COMORBIDITIES: Chronic obstructive pulmonary disease, systemic lupus, congestive heart failure. The patient's IgG was only marginally decreased, and does not require treatment with IVIG. cc: Mahendra Coffman MD
[2018-09-25] MEDS: LEVAQUIN 250 MG/D5W 250 MG/50 ML IVPB IV SCH (15:35)
[2018-09-25] MEDS: SODIUM CHLORIDE 0.9% INJ SCH (23:02)
[2018-09-26] MEDS: CARAFATE LIQUID NG SCH ×4 (01:21→19:56)
[2018-09-26] MEDS: SOLU-MEDROL IV SCH ×3 (01:21→17:07)
[2018-09-26] MEDS: MORPHINE IV PRN ×3 (01:21→23:00)
--- NOTE | 2018-09-26 01:49 | PULMONOLOGY PROGRESS NOTE ---
DATE: 09/25/2018 SUBJECTIVE: The patient is arousable to alert. She will attempt to follow commands. Her current tube feeds are on hold for anticipated EGD later today. OBJECTIVE: Vital Signs: Maximum temperature in the last 24 hours of 100.0 degrees. Blood pressure 102/79, heart rate 110, respiratory rate 18, oxygen saturation 99%. HEENT: Pupils are equal. Oropharynx appears clear. Neck: Supple. Chest: Reveals scattered rhonchi bilaterally. Cardiac: S1, S2. Abdomen: Soft. Extremities: Reveal 1+ peripheral edema. LABORATORIES: Chest x-ray reveals increased atelectasis at the right base with vascular congestion. White blood count 30,000, hemoglobin 7.5, platelet count 64,000 and increasing. Heparin-induced platelet antibody is negative. Arterial blood gas reveals a pH of 7.45, pCO2 of 35, PO2 of 132. IMPRESSION: A 78-year-old with 1. Pseudomonal fluorescens pneumonia. 2. Bilateral effusions. 3. History of lupus and amiodarone use. Amiodarone has been discontinued due to hypoxemic respiratory failure. 4. Acute hypoxemic respiratory failure. 5. Gastrointestinal bleeding with melanotic stools, esophagogastroduodenoscopy pending. 6. Mitral valve disease. 7. Altered mental status. 8. Acute renal failure. 9. Protein calorie malnutrition. RECOMMENDATION: 1. Restart tube feeds as soon as EGD is complete. 2. Hold weaning and extubation today pending completion of EGD and dialysis. 3. Continue antibiotics for Pseudomonas fluorescens. 4. Recheck sputum for C and S. 5. Hemodialysis as tolerated. 6. Overall prognosis is guarded. TIME SPENT: Critical care 30 plus minutes. cc: Ronald Osuna MD
[2018-09-26] MEDS: XOPENEX NEB INH SCH ×6 (03:28→23:23)
[2018-09-26] MEDS: ATIVAN IV PRN ×2 (04:27→18:45)
[2018-09-26 05:25] LABS: ALLEN TEST YES; BE -2.9 mmoll (-3.0-3.0); BLOOD TYPE ARTERIAL; HCO3-(ACT) 22.6 mmoll (20.0-26.0); METHB 0.8 % (0.0-1.5); MODALITY VENTILATOR; O2(CT) 10.6 mL/dL (15.0-23.0); O2HB 93.9 % (95.0-99.0); PCO2(98.6) 37 mmHg (35-45); PO2(98.6) 65 mmHg (60-100); SAMPLE BLOOD; SAO2 96.2 % (95.0-100.0); SRATE 6 BPM; TVOL 600 mL; pH(98.6) 7.38 (7.35-7.45)
[2018-09-26 05:47] LABS: HEMATOCRIT 22.9 % (37.0-47.0); HEMOGLOBIN 7.6 g/dL (12.0-16.0); MCH 30.2 PG (27-31); MCHC 33.2 g/dL (33-37); MCV 90.9 FL (81-99); MPV 12.5 FL (7.4-10.4); RBC 2.52 XMIL (4.2-5.4); RDW 14.8 % (11.5-14.5); WBC 26.37 X1000 (4.8-10.8)
[2018-09-26 06:12] LABS: ALB/GLOB RATIO 2.1; ALBUMIN 3.5 g/dL (3.5-5.0); CALCIUM 8.4 mg/dL (8.8-10.2); CREATININE 1.9 mg/dL (0.5-0.9); POTASSIUM 3.5 mmol/L (3.5-5.1); TOTAL BILIRUBIN 0.43 mg/dL (0.20-1.00); TOTAL PROTEIN 5.2 g/dL (6.3-8.3)
[2018-09-26] MEDS: CARDIZEM PO SCH ×4 (06:19→23:01)
[2018-09-26] MEDS: SYNTHROID IV SCH (06:19)
[2018-09-26] MEDS: SODIUM CHLORIDE 0.9% INJ PRN (06:20)
[2018-09-26] MEDS ORDERED: NS 2,000 ML MISC PRN (07:02)
--- NOTE | 2018-09-26 07:13 | Diag Imaging Result Doc PS360 ---
EXAM: CHEST-PORTABLE 09/26/2018 HISTORY: respiratory failure TECHNIQUE: AP portable at 0526 COMMENT: There is pleural fluid on the right and hazy interstitial opacity bilaterally. There is an endotracheal tube with its tip at the thoracic inlet and an NG tube which passes below the diaphragm. There is a right-sided PICC line with its tip in the right atrium. Compared to 09/25/2018 there has been no appreciable change. The pleural fluid collection on the right is worse than on 09/24/2018. IMPRESSION: Pulmonary edema and right pleural effusion. Electronically signed by Alfredo Paris 09/26/2018 7:11 AM
[2018-09-26] MEDS: LOPRESSOR PO SCH (08:00)
[2018-09-26] MEDS: PROTONIX IV SCH ×2 (09:04→22:59)
--- NOTE | 2018-09-26 10:37 | PROGRESS NOTE ---
DATE: 09/26/2018 SUBJECTIVE: This patient is still on mechanical ventilation. She move mostly the left side of the body with pain stimulation, a little bit the right lower extremity and I do not see any movement on the right upper extremity. I do believe she has a history of CVA. I am not quite sure if she has right-sided hemiparesis. She had an EGD done yesterday that showed signs of hemorrhagic gastritis. OBJECTIVE: Vital Signs: Temperature 97.2 degrees, pulse 103, respiratory rate 11, blood pressure 91/50, oxygen saturation 98 on mechanical ventilation. HEENT: Head normocephalic, no trauma PERRLA. Neck: Supple. No JVD. No masses. Central trachea. Chest: Coarse breath sounds bilaterally mostly at the bases. Cardiovascular: Irregular rate. Systolic murmur. Abdomen: Soft, nondistended. Positive bowel sounds. Extremities: Trace to 1+ lower extremity edema. No clubbing. No cyanosis. She does have a hematoma at the level of the left hand, dorsal area, looks better compared with yesterday. Neurological: This patient is on mechanical ventilation and sedated. She is grimacing with pain stimulation. She move a little bit her left side of the body but not too much the right side with pain stimulation as well. LABORATORY: WBC 26.3, hemoglobin 7.6, hematocrit 22.9, platelets 44,000. Sodium 134, potassium 3.5, chloride 97, bicarbonate 21, BUN 45, creatinine 1.9, glucose 167, calcium 8.4, AST 24, ALT 58, alkaline phosphatase 76, albumin 3.5. ASSESSMENT AND PLAN: 1. Acute hypoxemic respiratory failure, likely secondary to left-sided pneumonia, bilateral effusion, possible pneumonitis. This patient is still on mechanical ventilation, we will continue with antibiotics. Microbiology showed Pseudomonas fluorescens. Infectious Disease Department on board as well as Pulmonary Department. 2. Left-sided pneumonia, as above. Continue with antibiotics. 3. Gastrointestinal bleed. Esophagogastroduodenoscopy showed evidence of hemorrhagic gastritis. We will continue with pantoprazole and Carafate, continue with feeding tube. 4. Septic shock, likely secondary to pneumonia. She is still on pressors. Continue with the same management for now. Continue with antibiotics as well. 5. Acute kidney injury requiring hemodialysis. She is due for dialysis today. 6. Pleural effusion. Hopefully with dialysis this will get better. 7. History of lupus and amiodarone use, aware. Questionable pneumonitis. She has been placed on steroids by Pulmonary Department. I will wait for more recommendations. 8. Protein calorie malnutrition, moderate, aware. Continue with nutrition through the NG tube. 9. Anemia. We will monitor this closely. We will transfuse as needed. 10. Thrombocytopenia. We will monitor this as well. She had a low fibrinogen a few days ago and she receive cryoprecipitate. so far also, she received 2 units of platelets as well. 11. History of cerebrovascular accident , I am not sure if this patient has a residual weakness due to the cerebrovascular accident. I do not have any family members at the bedside to corroborate this history. We will monitor for now. 12. Her prognosis is guarded. We will continue with the same management. CRITICAL CARE TIME: 40 minutes. cc: Vinod Flor MD
--- NOTE | 2018-09-26 10:42 | PROVIDER PROGRESS NOTE ---
Progress Note SUBJECTIVE: No acute overnight events. Afebrile. Plan for CVVHD per renal team today. Pulmonary doing weaning trial. Tubes feeds are being held. OBJECTIVE: Last Vital Signs Temp 97.8 F 09/26/18 08:00 Pulse 101 H 09/26/18 10:30 Resp 17 09/26/18 10:30 BP 100/69 09/26/18 10:30 Pulse Ox 98 09/26/18 10:30 Height 5 ft 5 in Weight 131 lb 3.2 oz GEN: intubated, sedated HEENT: anicteric, ET tube in place, NGT tube in place NECK: supple, no LAD CV: RRR, no murmurs PULM: vented breath sounds ABD: soft ND, BS present EXT: no c/c NEURO: sedated RECTAL: rectal tube with black/greenish liquid stool LABS: 09/26/18 09/26/18 04:40 04:40 WBC 26.37 H Hgb 7.6 L Plt Count 44 L D Sodium 134 L Potassium 3.5 Chloride 97 L Carbon Dioxide 21 L BUN 45 H D Creatinine 1.9 H Glucose 167 H Total Bilirubin 0.43 AST 24 ALT 58 H Alkaline Phosphatase 76 Total Protein 5.2 L Albumin 3.5 EGD 09/25/2018 POSTOPERATIVE DIAGNOSES: 1. Z-line was at 44 cm. 2. Hemorrhagic gastritis in the body and antrum likely because of stress gastritis. 3. Normal fundus, cardia, and incisura. 4. Evidence of NG tube which was removed during the procedure. 5. Normal duodenal bulb and second portion. 6. A few areas of oozing were noted in the stomach secondary to hemorrhagic gastritis. A/P: Ms. Nayana Espinoza is a 78-year-old woman with h/o atrial fibrillation, on Eliquis; CHF, COPD, CAD s/p stents admitted with hypoxic respiratory failure and septic shock 2/2 aspiration pneumonia on pressors. Course complicated acute kidney injury requiring CVVHD. She also has notable worsening thrombocytopenia and leukocytosis. EGD yesterday showed hemorrhagic gastritis with oozing. No treatable lesions found. #UGIB: 2/2 to hemorrhagic gastritis; continue IV PPI BID, minimize suctioning from NGT, maintain MAPS >60 #Anemia: holding blood thinners, trending H/H, transfuse as needed for hgb <7 to maintain hgb 7-8 #Septic shock: on pressors and abx as per primary team and ID #BRITTNEY: on CVVD per renal #Pneumonia: on abx per ID #Hypoxic respiratory failure: pulmonary following #COPD: noted #Thrombocytopenia: trending platelets; transfuse as needed to maintain platelets >50K in setting of active bleeding #FEN: resume tube feeds when able Will follow with you. Please call with questions.
[2018-09-26 11:58] LABS: ALLEN TEST YES; BE -2.4 mmoll (-3.0-3.0); BLOOD TYPE ARTERIAL; HCO3-(ACT) 23.1 mmoll (20.0-26.0); METHB 0.9 % (0.0-1.5); O2(CT) 11.7 mL/dL (15.0-23.0); O2HB 97.8 % (95.0-99.0); PCO2(98.6) 25 mmHg (35-45); PO2(98.6) 128 mmHg (60-100); SAMPLE BLOOD; SAO2 100.2 % (95.0-100.0); THB 8.3 g/dL (11.5-17.4); pH(98.6) 7.51 (7.35-7.45)
[2018-09-26 11:59] LABS: MODALITY VENTILATOR
[2018-09-26] MEDS: LOPRESSOR IV PRN ×2 (12:03→16:19)
[2018-09-26] MEDS: LEVAQUIN 250 MG/D5W 250 MG/50 ML IVPB IV SCH (15:03)
--- NOTE | 2018-09-26 17:15 | NEPHROLOGY PROGRESS NOTE ---
DATE: 09/26/2018 SUBJECTIVE: Unresponsive on the ventilator. OBJECTIVE: Vital Signs: Blood pressure 100/69, heart rate 101, respirations 17, afebrile. Intake 1.9 L. Output 800 mL but only 35 mL of urine output. Skin: Warm and dry. HEENT: Conjunctivae are pink. Neck: Neck veins are distended. Heart: Irregular and tachycardic. Lungs: Coarse, a few scattered crackles. Abdomen: Soft. Decreased bowel sounds. Extremities: 2+ edema. No clubbing or cyanosis. IMPRESSION: Acute kidney injury. SLED today. Goal of just 1 to 2 L ultrafiltration, 4K bath, 27 bicarbonate. cc: Rolf Jewell MD
--- NOTE | 2018-09-26 18:19 | PULMONOLOGY PROGRESS NOTE ---
DATE: 09/26/2018 SUBJECTIVE: The patient does respond to voice. She does follow a simple command. She does not appear to be in any distress. She has been initiated on hemodialysis. She was on tube feeds overnight. OBJECTIVE: Vital Signs: Maximum temperature in the last 24 hours 98.8, BP 100/69, heart rate 101, respiratory rate 17, oxygen saturation 98%. HEENT: Pupils equal and reactive. Oropharynx appears clear. Neck: Supple. Chest: Reveals rhonchi bilaterally. Cardiac exam: S1, S2. Irregular rhythm. Abdomen: Soft. Extremities: Are warm to the touch. LABORATORIES: White blood count 26,000, hemoglobin 7.6, platelet count 44,000. Sodium 134, potassium 3.5, chloride 97, bicarbonate 21, BUN 45, creatinine 1.9. Arterial blood gas, pH 7.38, pCO2 of 37, pO2 of 65 on 50% FiO2. Chest x-ray reveals stable infiltrates with pleural effusion at the right base. IMPRESSION: A 78-year-old with: 1. Pseudomonal fluorescens pneumonia. 2. Bilateral effusions. 3. History of lupus and amiodarone use. 4. Acute hypoxemic respiratory failure. 5. Gastrointestinal bleeding with gastritis/esophagitis. 6. Altered mental status. 7. Acute renal failure. 8. Mitral valve disease. 9. Protein calorie malnutrition. PLAN: 1. Continue hemodialysis with fluid removal as tolerated. 2. Initiate spontaneous breathing trial today to evaluate for extubation. 3. Await sputum culture results. 4. Tube feeds if not extubated. 5. Prognosis remains guarded. Time spent in critical care management: 30+ minutes cc: Ronald Osuna MD [facility]OSPITALBecky
[2018-09-27] MEDS: ATIVAN IV PRN (01:10)
[2018-09-27] MEDS: SOLU-MEDROL IV SCH ×3 (01:10→18:01)
[2018-09-27] MEDS: CARAFATE LIQUID NG SCH ×4 (01:11→20:01)
[2018-09-27] MEDS: NEO-SYNEPHRINE 50 MG in NS 250 ML IV SCH (01:48)
[2018-09-27] MEDS: XOPENEX NEB INH SCH ×6 (03:17→23:10)
[2018-09-27 04:34] LABS: BLOOD TYPE ARTERIAL; SAMPLE BLOOD
[2018-09-27 04:35] LABS: ALLEN TEST YES; BE -2.8 mmoll (-3.0-3.0); HCO3-(ACT) 22.8 mmoll (20.0-26.0); MODALITY VENTILATOR; O2(CT) 10.8 mL/dL (15.0-23.0); O2HB 97.5 % (95.0-99.0); PCO2(98.6) 28 mmHg (35-45); PO2(98.6) 123 mmHg (60-100); SRATE 6 BPM; THB 7.7 g/dL (11.5-17.4); TVOL 600 mL; pH(98.6) 7.47 (7.35-7.45)
[2018-09-27] MEDS: MORPHINE IV PRN (06:13)
[2018-09-27] MEDS: SYNTHROID IV SCH (06:14)
[2018-09-27] MEDS: CARDIZEM PO SCH ×4 (06:15→23:10)
[2018-09-27] MEDS: SODIUM CHLORIDE 0.9% INJ PRN (06:15)
[2018-09-27 06:32] LABS: HEMATOCRIT 22.2 % (37.0-47.0); HEMOGLOBIN 7.2 g/dL (12.0-16.0); MCH 29.3 PG (27-31); MCHC 32.4 g/dL (33-37); MCV 90.2 FL (81-99); MPV 11.7 FL (7.4-10.4); RBC 2.46 XMIL (4.2-5.4); RDW 15.2 % (11.5-14.5); WBC 28.89 X1000 (4.8-10.8)
[2018-09-27 06:49] LABS: ALB/GLOB RATIO 1.7; ALBUMIN 3.3 g/dL (3.5-5.0); CALCIUM 8.3 mg/dL (8.8-10.2); CREATININE 1.1 mg/dL (0.5-0.9); POTASSIUM 3.8 mmol/L (3.5-5.1); TOTAL BILIRUBIN 0.5 mg/dL (0.20-1.00); TOTAL PROTEIN 5.2 g/dL (6.3-8.3)
[2018-09-27] MEDS: LOPRESSOR PO SCH (08:26)
--- NOTE | 2018-09-27 08:45 | Diag Imaging Result Doc PS360 ---
CHEST-PORTABLE - 09/27/2018 INDICATION: respiratory failure COMPARISON: 09/26/2018 FINDINGS: Support lines and tubes are stable and in good position. Stable cardiomegaly and pulmonary vascular congestion. Stable bilateral pleural effusions right greater than left. There has been significant improvement in the central interstitial pulmonary edema. IMPRESSION: Improved pulmonary edema. No new abnormalities. Electronically signed by Earl Buckley 09/27/2018 8:42 AM
[2018-09-27] MEDS: PROTONIX IV SCH ×2 (09:40→23:10)
[2018-09-27] MEDS: SODIUM CHLORIDE 0.9% INJ SCH (09:40)
[2018-09-27] MEDS: LOPRESSOR IV PRN ×4 (09:41→20:01)
--- NOTE | 2018-09-27 10:22 | PROGRESS NOTE ---
DATE: 09/27/2018 SUBJECTIVE: This patient is still on mechanical ventilation, she is grimacing with pain stimulation but she is not moving too much. I believe it is because she recently had a dose of morphine, we will continue with same management. Hemoglobin and hematocrit dropping so I will give her a unit of blood. OBJECTIVE: Vital Signs: Temperature 98 degrees, pulse 115, respiratory rate 11, blood pressure 91/69, oxygen saturation 100% on mechanical ventilation. HEENT: Head normocephalic, no trauma. PERRLA. Neck: Supple. No JVD. No masses. Central trachea. Chest: Coarse breath sounds, mostly at the bases. Cardiovascular: Irregular rate. Systolic murmur. Abdomen: Soft, nontender, nondistended. Positive bowel sounds. Extremities: Trace lower extremity edema. No clubbing. No cyanosis. She does have a hematoma at the level of the left hand, dorsal area, but is looking better today. Neurological: This patient is on mechanical ventilation, she recently received a dose of morphine. She is grimacing with pain stimulation. LABORATORY DATA: WBC 28.8, hemoglobin 7.2, hematocrit 22.2, platelets 99,000. Sodium 139, potassium 3.8, chloride 106, bicarbonate 20, BUN 22, creatinine 1.1, glucose 166, calcium 8.3. AST 25, ALT 50, alkaline phosphatase 79, and albumin 3.3. ASSESSMENT AND PLAN: 1. Acute hypoxemic respiratory failure, likely secondary to left-sided pneumonia, bilateral effusion and possible pneumonitis. Continue with mechanical ventilation. We will continue with antibiotics. Infectious Disease Department on board as well as Pulmonary Department. Microbiology showed Pseudomonas fluorescens. 2. Left-sided pneumonia, as above, continue antibiotics. 3. Gastrointestinal bleed, EGD showed evidence of hemorrhagic gastritis. We will continue with pantoprazole and Carafate. Continue with feeding tube. 4. Septic shock, likely secondary to pneumonia. She has been on pressor. Continue with same management for now. 5. Acute kidney injury requiring dialysis, 2 L of fluid has been removed yesterday. We will continue with dialysis as scheduled. 6. Anemia. Hemoglobin and hematocrit has been dropping, so I will give her a unit of PRBC and I will monitor. 7. History of lupus and amiodarone use, aware. Questionable pneumonitis, she has been placed on steroids by Pulmonary Department. I will wait for more recommendations. 8. Protein calorie malnutrition, moderate. Aware. Continue with feeding tube. 9. Thrombocytopenia, look this is better. We will continue to monitor. 10. History of cerebrovascular accident, I am not quite sure if she has a residual right-sided weakness, but we will continue to monitor. 11. Prognosis is guarded, but will continue with the same management. For now she is Full Code. CRITICAL CARE TIME: 35 minutes. cc: Vinod Flor MD
[2018-09-27 10:53] LABS: ALLEN TEST YES; BE -4.5 mmoll (-3.0-3.0); BLOOD TYPE ARTERIAL; HCO3-(ACT) 21.4 mmoll (20.0-26.0); METHB 1.2 % (0.0-1.5); O2(CT) 10.5 mL/dL (15.0-23.0); O2HB 95.8 % (95.0-99.0); PCO2(98.6) 28 mmHg (35-45); PO2(98.6) 74 mmHg (60-100); SAMPLE BLOOD; SAO2 98.9 % (95.0-100.0); THB 7.7 g/dL (11.5-17.4); pH(98.6) 7.44 (7.35-7.45)
[2018-09-27 10:55] LABS: MODALITY VENTILATOR
[2018-09-27] MEDS ORDERED: NS 500 ML IV SCH (11:30)
[2018-09-27] MEDS ORDERED: LASIX IV ONE (11:43)
[2018-09-27] MEDS: LEVAQUIN 250 MG/D5W 250 MG/50 ML IVPB IV SCH (16:04)
--- NOTE | 2018-09-27 17:11 | INFECTIOUS DISEASE PROGRESS NO ---
DATE: 09/27/2018 PRESENT ILLNESS: The patient has a Pseudomonas fluorescens pneumonia. She also has a leukocytosis but I think this is mostly due the fact that she is on high doses of steroids. MEDICATIONS: This is the 3rd day of treatment with Levaquin. PHYSICAL EXAMINATION: Temperature maximum was 100.4, it is 98.8 now, pulse 114, respirations 21, blood pressure 108/68.General: This is an ill-appearing elderly female. She is intubated and sedated. Head/eyes/ears/nose/throat: Orotracheal tube is in place. Nasogastric tube is in place. There is no drainage from the nose or ears. Neck: Supple. Moving her head did not seem to cause the patient to have any pain. Lungs: Clear to auscultation. Cardiovascular: The patient's heart rate is at times regular and other times it is irregular and looking like atrial fibrillation. Abdomen: Soft and nontender. Extremities: The patient has a PICC in the right arm and catheter also in the right groin. Both sites are not erythematous or purulent. Her left arm has what appears to be a hematoma that is spreading in the arm. Neurologic: As mentioned above, the patient is sedated. She did not respond to verbal stimuli. She does not have a tremor. LAB AND X-RAY: The patient's CBC shows a white count of 28,890, hemoglobin 7.2, and platelet count 99,000. Blood gases show a pH of 7.47, a PO2 of 123 and a pCO2 of 28. Creatinine is 1.1. GFR is 48. ALT is 50. Chest x-ray shows improvement in the patient's infiltrate. ASSESSMENT AND PLAN: The patient has a Pseudomonas fluorescence pneumonia. I plan on continuing Levaquin. The leukocytosis I think is mostly due to the high dose of steroids the patient is getting. As regarding her left arm, I have discussed it with Dr. Smart and he is going to order an ultrasound to see if we can product picker where the bleeding is in the left arm. COMORBIDITIES: Chronic obstructive pulmonary disease, systemic lupus, congestive heart failure, the patient had a slightly decreased IgG level of 614. I do not think this is clinically significant and I do not think it merits getting IVIG. cc: Mahendra Coffman MD
--- NOTE | 2018-09-27 18:10 | PULMONOLOGY PROGRESS NOTE ---
DATE: 09/27/2018 SUBJECTIVE: The patient is arousable. She will follow simple commands. OBJECTIVE: Vital Signs: BP 108/60, heart rate 114, respiratory rate 21, oxygen saturation 95%. HEENT: Pupils are equal and reactive. Oropharynx appears clear. Neck: Supple. Chest: Reveals decreased breath sounds, right greater than left base. Cardiac exam: S1, S2 with increased rate and a regular rhythm. Abdomen: Soft. Extremities: Reveal decreased edema. LABORATORIES: Sputum culture requires additional incubation. White blood count 28,000, hemoglobin 7.2, platelet count 99,000. Arterial blood gas: PH 7.47, pCO2 of 28, pO2 of 123. Sodium 139, potassium 3.8, chloride 106, bicarbonate 20, BUN 22, creatinine 1.1. Chest x-ray reveals right greater than left effusion, cardiomegaly, and decreasing edema. IMPRESSION: A 78-year-old with: 1. Pseudomonal fluorescens pneumonia. 2. Acute hypoxemic respiratory failure. 3. Bilateral effusions. 4. History of amiodarone use and lupus use with nonspecific bilateral pneumonitis. 5. Altered mental status. 6. Mitral valve disease. 7. Protein calorie malnutrition. 8. Gastrointestinal bleeding with gastritis/esophagitis. PLAN: 1. Initiate spontaneous breathing trial and evaluate potential for extubation today. 2. Hemodialysis p.r.n. nephrology recommendations. 3. Continue to await current sputum results. 4. Guarded prognosis. Time spent in critical care management: 30+ minutes cc: Ronald Osuna MD MTDD
[2018-09-27] MEDS: TYLENOL PO PRN (20:01)
--- NOTE | 2018-09-27 22:25 | GASTROENTEROLOGY PROGRESS NOTE ---
DATE: 09/27/2018 SUBJECTIVE: The patient is resting in bed. She was just extubated today. She is on a face mask. She is able to answer to her name, but it is very hard to understand her. She is still drowsy. Her NG tube feedings have been held according to the nursing staff. She denies any nausea, vomiting, or vomiting blood. OBJECTIVE: Vital Signs: Temperature is 98.3, pulse of 135, respiratory rate 20, blood pressure 104/68, O2 saturation 93% on mask at 10 L/minute of oxygen. Body weight of 135 pounds 8 ounces. BMI 22.4 kg/m2. General: She is thinly built, lying in bed, in no acute distress. HEENT: Pale conjunctivae. Face mask in clean. No icterus. Neck: Supple. Abdomen: Protuberant, soft, nondistended. No guarding. Extremities: No cyanosis or clubbing. Rectal: She has a rectal tube in place. She has dark stool in the rectal vault. Neurologic: She is drowsy, was able to answer to her name, but other than that she is not able to answer any other questions. LABORATORY DATA: Hemoglobin and hematocrit is 7.2 and 22.2, white count of 28.8, platelet count of 99,000. ABG showed a pH of 7.4, pCO2 of 28, PO2 of 71, this is on a ventilator at 40% FiO2. Sodium 139, potassium 3.8, chloride of 106, bicarbonate of 20, anion gap of 13, BUN of 22, creatinine 1.1, glucose of 166, calcium 8.3, bilirubin is 0.5, AST 25, ALT 50, alkaline phosphatase 79, total protein is 5.2, albumin of 3.3. Sputum culture more incubation required, and stool for occult blood on 09/21/2018 is positive. Last transfusion was today, and she was also given platelets yesterday. IMAGING DATA: Chest x-ray done today showed improved pulmonary edema, no new abnormalities. IMPRESSION AND PLAN: 1. Upper gastrointestinal bleed second to hemorrhagic gastritis. We will continue intravenous proton pump inhibitors twice a day. Continue to watch hemoglobin and hematocrit and transfuse as needed. 2. Anemia. Continue to watch for now. Transfuse as needed. Keep the hemoglobin between 7 to 8 g/dL. 3. Septic shock. Being managed by the primary team. She is on antibiotics. 4. Acute kidney injury. Being followed by the Nephrology team. 5. Thrombocytopenia. She was given last platelet transfusion yesterday. We will need to try to keep her platelet count above 50,000. 6. We need to resume her tube feeds once she is more awake, and we need to keep her on aspiration precautions. 7. Pneumonia. She is on antibiotics per Infectious Disease. 8. Hypoxic respiratory failure. Pulmonary is following. She was just extubated today. 9. History of atrial fibrillation. 10. Congestive heart failure. 11. Chronic obstructive pulmonary disease. 12. Coronary disease status post stent. 13. Aspiration pneumonia. Aware. 14. We will follow along. The above plans were discussed with the patient at bedside and all questions were answered. Please call us with any further questions. cc: MD Vinod De Leon MD
--- NOTE | 2018-09-27 22:50 | NEPHROLOGY PROGRESS NOTE ---
DATE: 09/27/2018 SUBJECTIVE: She has been extubated since I saw her last. She moans and turns her head toward me but she did not really answer my questions. OBJECTIVE: Vital signs: Blood pressure 129/77, heart rate 107, respirations 19, afebrile. General: As above skin is warm and dry. HEENT: Conjunctivae are pink. She has bruising. Neck: Veins are not distended. Cardiovascular: Heart is irregular and tachycardic. Lungs: Equal breath sounds, coarse, a few rhonchi. Abdomen: Soft and nontender. Bowel sounds are present. Extremities: With 2+ edema. No clubbing or cyanosis. IMPRESSION AND PLAN: Acute kidney injury. She underwent sustained low efficiency dialysis on yesterday. Volume status is acceptable by my examination. Electrolytes and acid-base are in target. Next treatment on Saturday if appropriate. cc: Rolf Jewell MD
[2018-09-28] MEDS: MORPHINE IV PRN ×8 (00:20→22:47)
[2018-09-28] MEDS: XOPENEX NEB INH SCH ×6 (03:04→23:07)
[2018-09-28] MEDS: CARAFATE LIQUID NG SCH ×4 (03:31→20:20)
[2018-09-28] MEDS: SOLU-MEDROL IV SCH ×2 (03:31→09:57)
[2018-09-28 04:48] LABS: ALLEN TEST YES; BE -6.6 mmoll (-3.0-3.0); BLOOD TYPE ARTERIAL; HCO3-(ACT) 19.8 mmoll (20.0-26.0); PCO2(98.6) 28 mmHg (35-45); PO2(98.6) 111 mmHg (60-100); SAMPLE BLOOD; SRATE 14 BPM; pH(98.6) 7.39 (7.35-7.45)
[2018-09-28 04:49] LABS: MODALITY BI PAP
[2018-09-28 05:09] LABS: HEMATOCRIT 27.3 % (37.0-47.0); HEMOGLOBIN 9.2 g/dL (12.0-16.0); MCHC 33.7 g/dL (33-37); MCV 88.9 FL (81-99); MPV 11.9 FL (7.4-10.4); RBC 3.07 XMIL (4.2-5.4); RDW 15.1 % (11.5-14.5); WBC 31.1 X1000 (4.8-10.8)
[2018-09-28 05:29] LABS: ALBUMIN 3.4 g/dL (3.5-5.0); CALCIUM 8.5 mg/dL (8.8-10.2); CREATININE 1.8 mg/dL (0.5-0.9); POTASSIUM 4.4 mmol/L (3.5-5.1); TOTAL BILIRUBIN 0.56 mg/dL (0.20-1.00); TOTAL PROTEIN 5.1 g/dL (6.3-8.3)
[2018-09-28] MEDS: SODIUM CHLORIDE 0.9% INJ PRN (06:05)
[2018-09-28] MEDS: CARDIZEM PO SCH ×3 (06:05→17:12)
[2018-09-28] MEDS: SYNTHROID IV SCH (06:06)
--- NOTE | 2018-09-28 07:47 | Diag Imaging Result Doc PS360 ---
CHEST-PORTABLE - 09/28/2018 INDICATION: respiratory failure COMPARISON: 09/27/2018 FINDINGS: The endotracheal tube is no longer visible. Stable nasogastric tube in good position. Stable right PICC line. There is severe worsening airspace infiltrate throughout the left lung diffusely. There is been some improvement in the right basilar consolidation or atelectasis. There are small bilateral pleural effusions. Stable cardiomegaly and pulmonary vascular congestion. IMPRESSION: 1. Endotracheal tube removed. 2. Severe worsening in airspace infiltrate throughout the central left lung. This does not appear to represent atelectasis. 3. Improved aeration of the right lower lobe. Electronically signed by Earl Buckley 09/28/2018 7:45 AM
--- NOTE | 2018-09-28 08:04 | PROGRESS NOTE ---
DATE: 09/28/2018 SUBJECTIVE: This patient has been extubated yesterday. At this moment, she is on the BiPAP machine because she started having low oxygen saturation during the night. She is not following commands for me, but occasionally she answers questions with a yes or no, but is not consistent. OBJECTIVE: Vital Signs: Temperature 96.7 degrees, pulse 122, respiratory rate 19, blood pressure 118/78, oxygen saturation 100% on the BiPAP machine. HEENT: Head normocephalic, no trauma. PERRLA. Neck: Supple. No JVD. No masses. Central trachea. Chest: Coarse breath sounds, mostly at the bases, with some crepitus as well. Cardiovascular: Irregular rate. Systolic murmur. Abdomen: Soft. I am not quite sure if she is having tenderness to palpation. It is nondistended. Positive bowel sounds. Extremities: Trace pedal edema. No clubbing. No cyanosis. She has had a hematoma develop of the left hand on the dorsal area, but it is about the same compared with yesterday. Her left upper extremity looks a bit more swollen compared with the right arm. Neurological: The patient is alert. She opens her eyes spontaneously and also when I called her name. She moves all 4 extremities spontaneously, mostly her left side. She is not following commands for me, and she is answering some simple questions with a yes or no, but is not consistent. LABORATORY: WBC 31, hemoglobin 9.2, hematocrit 27.3, and platelets 88,000. Sodium 136, potassium 4.4, chloride 103, bicarbonate 19, BUN 47, creatinine 1.8, glucose 116, calcium 8.5. AST 25, ALT 60, alkaline phosphatase 79, and albumin 3.4. ASSESSMENT AND PLAN: 1. Acute hypoxemic respiratory failure, likely secondary to left-sided pneumonia, bilateral effusion, and possible pneumonitis. Patient has been extubated yesterday. During the night, it looks like this patient started having low oxygen saturation. She was placed on the BiPAP machine. Will continue to monitor. Pulmonary Department on board. 2. Left-sided pneumonia. We do have a sputum culture that showed Pseudomonas fluorescens. We will continue with antibiotics. Infectious Disease Department on board. 3. Gastrointestinal bleed. Esophagogastroduodenoscopy showed evidence of hemorrhagic gastritis. We will continue with pantoprazole and Carafate. Continue with feeding tube. Gastroenterology Department on board. 4. Septic shock, likely secondary to pneumonia. She has been on pressors before. We will continue with the same management for now. 5. Acute kidney injury, requiring dialysis. Continue with dialysis as scheduled. 6. Anemia. Hemoglobin and hematocrit dropped to 7.2 and after 1 unit of packed red blood cells, it increased to 9.2. For now, I will monitor. 7. History of lupus and amiodarone use. Aware. Questionable pneumonitis. She has been placed on steroids by Pulmonary Department. I will wait for more recommendations. Continue with antibiotics as well. 8. Protein-calorie malnutrition, moderate. Aware. Continue with feeding tube. 9. Thrombocytopenia, stable. Continue to monitor. 10. History of cerebrovascular accident. Aware. Probably, she has some residual weakness on the right side, but not sure. 11. Prognosis is guarded. We will continue with the same management. For now, this patient is Full Code. CRITICAL CARE TIME: 35 minutes. cc: Vinod Flor MD
[2018-09-28] MEDS: LOPRESSOR PO SCH (08:30)
[2018-09-28] MEDS: PROTONIX IV SCH ×2 (09:57→22:14)
[2018-09-28] MEDS: SODIUM CHLORIDE 0.9% INJ SCH ×2 (09:57→22:15)
[2018-09-28] MEDS ORDERED: AZACTAM 1 GM in NS 50 ML IV SCH (10:45)
--- NOTE | 2018-09-28 11:22 | INFECTIOUS DISEASE PROGRESS NO ---
DATE: 09/28/2018 HISTORY OF PRESENT ILLNESS: The patient is being treated for a Pseudomonas fluorescence pneumonia. She does have leukocytosis, but I think part or most of the leukocytosis is due to the fact that the patient is on high doses of steroids. Unfortunately, the patient's chest x-ray shows worsening of the left lung infiltrates. The patient is on Levaquin to treat the Pseudomonas fluorescence presumed pneumonia, but it does not seem to be improving the pneumonia. A sputum culture is growing gram-negative stefano which has not yet been identified. MEDICATION: My plan is to continue Levaquin and then start the patient on aztreonam. The patient unfortunately has a severe penicillin allergy which is anaphylaxis. Therefore, I am very hesitant to give the patient a penicillin or cephalosporin or a carbapenem antibiotic with that penicillin allergy being anaphylaxis. I have ordered Aztreonam. The patient's sputum Gram negative stefano should be identified and hopefully the susceptibility will be done by tomorrow. PHYSICAL EXAMINATION: Vital Signs: Temperature is 99 degrees, pulse 104, respirations 16, blood pressure 114/75. General: This is an ill-appearing elderly female. She is wearing a BiPAP mask today and she does appear to be dyspneic at rest. Neck: No meningismus. Lungs: There were rales heard on the left side. The right side was clear. Cardiovascular: Heart rate is regular. Abdomen: Soft and nontender. Extremities: The patient's left arm has a hematoma in it which has spread a little bit. She has a PICC in her right arm. That site is not erythematous or purulent. She does have in the right groin a Vas-Cath for dialysis. That site also does not show any erythema or drainage. Neurologic: The patient is somewhat delirious. She did not follow request to move her extremities. LABS AND X-RAY: The patient's CBC shows a white count of 31,100, hemoglobin 9.2, platelet count 88,000. Blood gases show a pH of 7.39, a PO2 of 111, a pCO2 of 28. Creatinine is 1.8. GFR is 27. ALT is 60. Sputum is growing gram-negative stfeano. Chest x-ray shows severe worsening of the left lung infiltrate. ASSESSMENT AND PLAN: The patient appears to have pneumonia with Pseudomonas fluorescens. I plan to keep the patient on Levaquin for now. The patient has a new sputum culture which is growing a gram-negative stefano. I have added aztreonam for this. As mentioned above, because the patient has anaphylaxis with penicillin, I am very hesitant to place the patient on a cephalosporin or carbapenem antibiotic. COMORBIDITIES: She has chronic obstructive pulmonary disease, congestive heart failure. Her IgG level is 614. I do not think this is clinically significant and I do not think it requires giving the patient IVIG. As regarding the patient's leukocytosis, I think in part or possibly more that the steroids are causing the patient to have a leukocytosis but with the chest x-ray worsening, there could be another pulmonary infection and that too would cause the patient to have leukocytosis. cc: Mahendra Coffman MD MTDD
--- NOTE | 2018-09-28 11:26 | PULMONOLOGY PROGRESS NOTE ---
DATE: 09/28/2018 SUBJECTIVE: The patient has continuous moaning. She cannot answer questions. She cannot indicate where she might be in pain. The patient's oxygen requirements increased last evening requiring re-initiation of BiPAP support. OBJECTIVE: Vital Signs: The patient has been afebrile over the last 24 hours. Blood pressure 114/75, heart rate 104, respiratory rate 16, oxygen saturation 93% on BiPAP. HEENT: Pupils are equal and reactive. Oropharynx appears clear, but evaluation is limited with BiPAP in place. Neck: Supple. Chest: Reveals rhonchi bilaterally. Cardiac exam: Increased rate, S1, S2. Abdomen: Soft with positive bowel sounds. Extremities: Without increased edema. LABORATORY DATA: Chest x-ray reveals markedly increased infiltrate involving the left lung. Arterial blood gas: pH 7.31, pCO2 of 92, PO2 of 88. Chemistries: Sodium 136, potassium 4.4, chloride 103, bicarbonate 19, BUN 47, creatinine 1.8. White blood count elevated at 31,000, hemoglobin 9.2, platelet count 88,000. IMPRESSION: A 78-year-old with 1. Pseudomonal fluorescens pneumonia with repeat sputum culture continuing to grow gram-negative stefano. 2. Acute hypoxemic respiratory failure. 3. Recurrent pneumonia. 4. Bilateral effusions. 5. History of amiodarone use and nonspecific pneumonitis. 6. Altered mental status. 7. Mitral valve disease. 8. Gastrointestinal bleeding with gastritis and esophagitis. 9. Protein calorie malnutrition. RECOMMENDATIONS: 1. Begin steroid weaning. The patient's chest x-ray had nearly cleared and changes are not likely related to lupus or to amiodarone. 2. Hold tube feedings pending improvement in respiratory status. 3. Await new sputum cultures. 4. Prognosis is poor given hospital day #20 with continued respiratory decline. Family is coming in later today and discussion needs to be held and if she fails BiPAP that she go back on mechanical ventilation. cc: Ronald Osuna MD
[2018-09-28] MEDS: AZACTAM 1 GM in NS 50 ML IV SCH ×2 (11:44→17:59)
[2018-09-28] MEDS: LEVAQUIN 250 MG/D5W 250 MG/50 ML IVPB IV SCH (15:52)
[2018-09-28] MEDS ORDERED: OFIRMEV 1000 MG/ISOTONIC SOLN 1,000 MG/100 ML BOTTLE IV ONE (22:28)
[2018-09-29] MEDS: CARDIZEM PO SCH ×5 (01:00→23:21)
[2018-09-29] MEDS: MORPHINE IV PRN ×3 (01:28→15:39)
[2018-09-29] MEDS: CARAFATE LIQUID NG SCH ×4 (02:39→20:17)
[2018-09-29] MEDS: AZACTAM 1 GM in NS 50 ML IV SCH ×2 (02:39→10:32)
[2018-09-29] MEDS: XOPENEX NEB INH SCH ×6 (02:54→23:20)
--- NOTE | 2018-09-29 04:31 | GASTROENTEROLOGY PROGRESS NOTE ---
DATE: 09/28/2018 SUBJECTIVE: The patient is resting in bed. She is on a BiPAP mask. Her respiratory status has deteriorated. Pulmonary team is on board. Her NG tube is on hold. No active GI bleeding noted. She had a rectal tube which is having liquid brown stool. Her H and H today is improved. She did receive a blood transfusion yesterday. OBJECTIVE: Vital signs: Temperature of 98.5 degrees, pulse rate 120, respiratory rate 22, blood pressure 127/84, oxygen saturation 90% on BiPAP. Body weight of 139 pounds 6.4 ounces. BMI 23.2 kg/m2. General: Thinly built, lying in bed, currently on BiPAP mask. HEENT: Positive pallor. No icterus. Face mask in place. Neck: Supple. Abdomen: Soft, nondistended, no guarding. Extremities: No cyanosis or clubbing. Rectal: She has a rectal tube in place. Neurologic: She is drowsy. She does not answer any questions. LABORATORY DATA: Hemoglobin and hematocrit is 9.2 and 27.3, white count of 31.1, platelet count of 88,000. ABG: pH of 7.39, pCO2 of 28, PO2 of 111, this is on FiO2 of 70%. Sodium of 132, potassium 4, chloride 103, bicarbonate of 99, BUN of 47, creatinine 1, glucose of 116, calcium is 8.5, total bilirubin is 0.56, AST 25 ALT 60, alkaline phosphatase is 79, total protein 5.2, albumin of 3.4. Her platelet count is improving. Her sputum culture is showing gram-negative rods from 09/26/2018. Last stool occult blood from 09/15/2018 was positive. IMPRESSION AND PLAN: 1. Pseudomonas pneumonia, acute respiratory failure, and recurrent pneumonia causing respiratory distress. She is on a bilevel positive airway pressure mask. Pulmonary team is on board. 2. Melena. Continue to watch her hemoglobin and hematocrit, it has improved. We will continue to transfuse as needed. We will keep her on proton pump inhibitors twice a day. 3. Altered mental status likely secondary to respiratory failure and hypoxemia. 4. Protein calorie malnutrition. Continue to hold tube feeds for now until improvement in respiratory status. 5. Continue antibiotics per Dr. Coffman. 6. Septic shock and leukocytosis secondary to pneumonia and sepsis. This is being managed by primary team and critical care team. 7. Anemia. Continue to watch for now and transfuse as needed. 8. Protein calorie malnutrition. She may need be started on intravenous proton pump inhibitors peripheral parenteral nutrition or total parenteral nutrition if her tube feeds are to be held for longer. We will leave it to the discretion of primary team and critical care team. 9. Thrombocytopenia is improving. Continue watch for now. 10. The above plans were discussed with the patient's nurse at bedside and all questions were answered. I will be available if needed. I will sign off at this time. Please call us with any further questions. cc: MD Vinod De Leon MD
[2018-09-29 04:37] LABS: ALLEN TEST YES; BE -8.6 mmoll (-3.0-3.0); BLOOD TYPE ARTERIAL; HCO3-(ACT) 18.2 mmoll (20.0-26.0); METHB 0.9 % (0.0-1.5); O2(CT) 13.8 mL/dL (15.0-23.0); O2HB 96.7 % (95.0-99.0); PCO2(98.6) 31 mmHg (35-45); PO2(98.6) 112 mmHg (60-100); SAMPLE BLOOD; TVOL 14 mL; pH(98.6) 7.33 (7.35-7.45)
[2018-09-29 04:38] LABS: MODALITY BI PAP
[2018-09-29] MEDS: SYNTHROID IV SCH (06:09)
[2018-09-29 06:35] LABS: HEMATOCRIT 24.8 % (37.0-47.0); HEMOGLOBIN 8.1 g/dL (12.0-16.0); MCHC 32.7 g/dL (33-37); MCV 91.9 FL (81-99); MPV 12.4 FL (7.4-10.4); RBC 2.7 XMIL (4.2-5.4); RDW 15.5 % (11.5-14.5); WBC 21.26 X1000 (4.8-10.8)
--- NOTE | 2018-09-29 06:35 | Diag Imaging Result Doc PS360 ---
CHEST-PORTABLE - 09/29/2018 INDICATION: respiratory failure COMPARISON: 09/28/2018 FINDINGS: Support lines and tubes are stable. Stable significant cardiomegaly and pulmonary vascular congestion. There has been slight decrease in the density of the extensive left-sided infiltrate. There are small bilateral pleural effusions, stable from prior. IMPRESSION: Slight decrease in density of the extensive left perihilar infiltrate/pneumonia. Electronically signed by Earl Buckley 09/29/2018 6:33 AM
[2018-09-29 07:17] LABS: POTASSIUM 5.9 mmol/L (3.5-5.1)
[2018-09-29 07:18] LABS: ALB/GLOB RATIO 1.7; ALBUMIN 3.1 g/dL (3.5-5.0); CALCIUM 7.1 mg/dL (8.8-10.2); CREATININE 2.5 mg/dL (0.5-0.9); TOTAL BILIRUBIN 0.43 mg/dL (0.20-1.00); TOTAL PROTEIN 4.9 g/dL (6.3-8.3)
[2018-09-29] MEDS ORDERED: NS 2,000 ML MISC PRN (07:56)
[2018-09-29] MEDS: HYDROCODONE/APAP 7.5-325/15 ML PO PRN ×4 (08:05→20:18)
[2018-09-29] MEDS: PROTONIX IV SCH ×2 (08:12→20:17)
[2018-09-29] MEDS: SOLU-MEDROL IV SCH (08:12)
[2018-09-29] MEDS: LOPRESSOR PO SCH (08:13)
--- NOTE | 2018-09-29 08:17 | PROGRESS NOTE ---
DATE: 09/29/2018 SUBJECTIVE: The patient had been extubated 2 days ago. She is still on the BiPAP machine. She is still complaining of pain even though she has been getting morphine every 2 hours as needed. I will put her on Hustler liquid through the NG tube to see if that can help her pain. Today, she is answering a little bit more of my questions by saying yes or no. She squeezed my hand 2 times but she is not consistent. We will continue with the same management. OBJECTIVE: Vital Signs: Temperature 98.1 degrees, pulse 138, respiratory rate 20, blood pressure 131/79, oxygen saturation 93 on the BiPAP machine. HEENT: Head normocephalic. No trauma. PERRLA. Neck: Supple. No JVD. No masses. Central trachea. Chest: Coarse breath sounds, mostly at the bases, with crepitus as well. Cardiovascular: Irregular rate. Systolic murmur. Abdomen: Soft. I am not sure if she is having tenderness to palpation since she is complaining of generalized pain. It is nondistended. Positive bowel sounds. Extremities: Trace pedal edema. No clubbing. No cyanosis. She has a hematoma at the level of the left hand dorsal area about the same compared with yesterday and her left upper extremity looks a little bit more swollen compared with the right arm. Neurological Examination: This patient is alert. She opens her eyes spontaneously and also when I call her name. She moves all 4 extremities spontaneously, mostly the left side. She is not following commands consistently but I feel she is responding a little bit better compared with yesterday. She is answering some simple questions with yes or no but, again, is not consistent. Laboratory: WBC 21.2, hemoglobin 8.1, hematocrit 24.8, platelets 66,000. Sodium 136, potassium 5.9, chloride 105, bicarbonate 17, BUN 66, creatinine 2.5, glucose 113, calcium 7.1. AST 24, ALT 54, alkaline phosphatase 70, albumin 3.1. ASSESSMENT AND PLAN: 1. Acute hypoxemic respiratory failure, likely secondary to left-sided pneumonia, bilateral effusion, and possible pneumonitis. The patient had been extubated 2 days ago. At this moment, she is on the BiPAP machine. We will continue to monitor. Pulmonary department on board. 2. Left-sided pneumonia with a positive culture that showed Pseudomonas fluorescens. We will continue with antibiotics per infectious disease department. 3. Gastrointestinal bleed. Esophagogastroduodenoscopy showed hemorrhagic gastritis. We will continue with pantoprazole and Carafate. I transfused this patient a couple days ago. Gastroenterology department on board. 4. Septic shock, likely secondary to pneumonia. Continue with the same management for now. 5. Acute kidney injury with no recovery. She is requiring dialysis. She is due for dialysis today. 6. Hyperkalemia. She will go for dialysis today. Hopefully, the potassium will get better. 7. Anemia, status post 1 unit of packed red blood cells a couple days ago. Hemoglobin decreased a little bit compared with yesterday but, at this point, we will just monitor. 8. History of lupus and amiodarone use, aware. Questionable pneumonitis. She has been placed on steroids by pulmonary department and the dose has been decreased. We will continue with the same management. 9. Leukocytosis, decreased compared with yesterday. Likely, this is multifactorial, related to steroid use and the infectious process. 10. Protein calorie malnutrition, moderate, aware. Continue with feeding tube. 11. Thrombocytopenia, stable. Continue to monitor. 12. History of cerebrovascular accident, aware. 13. Prognosis is guarded. We will continue with the same management for now. Family has requested to talk to pulmonary department today by phone. It looks like they cannot come in during the morning. CRITICAL CARE TIME: 35 minutes. cc: Vinod Flor MD
--- NOTE | 2018-09-29 10:13 | NEPHROLOGY PROGRESS NOTE ---
DATE: 09/29/2018 SUBJECTIVE: Patient currently on BiPAP. She opens her eyes and moans, but does not respond appropriately otherwise. OBJECTIVE: Vital Signs: Temperature 98.1, pulse 138, respiratory rate 15, blood pressure 107/84. Intake not measured. Output 350 mL. General: This is an elderly female, resting in bed. She is currently on BiPAP. She is awake. HEENT: Normocephalic, atraumatic. Conjunctivae are pink. She has a BiPAP mask in place. Neck: Supple. There is no JVD. Cardiovascular: She continues with a tachycardic rate and regular rhythm. Pulmonary: She has rhonchi bilaterally. Decreased breath sounds posterior. Abdomen: Soft, positive bowel sounds. Genitourinary: Knapp catheter. Extremities: She continues with 1+ edema. Her left upper extremity with a large hematoma to the back of the hand and significant bruising from. Integumentary: Skin is thin, pale, otherwise. LAB DATA: WBC of 21.2, hemoglobin 8.1, sodium 136, potassium 5.9, CO2 19, creatinine 2.5. ASSESSMENT AND PLAN: Acute kidney injury. Her creatinine has risen over the weekend without dialysis. We will dialyze her with SLED today. We will only have a goal of 1 to 2 L UF removal. She will dialyze on a 4 K bath/normal sodium bath and 27 bicarb. Dictated by STACIE Ross for Rolf Jewell MD Face to face encounter, data reviewed, discussed with Piedad Delgado on 09/29/18. I agree with the above assessment and plan of care. cc: Rolf Jewell MD [facility]
--- NOTE | 2018-09-29 13:20 | INFECTIOUS DISEASE PROGRESS NO ---
DATE: 09/29/2018 PRESENT ILLNESS: Patient has a Pseudomonas fluorescence pneumonia. MEDICATIONS: The patient has been started on Levaquin. This is day #5 of treatment. Yesterday, she was started on a aztreonam. PHYSICAL EXAMINATION: Vital Signs: Temperature is 99.5, pulse 83, respirations 16, blood pressure 110/55. General: This is an ill-appearing elderly female. She is wearing a BiPAP mask and seems to be dyspneic at rest. Head, Eyes, Ears, Nose and Throat: No drainage noted from the nose or ears. I could not get a good look in her mouth. Neck: No meningismus. Lungs: Clear to auscultation. The lungs are clear to auscultation. Cardiovascular: Heart rate is regular. Abdomen: Soft and nontender. Extremities: The patient has a PICC in her right arm and in her right groin she has a dialysis catheter in place. Both sites are not erythematous or draining. The patient's left arm has a spreading hematoma. Neurologic: The patient does not respond to verbal stimuli. When I was in there examining her, she did not move. LAB AND X-RAY: Patient's x-ray for today shows a slight decrease in the density of the left perihilar infiltrate. The patient's laboratory studies [place] [address], hemoglobin 8.1 and platelet count 66,000. Blood gases show a pH of 7.33, a PO2 of 112, and a pCO2 of 31. Creatinine is 2.5. GFR is 19. The IgG level is 442, IgA level is 52. Repeat sputum culture grew Pseudomonas fluorescence again. ASSESSMENT AND PLAN: Patient has Pseudomonas fluorescence pneumonia for which I plan to continue Levaquin and discontinue aztreonam. The patient also has an immunoglobulin deficiency for which I plan to give her 20 g of IVIG today and 20 g tomorrow. The patient's IgG level is low at 442, but unfortunately the IgA level is low at 52. The patient's immunoglobulin infusions will increase the IgG level, but not the IgA level. Repeat sputum culture is growing Pseudomonas fluorescence again. The patient's white blood cell count remains elevated. This certainly could be that the patient's pneumonia is increasing the white count. The patient's steroids she is on now, namely Solu-Medrol 20 mg every 24 hours, could be attributing to some of the leukocytosis, although the steroid infusion has been decreased over the past few days. COMORBIDITIES: The patient has chronic obstructive pulmonary disease, congestive heart failure and an immunoglobulin deficiency. cc: Mahendra Coffman MD MTDD
[2018-09-29] MEDS: GAMUNEX-C 10% IV SCH (14:59)
[2018-09-29] MEDS: LEVAQUIN 250 MG/D5W 250 MG/50 ML IVPB IV SCH (15:35)
--- NOTE | 2018-09-29 19:23 | PULMONOLOGY PROGRESS NOTE ---
DATE: 09/29/2018 SUBJECTIVE: The patient is somnolent, but arousable. She is without specific complaints. She appears to be comfortable on the BiPAP. OBJECTIVE: Vital Signs: The patient has been afebrile for the last 24 hours. Blood pressure 113/68, heart rate 111, respiratory rate 18, oxygen saturation 100%. HEENT: Pupils are equal and reactive. Oropharynx appears clear. Neck: Supple. Chest: Coarse rhonchi throughout all lung bean. Cardiac: S1, S2. Abdomen: Soft. Extremities: Generalized bruising. LABORATORIES: White blood count 21,000, hemoglobin 8.1, platelet count 66,000. Sodium 136, potassium 5.9, chloride 105, bicarbonate 17, BUN 66, creatinine 2.5. Arterial blood gas reveals a pH 7.33, pCO2 of 31, pO2 of 112. Immunoglobulin levels are severely reduced at 442 mg/dl. Repeat sputum culture reveals Pseudomonas fluorescens. IMPRESSION: A 78-year-old with: 1. 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 2. Recurrent pneumonia. 3. Acute hypoxemic respiratory failure. 4. Bilateral effusions. 5. Altered mental status. 6. Mitral valve disease. 7. Severe immunoglobulin deficiency. 8. Gastrointestinal bleeding with gastritis and esophagitis. 9. History of amiodarone use with nonspecific pneumonitis. 10. Protein-calorie malnutrition. RECOMMENDATIONS: 1. Continue current steroid dose, which has been reduced yesterday. 2. Consider alternative feeding, such as intradialytic parenteral nutrition or total parenteral nutrition. 3. Continue antibiotics per Infectious Disease. 4. We will initiate immunoglobulin given further reduction in her IgG Level. cc: Ronald Osuna MD
[2018-09-29] MEDS: SODIUM CHLORIDE 0.9% INJ SCH (20:18)
[2018-09-30] MEDS: CARAFATE LIQUID NG SCH ×4 (01:14→20:26)
[2018-09-30] MEDS: HYDROCODONE/APAP 7.5-325/15 ML PO PRN ×3 (03:35→23:07)
[2018-09-30] MEDS: XOPENEX NEB INH SCH ×6 (04:11→23:04)
[2018-09-30] MEDS: LOPRESSOR IV PRN ×3 (04:29→23:07)
[2018-09-30] MEDS: MORPHINE IV PRN (04:29)
[2018-09-30 05:01] LABS: ALLEN TEST YES; BE -4.9 mmoll (-3.0-3.0); BLOOD TYPE ARTERIAL; HCO3-(ACT) 21.1 mmoll (20.0-26.0); METHB 1.3 % (0.0-1.5); MODALITY BI PAP; O2(CT) 13.3 mL/dL (15.0-23.0); O2HB 97.2 % (95.0-99.0); PCO2(98.6) 31 mmHg (35-45); PO2(98.6) 162 mmHg (60-100); SAMPLE BLOOD; SAO2 99.7 % (95.0-100.0); SRATE 14 BPM; THB 9.5 g/dL (11.5-17.4)
[2018-09-30 05:14] LABS: HEMATOCRIT 26.8 % (37.0-47.0); HEMOGLOBIN 8.7 g/dL (12.0-16.0); MCH 29.5 PG (27-31); MCHC 32.5 g/dL (33-37); MCV 90.8 FL (81-99); MPV 11.7 FL (7.4-10.4); RBC 2.95 XMIL (4.2-5.4); RDW 15.5 % (11.5-14.5); WBC 22.16 X1000 (4.8-10.8)
[2018-09-30 05:23] LABS: INR 1.21; PROTIME 16.3 Seconds (11.0-16.0)
[2018-09-30 05:24] LABS: PTT 27.3 Seconds (22.3-41.8)
[2018-09-30 05:40] LABS: ALB/GLOB RATIO 1.4; ALBUMIN 3.3 g/dL (3.5-5.0); CALCIUM 8.3 mg/dL (8.8-10.2); CREATININE 1.4 mg/dL (0.5-0.9); POTASSIUM 4.5 mmol/L (3.5-5.1); TOTAL BILIRUBIN 0.6 mg/dL (0.20-1.00); TOTAL PROTEIN 5.7 g/dL (6.3-8.3)
[2018-09-30] MEDS: CARDIZEM PO SCH ×4 (06:04→23:07)
[2018-09-30] MEDS: SODIUM CHLORIDE 0.9% INJ PRN (06:04)
[2018-09-30] MEDS: SYNTHROID IV SCH (06:04)
--- NOTE | 2018-09-30 06:42 | Diag Imaging Result Doc PS360 ---
EXAM: CHEST-PORTABLE HISTORY: respiratory failure TECHNIQUE: Chest single view COMPARISON: 09/29/2018 FINDINGS: No change in the right-sided PICC line or the nasogastric tube. There are bilateral pleural effusions and there is mild cardiac megaly with pulmonary edema. Infiltrates in the mid and lower left lung are less pronounced. IMPRESSION: Interval improvement. Electronically signed by Benji Levin 09/30/2018 6:40 AM
[2018-09-30] MEDS ORDERED: NS 2,000 ML MISC PRN (07:12)
[2018-09-30] MEDS: LOPRESSOR PO SCH (08:09)
[2018-09-30] MEDS: SOLU-MEDROL IV SCH (08:10)
[2018-09-30] MEDS: PROTONIX IV SCH ×2 (08:11→20:26)
--- NOTE | 2018-09-30 08:17 | NEPHROLOGY PROGRESS NOTE ---
DATE: 09/30/2018 SUBJECTIVE: She opens her eyes. She is obviously uncomfortable. Increased work of breathing. OBJECTIVE: Vital Signs: Blood pressure 122/72, heart rate 101, respirations 16, T-max 100.7 degrees. Intake 750 mL. Output recorded as 6.4 L. However, I think this represents a duplicate documentation of her dialysis output. General: She is a thin, frail, elderly woman on BiPAP. Eyes are closed. Increased work of breathing. Skin: Warm and dry. Pale. Multiple ecchymoses. Conjunctivae are pink. Oropharynx is dry. Neck: Neck veins are difficult to appreciate. Heart: Irregular and mildly tachycardic. Lungs: Have equal breath sounds, coarse, with scattered crackles. Abdomen: Soft, nontender. Bowel sounds are present. Extremities: With 2+ edema. No clubbing or cyanosis. IMPRESSION: Acute kidney injury. No recovery. Her chest x-ray is improved but she still has pulmonary edema. She has essentially no urine output at this point. Electrolytes/acid base in target. Hemoglobin below target but does not meet criteria for transfusion. We will repeat sustained low-efficiency dialysis today for volume management. No other changes. cc: Rolf Jewell MD
[2018-09-30] MEDS: GAMUNEX-C 10% IV SCH (08:21)
--- NOTE | 2018-09-30 12:12 | INFECTIOUS DISEASE PROGRESS NO ---
DATE: 09/30/2018 PRESENT ILLNESS: The patient has a Pseudomonas fluorescens pneumonia. MEDICATIONS: The patient has been receiving Levaquin for the past 6 days. PHYSICAL EXAMINATION: Vital Signs: Temperature is 97.6 degrees, pulse 134, respirations 17, blood pressure 145/68. General: This is an ill-appearing elderly female. She is wearing a BiPAP mask. She does not seem to be in any acute distress. Head, Eyes, Ears, Nose, and Throat: She has no drainage coming from her nose or ears. Neck: Supple. Lungs: Clear to auscultation. Cardiovascular: Heart rate is irregular. Abdomen: Soft and nontender. Extremities: The patient has a hematoma which is spreading in the left arm. In the right arm, there is a PICC. The site is not erythematous or purulent. In the right groin, there is a dialysis catheter. The site also is not erythematous or draining. Neurologic: The patient did not respond to verbal stimuli. There was no tremor. DIAGNOSTIC STUDIES: Chest x-ray shows improvement in the bilateral infiltrates. IgG and IgA are decreased at 442 and 52, respectively. ALT is 57, creatinine is 1.4, GFR is 37. Blood gases show a pH of 7.4, PO2 of 162 and a pCO2 of 31. CBC shows a white count of 22,160, hemoglobin is 8.7, and platelet count is 64,000. ASSESSMENT AND PLAN: The patient has a Pseudomonas pneumonia. I plan on continuing Levaquin. Her leukocytosis may in part be due to steroids. COMORBIDITIES: Immunoglobulin deficiency, elderly, COPD, CHF. cc: Mahendra Coffman MD [facility]PITALBecky
[2018-09-30 13:51] LABS: MAGNESIUM 1.8 mg/dL (1.5-2.7); PREALBUMIN 32.7 mg/dL (20-40)
[2018-09-30] MEDS: LEVAQUIN 250 MG/D5W 250 MG/50 ML IVPB IV SCH (16:06)
[2018-09-30] MEDS ORDERED: TPN ELECTROLYTES 20 ML, SODIUM PHOSPHATE 15 MMOL, M.V.I.-12 10 ML, MTE CONCENTRATE 1 ML... IV SCH ×6 (17:00)
--- NOTE | 2018-09-30 17:00 | PROGRESS NOTE ---
DATE: 09/30/2018 INTERVAL HISTORY: Patient remains off the vent but continued to require BiPAP. Intermittently agitated overnight. Arouses to voice but does not follow commands and is largely nonverbal. Afebrile overnight. Discussed multiple medical issues and overall prognosis with the daughter. After discussion, the daughter wants all conservative measures continued including potentially intubation but does not wish the patient to undergo CPR in the event of a cardiac arrest. REVIEW OF SYSTEMS: Unable to obtain secondary to patient's mental status. LABS: WBC 12.1, hemoglobin 8.7, hematocrit 26.8, platelets 64,000. ABG with pH 7.4, pCO2 31, PO2 162, O2 saturation 97% on 60% FiO2 via BiPAP. Sodium 136, potassium 4.5, BUN 27, creatinine 1.46, glucose 109 to 184, ALT 57, alkaline phosphatase 76, bilirubin 0.6. IMAGING: Chest x-ray with slight interval improvement in bilateral effusions and infiltrates in left lower lung. VITALS: T-max today 98.2 but did have 1 low-grade fever yesterday evening at 100.7. Pulse 68, respirations 18, blood pressure 111/73, O2 saturation 100% on 60% via BiPAP. PHYSICAL EXAM: General: No acute distress although has become slightly agitated when aroused. Vitals above. HEENT: On BiPAP. Normocephalic, atraumatic. No cervical adenopathy. Cardiovascular: Regular rate and rhythm, no murmurs noted. Pulmonary: Scattered rhonchi and slight bibasilar rales but otherwise clear to auscultation. Abdomen: Soft, nontender, nondistended. Bowel sounds positive. Extremities: Peripheral pulses intact. No clubbing or cyanosis. Extensive left arm hematoma but no induration or fluctuance. Neurologic: Limited by patient mental status. Does open eyes to voice. Moves all extremities spontaneously but not purposefully. Pupils equal, round, reactive to light. No focal deficits identified. Psychiatric: Patient sleep but does open eyes to voice, noncooperative, nonverbal. Does not follow any commands. Skin: Left arm hematoma as above otherwise no new lesions or rashes identified. ASSESSMENT AND PLAN: 1. Pneumonia, bilateral pleural effusions, likely the source of her issues. On antibiotics with Levaquin. Levaquin listed as allergy but patient appears to be tolerating well for several days. Likely not true allergy. Some mild improvement in respiratory status. Continue pulmonary toilets, antibiotics and monitor closely. 2. Acute kidney injury . Patient continued to require dialysis with little improvement. Urine output remains pretty low. Nephrology following. Continue to monitor closely. 3. Chronic obstructive pulmonary disease with exasperation. May been contributing respiratory issues initially but no further wheezing, pretty good air entry. Likely resolved at this point as far as exacerbation goes. Continue nebs. Monitor. 4. Upper gastrointestinal bleed with acute post hemorrhagic anemia. Blood counts largely stable over the last few days. EGD showed hemorrhagic gastritis. Continue PPI and monitor. 5. Septic shock likely secondary to pneumonia as above now resolved, no longer requiring pressors. 6. Hyperkalemia resolved status post dialysis. Continue to monitor. 7. Protein calorie malnutrition, put on feeding tubes initially. Pulmonology recommending change to TPN. Will monitor. 8. Thrombocytopenia essentially stable, no further active bleeding. Continue to monitor. 9. History of cerebrovascular accident. Holding home Eliquis secondary to earlier gastrointestinal bleeding. Once patient is improved then may restart Eliquis and aspirin. 10. Pulmonary hypertension and moderate aortic stenosis. Stable, monitor.
[2018-09-30] MEDS: LIPOSYN 20% 500 ML IV SCH (17:29)
--- NOTE | 2018-09-30 17:39 | Extremity Venous Study ---
PROCEDURE NAME: Venous U/S Left Arm - 09/27/2018 REFERRING PHYSICIAN: Vinod Flor MD INTERPRETING PHYSICIAN: Ramon Amado MD TREE MARKER: Kesha Hancock RVT FINDINGS: Left upper extremity is imaged. The internal jugular, subclavian, axillary, brachial, cephalic, and basilic veins are imaged. The dorsum of the hand is imaged. All veins identified are compressible. An area noted on the dorsum of the hand is consistent with a hematoma. INTERPRETATION: 1. No evidence of deep or superficial venous thrombosis in the left upper extremity veins identified. 2. A hematoma was noted. cc: MD Vinod Beckett MD [facility]
--- NOTE | 2018-09-30 17:54 | PULMONOLOGY PROGRESS NOTE ---
DATE: 09/30/2018 SUBJECTIVE: The patient is arousable. With stimulation she just has continuous moaning. OBJECTIVE: Vital Signs: Maximum temperature in the last 24 hours 100.7 degrees, blood pressure 111/73, heart rate 98, respiratory rate 14, oxygen saturation 100% on BiPAP. HEENT: Pupils are equal. Oropharynx appears clear. Neck: Is supple. Chest: Reveals coarse rhonchi bilaterally. Cardiac: S1-S2. Abdomen: Soft with diminished bowel sounds. Extremities: Reveal trace edema with generalized bruising. LABORATORIES: Chest x-ray reveals bilateral effusions, cardiomegaly, with decreased pulmonary infiltrates on the left. Arterial blood gas reveals a pH 7.40, pCO2 of 31, PO2 of 162. IMPRESSION: A 78-year-old with 1. Pseudomonal fluorescens pneumonia. 2. Acute hypoxemic respiratory failure. 3. Bilateral pleural effusions. 4. Altered mental status. 5. Mitral valve disease. 6. Severe immunoglobulin deficiency status post replacement. 7. Gastrointestinal bleeding associated with gastritis and esophagitis. 8. Protein calorie malnutrition. DISCUSSION: 78-year-old with problems outlined above. She has had some clinical improvement, but she is not a candidate for utilization of her GI tract due to recurrent aspiration events. PLAN: 1. Will discuss alternative nutrition with Dr. Jewell. 2. Continue BiPAP but wean as tolerated. 3. Continue antibiotics per Infectious Disease. 4. P.r.n. immunoglobulin replacement given her severe deficiency. cc: Ronald Osuna MD
[2018-09-30] MEDS: SODIUM CHLORIDE 0.9% INJ SCH (20:26)
--- NOTE | 2018-09-30 23:36 | PROVIDER PROGRESS NOTE ---
Progress Note SUBJECTIVE: No acute overnight events. OBJECTIVE: Last Vital Signs Temp 97.5 F L 09/30/18 20:01 Pulse 80 09/30/18 20:46 Resp 17 09/30/18 20:46 BP 111/64 09/30/18 20:46 Pulse Ox 100 09/30/18 20:46 Height 5 ft 5 in Weight 128 lb 8 oz GEN: on bibap HEENT: anicteric, NGT tube in place NECK: supple, no LAD CV: RRR, no murmurs PULM: in respiratory distress, BS difficult to auscultate ABD: soft ND, BS present EXT: no c/c SKIN: UE/LE bruising NEURO: awake, lethargic RECTAL: rectal tube with black/greenish liquid stool : wolfe with hematuria 09/30/18 09/30/18 09/30/18 04:30 04:30 04:50 WBC 22.16 H Hgb 8.7 L Plt Count 64 L pH 7.40 pCO2 31 L pO2 162 H Sodium 136 Potassium 4.5 D Chloride 106 Carbon Dioxide 20 L BUN 27 H D Creatinine 1.4 H Glucose 109 H Total Bilirubin 0.60 AST 28 ALT 57 H Alkaline Phosphatase 76 Total Protein 5.7 L Albumin 3.3 L A/P: Ms. Nayana Espinoza is a 78-year-old woman with h/o atrial fibrillation, on Eliquis; CHF, COPD, CAD s/p stents admitted with hypoxic respiratory failure and septic shock 2/2 aspiration pneumonia on pressors. Course complicated acute kidney injury requiring CVVHD. She also has notable worsening thrombocytopenia and leukocytosis. EGD yesterday showed hemorrhagic gastritis with oozing. No treatable lesions found. #UGIB: 2/2 to hemorrhagic gastritis; continue IV PPI BID; hgb stable #Anemia: holding blood thinners, trending H/H, transfuse as needed for hgb <7 to maintain hgb 7-8; no transfusion needs #Septic shock: resolved; s/p pressors and abx as per primary team and ID #BRITTNEY: on renal replacement therapy per nephrology #PsA pneumonia: on abx per ID #Hypoxic respiratory failure: pulmonary following; slowing improving #COPD: noted #Thrombocytopenia: trending platelets; transfuse as needed to maintain platelets >50K in setting of active bleeding #FEN: nutrition following; patient started on TPN Will follow with you. Please call with questions
[2018-10-01] MEDS: CARAFATE LIQUID NG SCH ×4 (01:02→20:18)
[2018-10-01] MEDS: XOPENEX NEB INH SCH ×6 (02:59→23:42)
[2018-10-01] MEDS: MORPHINE IV PRN ×5 (03:26→23:15)
[2018-10-01 04:52] LABS: BE -2.6 mmoll (-3.0-3.0); BLOOD TYPE ARTERIAL; HCO3-(ACT) 22.9 mmoll (20.0-26.0); METHB 1.4 % (0.0-1.5); O2(CT) 12.3 mL/dL (15.0-23.0); O2HB 96.9 % (95.0-99.0); PCO2(98.6) 32 mmHg (35-45); PO2(98.6) 139 mmHg (60-100); SAMPLE BLOOD; SAO2 99.6 % (95.0-100.0); THB 8.8 g/dL (11.5-17.4); pH(98.6) 7.43 (7.35-7.45)
[2018-10-01 04:53] LABS: ALLEN TEST YES; MODALITY BI PAP
[2018-10-01] MEDS: CARDIZEM PO SCH ×4 (06:15→23:55)
[2018-10-01] MEDS: SYNTHROID IV SCH (06:15)
[2018-10-01] MEDS ORDERED: NS 2,000 ML MISC PRN (06:25)
[2018-10-01 07:07] LABS: MAGNESIUM 1.7 mg/dL (1.5-2.7); PHOSPHORUS 2.3 mg/dL (2.7-4.5); PREALBUMIN 29.1 mg/dL (20-40)
[2018-10-01 07:08] LABS: ALB/GLOB RATIO 1.2; CALCIUM 7.9 mg/dL (8.8-10.2); CREATININE 1.1 mg/dL (0.5-0.9); POTASSIUM 4.1 mmol/L (3.5-5.1); TOTAL BILIRUBIN 0.49 mg/dL (0.20-1.00); TOTAL PROTEIN 5.6 g/dL (6.3-8.3)
[2018-10-01 07:15] LABS: HEMATOCRIT 24.9 % (37.0-47.0); HEMOGLOBIN 8.1 g/dL (12.0-16.0); MCH 29.8 PG (27-31); MCHC 32.5 g/dL (33-37); MCV 91.5 FL (81-99); MPV 12.1 FL (7.4-10.4); RBC 2.72 XMIL (4.2-5.4); RDW 15.4 % (11.5-14.5); WBC 14.21 X1000 (4.8-10.8)
--- NOTE | 2018-10-01 07:17 | Diag Imaging Result Doc PS360 ---
EXAM: CHEST-PORTABLE INDICATION: respiratory failure TECHNIQUE: One view COMPARISON: 09/30/2018 FINDINGS: Support tubes and lines are in stable positions. There is a stable right pleural effusion. Pulmonary edema and pulmonary venous congestion have improved somewhat during the interval. No new consolidation is identified. Cardiac silhouette is stable. IMPRESSION: Interval improvement. Electronically signed by Jose Daniel Modi 10/01/2018 7:15 AM
[2018-10-01] MEDS: SOLU-MEDROL IV SCH (09:18)
[2018-10-01] MEDS: PROTONIX IV SCH ×2 (09:20→20:18)
[2018-10-01] MEDS: LOPRESSOR PO SCH (09:22)
[2018-10-01] MEDS: HYDROCODONE/APAP 7.5-325/15 ML PO PRN ×2 (09:31→20:18)
--- NOTE | 2018-10-01 11:49 | INFECTIOUS DISEASE PROGRESS NO ---
DATE: 10/01/2018 PRESENT ILLNESS: Ms. Espinoza is being treated for a pseudomonas pneumonia. The patient also has an immunoglobulin deficiency. She also has an acute kidney injury and is receiving sustained low-efficiency dialysis. MEDICATIONS: Today is day 7 of Levaquin 250 mg IV every 24 hours as a renally modified dose. She is also receiving IV Solu-Medrol and she has received IVIG on this admission. PHYSICAL EXAMINATION: Vital Signs: Temperature is 97.9 degrees, pulse rate 113, respiratory rate 17, blood pressure 105/65. O2 saturation is 100% on a 50% Ventimask. General: This is a chronically ill-appearing, elderly female. She is lying in the bed, currently whining and nodding her head yes when asked if she had pain. HEENT: Atraumatic, normocephalic. Oral mucous membranes are pink and dry. Conjunctivae are pale. Cardiovascular: Irregularly irregular with atrial fibrillation on the monitor. Respiratory: Lung sounds have bilateral wheezing. No work of breathing is noted. Abdomen: Soft, round, and nontender. Bowel sounds are active. NG tube is in place. Integumentary: She has multiple areas of bruising noted to her extremities. There is a PICC line in place to her right upper arm and a Vas-Cath in place to the right groin. These sites are without edema, erythema, or drainage. Neurologic: She is awake, alert, and nonverbal at this time. She does nod her head to questions but is not following commands. LABORATORY AND X-RAY: Today, her white count is 14.21, hemoglobin 8.1, and platelet count 41,000. On a 40% FiO2 on the BiPAP this morning, her pH was 7.43, pCO2 of 32, PO2 of 139, HC03 of 22.9. Her creatinine is 1.1. GFR 48. Total bilirubin is 0.49, AST 22, ALT 47, alkaline phosphatase 70. Twice on this admission, her sputum has grown Pseudomonas fluorescens which is multidrug resistant. Chest x-ray today shows interval improvement with pulmonary edema, pulmonary venous congestion, and no new consolidation. ASSESSMENT AND PLAN: Ms Espinoza is showing some improvement of her pseudomonas pneumonia. Her leukocytosis has improved somewhat today. Part of the white count elevation most likely is related to steroid administration. She is on renally dosed Levaquin which we will continue at this time. She is receiving sustained low-efficiency dialysis and the nurse has recently given her some pain medicine. These plans have been discussed with and recommended by Dr. Coffman. COMORBIDITIES: For Ms. Espinoza include that she is elderly with chronic obstructive pulmonary disease, congestive heart failure, and immunoglobulin deficiency. Dictated by STACIE Chew for Mahendra Coffman MD cc: Mahendra Coffman MD [facility]
[2018-10-01] MEDS: LOPRESSOR IV PRN ×2 (16:27→23:00)
[2018-10-01] MEDS: LIPOSYN 20% 500 ML IV SCH (16:27)
[2018-10-01] MEDS: LEVAQUIN 250 MG/D5W 250 MG/50 ML IVPB IV SCH (16:58)
[2018-10-01] MEDS ORDERED: SODIUM PHOSPHATE IV SCH ×6 (17:00)
[2018-10-01] MEDS ORDERED: [UNRECOGNIZED DRUG - OTHER] IV SCH ×6 (17:00)
[2018-10-01] MEDS ORDERED: TPN ELECTROLYTES IV SCH ×6 (17:00)
[2018-10-01] MEDS ORDERED: M V I IV SCH ×6 (17:00)
--- NOTE | 2018-10-01 17:54 | NEPHROLOGY PROGRESS NOTE ---
DATE: 10/01/2018 SUBJECTIVE: Decreased level consciousness. Does not really interact. OBJECTIVE: Vital Signs: Blood pressure 107/63, heart rate 98, respiration 18, afebrile. General: No acute distress, obtunded. Skin: Warm and dry. Neck: Neck veins are not appreciated. Heart: Irregular and tachycardic. Lungs: Equal, clear. Abdomen: Soft, nontender. Bowel sounds present. Extremities: There is 2+ edema. No clubbing or cyanosis. IMPRESSION: Acute kidney injury. No recovery. She will need SLED on most days because she is now receiving IV PN and her fluid volume intake on a daily basis is going to be more like 2 L. A 4 K bath, 30 bicarbonate. cc: Rolf Jewell MD
--- NOTE | 2018-10-01 18:18 | PROGRESS NOTE ---
DATE: 10/01/2018 INTERVAL HISTORY: The patient remains afebrile. Still minimally responsive. Dialysis had to be decreased for a while yesterday because of increasing heart rate, but appears to be somewhat improved this morning. Remains in atrial fibrillation. Remains on SLED. REVIEW OF SYSTEMS: Unable to obtain secondary to patient's mental status. LABS: WBC 14.2, hemoglobin 8.1, hematocrit 24.9. ABG with pH 7.43, pCO2 32, PO2 139, on 40% FiO2 and BiPAP. Sodium 135, potassium 4.1, bicarb 22, BUN 26, creatinine 1.1, glucose 156. BNP greater than 35,000. IMAGING: Chest x-ray was slightly improved. Pulmonary edema and pulmonary venous congestion. VITALS: T-max 98.6, pulse 100, respirations 15, blood pressure 115/60. O2 saturation 100% on BiPAP. PHYSICAL EXAMINATION: General: No acute distress. Vitals: As above. HEENT: Patient on Ventimask. Normocephalic, atraumatic. No cervical adenopathy. Cardiovascular: Irregular rhythm, but normal rate at the time of my exam. No murmurs noted. Pulmonary: Still some scattered rhonchi and bibasilar rales, but slightly improved from previous. There are mild decreased breath sounds throughout. No wheezing noted. Abdomen: Soft, nontender, nondistended. Bowel sounds decreased, but present. Extremities: Peripheral pulses intact. No clubbing or cyanosis. Left arm hematoma, improving slowly. Neurologic: Limited by patient mental status, but opens eyes to voice. Moves all extremities spontaneously. Tracking with eyes somewhat today, which is slightly improved, but not really following any commands and nonverbal. No focal deficits identified. Psychiatric: The patient opens eyes to voice, as above, but noncooperative and nonverbal. Following no commands. Skin: Left arm hematoma as above. Otherwise, no new lesions or rashes identified. ASSESSMENT AND PLAN: 1. Pneumonia, bilateral pleural effusions, likely acute on chronic diastolic congestive heart failure. Patient on antibiotics with Levaquin. Does seem to be in improving from a respiratory standpoint slowly with dialysis and antibiotics. Continue to try and get as much volume off her as we can. Continue antibiotics and monitor closely. Will wean oxygen as able. 2. Acute kidney injury. Patient continues to require dialysis. Remains on SLED. Nephrology following. Continue to monitor closely. 3. Chronic obstructive pulmonary disease with exacerbation. Likely contributing to respiratory issues initially, but no further wheezing: Only mildly decreased air entry. Continue nebs and monitor, but likely not even major contributory at this point. 4. Upper GI bleed with acute posthemorrhagic anemia. Blood counts largely stable the last few days. EGD showed hemorrhagic gastritis. Continue PPI and monitor. 5. Septic shock likely secondary to pneumonia as above. Now resolved. Has not required pressors in several days. 6. Hyperkalemia; remains resolved with dialysis. Continue to monitor. 7. Protein calorie malnutrition. Patient on tube feeds initially. Pulmonology recommended change to TPN which has been done. Monitor. 8. Thrombocytopenia. Platelets with continue to downtrend. No signs of active bleeding at this point, but downward trend platelets somewhat concerning. Could be related to Protonix, but given recent GI bleed, reluctant to stop that. Monitor closely and if any signs of bleeding develop, then may have to transfuse platelets. 9. History of cerebrovascular accident. Holding home Eliquis secondary to GI bleeding. Once the patient improves, may restart Eliquis and aspirin. 10. Pulmonary hypertension, moderate aortic stenosis. Stable, monitor.
[2018-10-01] MEDS: SODIUM CHLORIDE 0.9% INJ SCH (20:19)
--- NOTE | 2018-10-01 22:12 | PULMONOLOGY PROGRESS NOTE ---
DATE: 10/01/2018 SUBJECTIVE: The patient is on BiPAP, and this was transitioned to face mask while I was present. She has no increased work of breathing. She has a low continuous moan but cannot identify source of discomfort or pain. OBJECTIVE: Vital Signs: The patient has been afebrile for the last 24 hours. Blood pressure 133/76, heart rate 118, respiratory rate 18, Oxygen saturation 96%. HEENT: Pupils are equal and reactive. Oropharynx appears clear. Neck: Supple. Chest: Reveals shallow breath sounds bilaterally. Scattered crackles. Cardiac: S1-S2. Abdomen: Soft. Extremities: Reveal generalized bruising but no significant edema. LABORATORIES: Chest x-ray demonstrates significant improvement with decreased infiltrates bilaterally. She has a small right-sided pleural effusion. White blood count 14.2, hemoglobin 8.1, platelet count 41,000. Sodium 135, potassium 4.1, chloride 104, bicarbonate 22, BUN 26, creatinine 1.1. The proBNP is markedly elevated at greater than 35,000. Arterial blood gas reveals pH 7.43, pCO2 of 32, PO2 of 139. IMPRESSION: A 78-year-old with: 1. Pseudomonal fluorescens pneumonia. 2. Acute hypoxemic respiratory failure. 3. Bilateral effusions which continue to decrease. 4. Mitral valve disease. 5. Altered mental status. 6. Immunoglobulin deficiency. 7. Protein-calorie malnutrition. 8. Recent bleeding associated with gastritis and esophagitis. PLAN: 1. Continue BiPAP at bedtime and p.r.n. 2. Continue TPN until she has demonstrated clinical improvement. 3. Attempt the patient on Venturi mask to decrease facial breakdown. 4. Antibiotics per Infectious Disease. 5. P.r.n. immunoglobulin replacement. 6. Ongoing end-of-life discussions. cc: Ronald Osuna MD
--- NOTE | 2018-10-01 23:53 | PROVIDER PROGRESS NOTE ---
Progress Note SUBJECTIVE: Patient wean down to Venturi mask today. She opens eyes to command but is very lethargic. Rectal tube was removed given perianal skin breakdown. No transfusion requirements for several days. OBJECTIVE: Last Vital Signs Temp 97.6 F 10/01/18 20:01 Pulse 125 H 10/01/18 21:31 Resp 17 10/01/18 21:31 BP 126/79 10/01/18 21:31 Pulse Ox 100 10/01/18 21:31 Height 5 ft 5 in Weight 120 lb 1 oz GEN: chronically ill-appearing, moans HEENT: anicteric, NGT tube in place NECK: supple, no LAD CV: tachycardic, no murmurs PULM: in mild respiratory distress, BS difficult to auscultate ABD: soft NT/ND, BS present EXT: no c/c SKIN: UE/LE bruising NEURO: awake, lethargic : wolfe with hematuria 09/30/18 09/30/18 09/30/18 04:30 04:30 04:50 WBC 22.16 H Hgb 8.7 L Plt Count 64 L pH 7.40 pCO2 31 L pO2 162 H Sodium 136 Potassium 4.5 D Chloride 106 Carbon Dioxide 20 L BUN 27 H D Creatinine 1.4 H Glucose 109 H Total Bilirubin 0.60 AST 28 ALT 57 H Alkaline Phosphatase 76 Total Protein 5.7 L Albumin 3.3 L A/P: Ms. Nayana Espinoza is a 78-year-old woman with h/o atrial fibrillation, CHF, COPD, CAD s/p stents admitted with hypoxic respiratory failure and septic shock 2/2 aspiration pneumonia now off pressors. Course complicated acute kidney injury requiring renal replacement therapy. EGD showed hemorrhagic gastritis with oozing. No treatable lesions found. #UGIB: 2/2 to hemorrhagic gastritis; continue IV PPI BID; hgb stable; ok to transition to PPI orally when able #Anemia: holding blood thinners, trending H/H, transfuse as needed for hgb <7 to maintain hgb 7-8; no transfusion needs #Septic shock: resolved; s/p pressors and abx as per primary team and ID #BRITTNEY: on renal replacement therapy per nephrology #PsA pneumonia: on abx per ID #Hypoxic respiratory failure: pulmonary following; slowing improving #COPD: noted #Thrombocytopenia: trending platelets; transfuse as needed to maintain platelets >50K in setting of active bleeding #FEN: nutrition following; on TPN; consider switching to enteral feeds when patient is not on bipap Overall prognosis guarded. Will sign off. Please call with questions
[2018-10-02] MEDS: HYDROCODONE/APAP 7.5-325/15 ML PO PRN ×4 (00:14→23:27)
[2018-10-02] MEDS: CARAFATE LIQUID NG SCH ×4 (02:06→20:08)
[2018-10-02] MEDS: XOPENEX NEB INH SCH ×6 (03:14→23:19)
[2018-10-02 04:34] LABS: ALLEN TEST YES; BE -0.3 mmoll (-3.0-3.0); BLOOD TYPE ARTERIAL; HCO3-(ACT) 24.7 mmoll (20.0-26.0); O2(CT) 11.7 mL/dL (15.0-23.0); O2HB 97.1 % (95.0-99.0); PCO2(98.6) 42 mmHg (35-45); PO2(98.6) 102 mmHg (60-100); SAMPLE BLOOD; SAO2 99.8 % (95.0-100.0); THB 8.4 g/dL (11.5-17.4); pH(98.6) 7.38 (7.35-7.45)
[2018-10-02 04:35] LABS: MODALITY VENTIMASK
[2018-10-02] MEDS: CARDIZEM PO SCH ×4 (05:16→23:27)
[2018-10-02 05:47] LABS: HEMATOCRIT 24.4 % (37.0-47.0); HEMOGLOBIN 7.9 g/dL (12.0-16.0); MCH 30.3 PG (27-31); MCHC 32.4 g/dL (33-37); MCV 93.5 FL (81-99); MPV 12.2 FL (7.4-10.4); RBC 2.61 XMIL (4.2-5.4); RDW 15.4 % (11.5-14.5); WBC 11.77 X1000 (4.8-10.8)
[2018-10-02 06:04] LABS: CALCIUM 7.7 mg/dL (8.8-10.2); MAGNESIUM 1.6 mg/dL (1.5-2.7); PHOSPHORUS 2.4 mg/dL (2.7-4.5); POTASSIUM 3.7 mmol/L (3.5-5.1)
[2018-10-02] MEDS: SODIUM CHLORIDE 0.9% INJ PRN (06:05)
[2018-10-02] MEDS: SYNTHROID IV SCH (06:05)
--- NOTE | 2018-10-02 07:10 | Diag Imaging Result Doc PS360 ---
EXAM: CHEST-PORTABLE 10/02/2018 HISTORY: respiratory failure TECHNIQUE: AP portable at 0506 COMMENT: Compared to 10/01/2018 there is worsening perihilar opacity particularly in the left lung. There are bilateral pleural effusions. The volume of fluid on the right has actually diminished slightly since the previous study. The NG tube and PICC line remain in place. IMPRESSION: Worsening pulmonary edema. Electronically signed by Alfredo Paris 10/02/2018 7:08 AM
[2018-10-02] MEDS: SOLU-MEDROL IV SCH (09:30)
[2018-10-02] MEDS: LOPRESSOR PO SCH (09:30)
[2018-10-02] MEDS: PROTONIX IV SCH ×2 (09:30→20:47)
[2018-10-02 09:45] LABS: ALB/GLOB RATIO 1.2; ALBUMIN 2.8 g/dL (3.5-5.0); ALKALINE PHOSPHATASE 67 U/L (32-104); DIRECT BILIRUBIN < 0.10 mg/dL (0.00-0.20); GOT 22 U/L (10-30); GPT 40 U/L (10-36); TOTAL PROTEIN 5.2 g/dL (6.3-8.3)
[2018-10-02 10:10] LABS: INR 1.12; PROTIME 15.3 Seconds (11.0-16.0)
--- NOTE | 2018-10-02 10:30 | INFECTIOUS DISEASE PROGRESS NO ---
DATE: 10/02/2018 PRESENT ILLNESS: The patient has been treated for a Pseudomonas fluorescens pneumonia. Despite appropriate antibiotic treatment, the x-ray looks worse. The radiologist in reading today's x-ray felt that the patient was having pulmonary edema rather than pneumonia. The patient has an immunoglobulin deficiency. MEDICATIONS: The patient has been on Levaquin now for a total of 8 days. PHYSICAL EXAMINATION: Vital Signs: Temperature is 97.8 degrees, pulse 89, respirations 12, blood pressure 112/58. General: This is a chronically ill-appearing, elderly female. She does not appear to be in any acute distress. She did respond to verbal stimuli. Head, Eyes, Ears, Nose, and Throat: She did open her eyes. There is no drainage from the nose or ears. I did not see any white patches in her mouth. Neck: She did not have any pain in her neck when I moved her head. Lungs: Clear to auscultation. Cardiovascular: Heart rate is irregular. Abdomen: Soft and nontender. The patient has a PICC in the right arm, and in the right groin there is another catheter. Both of these sites are not erythematous or draining. The patient has a left arm hematoma that has spread proximally. She also has a right leg hematoma with some spread, but overall, the hematoma is getting smaller. DIAGNOSTIC STUDIES: Chest x-ray shows worsening pulmonary edema. Creatinine is 1, GFR is 54. Both IgG and IgA are low. The patient has received an immunoglobulin infusion. ASSESSMENT AND PLAN: 1. Patient has pulmonary edema according to the radiologist's reading. I also feel that there is a component of a Pseudomonas fluorescens pneumonia as well. My plan is to continue Levaquin and also repeat the patient's procalcitonin level. 2. The patient has as a progressively worsening thrombocytopenia. I have put in a consult for Dr. Jiang for the thrombocytopenia. 3. The patient has an immunoglobulin deficiency, but she has received an immunoglobulin infusion during this hospitalization. COMORBIDITIES: 1. The patient is elderly. 2. She has chronic obstructive pulmonary disease. 3. Congestive heart failure. 4. Immunoglobulin deficiency. cc: Mahendra Coffman MD
[2018-10-02 13:09] LABS: RETIC% 0.49 % (0.8-2.1); RETIC-HE 28.8 PG (28.2-36.6)
--- NOTE | 2018-10-02 13:48 | NEPHROLOGY PROGRESS NOTE ---
DATE: 10/02/2018 SUBJECTIVE: She is on a face mask and off of the BiPAP. She is very lethargic, minimally responsive. OBJECTIVE: Vital Signs: Blood pressure 119/68, heart rate 107, respirations 15. Intake. 1.5 L. Output 4 L. Physical Examination: Mental status as above. Skin is warm and dry. Multiple bruises. Conjunctivae are pink. Pupils are equal. Oropharynx is dry. Neck veins are not appreciated. Heart is irregular, rate of approximately 100. Abdomen is soft, nontender. Bowel sounds present. Extremities: There is 1+ edema. No clubbing or cyanosis. IMPRESSION: Acute kidney injury. Net negative fluid balance in the last 3 days of 10+ L. Despite this, her chest x-ray is not improved. Electrolytes, acid-base, uremia all managed well. No dialysis today. cc: Rolf Jewell MD
[2018-10-02] MEDS: LEVAQUIN 250 MG/D5W 250 MG/50 ML IVPB IV SCH (15:46)
[2018-10-02] MEDS: MORPHINE IV PRN ×2 (15:47→20:08)
--- NOTE | 2018-10-02 16:34 | PROGRESS NOTE ---
DATE: 10/02/2018 INTERVAL HISTORY: The patient remains extubated and off pressors. Oxygen requirement slightly improved on Ventimask. Remains minimally responsive but mental status improving slightly. Still not following commands and largely nonverbal but slightly more interactive. Arousing a little more. No other acute events overnight. Remains off dialysis now. REVIEW OF SYSTEMS: Unable to obtain secondary to patient's mental status. LABS: WBC 11.7, hemoglobin 7.9, hematocrit 24.4, platelets 27,000. ABG, 7.38, pCO2 42, PO2 102 on 40% Ventimask. Sodium 138, potassium 3.7, BUN 30, creatinine 1, glucose 144. LDH 335. INR 1.1. Bilirubin 0.4, glucose 144. IMAGING: Chest x-ray with stable to slightly worsened pulmonary edema, effusions. VITAL SIGNS: T-max 99.4 degrees, pulse 95, respirations 13, blood pressure 112/63, O2 saturation 100% on 40% Venturi mask. PHYSICAL EXAMINATION: General: No acute distress but does come slightly agitated when aroused. Vital signs: As above. HEENT: Patient on Ventimask. Normocephalic, atraumatic. No cervical adenopathy. Cardiovascular: Irregular rhythm but normal rate. No murmurs noted. Pulmonary: Essentially unchanged. Scattered rhonchi and bibasilar rales. Mildly decreased breath sounds throughout. Ne wheezing noted. Abdomen: Soft, nontender, nondistended. Bowel sounds present. Extremities: Peripheral pulses intact. No clubbing, cyanosis. Neurologic: Limited by patient's mental status, but opens eyes to voice, tracks with eyes somewhat. Moves all extremities spontaneously but non-purposefully. No clear focal deficits. Psychiatric: Opens eyes to voice as of above. Arouses slightly more than yesterday but still noncooperative and nonverbal. Skin: No new rashes or lesions identified. ASSESSMENT AND PLAN: 1. Pneumonia, bilateral pleural effusions, likely acute on chronic diastolic congestive heart failure. On antibiotics with Levaquin. Little change in x-ray, although modest improvement in clinical status. Nephrology holding on further dialysis for now. Continuing antibiotics. Wean oxygen as possible. 2. Acute kidney injury. Nephrology holding dialysis currently to assess. Continue to monitor closely. 3. Chronic obstructive pulmonary disease with exacerbation. No further wheezing. Only mildly decreased air entry. Likely contributing to overall respiratory difficulties but no longer in exacerbation. 4. Upper gastrointestinal bleed with acute posthemorrhagic anemia. Blood counts largely stable the last few days. EGD showed hemorrhagic gastritis. Continue PPI and monitor. 5. Thrombocytopenia. Platelet count is worsening over the last several days. Uncertain etiology. Given recent GI bleed, we will go ahead and transfuse 2 units of platelets and monitor. Repeat hematology evaluation pending. 6. Septic shock secondary to pneumonia as above, now resolved. Off pressors for several days. 7. Hyperkalemia. Resolved with dialysis. Monitor. 8. Protein calorie malnutrition. Patient on TPN. 9. Pulmonary hypertension, moderate aortic. Stable. Monitor.
[2018-10-02] MEDS: LOPRESSOR IV PRN (16:50)
[2018-10-02] MEDS: LIPOSYN 20% 500 ML IV SCH (16:50)
[2018-10-02] MEDS ORDERED: M V I IV SCH ×6 (17:00)
[2018-10-02] MEDS ORDERED: SODIUM PHOSPHATE IV SCH ×6 (17:00)
[2018-10-02] MEDS ORDERED: [UNRECOGNIZED DRUG - OTHER] IV SCH ×6 (17:00)
[2018-10-02] MEDS ORDERED: TPN ELECTROLYTES IV SCH ×6 (17:00)
[2018-10-02] MEDS: SODIUM CHLORIDE 0.9% INJ SCH (20:47)
[2018-10-02] MEDS ORDERED: DILAUDID IV ONE (22:31)
--- NOTE | 2018-10-03 00:03 | PULMONOLOGY PROGRESS NOTE ---
DATE: 10/02/2018 SUBJECTIVE: Patient opens eyes to voice and begins moaning. She did not answer questions. OBJECTIVE: Vital signs: Blood pressure 99/61, heart rate 87, respiratory rate 16, oxygen saturation 100%. HEENT: Pupils are equal. Oropharynx appears clear. Neck: Supple. Chest: Reveals crackles bilaterally. Cardiac: S1, S2. Abdomen: Soft. Extremities: Reveal minimal edema but with generalized bruising. LABORATORIES: Chest x-ray reveals a generous cardiac silhouette with new edema pattern, left greater than right. White blood count 11.8, hemoglobin 7.9. Platelet count has dropped to 27,000. Sodium 138, potassium 3.7, chloride 105, bicarbonate 23, BUN 30, creatinine 1.0, albumin 2.8. IMPRESSION: A 78-year-old with: 1. Pseudomonas fluorescens pneumonia. 2. Recurrent bat wing edema pattern with removal of positive pressure, suggesting pulmonary edema. 3. Bilateral effusions which have diminished. 4. Mitral valve disease. 5. Immunoglobulin deficiency. 6. Protein-calorie malnutrition. 7. Thrombocytopenia. 8. Recent episode of gastritis and esophagitis. DISCUSSION: A 78-year-old with problems outlined above. The patient had an echocardiogram in August which revealed a normal LV function with mild to moderate pulmonary hypertension. However, with removal from mechanical ventilation the following day, she had acute pulmonary infiltrates initially felt to represent pneumonia, but with positive pressure these resolved. I suspect that she is having recurrent flash pulmonary edema. RECOMMENDATIONS: 1. Continue BiPAP at bedtime and p.r.n. 2. Continue TPN until she can tolerate p.o. intake. 3. Antibiotics per Infectious Disease. 4. As-needed immunoglobulin replacement. 5. Check a limited echocardiogram for LV function. cc: Ronald Osuna MD
[2018-10-03] MEDS: XOPENEX NEB INH SCH ×6 (03:05→23:35)
[2018-10-03] MEDS: CARAFATE LIQUID NG SCH ×4 (03:12→20:59)
[2018-10-03 04:44] LABS: ALLEN TEST YES; BE -2.8 mmoll (-3.0-3.0); BLOOD TYPE ARTERIAL; HCO3-(ACT) 22.7 mmoll (20.0-26.0); METHB 1.1 % (0.0-1.5); O2(CT) 13.5 mL/dL (15.0-23.0); O2HB 95.9 % (95.0-99.0); PCO2(98.6) 41 mmHg (35-45); PO2(98.6) 82 mmHg (60-100); SAMPLE BLOOD; SAO2 98.6 % (95.0-100.0); THB 9.9 g/dL (11.5-17.4); pH(98.6) 7.35 (7.35-7.45)
[2018-10-03 04:45] LABS: MODALITY CANNULA
[2018-10-03] MEDS: HYDROCODONE/APAP 7.5-325/15 ML PO PRN ×2 (04:49→09:16)
[2018-10-03] MEDS: CARDIZEM PO SCH ×4 (05:46→23:16)
[2018-10-03] MEDS: MORPHINE IV PRN (05:49)
[2018-10-03] MEDS: LOPRESSOR IV PRN (05:49)
[2018-10-03] MEDS ORDERED: NS 2,000 ML MISC PRN (05:52)
[2018-10-03] MEDS: SYNTHROID IV SCH (06:00)
[2018-10-03] MEDS: SODIUM CHLORIDE 0.9% INJ PRN (06:00)
[2018-10-03 06:55] LABS: HEMATOCRIT 22.5 % (37.0-47.0); HEMOGLOBIN 7.2 g/dL (12.0-16.0); MCH 30.6 PG (27-31); MCV 95.7 FL (81-99); MPV 10.3 FL (7.4-10.4); RBC 2.35 XMIL (4.2-5.4); RDW 15.7 % (11.5-14.5); WBC 13.45 X1000 (4.8-10.8)
--- NOTE | 2018-10-03 07:18 | Diag Imaging Result Doc PS360 ---
EXAM: CHEST-PORTABLE 10/03/2018 HISTORY: respiratory failure TECHNIQUE: AP portable at 0516 COMMENT: There is an NG tube with its tip below the diaphragm. There is a PICC line on the right with its tip in the right atrium. There is worsened alveolar opacification in the lower lobes with interstitial opacity elsewhere. There appears to be slightly less pleural fluid on the right. IMPRESSION: Worsened pulmonary edema since 10/02/2018. Electronically signed by Alfredo Paris 10/03/2018 7:16 AM
[2018-10-03 07:31] LABS: ALB/GLOB RATIO 1.3; CALCIUM 7.8 mg/dL (8.8-10.2); CREATININE 1.7 mg/dL (0.5-0.9); MAGNESIUM 1.7 mg/dL (1.5-2.7); PHOSPHORUS 3.6 mg/dL (2.7-4.5); TOTAL BILIRUBIN 0.31 mg/dL (0.20-1.00); TOTAL PROTEIN 5.3 g/dL (6.3-8.3)
[2018-10-03] MEDS: LOPRESSOR PO SCH (08:01)
[2018-10-03] MEDS: SOLU-MEDROL IV SCH (08:02)
[2018-10-03] MEDS: PROTONIX IV SCH ×2 (09:16→20:59)
--- NOTE | 2018-10-03 12:41 | NEPHROLOGY PROGRESS NOTE ---
DATE: 10/03/2018 SUBJECTIVE: She is groaning. Eyes are open. She is on nasal cannula. OBJECTIVE: Vitals: Blood pressure 113/68, heart rate 103, respirations 14. General: No acute distress. Skin: Warm and dry. Neck: Neck veins are not appreciated. Heart: Irregular and tachycardic. Lungs: Equal. No crackles. Abdomen: Soft, nontender. Bowel sounds present. Extremities: Trace edema. No clubbing or cyanosis. IMPRESSION: Acute kidney injury. No recovery. SLED today with 4 K bath and a goal of 4 L ultrafiltration. Thirty bicarbonate. No other changes. cc: Rolf Jewell MD
[2018-10-03 14:12] LABS: HEMATOCRIT 26.3 % (37.0-47.0); HEMOGLOBIN 8.3 g/dL (12.0-16.0)
--- NOTE | 2018-10-03 15:18 | ECHO REPORT ---
ORDER DATE: 10/03/2018 INTERPRETING PHYSICIAN: Brien Snider MD PROCEDURE: 2D echocardiogram. ECHOCARDIOGRAPHIC MEASUREMENTS: 1. Interventricular septum 1.6 cm. 2. Left ventricular posterior wall 1.2 cm. 3. Diastolic diameter 4.5 cm. 4. Left atrium 5.6 cm. SUMMARY OF THE 2-DIMENSIONAL IMAGIN. Mitral valve leaflets are normal. 2. There is mitral annular calcification. 3. There is severe left atrial enlargement. 4. Aortic valve leaflets not well visualized. They appeared to be calcified. 5. Pulmonic valve not well visualized. 6. Mitral valve leaflets mildly thickened with mitral annular calcification. 7. There is biatrial enlargement. 8. Normal left ventricular cavity size. 9. Concentric left ventricular hypertrophy. 10. Estimated ejection fraction of 55% to 60%. 11. This is a limited study. 12. Doppler studies were not obtained. 13. There is no pericardial effusion. cc: MD Ronald Wadsworth MD
[2018-10-03] MEDS: LEVAQUIN 250 MG/D5W 250 MG/50 ML IVPB IV SCH (16:49)
[2018-10-03] MEDS ORDERED: M V I IV SCH ×7 (17:00)
[2018-10-03] MEDS ORDERED: [UNRECOGNIZED DRUG - OTHER] IV SCH ×7 (17:00)
[2018-10-03] MEDS ORDERED: SODIUM PHOSPHATE IV SCH ×7 (17:00)
[2018-10-03] MEDS ORDERED: TPN ELECTROLYTES IV SCH ×7 (17:00)
[2018-10-03] MEDS: LIPOSYN 20% 500 ML IV SCH (17:26)
--- NOTE | 2018-10-03 17:35 | PROGRESS NOTE ---
DATE: 10/03/2018 INTERVAL HISTORY: The patient back on SLED dialysis. No obvious signs or symptoms of active bleeding. Mental status slightly improved. Slightly more awake but still largely responsive only to noxious stimuli, and not cooperative. REVIEW OF SYSTEMS: Unable to obtain secondary to patient's mental status. DIAGNOSTIC STUDIES: WBC 13.4, initial hemoglobin 7.2, repeat hemoglobin 8.3, platelets 91,000. ABG unremarkable. Chemistry with sodium 135, potassium 4, BUN 63, creatinine 1.7, glucose 156. Echocardiogram with EF 55 to 60, no obvious significant valvular abnormality. VITALS: Temperature maximum 98.6 degrees, pulse 97, respirations 20, blood pressure 100/56, O2 saturation 100% on 3 L by nasal cannula. PHYSICAL EXAMINATION: General: No acute distress, but continues to become slightly agitated when aroused. Vitals: As above. HEENT: The patient on nasal cannula. Nasal bridge is somewhat irritated from previous mask. Normocephalic. Neck: No cervical adenopathy. Cardiovascular: Irregular rhythm with normal rate. No murmurs noted. Pulmonary: Scattered rhonchi and bibasilar rales similar to previous. No wheezing noted. Abdomen: Soft, nontender, nondistended. Bowel sounds present. Extremities: Peripheral pulses intact. No clubbing, cyanosis. Neurologic: Limited by patient mental status, but does open eyes to voice. Tracks with eyes somewhat. Remains aroused a little better than previous. A little more spontaneous, although nonpurposeful movement. Still does not follow commands. No clear focal deficits. Psychiatric: Arouses to mild stimuli as above. Reportedly squeezed a hand to command with family earlier, but does not with me. Skin: No new rashes or lesions identified. ASSESSMENT AND PLAN: 1. Pneumonia, bilateral pleural effusions, likely acute on chronic diastolic congestive heart failure versus flash pulmonary edema. On antibiotics with Levaquin. Little change in imaging, although we have had some success in weaning oxygen. We are down to nasal cannula now. Continuing dialysis. Continue antibiotics. Monitor closely. 2. Acute kidney injury. Had dialysis held yesterday, but no sign of renal recovery, and back on dialysis today. Nephrology following. 3. Chronic obstructive pulmonary disease with exacerbation. No further wheezing. Air entry pretty good. May be contributing to respiratory status, but no further sign of exacerbation at this time. 4. Upper gastrointestinal bleed with acute posthemorrhagic anemia. Blood counts with slight downtrend this morning, but repeat fairly stable from previous days. No signs or symptoms of active bleeding. Esophagogastroduodenoscopy showed hemorrhagic gastritis. Continue PPI and monitor. 5. Thrombocytopenia. Platelet count worsened over the last several days. Given recent GI bleed, we transfused her yesterday. Given recent GI bleed and some concerns by Hematology for ongoing bleeding, we will go ahead and transfuse 1 more unit of platelets to try to keep her above 100. 6. Septic shock secondary to pneumonia and bleeding as above, now resolved. Off pressors for several days. 7. Hyperkalemia, resolved with dialysis. Monitor. 8. Protein-calorie malnutrition. Patient on TPN. Monitor closely. 9. Pulmonary hypertension, moderate aortic stenosis, stable. Monitor.
--- NOTE | 2018-10-03 20:43 | INFECTIOUS DISEASE PROGRESS NO ---
DATE: 10/03/2018 PRESENT ILLNESS: The patient is being treated for a Pseudomonas fluorescens pneumonia. Unfortunately, the patient's checked x-ray is looking worse and the radiologist is diagnosing the chest x-ray as showing pulmonary edema rather than pneumonia. The patient also has an immunoglobulin deficiency. MEDICATIONS: This is the 9th day of treatment with Levaquin. PHYSICAL EXAMINATION: Vital Signs: Temperature is 97 degrees, pulse 103, respirations 14, blood pressure is 91/56. General: This is a chronically ill-appearing, elderly female. She does seem to be in some slight distress at this time. Head, Eyes, Ears, Nose, Throat: She did not respond to verbal stimuli. There is no drainage from the nose or ears. I did not get a good look in her mouth. Neck: There was no pain when I moved the patient's head. Lungs: Bilateral rhonchi. Cardiovascular: Heart rate is irregular. Abdomen: Soft and nontender. Extremities: The patient has a PICC in the right arm and a dialysis catheter in the right groin. Both sites are not erythematous or purulent. The patient has an Augie wrap around the left arm because of presence of a hematoma. Neurologic: The patient seems to be in a delirium. She does not respond to verbal stimuli. There is no tremor. LAB AND X-RAY: Chest x-ray shows worsening bilateral lower lobe opacification. Echocardiogram shows no vegetations. The patient's CBC shows a white count of 13,450, hemoglobin 8.3, and platelet count 91,000. Blood gases show a pH of 7.35, a pO2 of 82, and a pCO2 of 41. Creatinine is 1.7. GFR is 29. The patient's procalcitonin is 0.67, which corresponds to that it is very likely the patient does have a pneumonia. ASSESSMENT AND PLAN: The patient may be having pulmonary edema and not a pneumonia. For now, I am going to continue Levaquin. I think now that the procalcitonin level has returned and it is high, the patient does indeed have a Pseudomonas pneumonia and there may well be a component of pulmonary venous congestion as well. Regarding the patient's immunoglobulin deficiency, she has received immunoglobulin infusion during this hospitalization. I will repeat her immunoglobulin levels for the first of the week and, as mentioned above, I will continue Levaquin. COMORBIDITY: Elderly, chronic obstructive pulmonary disease, congestive heart failure, immunoglobulin deficiency. cc: Mahendra Coffman MD [facility]
[2018-10-04] MEDS: CARAFATE LIQUID NG SCH ×4 (01:00→21:25)
[2018-10-04] MEDS: XOPENEX NEB INH SCH ×6 (03:16→23:30)
[2018-10-04] MEDS: HYDROCODONE/APAP 7.5-325/15 ML PO PRN ×2 (03:55→16:53)
[2018-10-04 05:16] LABS: ALLEN TEST YES; BE -0.5 mmoll (-3.0-3.0); BLOOD TYPE ARTERIAL; HCO3-(ACT) 24.5 mmoll (20.0-26.0); METHB 1.4 % (0.0-1.5); O2HB 95.9 % (95.0-99.0); PCO2(98.6) 39 mmHg (35-45); PO2(98.6) 84 mmHg (60-100); SAMPLE BLOOD; SAO2 98.8 % (95.0-100.0); THB 8.8 g/dL (11.5-17.4)
[2018-10-04 05:17] LABS: MODALITY CANNULA
[2018-10-04] MEDS: CARDIZEM PO SCH ×3 (05:18→17:01)
[2018-10-04] MEDS: SYNTHROID IV SCH (06:15)
[2018-10-04 06:17] LABS: HEMATOCRIT 22.4 % (37.0-47.0); HEMOGLOBIN 7.4 g/dL (12.0-16.0); MCV 93.7 FL (81-99); MPV 11.1 FL (7.4-10.4); RBC 2.39 XMIL (4.2-5.4); RDW 15.6 % (11.5-14.5); WBC 14.48 X1000 (4.8-10.8)
[2018-10-04 06:41] LABS: ALBUMIN 3.1 g/dL (3.5-5.0); CALCIUM 8.3 mg/dL (8.8-10.2); CREATININE 1.1 mg/dL (0.5-0.9); MAGNESIUM 1.7 mg/dL (1.5-2.7); PHOSPHORUS 1.8 mg/dL (2.7-4.5); POTASSIUM 4.5 mmol/L (3.5-5.1); TOTAL BILIRUBIN 0.42 mg/dL (0.20-1.00); TOTAL PROTEIN 6.1 g/dL (6.3-8.3)
[2018-10-04] MEDS ORDERED: NS 2,000 ML MISC PRN (07:46)
--- NOTE | 2018-10-04 08:03 | Diag Imaging Result Doc PS360 ---
EXAM: CHEST-PORTABLE INDICATION: respiratory failure TECHNIQUE: One view COMPARISON: 10/03/2018 FINDINGS: Support tubes and lines are in stable positions. Interstitial and airspace infiltrates with a lower lung zone predominance suggesting pulmonary edema are essentially stable. There are stable small effusions. No new consolidation is identified. Cardiac silhouette is stable. IMPRESSION: Essentially stable chest. Electronically signed by Jose Daniel Modi 10/04/2018 8:01 AM
[2018-10-04] MEDS: PROTONIX IV SCH ×2 (08:28→21:25)
[2018-10-04] MEDS: SOLU-MEDROL IV SCH (08:28)
[2018-10-04] MEDS: LOPRESSOR PO SCH (08:28)
[2018-10-04] MEDS: LEVAQUIN 250 MG/D5W 250 MG/50 ML IVPB IV SCH (16:53)
[2018-10-04] MEDS: TPN ELECTROLYTES 20 ML, SODIUM PHOSPHATE 15 MMOL, M.V.I.-12 10 ML, MTE CONCENTRATE 1 ML... IV SCH ×7 (17:01)
[2018-10-04] MEDS: LIPOSYN 20% 500 ML IV SCH (17:02)
--- NOTE | 2018-10-04 17:38 | NEPHROLOGY PROGRESS NOTE ---
DATE: 10/04/2018 SUBJECTIVE: She is somewhat more alert. She does try to follow simple commands. She is on a closed face mask, coughing some. OBJECTIVE: Vital Signs: Blood pressure 118/66, heart rate 104, respirations 17. Intake 2.2 L, output 4.1 L General: No acute distress. Skin: Warm and dry. HEENT: Oropharynx is dry. Neck: Neck veins are not visible. Heart: Regular. Lungs: Have equal breath sounds with scattered rhonchi. Abdomen: Soft, nontender. Bowel sounds present. Extremities: With minimal edema. No clubbing or cyanosis. IMPRESSION/PLAN: Acute kidney injury. Sustained low-efficiency dialysis today. Goal of 3 to 4 L ultrafiltration as her blood pressure allows, 4K bath, 30 bicarbonate. cc: Rolf Jewell MD
--- NOTE | 2018-10-04 18:49 | PROGRESS NOTE ---
DATE: 10/04/2018 INTERVAL HISTORY: The patient's mental status continues to improve slowly. Attempting to speak intermittently. Following occasional commands. No acute events overnight. Remains afebrile. REVIEW OF SYSTEMS: Unable to obtain secondary to patient's mental status. LABS: WBC 14.4, hemoglobin 7.4, hematocrit 22.4, platelets 108. ABG with pH of 7.4, pCO2 of 39, pO2 of 84. Sodium 135, potassium 4.5, bicarb 21, BUN 40, creatinine 1.1, glucose 144. IMAGING: Chest x-ray essentially unchanged from previous. VITAL SIGNS: T-max 98.9 degrees, pulse 104, respirations 18, blood pressure 103/62, O2 saturation 97% on 3 L by nasal cannula. PHYSICAL EXAMINATION: General: No acute distress. Ill appearing. Vitals: As above. HEENT: Irritation of nasal bridge is stable. Atraumatic, normocephalic. Neck: No cervical adenopathy. Cardiovascular: Irregular rhythm with minimal tachycardia. No murmurs noted. Pulmonary: Scattered rhonchi and bibasilar rales, essentially unchanged. No wheezing noted. Reasonable air entry. Does have some upper airway noise. Abdomen: Soft, nontender, nondistended. Bowel sounds positive. Extremities: Peripheral pulses intact. No clubbing or cyanosis. Neurologic: Cranial nerves grossly intact. Significant global weakness, but able to move all extremities. No obvious focal deficits. Psychiatric: Awake, somewhat alert. Attempts to speak words, but quite hoarse and fatigues rapidly. Follows commands intermittently. Skin: No new rashes or lesions identified. ASSESSMENT AND PLAN: 1. Pneumonia, bilateral effusions, likely acute on chronic diastolic congestive heart failure versus flash pulmonary edema. On antibiotics with Levaquin. Little change in imaging, but is clinically improving slowly. Down to 3 L by nasal cannula on oxygen. Mental status continuing to improve. Continuing dialysis. Monitor closely. 2. Acute kidney injury. The patient remains on sustained low-efficiency dialysis. Nephrology following and managing. 3. Chronic obstructive pulmonary disease with exacerbation. No further wheezing. Air entry fair. No further sign of exacerbation at this time. Continue nebulizers. On low-dose steroid. 4. Upper gastrointestinal bleed with acute post-hemorrhagic anemia. Blood counts with slight downtrend yesterday, slightly improved on recheck. Essentially unchanged today. Still no signs or symptoms of active bleeding. Continue to monitor closely. Continue proton pump inhibitor. Esophagogastroduodenoscopy showed hemorrhagic gastritis. 5. Thrombocytopenia. Platelets were trending down. Hematology-Oncology has concerns about ongoing gastrointestinal bleed, so platelets were transfused. Reasonable improvement after transfusion of platelets today. Monitor closely. 6. Septic shock secondary to pneumonia and bleeding. Now resolved. 7. Hyperkalemia resolved with dialysis. Monitor. 8. Hypophosphatemia. Phosphorus somewhat low. Likely related to dialysis. Nutrition adjusting total parenteral nutrition. Will defer repletion to Nephrology. 9. Protein calorie malnutrition. Patient on total parenteral nutrition. Monitor. 10. Pulmonary hypertension, moderate aortic stenosis. Stable. Monitor.
[2018-10-05] MEDS: CARDIZEM PO SCH ×5 (01:11→23:45)
[2018-10-05] MEDS: CARAFATE LIQUID NG SCH ×4 (01:11→23:45)
[2018-10-05] MEDS: XOPENEX NEB INH SCH ×6 (03:14→23:23)
[2018-10-05] MEDS: HYDROCODONE/APAP 7.5-325/15 ML PO PRN ×2 (03:39→16:07)
[2018-10-05] MEDS: LOPRESSOR IV PRN (03:39)
[2018-10-05 04:58] LABS: BLOOD TYPE ARTERIAL; SAMPLE BLOOD
[2018-10-05 04:59] LABS: ALLEN TEST YES; BE -0.8 mmoll (-3.0-3.0); HCO3-(ACT) 24.3 mmoll (20.0-26.0); METHB 1.3 % (0.0-1.5); O2(CT) 11.9 mL/dL (15.0-23.0); O2HB 96.4 % (95.0-99.0); PCO2(98.6) 33 mmHg (35-45); PO2(98.6) 106 mmHg (60-100); SAO2 99.2 % (95.0-100.0); THB 8.6 g/dL (11.5-17.4); pH(98.6) 7.45 (7.35-7.45)
[2018-10-05 05:00] LABS: MODALITY CANNULA
[2018-10-05] MEDS: SODIUM CHLORIDE 0.9% INJ PRN (06:12)
[2018-10-05] MEDS: SYNTHROID IV SCH (06:12)
[2018-10-05 06:24] LABS: HEMATOCRIT 23.6 % (37.0-47.0); HEMOGLOBIN 7.6 g/dL (12.0-16.0); MCH 30.2 PG (27-31); MCHC 32.2 g/dL (33-37); MCV 93.7 FL (81-99); MPV 11.2 FL (7.4-10.4); RBC 2.52 XMIL (4.2-5.4); RDW 15.5 % (11.5-14.5); WBC 10.83 X1000 (4.8-10.8)
[2018-10-05 06:40] LABS: AGAP 13; ALBUMIN 2.9 g/dL (3.5-5.0); ALKALINE PHOSPHATASE 89 U/L (32-104); BUN 34 mg/dL (8-22); CALCIUM 8.1 mg/dL (8.8-10.2); CHLORIDE 102 mmol/L (98-107); COSMO 281; CREATININE 0.9 mg/dL (0.5-0.9); ESTIMATED GFR > 60; GLUCOSE 128 mg/dL (70-104); GOT 42 U/L (10-30); GPT 47 U/L (10-36); POTASSIUM 4.1 mmol/L (3.5-5.1); SODIUM 136 mmol/L (136-145); TCO2 21 mmol/L (25-35); TOTAL PROTEIN 5.8 g/dL (6.3-8.3)
[2018-10-05 07:03] LABS: CALCIUM 8.1 mg/dL (8.8-10.2); MAGNESIUM 1.8 mg/dL (1.5-2.7); PHOSPHORUS 1.7 mg/dL (2.7-4.5); POTASSIUM 4.2 mmol/L (3.5-5.1)
--- NOTE | 2018-10-05 07:51 | Diag Imaging Result Doc PS360 ---
EXAM: CHEST-PORTABLE INDICATION: respiratory failure TECHNIQUE: One view COMPARISON: 10/04/2018 FINDINGS: Support tubes and lines are in stable positions. Pulmonary edema at the lung bases is stable to marginally improved. No new consolidation is identified. Cardiac silhouette is stable. IMPRESSION: Stable to marginal improvement. Electronically signed by Jose Daniel Modi 10/05/2018 7:48 AM
[2018-10-05] MEDS: SOLU-MEDROL IV SCH (09:25)
[2018-10-05] MEDS: PROTONIX IV SCH ×2 (09:25→21:35)
[2018-10-05] MEDS: LOPRESSOR PO SCH (09:26)
[2018-10-05] MEDS ORDERED: D10W 500 ML IV SCH (13:45)
[2018-10-05] MEDS ORDERED: D10W 1,000 ML IV SCH (14:00)
[2018-10-05] MEDS: D10W 1,000 ML IV SCH ×2 (14:00→14:02)
[2018-10-05] MEDS: LEVAQUIN 250 MG/D5W 250 MG/50 ML IVPB IV SCH (16:07)
--- NOTE | 2018-10-05 16:17 | PROGRESS NOTE ---
DATE: 10/05/2018 INTERVAL HISTORY: The patient's mental status roughly stable. Occasionally arouses enough to attempt individual words. Occasionally follows commands. No acute events overnight. Remains afebrile. Discussed current situation with family. REVIEW OF SYSTEMS: Unable to obtain secondary to patient's mental status. LABS: WBC 10.8, hemoglobin 7.6, hematocrit 23.6, platelets 78,000. ABG with pH 7.45, pCO2 33, PO2 106. Sodium 132, potassium 4.2, bicarbonate 19, BUN 34, creatinine 1.0, glucose 132, phosphorus 1.7. IMAGING: Chest x-ray with marginal improvement in edema. VITAL SIGNS: T-max 98.9 degrees, pulse 105, respirations 18, blood pressure 99/62, O2 saturation 100% on 3 L by nasal cannula. OBJECTIVE: General: No acute distress. Ill appearing. Vital signs: As above. HEENT: Rotation of nasal bridge stable, dressed. Atraumatic, normocephalic. No cervical adenopathy. Cardiovascular: Irregular rhythm. Still with minimal tachycardia. No murmurs noted. Pulmonary: Still with scattered rhonchi and bibasilar rales which are similar to previous. No wheezing and fair air entry. Abdomen: Soft, nontender, nondistended. Bowel sounds positive. Extremities: Peripheral pulses intact. No clubbing or cyanosis. Neurologic: Cranial nerves grossly intact. Global weakness but occasional nonpurposeful movement of extremities. Psychiatric: Asleep but does arouse. Not following commands at the time of my exam. Skin: No new rashes or lesions identified. ASSESSMENT AND PLAN: 1. Pneumonia, bilateral effusions, acute on chronic diastolic congestive heart failure. On antibiotics with Levaquin. Little change in imaging, but clinically improving slowly. Down to 3 L by nasal cannula and has significant room to wean. Mental status continues to improve but very slowly. Off dialysis today. Monitor closely. 2. Acute kidney injury. Patient on intermittent SLED. Off today. Nephrology following and managing. Urine output remains very poor. 3. Chronic obstructive pulmonary disease with exacerbation. Baseline COPD may be contributing to respiratory status but exacerbation resolved at this point. 4. Upper gastrointestinal bleed with acute post hemorrhagic anemia. Blood counts with slight downtrend yesterday but improved on recheck. Essentially stable to minimally improved today. Still no signs or symptoms of active bleeding. Continue PPI and monitor counts. EGD showed hemorrhagic gastritis. 5. Thrombocytopenia. Platelets at one point transfused because of concerns for continued bleeding and responded appropriately but now again trending down. We will hold on transfusion for now but may become necessary again. 6. Hyperkalemia. Resolved with dialysis. 7. Hypophosphatemia. Phosphorus remains somewhat low. Nutrition adjusting TPN. We will defer acute repletion to Nephrology. 8. Hyperkalemia, resolved. 9. Septic shock, resolved. 10. Protein calorie malnutrition. Patient on TPN because of concerns of aspiration. Monitor. 11. Pulmonary hypertension, moderate aortic stenosis. Monitor.
[2018-10-05] MEDS: TPN ELECTROLYTES 20 ML, SODIUM PHOSPHATE 15 MMOL, M.V.I.-12 10 ML, MTE CONCENTRATE 1 ML... IV SCH ×7 (17:14)
[2018-10-05] MEDS: LIPOSYN 20% 500 ML IV SCH (17:14)
[2018-10-05] MEDS: MORPHINE IV PRN (17:31)
[2018-10-06] MEDS: XOPENEX NEB INH SCH ×6 (03:01→23:30)
[2018-10-06 04:53] LABS: ALLEN TEST YES; BE -4.4 mmoll (-3.0-3.0); BLOOD TYPE ARTERIAL; HCO3-(ACT) 21.5 mmoll (20.0-26.0); METHB 1.7 % (0.0-1.5); O2(CT) 10.9 mL/dL (15.0-23.0); O2HB 95.5 % (95.0-99.0); PCO2(98.6) 32 mmHg (35-45); PO2(98.6) 90 mmHg (60-100); SAMPLE BLOOD; SAO2 98.3 % (95.0-100.0)
[2018-10-06 04:54] LABS: MODALITY CANNULA
[2018-10-06] MEDS: CARAFATE LIQUID NG SCH ×4 (05:00→23:37)
[2018-10-06] MEDS: CARDIZEM PO SCH ×4 (05:01→23:37)
[2018-10-06] MEDS: SYNTHROID IV SCH (06:07)
[2018-10-06] MEDS: SODIUM CHLORIDE 0.9% INJ PRN (06:07)
[2018-10-06 06:46] LABS: HEMATOCRIT 23.1 % (37.0-47.0); HEMOGLOBIN 7.5 g/dL (12.0-16.0); MCH 29.8 PG (27-31); MCHC 32.5 g/dL (33-37); MCV 91.7 FL (81-99); MPV 11.4 FL (7.4-10.4); RBC 2.52 XMIL (4.2-5.4); RDW 15.4 % (11.5-14.5); WBC 10.63 X1000 (4.8-10.8)
[2018-10-06 06:59] LABS: MAGNESIUM 2.1 mg/dL (1.5-2.7); PHOSPHORUS 3.2 mg/dL (2.7-4.5); PREALBUMIN 27.8 mg/dL (20-40)
[2018-10-06 07:12] LABS: ALBUMIN 2.8 g/dL (3.5-5.0); CALCIUM 8.2 mg/dL (8.8-10.2); CREATININE 1.7 mg/dL (0.5-0.9); POTASSIUM 4.4 mmol/L (3.5-5.1); TOTAL BILIRUBIN 0.31 mg/dL (0.20-1.00); TOTAL PROTEIN 5.5 g/dL (6.3-8.3)
--- NOTE | 2018-10-06 07:27 | Diag Imaging Result Doc PS360 ---
EXAM: CHEST-PORTABLE INDICATION: respiratory failure TECHNIQUE: One view COMPARISON: 10/05/2018 FINDINGS: Support tubes and lines are in stable positions. Pulmonary edema and pulmonary venous congestion is approximately stable. No new consolidation is identified. Cardiac silhouette is stable. IMPRESSION: Stable chest. Electronically signed by Jose Daniel Modi 10/06/2018 7:25 AM
[2018-10-06] MEDS: SOLU-MEDROL IV SCH (08:45)
[2018-10-06] MEDS: LOPRESSOR PO SCH (08:45)
[2018-10-06] MEDS: SODIUM CHLORIDE 0.9% INJ SCH (08:46)
[2018-10-06] MEDS: PROTONIX IV SCH ×2 (08:46→20:49)
--- NOTE | 2018-10-06 14:34 | INFECTIOUS DISEASE PROGRESS NO ---
DATE: 10/06/2018 PRESENT ILLNESS: The patient has a Pseudomonas fluorescens pneumonia. It appears to me now that the patient has cleared the infection given that she has been on Levaquin now for 12 days and her white count is back to normal and the patient's chest x-ray is read as showing pulmonary edema and not pneumonia. MEDICATIONS: This is the 12th day of treatment with Levaquin. PHYSICAL EXAMINATION: Vital Signs: Temperature is 97.3, pulse 93, respirations 20, blood pressure 109/64. General: This is a chronically ill-appearing, elderly female. She does seem to be somewhat dyspneic. HEENT: She does not have any white patches on her tongue. There is no drainage from her nose or ears. She apparently can hear my spoken words because she moved her extremities when I asked her to. She did look at me while I was in the room, so it appears that her vision is fairly good for close objects. Neck: She did not have any pain in her neck when I moved her head. Lungs: There were bilateral rhonchi. Cardiovascular: Heart rate is irregular. Abdomen: Soft and nontender. Extremities: The patient has a PICC in her right arm. The site is not erythematous or purulent. The patient has an Augie wrap on her left arm where she had a hematoma in order to try to keep it from getting any bigger. Also, on the patient's right leg, she does have a hematoma, but that is getting smaller. LAB AND X-RAY: Chest x-ray shows pulmonary edema. IgG is 917 and IgA is 57. Blood gases show a pH of 7.4, pO2 of 90, and a pCO2 of 32. CBC shows a white count of 10,630, hemoglobin 7.5, and platelet count 60,000. Creatinine is 1.7. GFR is 29. ALT is 51. Chest x-ray shows pulmonary edema. ASSESSMENT AND PLAN: I think the patient's pneumonia has cleared and now the patient's congestion is due to pulmonary venous congestion. I am going to stop Levaquin after today's dose and I am signing off on the patient's case, but I will be available to see her on a p.r.n. basis. COMORBIDITIES: The patient is elderly. She has chronic obstructive pulmonary disease, congestive heart failure and immunoglobulin deficiency. cc: Mahendra Coffman MD
[2018-10-06] MEDS: LEVAQUIN 250 MG/D5W 250 MG/50 ML IVPB IV SCH (15:09)
--- NOTE | 2018-10-06 15:33 | NEPHROLOGY PROGRESS NOTE ---
DATE: 10/06/2018 Date Seen: 10/06/2018. Time Seen: 06:40. SUBJECTIVE: Ms. Espinoza is awake. She is lying in bed. She is unable to follow direct commands. OBJECTIVE: Vital Signs: Temperature 97.3 degrees, blood pressure 123/63, heart rate is 112, respirations 18. She is on 3 L nasal cannula. Last recorded saturation 92%. She has had 1622 in, she has had 120 out to Knapp catheter. LABS: Sodium is 130, potassium 4.4, chloride 98, CO2 19, BUN 71, creatinine 1.7, glucose is 120. Her anion gap is 19. She has a calcium of 8.2, phosphorus 3.2, magnesium 2.1, albumin 2.8. White count 10.63, hemoglobin 7.5, hematocrit 23.1 with a platelet count of 60,000. Patient has a chest x-ray this a.m. showing stable chest. PHYSICAL EXAMINATION: General: This is a 78-year-old white female resting quietly in bed. She appears chronically ill, in no acute distress. Skin: Warm and dry. HEENT: Normocephalic, atraumatic. Conjunctiva is pale pink. She has SHERWIN. Mucous membranes are dry. Neck: Supple. Trachea midline. No evidence of JVD. Cardiovascular: She has a irregular regular rate and rhythm. She is tachycardic on the monitor. Lungs: Have coarse bilateral rhonchi with forced expiratory effort. Remains on O2 support. Abdomen: Soft nontender, positive bowel sounds. Genitourinary: Not inspected. Knapp catheter remains in place with minimal urine out documented. Extremities: She has an Augie wrap to her left wrist. Otherwise, no edema present. No clubbing or cyanosis. ASSESSMENT AND PLAN: 1. Acute kidney injury. The patient has required slow efficiency dialysis on a Saturday, Saturday, Saturday basis. She appears dry today. We will hold on dialysis and re-evaluate in the a.m. 2. Electrolytes and acid-base balance. These are all fairly stable with a low sodium with no indications for intervention. 3. Anemia. Patient's hemoglobin is 7.5. No indications for intervention. We will defer to the primary care team for discussion of transfusion when indicated. 4. Respiratory failure with effusions and congestive heart failure . We have been dialyzing patient to assist her with her fluid volume overload. No indications for intervention today. I would like to thank you for allowing us to consult with this patient. Dictated by STACIE Daley for Rolf Jewell MD Face to face encounter, data reviewed, discussed with John Jones on 10/06/18. I agree with the above assessment and plan of care. cc: STACIE Daley MD [facility]
[2018-10-06] MEDS: LIPOSYN 20% 500 ML IV SCH (16:30)
[2018-10-06] MEDS ORDERED: TPN ELECTROLYTES 20 ML, SODIUM PHOSPHATE 15 MMOL, M.V.I.-12 10 ML, MTE CONCENTRATE 1 ML... IV SCH ×7 (17:00)
--- NOTE | 2018-10-06 18:10 | PROGRESS NOTE ---
DATE: 10/06/2018 INTERVAL HISTORY: The patient remains off dialysis. Mental status largely unchanged. Occasionally arouses enough to attempt single words. Occasionally but does not consistently follow commands. No acute events overnight. Continues to have difficulty clearing her secretions and requires frequent suctioning. REVIEW OF SYSTEMS: Unable to obtain secondary to patient's mental status. LABS: WBC 10.6, hemoglobin 7.5, hematocrit 23.1, platelets 60,000. Fibrinogen 401. ABG, pH 7.4, pCO2 32, PO2 90 on 3 L by nasal cannula. Sodium 130, potassium 4.4, bicarb 19, BUN 71, creatinine 1.7, glucose 120, AST 43, ALT 51, total protein 5.5, albumin 2.8. IMAGING: Chest x-ray essentially unchanged. VITAL SIGNS: T-max 99.1 degrees, pulse 98, respirations 31, blood pressure 140/73, O2 saturation 94% on 3 L by nasal cannula. PHYSICAL EXAMINATION: General: No acute distress, ill appearing. Vital signs: As above. HEENT: Irritation of nasal bridge stable and dressed. Atraumatic, normocephalic. No cervical adenopathy. Cardiovascular: Irregular rhythm. Largely normal rate with occasional slight elevation. No murmurs noted. Pulmonary: Scattered rhonchi and bibasilar rales, largely unchanged. No wheezing and reasonable air entry. Abdomen: Soft, nontender, nondistended. Bowel sounds positive. Extremities: Peripheral pulses intact. No clubbing or cyanosis. Extensive left arm bruising, bandaged. Neurologic: Exam limited by mental status but occasional nonpurposeful movement of all limbs. Pupils equal, round, reactive to light. Will occasionally respond with a difficult to understand word. Psychiatric: Asleep but does arouse to voice. Not following any commands. Skin: No new rashes or lesions identified. ASSESSMENT AND PLAN: 1. Pneumonia, bilateral effusions, acute on chronic diastolic congestive heart failure. Remains on antibiotics with Levaquin. Leukocytosis resolved. Oxygen requirements have improved down to 3 L by nasal cannula. Mental status with slight improvement from several days ago, but essentially stable the last 2 to 3 days. Remains off dialysis. 2. Acute kidney injury. Patient on intermittent SLED. Nephrology following and managing. Urine output remains quite low. 3. Upper gastrointestinal bleed with acute post hemorrhagic anemia. Blood counts essentially stable, although platelets continue to trend down. Still no signs or symptoms of active bleeding but increasing BUN is somewhat concerning. Continue PPI. Despite no clear evidence of bleeding, will likely go ahead and transfuse platelets and attempt to get them up over 100,000. EGD when performed showed hemorrhagic gastritis. 4. Thrombocytopenia, steadily worsening. Transfusing today, as above. 5. Hyperkalemia. Resolved with dialysis. 6. Hypophosphatemia. Improved with adjustments in TPN. Monitor. 7. Septic shock, resolved. 8. Protein calorie malnutrition. Patient on TPN because of concerns of aspiration. Monitor. 9. Pulmonary hypertension and moderate aortic stenosis, known. Monitor.
[2018-10-06] MEDS ORDERED: NS 250 ML ONE (20:28)
--- NOTE | 2018-10-06 22:26 | PULMONOLOGY PROGRESS NOTE ---
DATE: 10/06/2018 SUBJECTIVE: The patient will arouse to voice. She attempts to communicate, but her speech is unintelligible. She has no increased work of breathing. She does appear to have increased oral/tracheal secretions. OBJECTIVE: Vital Signs: The patient has been afebrile for the last 24 hours. Blood pressure 114/61, heart rate 111, respiratory rate 28, oxygen saturation 100% on 3 L per nasal canula. HEENT: Pupils are equal and reactive. Oropharynx appears clear. Neck: Is supple. Chest: Reveals coarse breath sounds in both lungs bilaterally. Cardiac exam: S1, S2. Abdomen: Is soft with diminished bowel sounds. Extremities: Reveal trace edema. LABORATORIES: Chest x-ray reveals stable pulmonary edema and vascular congestion. White blood count 10.6, hemoglobin 7.5, platelet count 60,000. Sodium 130, potassium 4.4, chloride 98, bicarbonate 19, BUN 71, creatinine 1.7. Pre-albumin is 28. IMPRESSION: 1. A 78-year-old with pneumonia. 2. Pleural effusions. 3. Immunoglobulin deficiency. 4. Protein-calorie malnutrition. 5. Thrombocytopenia. 6. Acute renal failure. PLAN: 1. Continue oxygen and BiPAP p.r.n. 2. Continue alternative nutrition source until she can tolerate p.o. intake. 3. Infectious Disease notes have been read with anticipation of discontinuing antibiotics. 4. We will continue to follow immunoglobulin and replaced on a p.r.n. basis. cc: Ronald Osuna MD
[2018-10-07] MEDS: XOPENEX NEB INH SCH ×6 (03:37→23:29)
[2018-10-07 05:08] LABS: ALLEN TEST YES; BE -6.2 mmoll (-3.0-3.0); BLOOD TYPE ARTERIAL; HCO3-(ACT) 20.1 mmoll (20.0-26.0); O2(CT) 9.2 mL/dL (15.0-23.0); O2HB 96.3 % (95.0-99.0); PCO2(98.6) 29 mmHg (35-45); PO2(98.6) 76 mmHg (60-100); SAMPLE BLOOD; SAO2 99.2 % (95.0-100.0); THB 6.7 g/dL (11.5-17.4)
[2018-10-07] MEDS: CARAFATE LIQUID NG SCH ×4 (05:16→23:37)
[2018-10-07] MEDS: CARDIZEM PO SCH ×4 (05:16→23:37)
[2018-10-07] MEDS ORDERED: NS 2,000 ML MISC PRN (05:50)
[2018-10-07 06:16] LABS: MODALITY CANNULA
[2018-10-07] MEDS: SODIUM CHLORIDE 0.9% INJ PRN (06:21)
[2018-10-07] MEDS: SYNTHROID IV SCH (06:21)
[2018-10-07 06:45] LABS: HEMATOCRIT 19.8 % (37.0-47.0); HEMOGLOBIN 6.6 g/dL (12.0-16.0); MCH 30.1 PG (27-31); MCHC 33.3 g/dL (33-37); MCV 90.4 FL (81-99); MPV 10.5 FL (7.4-10.4); RBC 2.19 XMIL (4.2-5.4); RDW 15.1 % (11.5-14.5); WBC 9.5 X1000 (4.8-10.8)
[2018-10-07 06:59] LABS: ALBUMIN 2.8 g/dL (3.5-5.0); CALCIUM 8.6 mg/dL (8.8-10.2); CREATININE 2.2 mg/dL (0.5-0.9); MAGNESIUM 2.4 mg/dL (1.5-2.7); PHOSPHORUS 4.5 mg/dL (2.7-4.5); POTASSIUM 4.6 mmol/L (3.5-5.1); PREALBUMIN 27.1 mg/dL (20-40); TOTAL BILIRUBIN 0.37 mg/dL (0.20-1.00); TOTAL PROTEIN 5.7 g/dL (6.3-8.3)
--- NOTE | 2018-10-07 08:00 | Diag Imaging Result Doc PS360 ---
CHEST-PORTABLE - 10/07/2018 INDICATION: respiratory failure COMPARISON: 10/06/2018 FINDINGS: Support lines and tubes are stable. There is improved aeration of the lower lobes bilaterally with better visualization of the hemidiaphragms. There are decreasing layering hazy opacities compatible with decreasing pleural effusions. Stable cardiomegaly. No new infiltrates. IMPRESSION: Improvement from prior. Electronically signed by Earl Buckley 10/07/2018 7:58 AM
[2018-10-07] MEDS ORDERED: HEPARIN IV ONE (08:30)
[2018-10-07] MEDS ORDERED: ALBUMIN 25% IV ONE ×2 (10:23→10:27)
--- NOTE | 2018-10-07 12:39 | PROGRESS NOTE ---
DATE: 10/07/2018 SUBJECTIVE: This patient is getting dialysis at this moment. I asked for 1 PRBC because this patient's hemoglobin is around 6.6. She is tachycardic. She is not really following commands but she said her name to the nurse. She is moaning. Blood pressure borderline low. OBJECTIVE: Vital Signs: Temperature 98.1 degrees, pulse 119, respiratory rate 18, blood pressure 94/70, oxygen saturation 90 on 2 L of nasal cannula. HEENT: Head normocephalic. No trauma. She does have a lesion. It looks like a pressure ulcer at the level of the nose. Neck: Supple. No JVD. Central trachea. Chest: Scattered rhonchi, mostly at the bases, with bibasilar rales. No wheezing. Cardiovascular: Irregular rhythm. Tachycardic. Abdomen: Soft, nontender, nondistended. Positive bowel sounds. Extremities: Peripheral pulses are decreased but intact. No clubbing, no cyanosis. Extensive left arm bruising with a bandage. Neurological Examination: This patient is not following commands. She opens her eyes spontaneously on and off. Occasionally, nonpurposeful movement of all limbs. Laboratory: WBC 9.5, hemoglobin 6.6, hematocrit 19.8, platelets 151,000. Sodium 129, potassium 4.6, chloride 93, bicarbonate 17, BUN 109, creatinine 2.2, glucose 120, calcium 8.6. AST 32, ALT 41, alkaline phosphatase 97, albumin 2.8. ASSESSMENT AND PLAN: 1. Pneumonia, bilateral effusions, acute on chronic diastolic heart failure exacerbation. She remains on antibiotics. The leukocyte count is better, actually normal. This patient is still requiring oxygen by nasal cannula. Compared with yesterday, I do not think her mental status improved but compared with previous days, apparently she has a little bit better. 2. Acute kidney injury. She is getting dialysis right now. 3. Upper gastrointestinal bleed with acute hemorrhagic anemia. The hemoglobin today is 6.6. I will give her 1 unit of packed red blood cells during dialysis hopefully. We will continue with proton pump inhibitor. 4. Thrombocytopenia, status post transfusion, better after getting platelets yesterday. 5. Hyperkalemia, resolved with dialysis. 6. Hypophosphatemia. We will continue to monitor. 7. Septic shock, resolved. 8. Protein calorie malnutrition. Continue with total parenteral nutrition because of concerns of aspiration. We will monitor. She is not getting tube feeding. 9. Pulmonary hypertension and moderate aortic stenosis. We will monitor. 10. She has a pressure ulcer on her sacrococcygeal area and also her nose. We will continue wound care. 11. Overall, this patient has a poor prognosis. She is Do Not Resuscitate level 2. It looks like she can be on mechanical ventilation but no cardiopulmonary resuscitation or any other advanced cardiovascular life support treatment. CRITICAL CARE TIME: 45 minutes. cc: Vinod Flor MD
--- NOTE | 2018-10-07 13:47 | NEPHROLOGY PROGRESS NOTE ---
DATE: 10/07/2018 TIME SEEN: 0610 SUBJECTIVE: Ms. Espinoza is awake. She is lying in bed. She is moaning aloud. OBJECTIVE: Her most recent vital signs her last temperature 98.4 degrees, blood pressure 107/50, heart rate 110, respirations are 18, she is on 5 L nasal cannula. Her last recorded saturation is 96%. She has had 2077 in, she has had 280 mL out to Knapp catheter. LABS: Sodium is 129, potassium 4.6, chloride 93, CO2 17, BUN 109, creatinine 2.2, glucose is 120, her anion gap is 19, her calcium 8.6, phosphorus 4.5, albumin is 2.8. White count 9.5, hemoglobin 6.6, hematocrit 19.8 with a platelet count of 151,000. ABGs pH 7.4, CO2 29, PO2 76, bicarb 20.1 with a lactate of 0.8 on 5 L. PHYSICAL EXAMINATION: This is a 78-year-old elderly female. She is resting quietly in bed. She appears in no acute distress.Skin: Warm and dry. HEENT: Normocephalic, atraumatic. Conjunctiva is pale pink. She has SHERWIN. Mucous membranes are dry. Neck: Supple, trachea midline. Unable to determine JVD. Cardiovascular: She is irregular, irregular rate and rhythm. She is tachycardic on the monitor. Lungs: Clear to auscultation anterior with coarse respiratory effort remains on O2 support. Abdomen: Large, round, soft, nontender, positive bowel sounds. Genitourinary: Not inspected. Has minimal urine out with need for assistance with dialysis. Extremities: She has an Augie wrap to her left hand. Trace edema to the lower extremities. Neurological: She is awake and will make eye contact only. ASSESSMENT AND PLAN: 1. Acute kidney injury. The patient has had no recovery. Continues with diminished urinary output. We will plan for dialysis today. We will place her on SLED, 4K bath 8 hours 27 bicarbonate. We will plan to pull patient fairly even for her intake and output in the last 48 hours of 3 L ultrafiltration. 2. Electrolytes and acid-base balance with correction on dialysis. 3. Anemia. Hemoglobin had dropped to 6.6 with plan for transfusion of 2 units of packed red blood cells while on dialysis today. 4. Respiratory failure with pleural effusions and congestive heart failure. Again with assistance with dialysis attempting 3 L of ultrafiltration today. Like to thank you for allowing us to follow with this patient. Dictated by STACIE Daley for Rolf Jewell MD Face to face encounter, data reviewed, discussed with John Jones on 10/07/18. I agree with the above assessment and plan of care. cc: STACIE Daley MD [facility]
[2018-10-07] MEDS: PROTONIX IV SCH ×2 (13:57→20:09)
[2018-10-07] MEDS: SODIUM CHLORIDE 0.9% INJ SCH (13:57)
[2018-10-07] MEDS: LOPRESSOR PO SCH (13:57)
[2018-10-07] MEDS: LOPRESSOR IV PRN (13:58)
[2018-10-07] MEDS: SOLU-MEDROL IV SCH (13:58)
[2018-10-07] MEDS: LIPOSYN 20% 500 ML IV SCH (17:44)
[2018-10-07] MEDS: [UNRECOGNIZED DRUG - OTHER] IV SCH ×7 (17:44)
[2018-10-07] MEDS: SODIUM PHOSPHATE IV SCH ×7 (17:44)
[2018-10-07] MEDS: M V I IV SCH ×7 (17:44)
[2018-10-07] MEDS: TPN ELECTROLYTES IV SCH ×7 (17:44)
--- NOTE | 2018-10-07 21:29 | PULMONOLOGY PROGRESS NOTE ---
DATE: 10/07/2018 SUBJECTIVE: Patient is currently on hemodialysis. She will focus on the examiner. She is unable to respond to questioning. OBJECTIVE: Vital Signs: Blood pressure 104/54, heart rate 99, respiratory rate 25, oxygen saturation 99% on Venturi mask. She has been afebrile for the last 24 hours. HEENT: Pupils are equal and reactive. Oropharynx appears clear, but dry. Neck: Supple. Chest: Coarse crackles bilaterally. Cardiac: S1, S2. Abdomen: Soft with positive bowel sounds. Extremities: Generalized bruising. LABORATORIES: Chest x-ray reveals decreased effusions and edema bilaterally. White blood count 9.50, hemoglobin 6.6, platelet count 151,000. IMPRESSION: A 78-year-old with: 1. Pneumonia. 2. Pleural effusions. 3. Immunoglobulin deficiency. 4. Protein-calorie malnutrition. 5. Resolving thrombocytopenia. 6. Acute renal failure. 7. Encephalopathy. PLAN: 1. Continue alternative nutrition source pending ability to take p.o. intake. 2. Cycle BiPAP at bedtime and p.r.n. 3. Replace immunoglobulin p.r.n. 4. Overall prognosis is guarded. cc: Ronald Osuna MD
[2018-10-08 04:55] LABS: ALLEN TEST YES; BE -0.7 mmoll (-3.0-3.0); BLOOD TYPE ARTERIAL; HCO3-(ACT) 24.4 mmoll (20.0-26.0); METHB 0.4 % (0.0-1.5); O2(CT) 12.7 mL/dL (15.0-23.0); O2HB 95.6 % (95.0-99.0); PCO2(98.6) 34 mmHg (35-45); PO2(98.6) 70 mmHg (60-100); SAMPLE BLOOD; SAO2 98.1 % (95.0-100.0); THB 9.4 g/dL (11.5-17.4); pH(98.6) 7.44 (7.35-7.45)
[2018-10-08 04:56] LABS: MODALITY VENTIMASK
[2018-10-08] MEDS: MORPHINE IV PRN ×4 (05:05→23:10)
[2018-10-08 05:12] LABS: HEMATOCRIT 25.9 % (37.0-47.0); HEMOGLOBIN 8.6 g/dL (12.0-16.0); MCH 28.5 PG (27-31); MCHC 33.2 g/dL (33-37); MCV 85.8 FL (81-99); MPV 10.4 FL (7.4-10.4); RBC 3.02 XMIL (4.2-5.4); RDW 15.6 % (11.5-14.5); WBC 6.28 X1000 (4.8-10.8)
[2018-10-08 05:26] LABS: PHOSPHORUS 2.3 mg/dL (2.7-4.5)
[2018-10-08 05:38] LABS: ALB/GLOB RATIO 1.3; ALBUMIN 3.1 g/dL (3.5-5.0); CALCIUM 8.1 mg/dL (8.8-10.2); CREATININE 1.1 mg/dL (0.5-0.9); POTASSIUM 4.5 mmol/L (3.5-5.1); TOTAL BILIRUBIN 0.44 mg/dL (0.20-1.00); TOTAL PROTEIN 5.5 g/dL (6.3-8.3)
[2018-10-08] MEDS: SODIUM CHLORIDE 0.9% INJ PRN (06:15)
[2018-10-08] MEDS: CARAFATE LIQUID NG SCH ×4 (06:15→23:09)
[2018-10-08] MEDS: SYNTHROID IV SCH (06:15)
[2018-10-08] MEDS: CARDIZEM PO SCH ×4 (06:15→23:09)
--- NOTE | 2018-10-08 07:35 | Diag Imaging Result Doc PS360 ---
CHEST-PORTABLE - 10/08/2018 INDICATION: respiratory failure COMPARISON: 10/07/2018 FINDINGS: Support lines and tubes are stable. There is significant worsening dense bilateral infiltrates diffusely. The appearance is most reminiscent of pulmonary edema. There is cardiomegaly. There are probably small bilateral pleural effusions stable from prior. IMPRESSION: Significant worsening central infiltrates compatible with pulmonary edema. Electronically signed by Earl Buckley 10/08/2018 7:32 AM
[2018-10-08] MEDS: XOPENEX NEB INH SCH ×6 (07:55→23:55)
--- NOTE | 2018-10-08 08:01 | NEPHROLOGY PROGRESS NOTE ---
DATE: 10/08/2018 TIME SEEN: 0700. SUBJECTIVE: Ms. Espinoza is awake in bed. She makes eye contact but remains nonverbal. OBJECTIVE: Her vital signs: Temperature 97.7 degrees, blood pressure 121/69, heart rate 108, respirations are 22, she is on 50% face mask. Last recorded saturation 98%. She has had 8 in, 1735 with 1.5 L of dialysis. LABORATORY DATA: Sodium 134, potassium 4.5, chloride 100, CO2 23, BUN 57, creatinine 1.1, glucose 126, anion gap 11, calcium 8.1, phosphorus 2.3, albumin is 3.1. White count 6.28, hemoglobin 8.6, hematocrit 25.3, hematocrit is 25.9 with a platelet count of 83,000. ABGs, pH 7.44, CO2 34, PO2 70, bicarb 24.4, with a lactate of 1.1 on 50% face mask. PHYSICAL EXAMINATION: General: This is a 78-year-old white female resting quietly in bed. She appears chronically ill, in no acute distress. Skin: Warm and dry. HEENT: Normocephalic, atraumatic. Conjunctiva is pale pink. She has SHERWIN. Mucous membranes dry. Neck: Supple. Trachea midline. Unable to determine JVD. Appears to be positive in the upright position. Cardiovascular: She has a regular irregular rate and rhythm. Tachycardic on the monitor. Lungs: Have coarse breath sounds mostly in the upper airways. She remains on O2 at 54% face mask. Abdomen: Soft, large, nontender. Positive bowel sounds. NG tube remains in place. Genitourinary: Not inspected. Minimal void with dialysis assist. Extremities: Continues with Augie wrap to the left hand and forearm. Ecchymosis noted into the hand region. She continues with no edema, no clubbing or cyanosis today. ASSESSMENT AND PLAN: 1. Acute kidney injury. Patient has had no recovery. Able to pull 1.5 L off during dialysis without patient becoming severely tachycardic. Due to this fact, these course breath sounds may simply be rhonchi instead of fluid. We will hold on dialysis today and re-evaluate in the a.m. CXR read as pulmonary edema today. May need BIPAP if worsens. 2. Electrolytes and acid-base balance. These remain acceptable. 3. Anemia. This is improved with transfusion yesterday while on dialysis. 4. Respiratory failure with pleural effusions and congestive heart failure. This is followed by the primary care assisted with Dr. Coffman with assistance from dialysis. Would like to thank you for allowing us to follow with this patient. Dictated by STACIE Daley for Rolf Jewell MD Face to face encounter, data reviewed, discussed with John Jones on 10/08/18. I agree with the above assessment and plan of care. cc: STACIE Daley MD [facility]
--- NOTE | 2018-10-08 08:15 | PROGRESS NOTE ---
DATE: 10/08/2018 SUBJECTIVE: This patient looks more alert today. She is opening her eyes spontaneously. She has been following commands for me. She is able to squeeze my hand and even open her mouth. She is answering some of my simple questions with a yes or no, moving her head. Mouth has been suctioned and we got a thick yellow secretion out. I believe she is going to be dialyzed tomorrow again if the kidney function is not improving. X-ray showed possible pulmonary edema. OBJECTIVE: Vital Signs: Temperature 97.7 degrees, pulse 117, respiratory rate 24, blood pressure 121/69, oxygen saturation 98 on a Venturi mask. HEENT: Head normocephalic. No trauma. PERRLA. She does have a lesion, like a pressure ulcer, at the level of the nose. Neck: Supple. No JVD. Central trachea. Chest: Coarse breath sounds bilaterally, with some scattered rhonchi mostly at the bases, with bibasilar rales. No wheezing. Cardiovascular: Irregular rhythm. Tachycardic. Abdomen: Soft, nontender, nondistended. No hepatosplenomegaly. Extremities: Peripheral pulses are decreased but intact. No clubbing. No cyanosis. Extensive left arm bruising with a bandage. Neurological Examination: This patient is sleepy but arousable. She is opening her eyes spontaneously and she is following commands today for me. She is able to squeeze my hand and open her mouth. She is answering some of my simple questions with yes or no, just moving her head. Laboratory: WBCs 6.2, hemoglobin 8.6, hematocrit 25.9, platelets 83,000. Sodium 134, potassium 4.5, chloride 100, bicarbonate 23, BUN 57, creatinine 1.1, glucose 126, calcium 8.1, phosphorus 2.3. AST 33, ALT 37, alkaline phosphatase 86, albumin 3.1. ASSESSMENT AND PLAN: 1. Pneumonia, bilateral effusions, acute on chronic diastolic heart failure exacerbation. Her leukocyte count remains normal and it has been that way for the past couple days. Pulmonary department is following this patient closely. We will continue breathing treatments. Compared with yesterday, her mental status looks much better today. 2. Acute kidney injury. Continue with dialysis as scheduled. 3. Upper gastrointestinal bleed with acute hemorrhagic anemia. Hemoglobin dropped to 6.6 yesterday and after getting packed red blood cells, the hemoglobin improved to 8.6. We will just monitor. 4. Thrombocytopenia, status post transfusion. We will continue to monitor. 5. Hyperkalemia, resolved. 6. Hypophosphatemia. We will continue to monitor. 7. Septic shock, resolved. 8. Protein calorie malnutrition. At this moment, this patient is on total parenteral nutrition because of concern of aspiration. We will monitor. At this moment, she is not getting tube feeding. 9. Pulmonary hypertension and moderate aortic stenosis. We will monitor. 10. She has a pressure ulcer in the sacrococcygeal area and also her nose. We will continue with wound care. 11. Overall, her prognosis is poor. I had a large conversation with the daughter yesterday about her condition. She seems to understand. She is still Do Not Resuscitate level 2. They will allow us to go with mechanical ventilation as needed. CRITICAL CARE TIME: 35 minutes. cc: Vinod Flor MD
[2018-10-08] MEDS: PROTONIX IV SCH ×2 (08:19→20:59)
[2018-10-08] MEDS: SODIUM CHLORIDE 0.9% INJ SCH ×2 (08:19→21:00)
[2018-10-08] MEDS: LOPRESSOR PO SCH (08:20)
[2018-10-08] MEDS: SOLU-MEDROL IV SCH (08:20)
[2018-10-08] MEDS: TPN ELECTROLYTES IV SCH ×7 (16:48)
[2018-10-08] MEDS: LIPOSYN 20% 500 ML IV SCH (16:48)
[2018-10-08] MEDS: SODIUM PHOSPHATE IV SCH ×7 (16:48)
[2018-10-08] MEDS: [UNRECOGNIZED DRUG - OTHER] IV SCH ×7 (16:48)
[2018-10-08] MEDS: M V I IV SCH ×7 (16:48)
--- NOTE | 2018-10-08 21:57 | PULMONOLOGY PROGRESS NOTE ---
DATE: 10/08/2018 [*] OBJECTIVE: S1, S2 with a regular rhythm. Abdomen is soft, with diminished bowel sounds. DIAGNOSTIC DATA: Chest x-ray reveals cardiomegaly with increased central infiltrates. LABORATORY DATA: White blood count 6.28, hemoglobin 8.6, platelet count 83,000. Arterial blood gas on Ventimask: PH 7.44, pCO2 of 34, pO2 of 70. Chemistry: Sodium 134, potassium 4.5, chloride 100, bicarbonate 23, BUN 57, creatinine 1.1, glucose 126. IMPRESSION: A 78-year-old with: 1. Pneumonia. 2. Pleural effusions. 3. Immunoglobulin deficiency. 4. Malnutrition. 5. Acute renal failure. 6. Encephalopathy. 7. Worsening chest x-ray. PLAN: 1. Ensure the patient is on BiPAP at bedtime and p.r.n. When the patient is off BiPAP she appears to have radiographic worsening. 2. Check NG residuals. If these are low, we will attempt to initiate tube feeds. 3. Replace immunoglobulin as needed. 4. Overall prognosis is poor. cc: Ronald Osuna MD
[2018-10-09] MEDS: XOPENEX NEB INH SCH ×6 (03:49→23:12)
[2018-10-09 05:20] LABS: ALLEN TEST YES; BE -5.5 mmoll (-3.0-3.0); BLOOD TYPE ARTERIAL; HCO3-(ACT) 20.6 mmoll (20.0-26.0); METHB 1.3 % (0.0-1.5); O2(CT) 13.7 mL/dL (15.0-23.0); O2HB 96.8 % (95.0-99.0); PCO2(98.6) 32 mmHg (35-45); PO2(98.6) 178 mmHg (60-100); SAMPLE BLOOD; SAO2 99.2 % (95.0-100.0); THB 9.8 g/dL (11.5-17.4); pH(98.6) 7.38 (7.35-7.45)
[2018-10-09 05:26] LABS: MODALITY BI PAP
[2018-10-09 05:45] LABS: HEMOGLOBIN 9.4 g/dL (12.0-16.0); MCH 29.3 PG (27-31); MCHC 33.6 g/dL (33-37); MCV 87.2 FL (81-99); MPV 11.3 FL (7.4-10.4); RBC 3.21 XMIL (4.2-5.4); RDW 15.6 % (11.5-14.5); WBC 7.1 X1000 (4.8-10.8)
[2018-10-09] MEDS: CARAFATE LIQUID NG SCH ×3 (05:57→17:42)
[2018-10-09] MEDS: CARDIZEM PO SCH ×3 (05:57→17:42)
[2018-10-09] MEDS: SYNTHROID IV SCH (06:01)
[2018-10-09] MEDS: SODIUM CHLORIDE 0.9% INJ PRN (06:02)
[2018-10-09 06:15] LABS: ALBUMIN 3.1 g/dL (3.5-5.0); CALCIUM 8.7 mg/dL (8.8-10.2); CREATININE 1.7 mg/dL (0.5-0.9); POTASSIUM 4.6 mmol/L (3.5-5.1); TOTAL BILIRUBIN 0.37 mg/dL (0.20-1.00); TOTAL PROTEIN 6.1 g/dL (6.3-8.3)
[2018-10-09 06:16] LABS: MAGNESIUM 2.2 mg/dL (1.5-2.7)
[2018-10-09] MEDS ORDERED: NS 2,000 ML MISC PRN (06:16)
--- NOTE | 2018-10-09 07:12 | Diag Imaging Result Doc PS360 ---
EXAM: CHEST-PORTABLE 10/09/2018 HISTORY: respiratory failure TECHNIQUE: AP portable at 0515 COMMENT: There are diffuse interstitial and alveolar opacities bilaterally. This is apparently slightly improved since 10/08/2018. The NG tube and right-sided PICC line remain in place. IMPRESSION: Slight improvement in pulmonary edema. Electronically signed by Alfredo Paris 10/09/2018 7:10 AM
--- NOTE | 2018-10-09 08:11 | PROGRESS NOTE ---
DATE: 10/09/2018 SUBJECTIVE: No big changes compared with yesterday. She still opens her eyes upon stimulation and spontaneously. She has been following commands for me. She is able to squeeze my hand and open her mouth and wiggle her toes, but only the left side. Today she will be getting dialysis. OBJECTIVE: Vital Signs: Temperature 97.6 degrees, pulse 98, respiratory rate 20, blood pressure 105/65 oxygen saturation 100% on the BiPAP machine. HEENT: Head normocephalic, no trauma. PERRLA. She does have a pressure ulcer at the level of the nose. Neck: Supple. No JVD. Central trachea. Chest: Coarse breath sounds bilaterally with some scattered rhonchi, mostly at the bases, and bibasilar rales. No wheezing. Cardiovascular: Irregular rhythm, tachycardic. Abdomen: Soft, nontender, nondistended. No hepatosplenomegaly. Extremities: Peripheral pulses are decreased, but intact. Neurological examination: This patient is sleepy, but arousable. She is opening her eyes spontaneously, and she is following commands for me. She is answering to some of my simple questions. Left arm with extensive bruising with a bandage. LABORATORY: WBC 7, hemoglobin 9.4, hematocrit 28, platelets 79. Sodium 132, potassium 4.6, chloride 98, bicarbonate 18. BUN 101, creatinine 1.7, glucose 138, calcium 8.7, magnesium 2.2. AST 27, ALT 36, alkaline phosphatase 92, albumin 3.1. ASSESSMENT AND PLAN: 1. Pneumonia, bilateral effusion, acute on chronic diastolic heart failure exacerbation. Her leukocyte count remains normal, and it has been that way for the past couple days. Pulmonary Department following this patient closely. We will continue with breathing treatment. Compared with 2 days ago, her mental status looks better. 2. Acute kidney injury. Continue with dialysis today. 3. Upper gastrointestinal bleed with acute hemorrhagic anemia. Hemoglobin is going up after transfusion. She seems to be stable at this moment. 4. Thrombocytopenia, status post transfusion. We will continue to monitor. Decreased a little bit compared with yesterday. 5. Hyperkalemia, resolved. 6. Hypophosphatemia. We will continue to monitor; it is normal today. 7. Septic shock, resolved. 8. Protein calorie malnutrition. She is on total parenteral nutrition. 9. Pulmonary hypertension and moderate aortic stenosis. We will monitor. 10. She has a pressure ulcer in the sacral coccygeal area and also her nose. We will continue with wound care. 11. Overall, her prognosis is poor, she seems to be a little bit more stable compared with 2 days ago, but she is still critically ill. We will continue with the same management. She is do not resuscitate level 2. CRITICAL CARE TIME: 35 minutes. cc: Vinod Flor MD
[2018-10-09] MEDS: LOPRESSOR PO SCH (08:40)
[2018-10-09] MEDS: SOLU-MEDROL IV SCH (08:41)
[2018-10-09] MEDS: PROTONIX IV SCH ×2 (08:41→20:08)
[2018-10-09] MEDS: SODIUM CHLORIDE 0.9% INJ SCH (08:41)
[2018-10-09] MEDS: MORPHINE IV PRN ×3 (12:44→19:30)
--- NOTE | 2018-10-09 12:48 | PULMONOLOGY PROGRESS NOTE ---
DATE: 10/09/2018 SUBJECTIVE: The patient is awake. She is weak. She has difficulty clearing her secretions. She has some audible upper airway noise. OBJECTIVE: Vital Signs: The patient has been afebrile for the last 24 hours. Blood pressure 118/60, heart rate 103, respiratory rate 20, oxygen saturation 100% on 60% venturi mask. HEENT: Pupils are equal and reactive. Oropharynx is clear, but dry. Neck is supple. Chest reveals rhonchi predominantly over the trachea/midline, but peripheral lung bean appear relatively clear. Cardiac: S1, S2. Abdomen is soft with diminished bowel sounds. Extremities reveal generalized bruising. DIAGNOSTIC STUDIES: Chest x-ray reveals diffuse infiltrates consistent with edema which appears slightly improved. Arterial blood gas reveals a pH 7.38, pCO2 of 32, PO2 of 178 on BiPAP. White blood count 7.10, hemoglobin is 9.4, platelet count is 79,000. IMPRESSION: A 78-year-old with: 1. Pneumonia. 2. Pleural effusions. 3. Immunoglobulin deficiency. 4. Malnutrition with elevated residuals in NG exams. 5. Acute renal failure. 6. Fluctuating infiltrates on chest x-ray, which appear less severe while patient is on BiPAP. PLAN: 1. Continue to use BiPAP at bedtime and p.r.n. This is difficult due to some nasal bridge skin breakdown. 2. Continue NG residuals and restart tube feeds when they remain low. 3. Overall prognosis is poor, given her age and generalized deconditioning/weakness. cc: Ronald Osuna MD
--- NOTE | 2018-10-09 13:20 | NEPHROLOGY PROGRESS NOTE ---
DATE: 10/09/2018 SUBJECTIVE: Ms. Espinoza is awake. She does try to attempt make eye contact. She remains nonverbal. OBJECTIVE: Patient's most recent vital signs are temperature 97.6 degrees, blood pressure 130/61, heart rate 109, respirations 20. She is on 50% face mask. Last recorded saturation 100%. She has had 1072 in, 185 out to [place] and stool. LABS: Sodium 132, potassium 4.6, chloride 96, CO2 18, BUN 101, creatinine 1.7, glucose 138, her anion gap is 18, calcium 8.7, phosphorus 4.0, albumin 3.1, magnesium 2.2. White count 7.1, hemoglobin 9.4, hematocrit 28, platelet count 79,000. ABGs pH 7.38, CO2 32, PO2 178, bicarb 20.6, with a lactate of 1.1 on 50% face mask. PHYSICAL EXAMINATION: General: This is a 78-year-old white female resting quietly in bed. She appears chronically ill. She is in no acute distress. Skin: Warm and dry. HEENT: Normocephalic, atraumatic. Conjunctivae pale. She has SHERWIN. Mucous membranes are dry. Neck: Supple. Trachea midline. She has negative JVD. Cardiovascular: Irregularly irregular rate and rhythm. She is tachycardic on the monitor. She has a systolic murmur this a.m. Lungs: Clear to auscultation bilaterally, equal excursion on O2. These are clear to upper airways. She remains on O2 support. Abdomen: Soft, large, nontender. Positive bowel sounds. NG tube continues in place and clamped. Extremities: Has Augie wrap to the left forearm. Trace lower extremity edema. No clubbing or cyanosis. Neurological: As mentioned above. ASSESSMENT AND PLAN: 1. Acute kidney injury. Patient has had no recovery. We will plan for SLED today. We will place her on a 4 K bath. She is to dialyze for 8 hours. We will plan to pull 2 to 3 L of ultrafiltration as tolerated per heart rate and blood pressure. 2. Electrolytes and acid-base balance. These remain acceptable. 3. Anemia. This is low but stable. 4. Respiratory failure. The patient continues to have pulmonary edema on her chest x-ray. We will challenge her dry weight again today with dialysis. Dictated by STACIE Daley for Rolf Jewell MD Face to face encounter, data reviewed, discussed with John Jones on 10/09/18. I agree with the above assessment and plan of care. cc: STACIE Daley MD [facility]
[2018-10-09] MEDS: LIPOSYN 20% 500 ML IV SCH (16:21)
[2018-10-09] MEDS: D10W 1,000 ML IV SCH (17:09)
[2018-10-09] MEDS: M V I IV SCH ×7 (17:44)
[2018-10-09] MEDS: TPN ELECTROLYTES IV SCH ×7 (17:44)
[2018-10-09] MEDS: [UNRECOGNIZED DRUG - OTHER] IV SCH ×7 (17:44)
[2018-10-09] MEDS: SODIUM PHOSPHATE IV SCH ×7 (17:44)
[2018-10-09] MEDS: HYDROCODONE/APAP 7.5-325/15 ML PO PRN (20:08)
[2018-10-10] MEDS: CARAFATE LIQUID NG SCH ×6 (00:40→23:17)
[2018-10-10] MEDS: CARDIZEM PO SCH ×6 (00:40→23:18)
[2018-10-10] MEDS: MORPHINE IV PRN ×3 (02:37→23:18)
[2018-10-10] MEDS: XOPENEX NEB INH SCH ×6 (03:07→23:09)
[2018-10-10 04:37] LABS: ALLEN TEST YES; BE -0.2 mmoll (-3.0-3.0); BLOOD TYPE ARTERIAL; HCO3-(ACT) 24.8 mmoll (20.0-26.0); METHB 1.1 % (0.0-1.5); O2(CT) 13.1 mL/dL (15.0-23.0); O2HB 96.6 % (95.0-99.0); PCO2(98.6) 41 mmHg (35-45); PO2(98.6) 102 mmHg (60-100); SAMPLE BLOOD; SRATE 14 BPM; THB 9.5 g/dL (11.5-17.4); pH(98.6) 7.39 (7.35-7.45)
[2018-10-10 04:38] LABS: MODALITY BI PAP
[2018-10-10 05:55] LABS: HEMATOCRIT 29.5 % (37.0-47.0); HEMOGLOBIN 9.3 g/dL (12.0-16.0); MCH 30.4 PG (27-31); MCHC 31.5 g/dL (33-37); MCV 96.4 FL (81-99); MPV 11.5 FL (7.4-10.4); RBC 3.06 XMIL (4.2-5.4); RDW 16.5 % (11.5-14.5); WBC 5.89 X1000 (4.8-10.8)
[2018-10-10] MEDS: SYNTHROID IV SCH (06:14)
[2018-10-10] MEDS: SODIUM CHLORIDE 0.9% INJ PRN (06:15)
--- NOTE | 2018-10-10 06:43 | Diag Imaging Result Doc PS360 ---
EXAM: CHEST-PORTABLE HISTORY: respiratory failure TECHNIQUE: Portable chest single view COMPARISON: 10/09/2018 FINDINGS: No change in the right-sided PICC line or in the nasogastric tube. There are bilateral infiltrates/pulmonary edema which are less pronounced on the current study. Cardiac megaly remains. IMPRESSION: Overall interval improvement. Electronically signed by Benji Levin 10/10/2018 6:40 AM
[2018-10-10 08:13] LABS: ALB/GLOB RATIO 1.3; MAGNESIUM 2.1 mg/dL (1.5-2.7); PHOSPHORUS 2.8 mg/dL (2.7-4.5); POTASSIUM 4.1 mmol/L (3.5-5.1); TOTAL BILIRUBIN 0.48 mg/dL (0.20-1.00); TOTAL PROTEIN 5.4 g/dL (6.3-8.3)
[2018-10-10] MEDS: PROTONIX IV SCH ×2 (08:30→22:04)
[2018-10-10] MEDS: SOLU-MEDROL IV SCH (08:30)
[2018-10-10] MEDS: LOPRESSOR PO SCH (08:31)
--- NOTE | 2018-10-10 10:47 | PROGRESS NOTE ---
DATE: 10/10/2018 SUBJECTIVE: No big changes compared with yesterday. She is still opening her eyes upon stimulation, and spontaneously. She is following commands for me. She is able to squeeze my hand and open her mouth, and will wiggle her toes. She is trying to bend her knee. She does have generalized weakness. 3 L of fluid has been removed with dialysis yesterday. She seems to be stable today, I will try to restart her feeding tubes. OBJECTIVE: Vital Signs: Temperature 98.3 degrees, pulse 94, respiratory rate 20, blood pressure 107/47, and oxygen saturation 100% on a Venturi mask. HEENT: Head normocephalic. No trauma. PERRLA. She does have a pressure ulcer at the level of her nose. Neck: Supple. No JVD. Central trachea. Chest: Coarse breath sounds bilaterally with some scattered rhonchi mostly at the bases. Some rales at the bases as well. No wheezing. Cardiovascular: Irregular rhythm. Tachycardic. Abdomen: Soft, nontender, and nondistended. No hepatosplenomegaly. Extremities: Peripheral pulses are decreased but intact. She has on her left arm extensive bruising. Neurological: This patient is sleepy, but arousable. She is opening her eyes spontaneously and following commands for me. She is answering some of my simple questions as well. She does have severe weakness. LABORATORY: WBC 5.8, hemoglobin 9.3, hematocrit 29.5, and platelets 59,000. Sodium 133, potassium 4.1, chloride 98, bicarbonate 25, BUN 52, creatinine 1, glucose 124, and calcium 8. ASSESSMENT AND PLAN: 1. Pneumonia, bilateral effusion, acute on chronic diastolic heart failure exacerbation. Her leukocyte count remains normal. Pulmonary Department following this patient. We will continue breathing treatment. Her mental status seems to be stable. 2. Acute kidney injury. Continue with dialysis, 3 L of fluid has been removed yesterday. 3. Upper GI bleed with acute hemorrhagic anemia, hemoglobin has been stable after her last transfusion. 4. Thrombocytopenia, status post transfusion as well a few days ago. We will monitor. It is a little bit decreased compared with yesterday. 5. Hyperkalemia, resolved. 6. Hypophosphatemia. Continue to monitor. 7. Septic shock, resolved. we will continue to monitor the blood pressure closely. 8. Protein calorie malnutrition. I will try to restart her feeding tube today. She is on total parenteral nutrition at this moment. 9. Pulmonary hypertension and moderate aortic stenosis. We will monitor. 10. She has a pressure ulcer in the sacrococcygeal area and on her nose. We will continue with wound care. 11. Overall prognosis is poor. She seems to be doing a little bit better compared with 3 days ago, but she is still remarkably sick. We will continue with the same management. She is DNR level 2. Critical care time: 35 minutes cc: Vinod Flor MD [facility]
[2018-10-10] MEDS: HYDROCODONE/APAP 7.5-325/15 ML PO PRN ×2 (11:29→22:04)
[2018-10-10] MEDS: M V I IV SCH ×14 (14:49→15:56)
[2018-10-10] MEDS: TPN ELECTROLYTES IV SCH ×14 (14:49→15:56)
[2018-10-10] MEDS: [UNRECOGNIZED DRUG - OTHER] IV SCH ×14 (14:49→15:56)
[2018-10-10] MEDS: SODIUM PHOSPHATE IV SCH ×14 (14:49→15:56)
--- NOTE | 2018-10-10 16:09 | NEPHROLOGY PROGRESS NOTE ---
DATE: 10/10/2018 SUBJECTIVE: Unchanged. OBJECTIVE: Vital Signs: Blood pressure 101/57, heart rate 91, respiration 22, temperature 100.4 degrees. Generally: Unchanged. Eyes are open, but does not really acknowledge me, groaning. Skin: Warm and dry with extensive bruising. HEENT: Conjunctivae are pink. Oropharynx is dry. Neck: Neck veins are not distended. Heart: Regular. Lungs: Equal with rhonchi. Abdomen: Soft, nontender. Bowel sounds are present. Extremities: Have minimal edema. No clubbing or cyanosis. IMPRESSION: Acute kidney injury. No recovery. Low urine output. Dialysis tomorrow. cc: Rolf Jewell MD
[2018-10-10] MEDS: LIPOSYN 20% 500 ML IV SCH (17:17)
[2018-10-11] MEDS: XOPENEX NEB INH SCH ×6 (03:20→23:31)
[2018-10-11] MEDS: BIDEX PO SCH ×4 (03:56→21:29)
[2018-10-11 04:58] LABS: ALLEN TEST YES; BE -4.1 mmoll (-3.0-3.0); BLOOD TYPE ARTERIAL; HCO3-(ACT) 21.8 mmoll (20.0-26.0); METHB 1.3 % (0.0-1.5); O2(CT) 12.4 mL/dL (15.0-23.0); O2HB 97.3 % (95.0-99.0); PCO2(98.6) 45 mmHg (35-45); PO2(98.6) 150 mmHg (60-100); SAMPLE BLOOD; SAO2 99.9 % (95.0-100.0); THB 8.8 g/dL (11.5-17.4)
[2018-10-11 04:59] LABS: MODALITY BI PAP
[2018-10-11 06:26] LABS: HEMATOCRIT 29.1 % (37.0-47.0); HEMOGLOBIN 9.3 g/dL (12.0-16.0); MCH 27.8 PG (27-31); MCV 86.9 FL (81-99); MPV 11.9 FL (7.4-10.4); RBC 3.35 XMIL (4.2-5.4); RDW 15.1 % (11.5-14.5); WBC 5.87 X1000 (4.8-10.8)
[2018-10-11] MEDS: CARAFATE LIQUID NG SCH ×4 (06:30→23:38)
[2018-10-11] MEDS: SYNTHROID IV SCH (06:30)
[2018-10-11 06:31] LABS: MAGNESIUM 2.2 mg/dL (1.5-2.7); PHOSPHORUS 4.2 mg/dL (2.7-4.5)
[2018-10-11 06:40] LABS: ALBUMIN 2.8 g/dL (3.5-5.0); CALCIUM 8.3 mg/dL (8.8-10.2); CREATININE 1.5 mg/dL (0.5-0.9); TOTAL BILIRUBIN 0.28 mg/dL (0.20-1.00); TOTAL PROTEIN 5.6 g/dL (6.3-8.3)
--- NOTE | 2018-10-11 07:08 | Diag Imaging Result Doc PS360 ---
EXAM: CHEST-PORTABLE HISTORY: respiratory failure TECHNIQUE: Chest single view COMPARISON: 10/10/2018 FINDINGS: No change in the right-sided PICC line or in the nasogastric tube. There are increased interstitial markings in the mid lungs. Partial clearing of the basilar infiltrates. No cardiomegaly. No pleural effusions identified. IMPRESSION: Continued interval improvement. Electronically signed by Benji Levin 10/11/2018 7:06 AM
[2018-10-11] MEDS: MORPHINE IV PRN ×3 (07:48→17:35)
[2018-10-11] MEDS ORDERED: NS 2,000 ML MISC PRN (09:23)
[2018-10-11] MEDS: PROTONIX IV SCH ×2 (09:34→21:30)
[2018-10-11] MEDS: CARDIZEM PO SCH ×3 (09:34→21:30)
[2018-10-11] MEDS: SOLU-MEDROL IV SCH (09:35)
--- NOTE | 2018-10-11 09:35 | PROGRESS NOTE ---
DATE: 10/11/2018 SUBJECTIVE: No big changes compared with yesterday. She is still opening her eyes upon stimulation, and following some commands for me. She is extremely weak and she has been having problem coughing up phlegm. We have been suctioning this patient multiple times a day. She is due for dialysis today. I restarted her tube feedings yesterday but she has retaining a good amount, so we will stop it and continue with TPN. OBJECTIVE: Vital Signs: Temperature 98.1, pulse 117, respiratory rate 20, blood pressure 120/54, oxygen saturation 97 on a Venturi mask. HEENT: Head normocephalic. No trauma. PERRLA. She has a little ulcer at the level of the nose. Neck: Supple. No JVD. Central trachea. Chest: Coarse breath sounds bilaterally with scattered rhonchi at the bases. Some rales at the bases as well. No wheezing. Cardiovascular: Irregular rhythm. Tachycardic. Abdomen: Soft, nontender, nondistended. No hepatosplenomegaly. Extremities: Peripheral pulses are decreased but intact. She has significant left arm bruising. Neurological: This patient is sleepy, but arousable. She is opening her eyes spontaneously and upon stimulation. She is following commands for me. She is able to squeeze my hand. She is answering some of my simple questions like her name but she is extremely weak. LABORATORY: WBC 5.8, hemoglobin 9.3, hematocrit 29.1, platelet 70. Sodium 131, potassium 4, chloride 95, bicarbonate 22, BUN 90, creatinine 1.5, glucose 115, calcium 8.3, magnesium 2.2, albumin 2.8. ASSESSMENT AND PLAN: 1. Pneumonia, bilateral effusion, [id number] diastolic heart failure exacerbation. Her leukocyte count remains normal. Pulmonary Department following this patient closely. She is still having problem coughing. Will continue with breathing treatment, oxygen supplementation. 2. Acute kidney injury, no recovery. Continue with dialysis. She is due for dialysis today. 3. Upper gastrointestinal bleed with acute hemorrhagic anemia, hemoglobin has been stable after the last transfusion. 4. Thrombocytopenia better compared with yesterday. 5. Hyperkalemia, resolved. 6. Hypophosphatemia. Continue to monitor. 7. Septic shock, resolved. She is not on pressors. 8. Protein calorie malnutrition. I restarted her feeding tube yesterday but she is having high residual so we will stop it for now to avoid aspiration. 9. Pulmonary hypertension and moderate aortic stenosis. Will monitor. 10.She has some superficial ulcers around the perianal area and close to the vagina. Will continue to monitor. Will continue with wound care. Overall, her prognosis is poor. She is extremely weak and she is critically sick. She is not strong enough to cough up phlegm. She is Do Not Resuscitate level 2. I talked to her daughter today for an update and also I did yesterday. CRITICAL CARE TIME: 40 minutes. cc: Vinod Flor MD
[2018-10-11] MEDS: D10W 1,000 ML IV SCH (14:08)
[2018-10-11] MEDS: HYDROCODONE/APAP 7.5-325/15 ML PO PRN ×2 (14:18→21:29)
[2018-10-11] MEDS: NS 500 ML ONE ×2 (14:24)
[2018-10-11] MEDS: [UNRECOGNIZED DRUG - OTHER] IV SCH ×14 (14:43→17:26)
[2018-10-11] MEDS: M V I IV SCH ×14 (14:43→17:26)
[2018-10-11] MEDS: TPN ELECTROLYTES IV SCH ×14 (14:43→17:26)
[2018-10-11] MEDS: SODIUM PHOSPHATE IV SCH ×14 (14:43→17:26)
[2018-10-11] MEDS: LIPOSYN 20% 500 ML IV SCH (17:35)
--- NOTE | 2018-10-11 18:39 | NEPHROLOGY PROGRESS NOTE ---
DATE: 10/11/2018 SUBJECTIVE: Unchanged mental state. OBJECTIVE: Vital Signs: Blood pressure 86/50, heart rate 114, respirations 29. Intake 1.8 L. Output 180 mL. General: No acute distress. Neck veins are not visible. She is not responsive. Eyes are open. Respiratory: Apparent respiratory distress. Heart: Irregular and tachycardic. Lungs: Equal with scattered rhonchi. Abdomen: Soft and nontender. Bowel sounds present. Extremities: No edema, clubbing or cyanosis. IMPRESSION AND PLAN: Acute kidney injury. No recovery. She is receiving slow low efficiency dialysis currently. Measured central venous pressure is 4, so I will decrease her ultrafiltration target to 1.5 L for today. No other changes. cc: Rolf Jewell MD
[2018-10-12] MEDS: MORPHINE IV PRN ×3 (02:03→23:56)
[2018-10-12] MEDS: XOPENEX NEB INH SCH ×7 (03:18→23:40)
[2018-10-12] MEDS: BIDEX PO SCH ×4 (03:40→20:55)
[2018-10-12] MEDS: CARDIZEM PO SCH ×4 (03:40→20:56)
[2018-10-12 04:37] LABS: BLOOD TYPE ARTERIAL; SAMPLE BLOOD
[2018-10-12 04:38] LABS: ALLEN TEST YES; BE 2.2 mmoll (-3.0-3.0); HCO3-(ACT) 26.5 mmoll (20.0-26.0); PCO2(98.6) 46 mmHg (35-45); PO2(98.6) 64 mmHg (60-100); THB < 3.0 g/dL (11.5-17.4); pH(98.6) 7.39 (7.35-7.45)
[2018-10-12 04:39] LABS: MODALITY VENTIMASK
[2018-10-12 04:42] LABS: HEMATOCRIT 28.1 % (37.0-47.0); HEMOGLOBIN 9.2 g/dL (12.0-16.0); MCH 28.7 PG (27-31); MCHC 32.7 g/dL (33-37); MCV 87.5 FL (81-99); MPV 11.5 FL (7.4-10.4); RBC 3.21 XMIL (4.2-5.4); RDW 15.2 % (11.5-14.5); WBC 7.14 X1000 (4.8-10.8)
[2018-10-12 05:02] LABS: AGAP 9; ALB/GLOB RATIO 0.9; ALBUMIN 2.8 g/dL (3.5-5.0); ALKALINE PHOSPHATASE 95 U/L (32-104); BUN 37 mg/dL (8-22); CALCIUM 7.9 mg/dL (8.8-10.2); CHLORIDE 101 mmol/L (98-107); CHOLESTEROL 130 mg/dL (0-200); COSMO 278; CREATININE 0.7 mg/dL (0.5-0.9); ESTIMATED GFR > 60; GLUCOSE 125 mg/dL (70-104); GOT 33 U/L (10-30); GPT 44 U/L (10-36); MAGNESIUM 1.9 mg/dL (1.5-2.7); PHOSPHORUS 2.5 mg/dL (2.7-4.5); POTASSIUM 4.7 mmol/L (3.5-5.1); PREALBUMIN 23.2 mg/dL (20-40); SODIUM 134 mmol/L (136-145); TCO2 24 mmol/L (25-35); TOTAL BILIRUBIN 0.29 mg/dL (0.20-1.00); TOTAL PROTEIN 5.8 g/dL (6.3-8.3); TRIGLYCERIDES 52 mg/dL (35-135)
[2018-10-12] MEDS: CARAFATE LIQUID NG SCH ×4 (05:53→23:50)
[2018-10-12] MEDS: SYNTHROID IV SCH ×2 (05:53→06:33)
--- NOTE | 2018-10-12 08:06 | Diag Imaging Result Doc PS360 ---
EXAM: CHEST-PORTABLE - 10/12/2018 HISTORY: respiratory failure TECHNIQUE: Portable chest COMPARISON: 10/11/2018 FINDINGS: Nasogastric tube and PICC remain in place. There are bilateral lower lung infiltrates or edema which have increased. There is a small left pleural effusion. There is no pneumothorax identified. Heart size appears upper normal. IMPRESSION: Bilateral lower lung infiltrates or edema, increased from prior. Small left pleural effusion. Electronically signed by Lei Allen 10/12/2018 8:04 AM
[2018-10-12] MEDS ORDERED: LASIX IV ONE (08:14)
[2018-10-12] MEDS: PROTONIX IV SCH ×2 (08:49→20:57)
[2018-10-12] MEDS: SOLU-MEDROL IV SCH (08:50)
[2018-10-12] MEDS: HYDROCODONE/APAP 7.5-325/15 ML PO PRN ×2 (08:54→20:56)
--- NOTE | 2018-10-12 09:12 | PROGRESS NOTE ---
DATE: 10/12/2018 SUBJECTIVE: This patient is lying in bed. She is able to open her eyes but she is not following commands for me today. She has been placed on the BiPAP machine with high-flow oxygen. Her breathing has been shallow. She is not complaining of pain. We have been suctioning her mouth constantly because of her secretions. Her cough is weak. She is not tolerating the feeding tube and she is getting TPN. This patient has been placed Do Not Resuscitate level 1. OBJECTIVE: Vital Signs: Temperature 98.7 degrees, pulse 114, respiratory rate 17, blood pressure 114/38, oxygen saturation 100% on the BiPAP machine. HEENT: Head normocephalic. No trauma. She has a little ulcer at the level of the nose. Neck: Supple. No JVD. Central trachea. Chest: Coarse breath sounds bilaterally with rhonchi at the bases. Some rales at the bases as well. No wheezing. Cardiovascular: Irregular rate, tachycardia. Abdomen: Soft, nondistended. Extremities: No edema, no clubbing, no cyanosis. She has significant left arm bruising with no changes. Neurological Examination: This patient is sleepy but she is able to open her eyes when I call her name. She is not following commands today for me. She is not answering questions or trying to talk. She looks worse compared with yesterday. Laboratory: WBC 7.1, hemoglobin 9.2, hematocrit 28.1, platelets 81,000. Sodium 134, potassium 4.7, chloride 101, bicarbonate 24, BUN 37, creatinine 0.7, glucose 125, calcium 7.9, phosphorus 2.5. AST 33, ALT 44, alkaline phosphatase 95, albumin 2.8. ASSESSMENT AND PLAN: 1. Pneumonia, bilateral effusion, acute on chronic diastolic heart failure exacerbation. Her leukocyte count remains normal. Pulmonary department following this patient. She has been having problem coughing. Her cough is weak and the breathing has been shallow. She has been placed on the BiPAP machine. For now, we will continue with the same management. 2. Acute kidney injury, no recovery. Continue with dialysis as scheduled. 3. Upper gastrointestinal bleed with acute hemorrhagic anemia. Hemoglobin has been stable after her last transfusion. 4. Thrombocytopenia, stable. 5. Hyperkalemia, resolved. 6. Hypophosphatemia. We will monitor. 7. Septic shock, resolved. She is not on pressors at this moment but she has been having episodes of low blood pressure. 8. Protein calorie malnutrition. We tried to restart her feeding tube a couple days ago but she was retaining a lot of residual so we stopped it and we will continue with total parenteral nutrition. 9. Pulmonary hypertension and moderate aortic stenosis. We will monitor. 10. Superficial ulcers around the perianal area and close to the vagina. I will continue to monitor. Continue with wound care. 11. This patient is Do Not Resuscitate level 1. 12. Overall, this patient seems to be worse compared with yesterday and the day before yesterday. This patient is remarkably sick. She has a really poor prognosis. I had a conversation with her daughter by phone and after discussion, she has decided to change the Do Not Resuscitate level 2 to Do Not Resuscitate level 1. We will continue only with medical treatment but no aggressive measures, no intubation, no cardiopulmonary resuscitation. CRITICAL CARE TIME: 40 minutes. cc: Vinod Flor MD
[2018-10-12] MEDS: LEVOPHED 8 MG in D5 1/2 NS 250 ML IV SCH ×2 (09:38→18:41)
[2018-10-12] MEDS: [UNRECOGNIZED DRUG - OTHER] IV SCH ×7 (16:44)
[2018-10-12] MEDS: SODIUM PHOSPHATE IV SCH ×7 (16:44)
[2018-10-12] MEDS: LIPOSYN 20% 500 ML IV SCH (16:44)
[2018-10-12] MEDS: TPN ELECTROLYTES IV SCH ×7 (16:44)
[2018-10-12] MEDS: M V I IV SCH ×7 (16:44)
[2018-10-13] MEDS: LOPRESSOR IV PRN ×3 (02:25→10:09)
[2018-10-13] MEDS: CARDIZEM PO SCH ×3 (02:26→13:47)
[2018-10-13] MEDS: MORPHINE IV PRN ×2 (02:26→05:18)
[2018-10-13] MEDS: BIDEX PO SCH ×2 (02:26→08:17)
[2018-10-13] MEDS: LEVOPHED 8 MG in D5 1/2 NS 250 ML IV SCH ×3 (04:18→12:49)
[2018-10-13 05:02] LABS: ALLEN TEST YES; BE -4.4 mmoll (-3.0-3.0); BLOOD TYPE ARTERIAL; HCO3-(ACT) 21.5 mmoll (20.0-26.0); O2(CT) 12.1 mL/dL (15.0-23.0); O2HB 94.7 % (95.0-99.0); PCO2(98.6) 39 mmHg (35-45); PO2(98.6) 69 mmHg (60-100); SAMPLE BLOOD; SAO2 97.1 % (95.0-100.0); pH(98.6) 7.34 (7.35-7.45)
[2018-10-13 05:06] LABS: MODALITY BI PAP
[2018-10-13] MEDS: CARAFATE LIQUID NG SCH ×2 (05:18→11:26)
[2018-10-13] MEDS: TYLENOL PO PRN ×2 (05:18→10:18)
[2018-10-13 05:54] LABS: HEMATOCRIT 27.9 % (37.0-47.0); MCH 28.7 PG (27-31); MCHC 32.3 g/dL (33-37); MCV 88.9 FL (81-99); MPV 11.4 FL (7.4-10.4); RBC 3.14 XMIL (4.2-5.4); RDW 15.1 % (11.5-14.5); WBC 6.08 X1000 (4.8-10.8)
[2018-10-13] MEDS: SYNTHROID IV SCH (06:06)
[2018-10-13 06:07] LABS: ALB/GLOB RATIO 0.6; ALBUMIN 2.1 g/dL (3.5-5.0); CALCIUM 8.2 mg/dL (8.8-10.2); CREATININE 1.4 mg/dL (0.5-0.9); MAGNESIUM 1.9 mg/dL (1.5-2.7); PHOSPHORUS 2.7 mg/dL (2.7-4.5); POTASSIUM 4.3 mmol/L (3.5-5.1); TOTAL BILIRUBIN 0.31 mg/dL (0.20-1.00); TOTAL PROTEIN 5.5 g/dL (6.3-8.3)
--- NOTE | 2018-10-13 06:49 | Diag Imaging Result Doc PS360 ---
EXAM: CHEST-PORTABLE HISTORY: respiratory failure TECHNIQUE: Portable chest single view COMPARISON: 10/12/2018 FINDINGS: No change in the right-sided PICC line or nasogastric tube. There are small pleural effusions. The heart is mildly enlarged. There are increased interstitial markings throughout both lungs. These are slightly more prominent than on the prior study. IMPRESSION: Mild interval worsening. Electronically signed by Benji Levin 10/13/2018 6:46 AM
[2018-10-13 07:09] LABS: PREALBUMIN 17.1 mg/dL (20-40)
[2018-10-13] MEDS ORDERED: NS 2,000 ML MISC PRN (07:23)
[2018-10-13] MEDS: SOLU-MEDROL IV SCH (07:59)
[2018-10-13] MEDS: PROTONIX IV SCH (07:59)
[2018-10-13] MEDS: SODIUM CHLORIDE 0.9% INJ SCH (07:59)
[2018-10-13] MEDS: XOPENEX NEB INH SCH ×3 (08:00→17:18)
--- NOTE | 2018-10-13 08:18 | PROGRESS NOTE ---
DATE: 10/13/2018 SUBJECTIVE: This patient is lying in bed. She is able to open her eyes a little bit when I call her name. She is not following commands. She has been placed on the BiPAP machine. She is not complaining of pain. Compared with yesterday, she is a bit worse. She is on pressors. OBJECTIVE: Vital Signs: Temperature 99.7 degrees, pulse 130, respiratory rate 23, blood pressure 83/40, oxygen saturation 92 on the BiPAP machine. HEENT: Head normocephalic. No trauma. PERRLA. She has a little pressure ulcer at the level of the nose. Neck: Supple. No JVD, central trachea. Chest: Coarse breath sounds bilaterally with rhonchi at the bases, possibly some rales at the bases as well. No wheezing. Cardiovascular: Irregular rate, tachycardiac. Abdomen: Soft, nondistended. Extremities: No edema, no clubbing, no cyanosis. She has significant left arm bruising with no changes. Neurological: This patient is sleepy, but she is able to open a little bit her eyes when I call her name or move her. She is not following commands. She is not answering any of my questions or trying to talk. She looks a bit worse compared with yesterday. LABORATORY: WBC 6, hemoglobin 9, hematocrit 27.9, platelets 150,000. Sodium 139, potassium 4.3, chloride 95, bicarbonate 19, BUN 73, creatinine 1.4, glucose 103, calcium 8.2. ASSESSMENT/PLAN: 1. Pneumonia, bilateral effusion. 2. Acute on chronic diastolic heart failure with exacerbation. Now this patient has been placed on vasopressors. I had a conversation with the daughter yesterday and she decided to put this patient Do Not Resuscitate level 1. No mechanical ventilation, no chest compression. We will continue with the BiPAP machine for now and will continue with same management. 1. Acute kidney injury with no recovery. We will continue with dialysis as scheduled per nephrology department but this patient now is on vasopressors and I am not quite sure if she is going to tolerate dialysis. 2. Upper gastrointestinal bleed with acute hemorrhagic anemia. Hemoglobin has been stable after her last transfusion. 3. Thrombocytopenia, better. Continue to monitor. 4. Hyperkalemia, resolved. 5. Hypophosphatemia, will monitor. 6. Septic shock. This patient has been placed back on vasopressors. For now we will continue with the same management. 7. Protein calorie malnutrition. We tried to restart her feeding tube a few days ago, but she was retaining a lot of residual so we stopped it. We will continue with total parenteral nutrition. 8. Pulmonary hypertension and moderate aortic stenosis, will monitor. 9. Superficial ulcers around the perianal area and close to the vagina, we will continue to monitor. Continue with wound care. 10. This patient is Do Not Resuscitate level 1. Overall, this patient seems to be worse compared with yesterday. Now, she is on vasopressors. This patient is remarkably sick. She has an extremely poor prognosis. I had a conversation with her daughter by phone yesterday and she decided to put this patient Do Not Resuscitate level 1. We are allowed to do medical treatment, but no aggressive measures, no intubation, no cardiopulmonary resuscitation. CRITICAL CARE TIME: 40 minutes. cc: Vinod Flor MD
[2018-10-13] MEDS: NEO-SYNEPHRINE 50 MG in NS 250 ML IV SCH ×2 (09:20→12:49)
--- NOTE | 2018-10-13 10:06 | NEPHROLOGY PROGRESS NOTE ---
DATE: 10/13/2018 SUBJECTIVE: Patient remains awake. She remains on BiPAP. OBJECTIVE: Vital Signs: Temperature 99.7 degrees, pulse 130, respiratory rate 23 blood pressure 83/40. Intake 2.5 L. Output 335 mL. General: This is an acutely ill- appearing female, resting in bed. She is awake. She will open her eyes and try to follow some commands. HEENT: Normocephalic, atraumatic. She has BiPAP in place. She has NG tube for tube feeding. Neck: Supple without JVD. Cardiovascular: Tachycardic. Irregular. Pulmonary: Continues with decreased breath sounds. She has some rales bilaterally. Abdomen: Soft, with hypoactive bowel sounds. : Knapp catheter. Extremities: She has trace edema. Left upper extremity continues with large hematoma and significant bruising. LAB DATA: WBC of 6.0, hemoglobin 9. Sodium 129, potassium 4.3, chloride 95, CO2 19, BUN 73, creatinine 1.4. ASSESSMENT AND PLAN: 1. Acute kidney injury without recovery. We are continuing her on SLED 3 times a week secondary to her blood pressure. We will plan to dialyze her on Saturday. 2. Pneumonia, bilateral effusion. Acute on chronic diastolic heart failure. Followed by primary cardiology. Continue with dialysis for fluid management. 3. Gastrointestinal bleed. Hemoglobin 9 today, followed by primary and gastroenterology. Patient remains a do not resuscitate. Dictated by STACIE Ross for Rolf Jewell MD Face to face encounter, data reviewed, discussed with Piedad Delgado on 10/13/18. I agree with the above assessment and plan of care. cc: Rolf Jewell MD [facility]
[2018-10-13] MEDS ORDERED: PITRESSIN 40 UNIT in NS 100 ML IV SCH (13:15)
[2018-10-13] MEDS ORDERED: NS 500 ML IV ONE (14:22)
[2018-10-13 14:46] VITALS: BP 58/34
--- NOTE | 2018-10-15 11:36 | PROGRESS NOTE ---
DATE: 10/13/2018 SUBJECTIVE: This patient is worse compared with this morning. She is still on the BiPAP machine, but the oxygen saturation has been dropping. Also, now she has been placed on 3 vasopressors, and probably will use another one. I will bolus her as well. Her blood pressure has been dropping even though she has been on multiple vasopressors. I called her daughter around 1:00 in the afternoon and also 1:30 in the afternoon to give her an update about the patient, but she was not at home. I called her home phone number. Then, I found her cell phone and I called around maybe 2:15 in the afternoon. At the beginning, a male person answered the phone and hung up on me. Then, I tried to call multiple times but the voicemail has not been set up. Then, I called again and this patient's daughter answered the phone. I gave her an update. I told her that even though we have been given her multiple medications to keep the blood pressure up, the blood pressure is dropping, and I told her that she is not doing well. At this moment, she told me [facility] She had an appointment today, and she is there at this moment. Once she is done, she will come here. For now, we will continue doing everything for this patient. This patient is remarkably sick, and I do not believe she is going to survive. cc: Vinod Flor MD
--- NOTE | 2018-10-16 13:03 | DISCHARGE SUMMARY ---
ADMISSION DATE: 09/08/2018 DISCHARGE DATE: 10/13/2018 DISCHARGE DIAGNOSES: 1. Septic shock. 2. Multifocal pneumonia. 3. Acute on chronic diastolic heart failure. 4. Acute kidney injury with no recovery. 5. Upper gastrointestinal bleed with acute hemorrhagic anemia. 6. Thrombocytopenia. 7. Electrolyte imbalance. 8. Pulmonary hypertension and moderate aortic stenosis. 9. Superficial ulcers around the perianal area and close to the vagina. 10. Protein-calorie malnutrition. 11. Hypoxemic and hypercarbic respiratory failure. PROCEDURES PERFORMED: Chest x-ray dated 09/08/2018. Impression: Emphysema with bilateral pneumonia and basilar atelectasis. Chest, abdomen, and pelvis CT scan dated 09/08/2018. Impression: Bilateral pneumonia with atelectasis and small pleural effusion, severe arteriosclerosis in the abdomen and pelvis. Echocardiogram dated 09/09/2018. Impression: Right ventricular systolic pressure of 71, suggestive of pulmonary hypertension, severe left atrial enlargement, mild mitral regurgitation, mild to moderate left ventricular hypertrophy with a posterior and interventricular septal wall thickness, likely normal LV systolic function. The ejection fraction is around 55%. The aortic valve is calcified with restriction in motion, consistent with moderate aortic stenosis. Aorta appears normal in visualized segments. Posterior pleural effusion as well as small posterior pericardial effusion with no evidence of tamponade type physiology. Chest x-ray dated 09/10/2018. Impression: Pulmonary edema which was worsened since 09/08/2018, there may be superimposed pneumonia on the left upper lobe and pneumonia versus atelectasis in both lower lobes, bilateral pleural effusion. Chest x-ray dated 10/12/2018. Impression: Essentially stable chest. Renal ultrasound dated 09/11/2018. Impression: Left renal cyst. Chest x-ray dated 09/12/2018. Impression: No changes, stable chest. Chest x-ray dated 09/13/2018. Impression: Improved pulmonary edema, bilateral pleural effusion, cardiomegaly. Basically, she had multiple and probably daily chest x-ray showing pleural effusion, pulmonary edema, and pneumonia. CONSULTATIONS: Pulmonary Department, Dr. Osuna. Cardiology Department, Dr. Russ Sanders. Infectious Disease Department, Dr. Mahendra Coffman. Nephrology Department, Dr. Jewell. Hematology/Oncology Department, Dr. Jami Rinaldi. Gastroenterology Department, Dr. Salas. HOSPITAL COURSE: This is a 78-year-old female with a past medical history of paroxysmal atrial fibrillation, on anticoagulation, diastolic heart failure, aortic stenosis, COPD, coronary artery disease, who presents from Dr. Shahab Riojas' office with lower extremity edema, pain, and redness for the past week. The patient is a poor historian and cannot give much information in the way of history. Family at the bedside states that she resides at a local assisted living facility and has had increasing lower extremity edema, shortness of breath, and orthopnea. Family decided to go to Dr. Riojas' office the day of admission on 09/08/2018 for evaluation. Per family's report, Dr. Riojas noted that her legs were edematous and red and that the patient was somewhat dyspneic and decided to send this patient to the ER for evaluation. There has not been any fever but the daughter reported that there has been some nausea, vomiting, diarrhea, and a slight increase in lethargy. The patient, herself, is nauseous at the moment of admission, actively trying to throw up at the bedside. She also has visual chills. In the emergency department she has been hypoxic and slightly hypotensive and tachycardic. Her x- ray showed bilateral infiltrates and moderate right pleural effusion. Laboratory showed acidosis with acute kidney injury but no leukocytosis, even her overall picture of sepsis with pneumonia and borderline hemodynamic instability, the patient was admitted to the Intensive Care Unit. Multiple studies were ordered, including echocardiogram, x-rays, CT scan, renal ultrasound, and EKGs. Multiple subspecialties were involved, including Pulmonary Department, Cardiology Department, Hematology/Oncology Department, Nephrology Department, Infectious Disease Department, and Gastroenterology Department. The patient was admitted with acute hypoxemic respiratory therapy, likely secondary to multifocal pneumonia, anasarca, and also atrial fibrillation. Pulmonary Department evaluated this patient as well as Cardiology Department. It looks like also this patient had a previous history of systemic lupus erythematosus, but I am not quite sure about it. She was placed on broad spectrum antibiotics, oxygen, and steroids. Initially, she was not intubated but then given her condition we intubated this patient. Also, she was placed on steroids. Her kidney function and the blood pressure started to decline and Nephrology Department was consulted. At the beginning, they monitored this patient but this patient then ended up with acute kidney injury with no recovery and dialysis. Infectious Disease Department has been taking care of the antibiotics since 09/11/2018 and they have been making recommendations since then. For her atrial fibrillation, Cardiology tried to control her heart rate, but the patient was declining slowly, having some days better than others. On 09/14/2018 the Pulmonary doctor evaluated this patient because despite current treatment regimen she is not improving and she required intubation and initiation of mechanical ventilation to prevent respiratory arrest. The patient also, we started using more steroids and changing medications to see if she was able to improve. Nephrology Department also followed with this patient closely. For her acute kidney injury associated with fluid overload, we started this patient on high Lasix and tried to monitor her ins and outs. But, like I mentioned before, the course of her hospitalization has been very difficult due to basically her respiratory failure, pneumonia, kidney injury, and multiple comorbidities. It looks like on 09/18/2018 we started this patient on dialysis due to her nonoliguric acute kidney injury. A catheter was placed and with it multiple rounds of dialysis. On 09/19/2018, Gastroenterology Department was consulted due to anemia and black stools with concern for GI bleed. But, since this patient has a medical history of atrial fibrillation, she was on Eliquis, when they evaluated this patient she was on pressors as well as proton pump inhibitor and a stress dose of steroids. We held the steroids at that time. We followed the hemoglobin and hematocrit and transfused this patient as well. We kept this patient n.p.o. On 09/25/2018 an EGD was performed that showed hemorrhagic gastritis in the body and antrum, likely because of stress gastritis, normal fundus, cardia, and incisura, evidence of NG tube which was removed during the procedure, normal duodenal bulb and secondary portion, a few areas of oozing were noted in the stomach secondary to hemorrhagic gastritis. So, we continued with Protonix twice a day and also we started this patient on Carafate. NG tube was reinserted. She was getting nutrition through the NG tube but she started having problems of retention. So, we have been trying on and off to put her back on her NG tube nutrition but it was stopped. Hematology/Oncology Department was consulted on 09/23/2018 due to thrombocytopenia and low fibrinogen, concerning for possible DIC. She received one pack of cryoprecipitate and we also did multiple transfusions, including seven PRBCs, eight platelets, and two cryoprecipitate. This patient has been remarkably sick during all the course of this hospitalization. We were concerned about a large hematoma on her left upper extremity and we did a venous Doppler ultrasound to rule out DVT but there was no evidence of DVT or superficial venous thrombosis in the left upper extremity veins, but a hematoma was noted. The patient has been getting weaker progressively, to the point that her cough was extremely weak and she was not able to move too much. She was having periods where she was more alert and she was able to follow commands a little bit and sometimes she was not able to do it. I had a conversation with the daughter around 10/07/2018 and I explained to them the whole situation. I explained to them that this patient was getting weaker and she was showing signs of deterioration. We were suctioning this patient multiple times a day to try to clear her mouth and upper respiratory tract. Yesterday, this patient started to decline, and she was having more problems breathing and keeping her secretions. Initially, she was placed DO NOT RESUSCITATE level 2 and we were allowed to put this patient on mechanical ventilation but after talking with the daughter yesterday and telling her about the whole situation, she decided to change the DO NOT RESUSCITATE status to DO NOT RESUSCITATE level 1. Today, this patient was requiring vasopressors. Initially, she was using just one vasopressor in the morning but then in the afternoon she was already on three and almost we used the fourth one. Also, she was on the BiPAP machine and even though she was getting high flow oxygen, the oxygen saturation was low. I communicated this with the daughter by phone and also the nurse taking care of her today, talked to her multiple times a day, at least three times. She was aware of everything. At 1502 this patient on 10/13/2018. Family members were notified and I met with them at the bedside. This patient demised at 1502 on 10/13/2018. cc: Vinod Flor MD
== END 2018-10-13 15:02 | disposition expired | DRG 870 ==
LOC: ED 15:11 → ICU 20:21 → SUATTDRO 20:21
PROVIDERS: ATTEND Internal Medicine
CPT/HCPCS: 31500; 36430; 36569; 71010; 71020; 71045; 71046; 71250; 74000; 74018; 74176; 76770; 80048; 80053; 80069; 80074; 80076; 80101; 80301; 80307; 80324; 80329; 80345; 80346; 80353; 80358; 80361; 80365; 81001; 82003; 82009; 82270; 82465; 82550; 82570; 82784; 82805; 82948; 83605; 83615; 83690; 83735; 83880; 83992; 84100; 84134; 84145; 84300; 84443; 84478; 84484; 84540; 85014; 85018; 85025; 85027; 85045; 85384; 85610; 85651; 85730; 86022; 86038; 86039; 86140; 86200; 86850; 86900; 86901; 86920; 87040; 87070; 87077; 87088; 87186; 87205; 87324; 87449; 87899; 89220; 93005; 93306; 93308; 93971; 94002; 94003; 94150; 94640; 94660; 94761; 94762; 94799; 96365; 96375; 99285; A9270; C9113; G0431; G0434; G0479; G0480; G6039; J0131; J0171; J0456; J0692; J0696; J1170; J1561; J1940; J1956; J2060; J2250; J2270; J2370; J2405; J2920; J2930; J3420; J3475; J3480; J7030; J7040; J7050; P9012; P9016; P9035; P9047; S0030; S0073; S0164; XXXXX